=== PATIENT | female | born 1955 | race Caucasian/White ===

== ENCOUNTER → 2016-10-25 | Outpatient (CLI) | payer OTHER ==
[~2016-10-25] MED LIST: ACET-1256 PO; ALBU1AER9 INH; AMLO-110 PO; ASPEC81 PO; ATOR-26 PO; BISA-16 PO; CALC667C; CYCL5TAB PO; DIPH25CA65 PO; HYDR-4715 PO; LEVO50TA6 PO; LVMI SQ; METO50TA16 PO; NLV/20 PO; NVLGI SC; PRLSR20 PO
--- NOTE | 2016-10-25 16:46 | MAMMOGRAPHY REPORT ---
UNILATERAL RIGHT DIGITAL SCREENING MAMMOGRAM TOMOSYNTHESIS WITH CAD: 10/25/2016 CLINICAL HISTORY: Asymptomatic. Personal history of breast cancer. TECHNIQUE: Right breast tomosynthesis in addition to standard 2D mammography was performed. Current study was also evaluated with a Computer Aided Detection (CAD) system. COMPARISON: Comparison is made to exams dated: 09/24/2015 mammogram, 01/15/2014 mammogram, 08/30/2012 m ammogram, 08/29/2011 mammogram, 08/27/2010 mammogram, and 08/05/2009 mammogram - [facility]. BREAST COMPOSITION: The tissue of the right breast is almost entirely fatty. FINDINGS: There is mild vascular calcification and scattered benign round calcifications in the righ t breast. No suspicious mass, architectural distortion or cluster of microcalcifications is seen. IMPRESSION: ACR BI-RADS CATEGORY 1: NEGATIVE There is no mammographic evidence of malignancy. A 1 year screening mammogram is recommended. The p atient will receive written notification of the results. Approximately 10% of breast cancers are not detected with mammography. A negative mammographic repor t should not delay biopsy if a clinically suggestive mass is present. Livia Hart M.D. ay/:10/25/2016 15:38:33 Bell Clerk: Lolis PAREDES(R)(M), [facility] letter sent: Normal 1/2 BI-RADS Code: ACR BI-RADS Category 1: Negative
== END | disposition home or self-care (01) ==
LOC: C.MAMM 12:26
PROVIDERS: ATTEND Internal Medicine Hematology
DX: Z12.31 Encounter for screening mammogram for malignant neoplasm of breast (principal); Z90.12 Acquired absence of left breast and nipple

== ENCOUNTER → 2017-04-06 | Day surgery (SDC) | payer OTHER ==
[~2017-04-06] MED LIST changes: +CLINDAMYCIN 600 MG/54 ML D5W IV SCH; +D5W AND 1/4NSS 1000 ML IV SCH
--- NOTE | 2017-04-06 10:48 | History and Physical ---
History & Physical Date of Service Apr 06, 2017. History & Physical CC: Malfunctioning av fistula HPI: Mrs. Amy Valdes, is a 60-year-old female with a history of severe comorbidities and CKD stage V, that is now with need for dialysis. She underwent left arm brachiocephalic fistula approximately 3 years ago at [facility]. She had to undergo several re-interventions for this fistula, according to her. The fistula was never used until recently on April 27, now that it is felt that she will be dialysis dependent. They attempted accessing, but could not get an adequate run. She states that they were having problems with clotting of the lines. She underwent transpostion of her fistla. She now is having problems with her dialysis runs. She is admitted for a fistulogram with possible intervetnion. She denies any changes in mental status. She denies any nausea, vomiting, fevers, or chills. She denies any changes in her bowel habits. She does still make a minimal amount of urine daily. She does have some numbness and tingling in her fingertips occasionally. She does, however, have cramping, claudication-type pain in her hand 1-2 times a week when she uses the left arm. She does not complain of any rest pain in the left hand. Review of systems is pertinent as described above, otherwise negative on 11- point review of systems. Past Medical History: 1. CKD stage V. 2. Diabetes. 3. Hypertension. 4. Hyperlipidemia. 5. COPD. 6. CAD. 7. Asthma. 8. Obesity. 9. Benign neoplasm of the colon. 10. Anemia of chronic renal failure. 11. Benign neoplasm parathyroid. 12. Breast cancer -- S[facility]ITA. Past Surgical History: 1. Left arm brachiocephalic fistula with multiple revisions. 2. Biopsy of neck and chest. 3. Colonoscopy with biopsy of the rectum. 4. Parathyroidectomy. 5. Mastectomy. 6. Cataract repair. Family History: Noncontributory. Social History: Previous smoker, 1-1/2 packs per day, but quit several years ago. Denies alcohol or illicit drugs. ALLERGIES: PENICILLIN, ROHAN INHIBITORS, CODEINE. Current Home Medications: 1. Albuterol. 2. Amlodipine 5 mg p.o. daily. 3. Ascorbic acid 500 mg p.o. daily. 4. Aspirin 81 mg p.o. daily. 5. Atorvastatin mg p.o. daily. 6. Cyclobenzaprine 5 mg p.o. b.i.d. p.r.n. pain. 7. Hydralazine 50 mg p.o. b.i.d. 8. Insulin Glargine. 9. Insulin lispro. 10. Levothyroxine 50 mcg p.o. daily. 11. Metoprolol 50 mg p.o. b.i.d. 12. Omeprazole 20 mg p.o. daily. 13. Tamoxifen 20 mg oral tablet. 14. Tramadol 25 mg p.o. q.4h. p.r.n. pain. Physical Examination: Vitals: Pulse 78, blood pressure 113/82, respiratory rate 18, SpO2 95% on room air, weight 125.3 kilograms. General: No acute distress, alert and oriented x3. HEENT: Head is normocephalic, atraumatic. Pupils are equally round and reactive to light. Extraocular muscles were intact. Neck: Neck is supple without JVD at this time. Cardiac: Heart is regular rate and rhythm. No murmurs, gallops, or rubs. Abdomen: Soft, nontender, nondistended, positive bowel sounds. Extremities: Left arm with edema and ecchymoses along entire forearm. She has an easily palpable thrill from the antecubital fossa extending distally down the cephalic vein distribution into the hand. She also has a palpable thrill in the forearm along the basilic vein distribution extending proximally up toward the axilla. She has several well-healed incisions in the arm from her previous brachiocephalic fistula. There is no thrill and no pulsatility in the arm cephalic vein outflow tract. The fingers on the left hand were cool to the touch. There is some purple and hyperemic discoloration. She does have capillary refill. Sensation was intact in all digits. Strength was 5/5 on bacon slicer in the left hand. She has lately palpable radial pulse. Neuro: Cranial nerves 2-12 are grossly intact. Extremities: Strength and sensation is intact in all 4 extremities and symmetric. Assessment and Plan: Malfunctioning av fistula Plan: Patient is admitted for a fistulogram with possible intervention of her left cephalic vein fistula. I have discussed the risks options and benefits of the procedure with the patient. The patient understands the risks options and benefits and agrees to the procedure.
== END | disposition home or self-care (01) ==
LOC: C.ACU 10:15
PROVIDERS: ATTEND Surgery Vascular Surgery
DX: T82.590A Other mechanical complication of surgically created arteriovenous fistula, initial encounter (principal); Z53.8 Procedure and treatment not carried out for other reasons; E11.22 Type 2 diabetes mellitus with diabetic chronic kidney disease; I12.0 Hypertensive chronic kidney disease with stage 5 chronic kidney disease or end stage renal disease; N18.6 End stage renal disease; D63.1 Anemia in chronic kidney disease; Z99.2 Dependence on renal dialysis; I25.10 Atherosclerotic heart disease of native coronary artery without angina pectoris; E78.5 Hyperlipidemia, unspecified; J44.9 Chronic obstructive pulmonary disease, unspecified; E66.9 Obesity, unspecified; Z87.891 Personal history of nicotine dependence; Z79.4 Long term (current) use of insulin; Z79.82 Long term (current) use of aspirin; Z79.899 Other long term (current) drug therapy; X58.XXXA Exposure to other specified factors, initial encounter

== ENCOUNTER → 2017-04-13 | Day surgery (SDC) | payer OTHER ==
[~2017-04-13] VITALS: Ht 160 cm; Wt 120.0 kg
[~2017-04-13] MED LIST changes: +FENTANYL CITRATE INJ 50 MCG/1 ML 2 ML VIAL IV ONE; +FENTANYL CITRATE INJ 50 MCG/1 ML 2 ML VIAL ONE; +LIDOCAINE HCL 1% 20 ML VIAL INJ ONE; +MIDAZOLAM HCL 1 MG/ML 2ML VIAL IV ONE; +MIDAZOLAM HCL 1 MG/ML 2ML VIAL ONE; +ONDANSETRON INJ 2 MG/ML 2 ML VIAL IV ONE; +ONDANSETRON INJ 2 MG/ML 2 ML VIAL ONE; +OPTIRAY 300 IV ONE
--- NOTE | 2017-04-13 08:47 | History and Physical ---
History & Physical Date of Service Apr 13, 2017. History & Physical CC: Malfunctioning av fistula HPI: Mrs. Amy Valdes, is a 60-year-old female with a history of severe comorbidities and CKD stage V, that is now with need for dialysis. She underwent left arm brachiocephalic fistula approximately 3 years ago at [facility]. She had to undergo several re-interventions for this fistula, according to her. The fistula was never used until recently on April 27, now that it is felt that she will be dialysis dependent. They attempted accessing, but could not get an adequate run. She states that they were having problems with clotting of the lines. She underwent transpostion of her fistla. She now is having problems with her dialysis runs. She is admitted for a fistulogram with possible intervetnion. She denies any changes in mental status. She denies any nausea, vomiting, fevers, or chills. She denies any changes in her bowel habits. She does still make a minimal amount of urine daily. She does have some numbness and tingling in her fingertips occasionally. She does, however, have cramping, claudication-type pain in her hand 1-2 times a week when she uses the left arm. She does not complain of any rest pain in the left hand. Review of systems is pertinent as described above, otherwise negative on 11- point review of systems. Past Medical History: 1. CKD stage V. 2. Diabetes. 3. Hypertension. 4. Hyperlipidemia. 5. COPD. 6. CAD. 7. Asthma. 8. Obesity. 9. Benign neoplasm of the colon. 10. Anemia of chronic renal failure. 11. Benign neoplasm parathyroid. 12. Breast cancer -- [facility]. Past Surgical History: 1. Left arm brachiocephalic fistula with multiple revisions. 2. Biopsy of neck and chest. 3. Colonoscopy with biopsy of the rectum. 4. Parathyroidectomy. 5. Mastectomy. 6. Cataract repair. Family History: Noncontributory. Social History: Previous smoker, 1-1/2 packs per day, but quit several years ago. Denies alcohol or illicit drugs. ALLERGIES: PENICILLIN, ROHAN INHIBITORS, CODEINE. Current Home Medications: 1. Albuterol. 2. Amlodipine 5 mg p.o. daily. 3. Ascorbic acid 500 mg p.o. daily. 4. Aspirin 81 mg p.o. daily. 5. Atorvastatin mg p.o. daily. 6. Cyclobenzaprine 5 mg p.o. b.i.d. p.r.n. pain. 7. Hydralazine 50 mg p.o. b.i.d. 8. Insulin Glargine. 9. Insulin lispro. 10. Levothyroxine 50 mcg p.o. daily. 11. Metoprolol 50 mg p.o. b.i.d. 12. Omeprazole 20 mg p.o. daily. 13. Tamoxifen 20 mg oral tablet. 14. Tramadol 25 mg p.o. q.4h. p.r.n. pain. Physical Examination: Vitals: Pulse 78, blood pressure 113/82, respiratory rate 18, SpO2 95% on room air, weight 125.3 kilograms. General: No acute distress, alert and oriented x3. HEENT: Head is normocephalic, atraumatic. Pupils are equally round and reactive to light. Extraocular muscles were intact. Neck: Neck is supple without JVD at this time. Cardiac: Heart is regular rate and rhythm. No murmurs, gallops, or rubs. Abdomen: Soft, nontender, nondistended, positive bowel sounds. Extremities: Left arm with edema and ecchymoses along entire forearm. She has an easily palpable thrill from the antecubital fossa extending distally down the cephalic vein distribution into the hand. She also has a palpable thrill in the forearm along the basilic vein distribution extending proximally up toward the axilla. She has several well-healed incisions in the arm from her previous brachiocephalic fistula. There is no thrill and no pulsatility in the arm cephalic vein outflow tract. The fingers on the left hand were cool to the touch. There is some purple and hyperemic discoloration. She does have capillary refill. Sensation was intact in all digits. Strength was 5/5 on office services associate in the left hand. She has lately palpable radial pulse. Neuro: Cranial nerves 2-12 are grossly intact. Extremities: Strength and sensation is intact in all 4 extremities and symmetric. Assessment and Plan: Malfunctioning av fistula Plan: Patient is admitted for a fistulogram with possible intervention of her left cephalic vein fistula. I have discussed the risks options and benefits of the procedure with the patient. The patient understands the risks options and benefits and agrees to the procedure.
[2017-04-13 11:30] VITALS: BP 152/72; PULSE 77; TEMP 36.9; O2SAT 96; Ht 160 cm; Wt 120.0 kg
[2017-04-13 12:39] VITALS: BP 152/72; PULSE 77; TEMP 36.9; O2SAT 96
--- NOTE | 2017-04-13 12:43 | History & Physical Bridge Note ---
H&P Re-Evaluation Bridge Note: I have examined the patient, reviewed the History & Physical and in the interval since the performance of the History & Physical I have noted the following changes of clinical significance: No changes noted
--- NOTE | 2017-04-13 12:43 | Procedure Note ---
Pre-Mod Sedation Assessment General Date of Moderate Sedation: Apr 13, 2017. Vital Signs: Vital Signs Past 12 Hours Date Time Temp Pulse Resp B/P (MAP) Pulse Ox O2 Delivery O2 Flow Rate FiO2 04/13/17 12:39 36.9 77 20 152/72 96 Room Air 04/13/17 11:30 36.9 77 20 152/72 (98) 96 Room Air Pre-Sedation Airway Assessment Oral Cavity: WNL Short Thick Neck: Yes Hx of Sleep Apnea: No Smoking Status: Former Smoker Mallampati Classification: Class I ASA Classification: Class III Notes The planned sedation has been discussed with the patient and consent obtained. I have identified the patient, determined the appropriateness of sedation and have assessed the patient immediately prior to the procedure. All medicine(s) and interventions are by my order.
--- NOTE | 2017-04-13 14:12 | Procedure Note ---
Post-Moderate Sedation Plan General Date of Moderate Sedation Apr 13, 2017. Vital Signs: Vital Signs Past 12 Hours Date Time Temp Pulse Resp B/P (MAP) Pulse Ox O2 Delivery O2 Flow Rate FiO2 04/13/17 12:39 36.9 77 20 152/72 96 Room Air 04/13/17 11:30 36.9 77 20 152/72 (98) 96 Room Air Review - Discharge Plan Post Moderate Sedation Plan: On clinical assessment, the patient appears to have tolerated the conscious sedation without complications. Patient is recovering as anticipated. Patient will continue to be monitored by nursing and may be discharged when conscious sedation discharge criteria are met.
--- NOTE | 2017-04-13 14:12 | [facility] Post Operative Brief Note ---
Immediate Operative Summary Operative Date Apr 13, 2017. Pre-Operative Diagnosis malfunctioning fistula Post-Operative Diagnosis same Procedure(s) Performed Fistulogram, Percutaneous Transluminal Angioplasty Venous, Moderate Concious Sedation [address] Sparks Blind Stitch Machine Operator Surgeon(s) Smita Clark Fellow Estimated Blood Loss 10 ml Findings good thrill Specimens none Anesthesia Local with sedation Complication(s) None Disposition
--- NOTE | 2017-04-13 14:14 | Discharge Instructions ---
Discharge Instructions Date of Service Apr 13, 2017. Visit Reason for Visit: End Stage Renal Disease Discharge Discharge Diagnosis / Problem: Malfunctioning left arm fisutla Discharge Goals Goal(s): Therapeutic intervention Activity Recommendations Activity Limitations: per Instructions/Follow-up section Anesthesia . Post Anesthesia Instructions: If you have had General Anesthesia or IV Sedation: * Do not drive today. * Resume driving when surgeon permits. * Do not make important decisions or sign legal documents today. * Call surgeon for: 1. Temperature elevations greater than 101 degrees F. 2. Uncontrollable pain. 3. Excessive bleeding. 4. Persistent nausea and vomiting. 5. Medication intolerance (nausea, vomiting or rash). * For nausea and vomiting use only clear liquids such as: tea, soda, bouillon until nausea subsides, then gradually increase diet as tolerated. * If you have any concerns or questions, call your surgeon's office. If physician is unavailable and it is an emergency, call 911 or go to the nearest emergency room. . Instructions / Follow-Up Instructions / Follow-Up Call [phone] to schedule a follow up appointment if one not already scheduled. SPECIAL CARE INSTRUCTIONS: Medications: * Continue to take your medications as directed. If you have been given a prescription for Plavix, please fill it immediately and take as directed. Incision Care: * Your puncture site may have some bruising and minor swelling for about one week. * You will have a small dressing covering your puncture site. You may remove the dressing after 24 hours and shower. You may let the warm soapy water run over it, but be sure to dry the puncture site well and keep it dry. * DO NOT IMMERSE THE INCISION IN A TUB/POOL/etc. UNTIL HEALED. * Puncture sites should be kept covered with a band-aid until it begins to heal. Restrictions: * Depending on whether you leg or arm was punctured to access the arteries, you will be required to lay flat, hold your arm still, or both, for about 4 hours after the procedure to prevent bleeding. * Limit your activity for the first 48 hours. You may walk and go up and down steps. Avoid excessive bending or movement at the puncture site. Possible Complications: * Excessive Swelling - after blood flow is improved you may notice increased swelling in the lower legs. This is a normal response. This usually depends on the amount of blockages in the leg, how long they have been there prior to your procedure and how much blood flow was restored. Elevating your legs will help to improve this. Please notify our office ([phone] ) if the swelling does not go away after lying in bed overnight. * Infection/Drainage/Bleeding - Drainage or bleeding from the puncture site should be minimal. If you have excessive bleeding or drainage, call our office ([phone]) right away. * Pain - You may experience some mild pain or soreness at your puncture site. If your pain does not improve, please contact our office ([phone]). Call your doctor and seek emergent treatment if you develop: * Temperature above 101 degrees * Any fever or chills * Any redness or purulent drainage from the puncture site * Any new dusky/blue colored toes or feet with coolness or sharp or aching pain. SKIN IRRITATION: * You may experience some redness and/or swelling in the area where radiation was administered. If any skin irritation occurs, please contact your family physician. FOLLOW UP VISIT: Keep any scheduled doctor appointments. Diet Recommendations Recommended Home Diet: resume previous diet Procedures Procedures Performed: Fistulogram, Percutaneous Transluminal Angioplasty Venous, Moderate Concious Sedation 1319 to 1409 Pending Studies Studies pending at discharge: no Medical Emergencies . Who to Call and When: Medical Emergencies: If at any time you feel your situation is an emergency, please call 911 immediately. . Non-Emergent Contact Non-Emergency issues call your: Surgeon . . "Provider Documentation" section prepared by David Sparks. .
[2017-04-13 14:20] VITALS: BP 174/79; PULSE 74; TEMP 36.6; O2SAT 97
--- NOTE | 2017-04-13 15:04 | DIAGNOSTIC IMAGING REPORT ---
DATE OF PROCEDURE: 04/13/2017 PREOPERATIVE DIAGNOSIS: Malfunctioning left forearm loop arteriovenous fistula. POSTOPERATIVE DIAGNOSIS: Same. PROCEDURES: 1. Left forearm loop fistulogram. 2. INTERNAL CONSULTANT of venous outflow with 6 x 80 mm balloon. 3. INTERNAL CONSULTANT of loop fistula with 10 x 40 mm balloon. 4. INTERNAL CONSULTANT of fistula with 12 x 40 mm balloon. 5. Conscious sedation for 50 minutes. SURGEON: Dr. David Sparks. REGISTERED SAFETY ENGINEER: Dr. Smita Kelley. ANESTHESIA: Local plus conscious sedation. ESTIMATED BLOOD LOSS: 10 mL. IV FLUIDS: 50. URINE OUTPUT: Not recorded. FLUOROSCOPY TIME: 6.8 minutes. Milligrays 28. Contrast 50 mL. COMPLICATIONS: None apparent. CONDITION: Stable to PACU. INDICATIONS: Amy Valdes is a 62-year-old female with end-stage renal disease on hemodialysis who has been having issues with prolonged bleeding after needles have been removed from her left forearm loop AV fistula. She was advised of the risks and benefits of undergoing a fistulogram and agreed to undergo this procedure. PROCEDURE: The patient was brought into the operative suite. She was prepped and draped in the usual fashion. A timeout occurred. Her forearm AV fistula was accessed percutaneously with a micropuncture needle and a fistulogram was performed through the micropuncture catheter. This showed an area of stenosis proximally as well as proximal to her previously placed outflow stent distal to the stent. The basilic and cephalic veins in the upper arm and the subclavian and SVC were patent without signs of stenosis. At this time, the sheath was exchanged for a 6-Maldivian sheath. A Glidewire was placed and tried to cannulate the stent. A glide catheter was then placed over Glidewire and together the wire was passed into the distal outflow. A 6 x 80 mm balloon was then used over the stenosis distal to the stent. This was inflated for approximately a minute and then deflated and was then used at the stenosis at the proximal end of the stent. This balloon was removed and a fistulogram was performed showing resolution of stenosis. A 10 x 40 balloon was then used on the stenosis just distal to the 6-Maldivian sheath. This showed improvement but still residual stenosis. The balloon was removed and the sheath was upsized to a 7-Maldivian sheath and a 12 x 40 mm [place] balloon was used and was inflated. This resolved the stenosis. There pulsatility in the fistula had decreased and there was a good thrill. Sheaths were removed and pressure was held. Hemostasis was obtained. The patient was then transferred to the PACU in stable condition. Dr. David Sparks was present and scrubbed for the entirety of the case. ANDRES
[2017-04-13 15:10] VITALS: BP 145/69; PULSE 73; TEMP 36.6; O2SAT 99
== END | disposition home or self-care (01) ==
LOC: C.ACU 11:21
PROVIDERS: ATTEND Surgery Vascular Surgery
DX: T82.898A Other specified complication of vascular prosthetic devices, implants and grafts, initial encounter (principal); Y83.2 Surgical operation with anastomosis, bypass or graft as the cause of abnormal reaction of the patient, or of later complication, without mention of misadventure at the time of the procedure; N18.5 Chronic kidney disease, stage 5; E11.22 Type 2 diabetes mellitus with diabetic chronic kidney disease; I12.0 Hypertensive chronic kidney disease with stage 5 chronic kidney disease or end stage renal disease; E78.5 Hyperlipidemia, unspecified; J44.9 Chronic obstructive pulmonary disease, unspecified; I25.10 Atherosclerotic heart disease of native coronary artery without angina pectoris; E66.9 Obesity, unspecified; D63.1 Anemia in chronic kidney disease; F17.200 Nicotine dependence, unspecified, uncomplicated; Z79.82 Long term (current) use of aspirin; Z79.4 Long term (current) use of insulin; Z79.899 Other long term (current) drug therapy

== ENCOUNTER → 2017-08-08 | Day surgery (SDC) | payer OTHER ==
[2017-08-01 09:05] VITALS: BMI 48.0
[~2017-08-08] VITALS: Ht 160 cm; Wt 125.0 kg
[~2017-08-08] MED LIST changes: +ALBU18002 INH; -ALBU1AER9 INH; +ATROPINE SULFATE 0.1 MG/ML 5ML SYR IV PRN; -CALC667C; +EpHEDrine SULFATE INJ 50 MG/ML AMP IV PRN; -FENTANYL CITRATE INJ 50 MCG/1 ML 2 ML VIAL IV ONE; +FENTANYL CITRATE INJ 50 MCG/1 ML 2 ML VIAL IV PRN; +FLUMAZENIL 0.1 MG/1 ML 10 ML VIAL IV PRN; -HYDR-4715 PO; +HYDR-4716 PO; +LABETALOL HCL IV 5 MG/ML 20ML IV PRN; +MEPERIDINE HCL 25 MG/ML CARP IV PRN; -MIDAZOLAM HCL 1 MG/ML 2ML VIAL IV ONE; +NALOXONE HCL 0.4 MG/1 ML VIAL/CARP IV PRN; -NVLGI SC; +NVLGI/PEN SQ; +NVLGIPEN SQ; -ONDANSETRON INJ 2 MG/ML 2 ML VIAL IV ONE; +ONDANSETRON INJ 2 MG/ML 2 ML VIAL IV PRN; -ONDANSETRON INJ 2 MG/ML 2 ML VIAL ONE; +PHENYLEPHRINE 100MCG/ML 5ML SYR IV PRN; +SEVE1TAB PO; +SODIUM CHLORIDE 0.9% 1000ML 1,000 ML IV SCH
[2017-08-08 10:13] VITALS: BP 152/77; PULSE 87; TEMP 36.5; O2SAT 96; Ht 160 cm; Wt 125.0 kg
--- NOTE | 2017-08-08 10:26 | History and Physical ---
History & Physical Date of Service Aug 08, 2017. History & Physical History & Physical CC: Malfunctioning av fistula HPI: Mrs. Amy Valdes, is a 60-year-old female with a history of severe comorbidities and CKD stage V, that is now with need for dialysis. She underwent left arm brachiocephalic fistula approximately [address] [facility]. She had to undergo several re-interventions for this fistula, according to her. The fistula was never used until recently on April 27, now that it is felt that she will be dialysis dependent. They attempted accessing, but could not get an adequate run. She states that they were having problems with clotting of the lines. She underwent transpostion of her fistla. She now is having problems with her dialysis runs. She is admitted for a fistulogram with possible intervetnion. She denies any changes in mental status. She denies any nausea, vomiting, fevers, or chills. She denies any changes in her bowel habits. She does still make a minimal amount of urine daily. She does have some numbness and tingling in her fingertips occasionally. She does, however, have cramping, claudication-type pain in her hand 1-2 times a week when she uses the left arm. She does not complain of any rest pain in the left hand. Review of systems is pertinent as described above, otherwise negative on 11- point review of systems. Past Medical History: 1. CKD stage V. 2. Diabetes. 3. Hypertension. 4. Hyperlipidemia. 5. COPD. 6. CAD. 7. Asthma. 8. Obesity. 9. Benign neoplasm of the colon. 10. Anemia of chronic renal failure. 11. Benign neoplasm parathyroid. 12. Breast cancer -- [facility]. Past Surgical History: 1. Left arm brachiocephalic fistula with multiple revisions. 2. Biopsy of neck and chest. 3. Colonoscopy with biopsy of the rectum. 4. Parathyroidectomy. 5. Mastectomy. 6. Cataract repair. Family History: Noncontributory. Social History: Previous smoker, 1-1/2 packs per day, but quit several years ago. Denies alcohol or illicit drugs. ALLERGIES: PENICILLIN, ROHAN INHIBITORS, CODEINE. Current Home Medications: 1. Albuterol. 2. Amlodipine 5 mg p.o. daily. 3. Ascorbic acid 500 mg p.o. daily. 4. Aspirin 81 mg p.o. daily. 5. Atorvastatin mg p.o. daily. 6. Cyclobenzaprine 5 mg p.o. b.i.d. p.r.n. pain. 7. Hydralazine 50 mg p.o. b.i.d. 8. Insulin Glargine. 9. Insulin lispro. 10. Levothyroxine 50 mcg p.o. daily. 11. Metoprolol 50 mg p.o. b.i.d. 12. Omeprazole 20 mg p.o. daily. 13. Tamoxifen 20 mg oral tablet. 14. Tramadol 25 mg p.o. q.4h. p.r.n. pain. Physical Examination: Vitals: Pulse 78, blood pressure 113/82, respiratory rate 18, SpO2 95% on room air, weight 125.3 kilograms. General: No acute distress, alert and oriented x3. HEENT: Head is normocephalic, atraumatic. Pupils are equally round and reactive to light. Extraocular muscles were intact. Neck: Neck is supple without JVD at this time. Cardiac: Heart is regular rate and rhythm. No murmurs, gallops, or rubs. Abdomen: Soft, nontender, nondistended, positive bowel sounds. Extremities: Left arm with edema and ecchymoses along entire forearm. She has an easily palpable thrill from the antecubital fossa extending distally down the cephalic vein distribution into the hand. She also has a palpable thrill in the forearm along the basilic vein distribution extending proximally up toward the axilla. She has several well-healed incisions in the arm from her previous brachiocephalic fistula. There is no thrill and no pulsatility in the arm cephalic vein outflow tract. The fingers on the left hand were cool to the touch. There is some purple and hyperemic discoloration. She does have capillary refill. Sensation was intact in all digits. Strength was 5/5 on hogshead liner in the left hand. She has lately palpable radial pulse. Neuro: Cranial nerves 2-12 are grossly intact. Extremities: Strength and sensation is intact in all 4 extremities and symmetric. Assessment and Plan: Malfunctioning av fistula Plan: Patient is admitted for a fistulogram with possible intervention of her left cephalic vein fistula. I have discussed the risks options and benefits of the procedure with the patient. The patient understands the risks options and benefits and agrees to the procedure.
--- NOTE | 2017-08-08 13:37 | [facility] Post Operative Brief Note ---
Immediate Operative Summary Operative Date Aug 08, 2017. Pre-Operative Diagnosis malfuctioning fistula Post-Operative Diagnosis venous stenosis Procedure(s) Performed Fistulogram Left Arm, Percutaneous Transluminal Angioplasty Peripheral Venous Surgeon Dr. Sparks Business Law Professor Surgeon(s) none Estimated Blood Loss 10 ml Findings Consistent with Post-Op Diagnosis Specimens none Drains None Anesthesia Type MAC Complication(s) none Disposition Disposition:
--- NOTE | 2017-08-08 13:38 | Discharge Instructions ---
Discharge Instructions Date of Service Aug 08, 2017. Visit Reason for Visit: End Stage Renal Disease -On Hemodialysis Discharge Discharge Diagnosis / Problem: Malfunctioning fistula Discharge Goals Goal(s): Therapeutic intervention Activity Recommendations Activity Limitations: per Instructions/Follow-up section Anesthesia . Post Anesthesia Instructions: If you have had General Anesthesia or IV Sedation: * Do not drive today. * Resume driving when surgeon permits. * Do not make important decisions or sign legal documents today. * Call surgeon for: 1. Temperature elevations greater than 101 degrees F. 2. Uncontrollable pain. 3. Excessive bleeding. 4. Persistent nausea and vomiting. 5. Medication intolerance (nausea, vomiting or rash). * For nausea and vomiting use only clear liquids such as: tea, soda, bouillon until nausea subsides, then gradually increase diet as tolerated. * If you have any concerns or questions, call your surgeon's office. If physician is unavailable and it is an emergency, call 911 or go to the nearest emergency room. . Instructions / Follow-Up Instructions / Follow-Up Call [phone] with any questions or concerns. SPECIAL CARE INSTRUCTIONS: Medications: * Continue to take your medications as directed. If you have been given a prescription for Plavix, please fill it immediately and take as directed. Incision Care: * Your puncture site may have some bruising and minor swelling for about one week. * You will have a small dressing covering your puncture site. You may remove the dressing after 24 hours and shower. You may let the warm soapy water run over it, but be sure to dry the puncture site well and keep it dry. * DO NOT IMMERSE THE INCISION IN A TUB/POOL/etc. UNTIL HEALED. * Puncture sites should be kept covered with a band-aid until it begins to heal. Restrictions: * Depending on whether you leg or arm was punctured to access the arteries, you will be required to lay flat, hold your arm still, or both, for about 4 hours after the procedure to prevent bleeding. * Limit your activity for the first 48 hours. You may walk and go up and down steps. Avoid excessive bending or movement at the puncture site. Possible Complications: * Excessive Swelling - after blood flow is improved you may notice increased swelling in the lower legs. This is a normal response. This usually depends on the amount of blockages in the leg, how long they have been there prior to your procedure and how much blood flow was restored. Elevating your legs will help to improve this. Please notify our office ([phone] ) if the swelling does not go away after lying in bed overnight. * Infection/Drainage/Bleeding - Drainage or bleeding from the puncture site should be minimal. If you have excessive bleeding or drainage, call our office ([phone]) right away. * Pain - You may experience some mild pain or soreness at your puncture site. If your pain does not improve, please contact our office ([phone]). Call your doctor and seek emergent treatment if you develop: * Temperature above 101 degrees * Any fever or chills * Any redness or purulent drainage from the puncture site * Any new dusky/blue colored toes or feet with coolness or sharp or aching pain. SKIN IRRITATION: * You may experience some redness and/or swelling in the area where radiation was administered. If any skin irritation occurs, please contact your family physician. FOLLOW UP VISIT: Keep any scheduled doctor appointments. Diet Recommendations Recommended Home Diet: resume previous diet Procedures Procedures Performed: Fistulogram Left Arm, Percutaneous Transluminal Angioplasty Peripheral Venous Pending Studies Studies pending at discharge: no Medical Emergencies . Who to Call and When: Medical Emergencies: If at any time you feel your situation is an emergency, please call 911 immediately. . Non-Emergent Contact Non-Emergency issues call your: Surgeon . . "Provider Documentation" section prepared by David Sparks. .
[2017-08-08 13:41] VITALS: BP 138/84; PULSE 82; TEMP 36.3; O2SAT 96
--- NOTE | 2017-08-08 13:42 | [facility] Operative Report ---
Operative Report Operative Date Aug 08, 2017. Pre-Operative Diagnosis malfuctioning fistula Post-Operative Diagnosis venous stenosis Procedure(s) Performed Fistulogram Left Arm, Percutaneous Transluminal Angioplasty Peripheral Venous Surgeon Dr. Sparks Consulting Services Manager Surgeon(s) none Estimated Blood Loss 10 ml Findings venous stenosis, no residual Specimens none Anesthesia MAC Complication(s) None Disposition Indications This is a 62-year-old female left forearm AV fistula. She did have intervention in the past with stenting of the fistula. She now comes to the angiogram suite with increased venous pressures. A fistulogram was recommended with possible intervention. I have discussed the risks options and benefits of the procedure with the patient. The patient understands the risks options and benefits and agrees to the procedure. Description of Procedure The patient was taken to the angiogram suite and placed in the supine position. The left arm was then prepped and draped in a sterile manner. Local anesthetic was administered and a percutaneous puncture was then made of the proximal portion of the left arm AV fistula using micropuncture technique. Micropuncture wire and sheath were then inserted. A fistulogram was then performed. Fistulogram performed showed a patent fistula until the area just beyond the previously placed stent. Just beyond the stent there was approximately 80% narrowing of the vein. The rest the venous outflow up through the superior vena cava was normal. No evidence of stenosis was seen. We then exchanged the micropuncture sheath to a 5 Mohawk sheath. An 035 Glidewire was used to traverse the lesion. Once this was done a 7 x 8 balloon was inserted. The area was balloon numerous times until no residual stenosis was noted at the end of the ballooning. The wire balloon was then removed. The sheath was then pulled and pressure was applied. Adequate hemostasis was obtained. The patient left the angiogram suite in good condition and tolerated the procedure well. I attest to the content of the Intraoperative Record and any orders documented therein. Any exceptions are noted below.
--- NOTE | 2017-08-08 13:46 | Anesthesiology Progress Note ---
Anesthesia Post Op Note Date & Time Aug 08, 2017 at 13:46 Vital Signs Pain Intensity: 2 Vital Signs Past 12 Hours Date Time Temp Pulse Resp B/P (MAP) Pulse Ox O2 Delivery O2 Flow Rate FiO2 08/08/17 10:13 36.5 87 20 152/77 (102) 96 Room Air Notes Mental Status: alert / awake / arousable, participated in evaluation Pt Amnestic to Procedure: Yes Nausea / Vomiting: adequately controlled Pain: adequately controlled Airway Patency, RR, SpO2: stable & adequate BP & HR: stable & adequate Hydration State: stable & adequate Anesthetic Complications: no major complications apparent
[2017-08-08 13:55] VITALS: BP 156/82; PULSE 83; O2SAT 98
[2017-08-08 14:10] VITALS: BP 186/80; PULSE 81; TEMP 36.4; O2SAT 95
== END | disposition home or self-care (01) ==
LOC: C.ACU 09:27
PROVIDERS: ATTEND Surgery Vascular Surgery
DX: T82.898A Other specified complication of vascular prosthetic devices, implants and grafts, initial encounter (principal); Y83.2 Surgical operation with anastomosis, bypass or graft as the cause of abnormal reaction of the patient, or of later complication, without mention of misadventure at the time of the procedure; E11.22 Type 2 diabetes mellitus with diabetic chronic kidney disease; I12.0 Hypertensive chronic kidney disease with stage 5 chronic kidney disease or end stage renal disease; E78.5 Hyperlipidemia, unspecified; J44.9 Chronic obstructive pulmonary disease, unspecified; I25.10 Atherosclerotic heart disease of native coronary artery without angina pectoris; E66.9 Obesity, unspecified; D63.1 Anemia in chronic kidney disease; T82.590A Other mechanical complication of surgically created arteriovenous fistula, initial encounter; Z99.2 Dependence on renal dialysis; Z87.891 Personal history of nicotine dependence; Z79.4 Long term (current) use of insulin; Z79.82 Long term (current) use of aspirin; Z79.899 Other long term (current) drug therapy

== ENCOUNTER → 2017-10-31 | Outpatient (CLI) | payer OTHER ==
[~2017-10-31] MED LIST changes: -ASPEC81 PO; +ASPI-320 PO; -ATROPINE SULFATE 0.1 MG/ML 5ML SYR IV PRN; -CLINDAMYCIN 600 MG/54 ML D5W IV SCH; -D5W AND 1/4NSS 1000 ML IV SCH; -EpHEDrine SULFATE INJ 50 MG/ML AMP IV PRN; -FENTANYL CITRATE INJ 50 MCG/1 ML 2 ML VIAL IV PRN; -FENTANYL CITRATE INJ 50 MCG/1 ML 2 ML VIAL ONE; -FLUMAZENIL 0.1 MG/1 ML 10 ML VIAL IV PRN; -LABETALOL HCL IV 5 MG/ML 20ML IV PRN; -LIDOCAINE HCL 1% 20 ML VIAL INJ ONE; -MEPERIDINE HCL 25 MG/ML CARP IV PRN; -MIDAZOLAM HCL 1 MG/ML 2ML VIAL ONE; -NALOXONE HCL 0.4 MG/1 ML VIAL/CARP IV PRN; -ONDANSETRON INJ 2 MG/ML 2 ML VIAL IV PRN; -OPTIRAY 300 IV ONE; -PHENYLEPHRINE 100MCG/ML 5ML SYR IV PRN; -SODIUM CHLORIDE 0.9% 1000ML 1,000 ML IV SCH
--- NOTE | 2017-11-01 07:52 | MAMMOGRAPHY REPORT ---
UNILATERAL RIGHT DIGITAL SCREENING MAMMOGRAM TOMOSYNTHESIS WITH CAD: 10/31/2017 CLINICAL HISTORY: Routine screening. Patient has no complaints. Asymptomatic. Personal history of br east cancer. TECHNIQUE: Right breast tomosynthesis in addition to standard 2D mammography was performed. Current ariana carmona was also evaluated with a Computer Aided Detection (CAD) system. COMPARISON: Comparison is made to exams dated: 10/25/2016 mammogram, 09/24/2015 mammogram, 01/15/2014 ma mmogram, 09/05/2012 mammogram, 08/30/2012 mammogram, and 08/29/2011 mammogram - [facility]ter. BREAST COMPOSITION: The tissue of the right breast is almost entirely fatty. FINDINGS: There are mild to moderate vascular calcifications in the right breast. Scattered benign-a ppearing round, rim and rodlike calcifications. No new suspicious mass, architectural distortion or cluster of microcalcifications is seen. IMPRESSION: ACR BI-RADS CATEGORY 1: NEGATIVE There is no mammographic evidence of malignancy. A 1 year screening mammogram is recommended. The pa tient will receive written notification of the results. Approximately 10% of breast cancers are not detected with mammography. A negative mammographic report should not delay biopsy if a clinically suggestive mass is present. Livia Hart M.D. ay/:10/31/2017 09:26:30 Book Sorter: Leyla PAREDES(Navneet)([place]hemi)([place]), [facility] letter sent: Normal 1/2 BI-RADS Code: ACR BI-RADS Category 1: Negative
== END | disposition home or self-care (01) ==
LOC: C.MAMM 08:52
PROVIDERS: ATTEND Family Medicine
DX: Z12.31 Encounter for screening mammogram for malignant neoplasm of breast (principal)

== ENCOUNTER 2019-05-23 20:25 | Observation (INO) ==
[2019-05-23] MEDS ORDERED: ACETAMINOPHEN 1,000 MG/100 ML VIAL IV STA (21:04)
[2019-05-23] MEDS ORDERED: CALCIUM GLUCONATE 10% 1,000 MG in SODIUM CHLORIDE 0.9% 50 ML IV STA (21:12)
[2019-05-23 21:15] LABS: Basophils # (auto) 0.01 K/uL (0-0.2); Basophils % (auto) 0.3 %; Hematocrit (blood only) 34.5 % (37-47); Hemoglobin 11.2 g/dL (12.0-16.0); Immature Granulocytes # (auto) 0.02 K/uL (0.00-0.02); Immature Granulocytes % (auto) 0.6 %; Lymphocytes # (auto) 0.12 K/uL (1.2-3.4); Lymphocytes % (auto) 3.4 %; Mean Corpuscular Hemoglobin 29.6 pg (25-34); Mean Corpuscular Hgb Conc 32.5 g/dL (32-36); Mean Corpuscular Volume 91.3 fL (80-100); Mean Platelet Volume 10.1 fL (7.4-10.4); Monocytes # (auto) 0.15 K/uL (0.11-0.59); Monocytes % (auto) 4.2 %; Neutrophils # (auto) 3.23 K/uL (1.4-6.5); Neutrophils % (auto) 91.5 %; Platelet Count 128 K/uL (130-400); RDW Coefficient of Variation 14.8 % (11.5-14.5); RDW Standard Deviation 49.6 fL (36.4-46.3); Red Blood Count 3.78 M/uL (4.2-5.4); White Blood Count 3.53 K/uL (4.8-10.8)
[2019-05-23] MEDS ORDERED: CALCIUM GLUCONATE 10% 10 ML VIAL IV ONE (21:15)
[2019-05-23 21:23] LABS: iSTAT Creatinine 5.6 mg/dl (0.6-1.3); iSTAT Hemoglobin 12.2 g/dl (12.0-16.0); iSTAT Ionized Calcium 1.2 mmol/l (1.12-1.32); iSTAT Potassium 3.8 mEq/L (3.3-5.0)
[2019-05-23 21:26] LABS: INR 1.1 (0.9-1.1); Partial Thromboplastin Ratio 0.9; Partial Thromboplastin Time 24.8 Seconds (21.0-31.0); Prothrombin Time 10.9 Seconds (9.0-12.0)
[2019-05-23] MEDS ORDERED: VANCOMYCIN HCL 2,750 MG in SODIUM CHLORIDE 0.9% 500 ML IV ONE (21:36)
[2019-05-23] MEDS ORDERED: VANCOMYCIN CONSULT ACTIVE PRN (21:36)
[2019-05-23] MEDS ORDERED: CEFEPIME 1,000 MG in SYRINGE 0 ML IV STA (21:41)
[2019-05-23 21:49] LABS: Albumin Globulin Ratio 0.7 (0.9-2); Albumin Level 3.2 gm/dl (3.4-5.0); BUN Creatinine Ratio 9.4 (10-20); Bilirubin,Total 0.9 mg/dl (0.2-1); Calcium 9.6 mg/dl (8.5-10.1); Creatinine Clr Calc Pharmacy 13.7 ml/min; Est GFR (African American) 8.9; Est GFR (Non-African American) 7.7; Globulin 4.3 gm/dl (2.5-4.0); Potassium 3.7 mmol/L (3.5-5.1); Total Protein 7.5 gm/dl (6.4-8.2)
[2019-05-23 21:55] LABS: Influenza A virus by PCR Neg for Influ A (Neg); Influenza B virus by PCR Neg for Influ B (Neg)
[2019-05-23 21:59] LABS: Base Excess VBG -2.3 mEq/L; pH VBG 7.35 (7.36-7.41)
[2019-05-23 22:00] LABS: Beta-Hydroxybutyrate 8.81 mg/dl (0.2-2.81)
[2019-05-23 22:03] LABS: Appearance Urine Cloudy (Clear); Bacteria Urine Automated 1+ (Negative); Bilirubin Urine Negative (Negative); Blood Urine Trace (Negative); Color Urine Yellow; Glucose Urine UA 3+ (Negative); Ketones Urine Negative (Negative); Leukocyte Esterase Urine Negative (Negative); Nitrite Urine Negative (Negative); Protein Urine 2+ (Negative); Specific Gravity Urine 1.021 (1.000-1.030); Urobilinogen Urine Negative (Negative)
--- NOTE | 2019-05-23 22:04 | XRay Report ---
XR chest 1V portable CLINICAL HISTORY: Sepsis COMPARISON STUDY: 01/02/2014 FINDINGS: There is persistent left upper lobe volume loss with superior tenting of the left hilum. Th is is felt to be chronic. There is no lobar consolidation. There is mild interstitial thickening. Cli nical correlation in regards to mild pulmonary vascular congestion is recommended. An interstitial in flammatory processes could appear similar.[ IMPRESSION: 1. Stable chronic changes in the left hemithorax 2. No evidence of lobar consolidation 3. Interstitial thickening. This likely represents either mild pulmonary vascular congestion or inter stitial inflammatory process. Clinical and radiographic follow-up is recommended. Electronically signed by: Ronn Dudley M.D. 05/23/2019 10:03 PM
[2019-05-23] MEDS ORDERED: DEXTROSE 50% 50 ML SYRINGE IV PRN (22:14)
[2019-05-23] MEDS ORDERED: GLUCAGON FOR INJ 1 MG VIAL SQ PRN (22:14)
[2019-05-23] MEDS ORDERED: DKA GOAL RANGE 150-250 mg/dl ONE (22:14)
[2019-05-23] MEDS ORDERED: GLUCOSE 40% GEL 15 GM TUBE PO PRN (22:14)
[2019-05-23] MEDS ORDERED: CARBOHYDRATES FOR HYPOGLYCEMIA PO PRN (22:14)
[2019-05-23] MEDS ORDERED: ED DKA INSULIN DRIP ONE (22:14)
[2019-05-23] MEDS ORDERED: GLUCOSE 10 TABS/TUBE PO PRN (22:14)
[2019-05-23] MEDS ORDERED: INSULIN REGULAR 250 UNITS in SODIUM CHLORIDE 0.9% 247.5 ML IV SCH (22:15)
[2019-05-23 22:25] LABS: RBC Urine Automated 0-4 /hpf (0-4)
[2019-05-23] MEDS ORDERED: NovoLIN-R BOLUS FROM BAG IV ONE (22:45)
[2019-05-23] MEDS ORDERED: POTASSIUM CHLORIDE 20 MEQ TABCR PO STA (23:06)
[2019-05-23] MEDS ORDERED: FUROSEMIDE 100 MG in SYRINGE 0 ML IV ONE (23:15)
[2019-05-23 23:33] LABS: Magnesium 1.6 mg/dl (1.8-2.4); Thyroid Stimulating Hormone 1.91 uIu/ml (0.300-4.500)
[2019-05-23] MEDS ORDERED: METOPROLOL TARTRATE 50 MG TAB ONE (23:33)
--- NOTE | 2019-05-23 23:44 | History & Physical Report ---
Date of Service May 23, 2019 Assessment & Plan (1) Acute hypoxemic respiratory failure: Multifactorial : Bronchitis/atypical pneumonia, possible sepsis given elevated procalcitonin pulmonary congestion, ESRD on HD Troponin elevation secondary to sepsis, uncontrolled blood pressure, kidney dysfunction thrombocytopenia secondary to sepsis rule out HIT Hyperglycemic crisis secondary to sepsis DM 2, insulin requiring, suboptimal control as of recent hemoglobin A1c of 8.24 April 2019 hx nonocclusive CAD as per records hypertension, slightly elevated chronic anemia secondary to ESRD, hemoglobin at baseline breast cancer L status post surgery ongoing tamoxifen Rx history R great toe osteomyelitis status post antibiotic Rx past tobacco abuse Medical telemetry Supplemental O2 Lasix 1 dose Doxycycline, nebs for atypical pneumonia/bronchitis causing hypoxemia Trend troponin, TTE if with progression IV insulin overlapping with home basal insulin Nephrology consult RE dialysis management (ER provider already in touch with Dr. De Dios) HIT screen DVT prophylaxis. SCDs RE thrombocytopenia Full code Total critical care time was 45 minutes. History of Present Illness Chief Complaint: High sugars, weakness, cough Primary Care Provider: Jorge Franco DO History obtained from patient, family, and records. Medical history significant for nonocclusive CAD as per records, hypertension, DM 2, insulin requiring, ESRD on HD, asthma as per records, chronic anemia baseline hemoglobin of 11, breast cancer L status post surgery ongoing tamoxifen Rx, history R great toe osteomyelitis status post antibiotic Rx, past tobacco abuse. 1 week history of dry cough symptoms occasionally productive of clear sputum. No aspiration. Possible sick contacts with having a respiratory tract infection. Fair appetite. Patient outpatient fistulogram contemplated for malfunctioning AV fistula last 05/21/2019 deferred due to hyperglycemia, BSG 300s as per patient. Patient seen to the ER for evaluation. Subsequently discharged home. At home, persistent hyperglycemia noted, BSG readings persistently noted to be high as per patient. Patient claims to be compliant with home insulin Rx. Worsening shortness of breath, chills, cough cold symptoms. Patient denies chest pain. Right great toe wound healing as per patient. At the ER, BSG noted to be in the 700s. IV insulin started at the ER. Vancomycin and Cefepime given at the ER for sepsis. Patient somewhat lethargic at the ER. Medical History as above Hemodialysis Monday Surgical History : left mastectomy, vascular procedures, cholecystectomy, cataract surgery, hysterectomy, parathyroidectomy Family History : Heart disease, brain cancer, alcoholism, thyroid disease, diabetes Personal/Social history : Past tobacco abuse, no EtOH intake, disabled Allergies Allergy/AdvReac Type Severity Reaction Status Date / Time codeine Allergy Intermediate rash, Verified 05/23/19 22:23 Note: but was also taking penicillin. Penicillins Allergy Intermediate hives, Verified 05/23/19 22:23 family allergy to PCN oxycodone AdvReac Intermediate NAUSEA/VOMI Verified 05/23/19 22:23 TING ROHAN Inhibitors AdvReac Mild hyperkalemi Verified 05/23/19 22:23 a Home Medications Home Medications Medication Instructions Recorded Confirmed Type albuterol sulfate 2 puff INHALATION Q6H PRN 08/09/18 05/23/19 History amlodipine [Norvasc] 5 mg PO QAM 08/09/18 05/23/19 History aspirin [Aspir-81] 81 mg PO HS 08/09/18 05/23/19 History atorvastatin [Lipitor] 80 mg PO HS 08/09/18 05/23/19 History cinacalcet [Sensipar] 30 mg PO HS 08/09/18 05/23/19 History gabapentin 300 mg PO BID 08/09/18 05/23/19 History hydralazine 25 mg PO TID 08/09/18 05/23/19 History levothyroxine 50 mcg PO QAM 08/09/18 05/23/19 History metoprolol tartrate [Lopressor] 50 mg PO BID 08/09/18 05/23/19 History omeprazole 20 mg PO QAM 08/09/18 05/23/19 History sevelamer HCl [Renagel] 1,600 mg PO TID 08/09/18 05/23/19 History tamoxifen 20 mg PO QAM 08/09/18 05/23/19 History cholecalciferol (vitamin D3) 400 unit PO QAM 11/14/18 05/23/19 History [Vitamin D3] diphenhydramine-acetaminophen 2 tab PO HS PRN 11/14/18 05/23/19 History [Tylenol PM Extra Strength] escitalopram oxalate [Lexapro] 10 mg PO QAM 11/14/18 05/23/19 History insulin detemir U-100 [Levemir 25 unit SUBCUT BID 05/14/19 05/23/19 History U-100 Insulin] insulin lispro [Humalog U-100 20 unit SUBCUT TID 05/14/19 05/23/19 History Insulin] Past Med/Surg History Medical History Asthma (Acute) CAD (coronary artery disease) (Acute) CKD (chronic kidney disease) requiring chronic dialysis (Acute) 3x week--mon, wed, fri COPD (chronic obstructive pulmonary disease) (Acute) Callus (Acute) Diabetes mellitus with diabetic polyneuropathy (Acute) GERD (gastroesophageal reflux disease) (Acute) Hallux rigidus of right foot (Acute) Hallux rigidus, left foot (Acute) Hyperlipemia (Acute) Hypertension (Acute) 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 Sparks 08/21/18 History of umbilical hernia repair Nausea and vomiting after administration of anesthetic agent Family History Sister Family history of reaction to anesthesia wakes up with a headache Family history of diabetes mellitus Social History Preferred Language: Spanish Communication Ability: Effective Hearing Ability: Normal Documentation Analyst Required: No Beliefs That Will Affect Care: None marital status: Current Living Situation: Spouse current occupational status: disabled Other Information That Helps Us Care for You: No Feels Safe at Home: Yes Safety Concerns: Feels Safe At This Time Smoking Status: Former smoker Age Quit Using Tobacco: 33 ; Second Hand Exposure: Yes ; Hx Alcohol Use: No Hx Substance Use: No Other Diet Comment: RENAL DIET during the past year weight has: decreased > 10 lbs Review of Systems Review of Systems: As per HPI, all 10 systems reviewed, all other ROS negative Physical Exam Physical Exam: GENERAL: Comfortable, obese, episodic lethargy, no respiratory distress SKIN: Pallor, warm HEENT: Pale palpebral conjunctivae, no ptosis, dry buccal mucosa NECK : Supple, short neck, no tenderness CHEST : Decreased breath sounds, no tenderness HEART : Tachycardic, no obvious murmurs ABDOMEN: Some distention, nontender EXTREMITIES : Minimal LE swelling, no LE tenderness, dressing over right great toe wound NEUROLOGIC : Episodic lethargy, no facial asymmetry, no other gross focality Results & Data Vital Signs (Past 12 Hours) Vital Signs Temp Pulse Resp BP Pulse Ox 05/23/19 23:15 107 H 17 118/72 95 05/23/19 23:00 109 H 17 114/62 95 05/23/19 22:45 113 H 17 104/64 94 05/23/19 22:30 113 H 18 125/74 94 05/23/19 22:15 118 H 24 140/78 95 05/23/19 22:01 37.7 C H 119 H 18 95 05/23/19 22:00 120 H 22 116/66 94 05/23/19 21:58 119 H 24 121/73 94 05/23/19 21:05 130 H 21 168/105 H 100 05/23/19 21:00 133 H 21 99 05/23/19 20:52 129 H 22 05/23/19 20:49 39.5 C H 131 H 15 148/98 H 83 L 05/23/19 20:34 130 H 22 148/98 H Laboratory Results Laboratory Results WBC 3.53 K/uL (4.8-10.8) L 05/23/19 21:03 RBC 3.78 M/uL (4.2-5.4) L 05/23/19 21:03 Hgb 11.2 g/dL (12.0-16.0) L 05/23/19 21:03 POC Hgb 12.2 g/dl (12.0-16.0) 05/23/19 21:09 Hct 34.5 % (37-47) L 05/23/19 21:03 POC Hct 36 % (37-47) L 05/23/19 21:09 MCV 91.3 fL (80-100) 05/23/19 21:03 MCH 29.6 pg (25-34) 05/23/19 21:03 MCHC 32.5 g/dL (32-36) 05/23/19 21:03 RDW Std Deviation 49.6 fL (36.4-46.3) H 05/23/19 21:03 RDW Coeff of Erendira 14.8 % (11.5-14.5) H 05/23/19 21:03 Plt Count 128 K/uL (130-400) L 05/23/19 21: MPV 10.1 fL (7.4-10.4) 05/23/19 21:03 Immature Gran % (Auto) 0.6 % 05/23/19 21:03 Neut % (Auto) 91.5 % 05/23/19 21:03 Lymph % (Auto) 3.4 % 05/23/19 21:03 Addison % (Auto) 4.2 % 05/23/19 21:03 Eos % (Auto) 0.0 % 05/23/19 21:03 Baso % (Auto) 0.3 % 05/23/19 21:03 Immature Gran # (Auto) 0.02 K/uL (0.00-0.02) 05/23/19 21:03 Neut # (Auto) 3.23 K/uL (1.4-6.5) 05/23/19 21:03 Lymph # (Auto) 0.12 K/uL (1.2-3.4) L 05/23/19 21:03 Addison # (Auto) 0.15 K/uL (0.11-0.59) 05/23/19 21:03 Eos # (Auto) 0.00 K/uL (0-0.5) 05/23/19 21:03 Baso # (Auto) 0.01 K/uL (0-0.2) 05/23/19 21:03 PT 10.9 Seconds (9.0-12.0) 05/23/19 21:03 INR 1.1 (0.9-1.1) 05/23/19 21:03 APTT 24.8 Seconds (21.0-31.0) 05/23/19 21:03 PTT Ratio 0.9 05/23/19 21:03 VBG pH 7.35 (7.36-7.41) L 05/23/19:42 VBG pCO2 43 mmHg (38-50) 05/23/19 21:42 VBG pO2 34 mmHg 05/23/19 21:42 VBG HCO3 23 mmol/L 05/23/19 21:42 VBG O2 Saturation 64.0 % 05/23/19 21:42 VBG Base Excess -2.3 mEq/L 05/23/19 21:42 Barometric Pressure 734.9 mm/Hg 05/23/19 21:42 POC Sodium 125 mEq/L (135-144) L 05/23/19 21:09 Sodium 124 mmol/L (136-145) L 05/23/19 21:03 POC Potassium 3.8 mEq/L (3.3-5.0) 05/23/19 21:09 Potassium 3.7 mmol/L (3.5-5.1) 05/23/19 21:03 POC Chloride 89 mEq/L (101-112) L 05/23/19 21:09 Chloride 88 mmol/L (98-107) L 05/23/19 21:03 Carbon Dioxide 23 mmol/L (21-32) 05/23/19 21:03 POC Total CO2 24 mEq/l (24-31) 05/23/19 21:09 Anion Gap 13.0 (3-11) H 05/23/19 21:03 POC Anion Gap 16.0 mmol/L (16-25) 05/23/19 21:09 POC BUN 47 mg/dl (7-18) H 05/23/19 21:09 BUN 52 mg/dl (7-18) H 05/23/19 21:03 Creatinine 5.49 mg/dl (0.6-1.2) H* 05/23/19 21:03 POC Creatinine 5.6 mg/dl (0.6-1.3) H* 05/23/19 21:09 Est Cr Clr Drug Dosing 13.7 ml/min 05/23/19 21:03 Est GFR ( Amer) 8.9 05/23/19 21:03 Est GFR (Non-Af Amer) 7.7 05/23/19 21:03 BUN/Creatinine Ratio 9.4 (10-20) L 05/23/19 21:03 Glucose 716 mg/dl (70-99) H* 05/23/19 21:03 POC Glucose (other) 677 mg/dl (70-99) H* 05/23/19 21:09 Osmolality 316 mOsm/kg (280-300) H 05/23/19 21:42 POC Lactic Acid Akin 1.62 mmol/L (0.90-1.70) 05/23/19 21:07 Lactate 1.5 mmol/L (0.4-2.0) 05/23/19 21:42 Calcium 9.6 mg/dl (8.5-10.1) 05/23/19 21:03 POC Ioniz Calcium Juliann 1.20 mmol/l (1.12-1.32) 05/23/19 21:09 Phosphorus 4.4 mg/dl (2.5-4.9) 05/23/19 21:03 Magnesium 1.6 mg/dl (1.8-2.4) L 05/23/19 21:03 Total Bilirubin 0.9 mg/dl (0.2-1) 05/23/19 21:03 AST 24 U/L (15-37) 05/23/19 21:03 ALT 27 U/L (12-78) 05/23/19 21:03 Alkaline Phosphatase 287 U/L (45-117) H 05/23/19 21:03 Troponin I 0.157 ng/ml (0-0.045) H* 05/23/19 21:03 Total Protein 7.5 gm/dl (6.4-8.2) 05/23/19 21:03 Albumin 3.2 gm/dl (3.4-5.0) L 05/23/19 21:03 Globulin 4.3 gm/dl (2.5-4.0) H 05/23/19 21:03 Albumin/Globulin Ratio 0.7 (0.9-2) L 05/23/19 21:03 Lipase 160 U/L (73-393) 05/23/19 21:03 Beta-Hydroxybutyric Acd 8.81 mg/dl (0.2-2.81) H 05/23/19 21:03 Procalcitonin 22.21 ng/ml (0-0.5) H 05/23/19 21:03 TSH 1.910 uIu/ml (0.300-4.500) 05/23/19 21:03 Urine Color Yellow 05/23/19 20:39 Urine Appearance Cloudy (Clear) A 05/23/19 20:39 Urine pH 5.0 (4.5-7.5) 05/23/19 20:39 Ur Specific [place] 1.021 (1.000-1.030) 05/23/19 20:39 Urine Protein 2+ (Negative) H 05/23/19 20:39 Urine Glucose (UA) 3+ (Negative) H 05/23/19 20:39 Urine Ketones Negative (Negative) 05/23/19 20:39 Urine Blood Trace (Negative) H 05/23/19 20:39 Urine Nitrite Negative (Negative) 05/23/19 20:39 Urine Bilirubin Negative (Negative) 05/23/19 20:39 Urine Urobilinogen Negative (Negative) 05/23/19 20:39 Ur Leukocyte Esterase Negative (Negative) 05/23/19 20:39 Urine WBC (Auto) 1-5 /hpf (0-5) 05/23/19 20:39 Urine RBC (Auto) 0-4 /hpf (0-4) 05/23/19 20:39 U Hyaline Cast (Auto) 1-5 /lpf (0-5) 05/23/19 20:39 U Epithel Cells (Auto) 10-20 /lpf (0-5) H 05/23/19 20:39 Urine Bacteria (Auto) 1+ (Negative) H 05/23/19 20:39 Urine Yeast Not Reportable 05/23/19 20:39 Influenza Type A (PCR) Neg for Influ A (Neg) 05/23/19 20:39 Influenza Type B (PCR) Neg for Influ B (Neg) 05/23/19 20:39 Diagnostic Findings Chest x-ray : 1. Stable chronic changes in the left hemithorax 2. No evidence of lobar consolidation 3. Interstitial thickening. This likely represents either mild pulmonary vascular congestion or interstitial inflammatory process. Clinical and radiographic follow-up is recommended. EKG as per my interpretation : Rate 130, sinus tachycardia, normal axis, ST depression inferior, lateral leads CT head initial read: No acute intracranial hemorrhage, mass-effect, or edema. Periventricular small vessel ischemic change. Diffuse parenchymal atrophy.
--- NOTE | 2019-05-24 00:23 | Emergency Department Note ---
Entered by Cecilia Jones acting as a scribe for History of Present Illness General Chief complaint: Hyperglycemia Stated complaint: WEAKNESS Time Seen by Provider: 05/23/19 20:58 Source: patient History of Present Illness Onset (ago): hour(s) (last night) Location: head (general) Pain Consistency: + other (worsening) Quality: + other (chills) Associated symptoms: + denies other symptoms (diarrhea, blood in urine and stools); no nausea/vomiting The patient is a 64 year old female who presents to the Emergency Room with complaints of worsening chills beginning last night. The patient reports an intermittent cough. She denies shortness of breath. She denies nausea, vomiting, diarrhea, and blood in her stool and urine. The patient states she gets dialysis Mondays, Wednesdays, and Fridays. She reports receiving a full session yesterday. Home Medications Home Medications Medication Instructions Recorded Confirmed Type albuterol sulfate 2 puff INHALATION Q6H PRN 08/09/18 05/23/19 History amlodipine [Norvasc] 5 mg PO QAM 08/09/18 05/23/19 History aspirin [Aspir-81] 81 mg PO HS 08/09/18 05/23/19 History atorvastatin [Lipitor] 80 mg PO HS 08/09/18 05/23/19 History cinacalcet [Sensipar] 30 mg PO HS 08/09/18 05/23/19 History gabapentin 300 mg PO BID 08/09/18 05/23/19 History hydralazine 25 mg PO TID 08/09/18 05/23/19 History levothyroxine 50 mcg PO QAM 08/09/18 05/23/19 History metoprolol tartrate [Lopressor] 50 mg PO BID 08/09/18 05/23/19 History omeprazole 20 mg PO QAM 08/09/18 05/23/19 History sevelamer HCl [Renagel] 1,600 mg PO TID 08/09/18 05/23/19 History tamoxifen 20 mg PO QAM 08/09/18 05/23/19 History cholecalciferol (vitamin D3) 400 unit PO QAM 11/14/18 05/23/19 History [Vitamin D3] diphenhydramine-acetaminophen 2 tab PO HS PRN 11/14/18 05/23/19 History [Tylenol PM Extra Strength] escitalopram oxalate [Lexapro] 10 mg PO QAM 11/14/18 05/23/19 History insulin detemir U-100 [Levemir 25 unit SUBCUT BID 05/14/19 05/23/19 History U-100 Insulin] insulin lispro [Humalog U-100 20 unit SUBCUT TID 05/14/19 05/23/19 History Insulin] Allergies Allergy/AdvReac Type Severity Reaction Status Date / Time codeine Allergy Intermediate rash, Verified 05/23/19 22:23 Note: but was also taking penicillin. Penicillins Allergy Intermediate hives, Verified 05/23/19 22:23 family allergy to PCN oxycodone AdvReac Intermediate NAUSEA/VOMI Verified 05/23/19 22:23 TING ROHAN Inhibitors AdvReac Mild hyperkalemi Verified 05/23/19 22:23 a Past Med/Surg History Medical History Asthma (Acute) CAD (coronary artery disease) (Acute) CKD (chronic kidney disease) requiring chronic dialysis (Acute) 3x week--mon, wed, fri COPD (chronic obstructive pulmonary disease) (Acute) Callus (Acute) Diabetes mellitus with diabetic polyneuropathy (Acute) GERD (gastroesophageal reflux disease) (Acute) Hallux rigidus of right foot (Acute) Hallux rigidus, left foot (Acute) Hyperlipemia (Acute) Hypertension (Acute) 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 Sparks 08/21/18 History of umbilical hernia repair Nausea and vomiting after administration of anesthetic agent Family History Sister Family history of reaction to anesthesia wakes up with a headache Family history of diabetes mellitus Social History Preferred Language: Faroese Communication Ability: Effective Hearing Ability: Normal Photography Professor Required: No Beliefs That Will Affect Care: None marital status: Current Living Situation: Spouse current occupational status: disabled Feels Safe at Home: Yes Smoking Status: Former smoker Age Quit Using Tobacco: 33 ; Second Hand Exposure: Yes ; Hx Alcohol Use: No Hx Substance Use: No Other Diet Comment: RENAL DIET during the past year weight has: decreased > 10 lbs Review of Systems See HPI for pertinent positives & negatives. and A total of 10 systems reviewed and were otherwise negative Physical Exam Vital Signs Vital Signs - 24 hr 05/23/19 20:34 05/23/19 20:49 05/23/19 20:52 Temperature 39.5 C H Temperature Source Oral Sepsis Recent Fever Within 48 Hours Yes Sepsis New/Unexplained Change in Mental Status No Sepsis Action Taken by Nursing No Action Required Pulse Rate 130 H 131 H 129 H Pulse Rate from SpO2 Sensor Respiratory Rate 22 15 22 Respiratory Effort / Characteristics Non-Labored Spontaneous Respiratory Depth Normal Respiratory Pattern Regular Blood Pressure 148/98 H 148/98 H Blood Pressure Mean 114 114 Pulse Oximetry 83 L Oxygen Delivery Method Room Air 05/23/19 21:00 05/23/19 21:05 05/23/19 21:58 Temperature Temperature Source Sepsis Recent Fever Within 48 Hours Sepsis New/Unexplained Change in Mental Status Sepsis Action Taken by Nursing Pulse Rate 133 H 130 H 119 H Pulse Rate from SpO2 Sensor 133 H 130 H 120 H Respiratory Rate 21 21 24 Respiratory Effort / Characteristics Respiratory Depth Respiratory Pattern Blood Pressure 168/105 H 121/73 Blood Pressure Mean 126 89 Pulse Oximetry 99 100 94 Oxygen Delivery Method 05/23/19 22:00 05/23/19 22:01 05/23/19 22:15 Temperature 37.7 C H Temperature Source Sepsis Recent Fever Within 48 Hours Sepsis New/Unexplained Change in Mental Status Sepsis Action Taken by Nursing Pulse Rate 120 H 119 H 118 H Pulse Rate from SpO2 Sensor 119 H 120 H 118 H Respiratory Rate 22 18 24 Respiratory Effort / Characteristics Respiratory Depth Respiratory Pattern Blood Pressure 116/66 140/78 Blood Pressure Mean 82 98 Pulse Oximetry 94 95 95 Oxygen Delivery Method 05/23/19 22:30 05/23/19 22:45 05/23/19 23:00 Temperature Temperature Source Sepsis Recent Fever Within 48 Hours Sepsis New/Unexplained Change in Mental Status Sepsis Action Taken by Nursing Pulse Rate 113 H 113 H 109 H Pulse Rate from SpO2 Sensor 113 H 113 H 110 H Respiratory Rate 18 17 17 Respiratory Effort / Characteristics Respiratory Depth Respiratory Pattern Blood Pressure 125/74 104/64 114/62 Blood Pressure Mean 91 77 79 Pulse Oximetry 94 94 95 Oxygen Delivery Method 05/23/19 23:15 Temperature Temperature Source Sepsis Recent Fever Within 48 Hours Sepsis New/Unexplained Change in Mental Status Sepsis Action Taken by Nursing Pulse Rate 107 H Pulse Rate from SpO2 Sensor 107 H Respiratory Rate 17 Respiratory Effort / Characteristics Respiratory Depth Respiratory Pattern Blood Pressure 118/72 Blood Pressure Mean 87 Pulse Oximetry 95 Oxygen Delivery Method GENERAL: She is ill-appearing and distressed. HENT: Exam performed. Head: Normocephalic and atraumatic. Right Ear: External ear normal. No mastoid tenderness. Left Ear: External ear normal. No mastoid tenderness. Mouth/Throat: The oropharynx is clear and moist. No trismus in the jaw. No dental abscesses or uvula swelling. No oropharyngeal exudate or tonsillar abscesses. EYES: Conjunctivae and EOM are normal. Pupils are equal, round, and reactive to light. Right eye exhibits no discharge. Left eye exhibits no discharge. No scleral icterus. NECK: Normal range of motion. Neck supple. No JVD present. No spinous process tenderness present. No carotid bruit present. No rigidity. No tracheal deviation and normal range of motion present. No Brudzinski's sign and no Kernig's sign noted. CV: Tachycardic rate, regular rhythm, normal heart sounds and intact distal pulses. There is no peripheral edema. Palpable radial pulses bue. PULM/CHEST: Rales bilaterally. Effort normal and breath sounds normal. No respiratory distress. No stridor. She has no wheezes. Chest Wall: She exhibits no tenderness. ABD: Obese. The abdomen is soft. Bowel sounds are normal. She has no distension. No mass is present. There is no tenderness. There is no rebound, no guarding, no Castellnaos's sign and no tenderness at McBurney's point. Rovsig negative MUSC/SKEL: Normal range of motion. There is no peripheral edema, tenderness or deformity. Left upper extremity AV fistula with palpable thrill. LYMPH: No cervical adenopathy. NEURO: She is alert and oriented to person, place, and time. She has normal strength. No cranial nerve deficit or sensory deficit. Coordination and gait normal. GCS eye subscore is 4. GCS verbal subscore is 5. GCS motor subscore is 6. cerbellar tests wnl. SKIN: Skin is warm and dry. She is not diaphoretic. PSYCH: She has a normal mood and affect. Her behavior is normal. Judgment and thought content normal. Course 2100: Past medical records reviewed. The patient was evaluated in room C04. A complete history and physical exam was performed. Immediate IV access was obtained on the patient. Patient was hypoxic on room air, supplemental oxygen was given which improved the patient's oxygen saturation. Sepsis initial order was set was placed. The patient's POC lactic acid was 1.62. Her EKG is concerning for hypokalemia. Calcium gluconate 1 g IV ordered. Given the patient's blood pressure is stable at this time and her POC lactic acid is within normal limits and the fact that she has end-stage renal disease patient who is due for dialysis tomorrow morning, no IV fluids will be started at this time. It is thought that the patient is not in septic shock at this time. 2230: Upon reevaluation, the patient's vital signs were improved. She is afebrile with an improved heart rate. The patient's oxygen saturation is within normal limits on 2L nasal cannula. The patient had a WBC of 3.53 and a procalcitonin of 22.21. Given the patient's fever, tachycardia, WBC, and procalcitonin, the patient was treated as sepsis. Her blood pressure was normal, and she is not in septic shock. The patient's POC lactic acid is normal. Given the patient is due for dialysis tomorrow, no fluids were administered at this time. She was treated with antibiotic vancomycin. The patient reports an allergy to penicillin. I discussed with pharmacy, and the patient is OK with Cefepime. The patient tolerated the Cefepime well, with no respiratory distress and no rash. Labs showed serum glucose 716, and an anion gap of 13. The patient had a calculated osmolality of 350 with an osmolar gap of 11. Patient was started on an insulin drip, no bolus. Due to the patient's dialysis and and stage renal disease, no potassium was administered at this time. The patient had an elevated troponin which is thought to be a trend due to her end stage renal disease. 2250: I discussed findings and results with the patient. She verbalized agreement of the treatment plan. I spoke with Dr. Conklin of the [facility] who wanted me to speak with nephrology about the patient needing emergent dialysis. I explained to him I did not think that the patient needed emergent dialysis as the potassium was within normal limits and the oxygen saturation was stable on 2 L nasal cannula. 2255: I spoke with Dr. Emerson - Nephrology who states the patient does not need to be transferred for emergent dialysis given the potassium being within normal limits and the patient's oxygen saturation stable on 2 L nasal cannula. I relayed this message to Dr. Conklin who agrees to evaluate the patient for further management. I offered to speak with the commissary agent in the ICU for possible placement in the ICU given the patient will be on insulin drip with potassium 3.7, he states he will see the patient to determine if she needs to go to the ICU. Administered Medications Vancomycin HCl 2,750 mg/ (Sodium Chloride) 555 mls @ 200 mls/hr IV NOW ONE Stop: 05/24/19 00:22 Last Admin: 05/23/19 21:49 Dose: 200 mls/hr Documented by: [id number] Insulin Human Regular 250 (units/ Sodium Chloride) 250 mls @ 10 mls/hr IV .Q24H JARRELL; Protocol Stop: 06/22/19 22:14 Last Titration: 05/24/19 00:00 Dose: 10 units/hr, 10 mls/hr Documented by: [id number] Cosigned by: [id number] Admin: 05/23/19 22:47 Dose: 10 units/hr, 10 mls/hr Documented by: [id number] Cosigned by: [id number] Discontinued Medications Calcium Gluconate (Calcium Gluconate 10%) Confirm Administered Dose 1,000 mg IV .STK-MED ONE Stop: 05/23/19 21:16 Last Admin: 05/23/19 21:26 Dose: Not Given Documented by: [id number] Acetaminophen (Ofirmev) 1,000 mg in 100 mls @ 400 mls/hr IV NOW STA Stop: 05/23/19 21:18 Last Infusion: 05/23/19 21:41 Dose: 0 mls/hr Documented by: [id number] Admin: 05/23/19 21:26 Dose: 400 mls/hr Documented by: [id number] Calcium Gluconate 1,000 mg/ (Sodium Chloride) 60 mls @ 240 mls/hr IV NOW STA Stop: 05/23/19 21:26 Last Infusion: 05/23/19 21:44 Dose: 0 mls/hr Documented by: [id number] Admin: 05/23/19 21:26 Dose: 240 mls/hr Documented by: [id number] Cefepime HCl 1,000 mg/ Syringe 11.3 mls @ 5.5 mls/min IV NOW STA; Protocol Stop: 05/23/19 21:43 Last Admin: 05/23/19 22:11 Dose: 5.5 mls/min Documented by: [id number] Furosemide 100 mg/ Syringe 10 mls @ 4 mls/min IV ONE ONE Stop: 05/23/19 23:17 Last Admin: 05/23/19 23:30 Dose: 4 mls/min Documented by: [id number] Insulin Human Regular (Novolin R Bolus From Bag) 10 units IV ONE ONE Stop: 05/23/19 22:46 Last Admin: 05/23/19 22:48 Dose: 10 units Documented by: [id number] Cosigned by: [id number] Metoprolol Tartrate (Lopressor) Confirm Administered Dose 50 mg .ROUTE .STK-MED ONE Stop: 05/23/19 23:34 Last Admin: 05/23/19 23:36 Dose: 50 mg Documented by: [id number] Potassium Chloride (Klor-Con M20) 40 meq PO NOW STA Stop: 05/23/19 23:07 Last Admin: 05/23/19 23:29 Dose: 40 meq Documented by: [id number] Medical Decision Making Medical Records Attestation: I reviewed the patient's medical records. Home Medications Current Medication List: was personally reviewed by me Laboratory Data Attestation: I reviewed the patient's lab results. Result diagrams: 05/23/19 21:03 05/23/19 21:03 Lab Results 05/23/19 05/23/19 05/23/19 Range/Units 20:39 20:39 21:03 WBC 3.53 L (4.8-10.8) K/uL RBC 3.78 L (4.2-5.4) M/uL Hgb 11.2 L (12.0-16.0) g/dL POC Hgb (12.0-16.0) g/dl Hct 34.5 L (37-47) % POC Hct (37-47) % MCV 91.3 (80-100) fL MCH 29.6 (25-34) pg MCHC 32.5 (32-36) g/dL RDW Std Deviation 49.6 H (36.4-46.3) fL RDW Coeff of Erendira 14.8 H (11.5-14.5) % Plt Count 128 L (130-400) K/uL MPV 10.1 (7.4-10.4) fL Immature Gran % (Auto) 0.6 % Neut % (Auto) 91.5 % Lymph % (Auto) 3.4 % [place] % (Auto) 4.2 % Eos % (Auto) 0.0 % Baso % (Auto) 0.3 % Immature Gran # (Auto) 0.02 (0.00-0.02) K/uL Neut # (Auto) 3.23 (1.4-6.5) K/uL Lymph # (Auto) 0.12 L (1.2-3.4) K/uL [place] # (Auto) 0.15 (0.11-0.59) K/uL Eos # (Auto) 0.00 (0-0.5) K/uL Baso # (Auto) 0.01 (0-0.2) K/uL PT (9.0-12.0) Seconds INR (0.9-1.1) APTT (21.0-31.0) Seconds PTT Ratio VBG pH (7.36-7.41) VBG pCO2 (38-50) mmHg VBG pO2 mmHg VBG HCO3 mmol/L VBG O2 Saturation % VBG Base Excess mEq/L Barometric Pressure mm/Hg POC Sodium (135-144) mEq/L Sodium (136-145) mmol/L POC Potassium (3.3-5.0) mEq/L Potassium (3.5-5.1) mmol/L POC Chloride (101-112) mEq/L Chloride (98-107) mmol/L Carbon Dioxide (21-32) mmol/L POC Total CO2 (24-31) mEq/l Anion Gap (3-11) POC Anion Gap (16-25) mmol/L POC BUN (7-18) mg/dl BUN (7-18) mg/dl Creatinine (0.6-1.2) mg/dl POC Creatinine (0.6-1.3) mg/dl Est Cr Clr Drug Dosing ml/min Est GFR ( Amer) Est GFR (Non-Af Amer) BUN/Creatinine Ratio (10-20) Glucose (70-99) mg/dl POC Glucose (70-99) POC Glucose (other) (70-99) mg/dl Osmolality (280-300) mOsm/kg POC Lactic Acid Akin (0.90-1.70) mmol/L Lactate (0.4-2.0) mmol/L Calcium (8.5-10.1) mg/dl POC Ioniz Calcium Juliann (1.12-1.32) mmol/l Phosphorus (2.5-4.9) mg/dl Magnesium (1.8-2.4) mg/dl Total Bilirubin (0.2-1) mg/dl AST (15-37) U/L ALT (12-78) U/L Alkaline Phosphatase (45-117) U/L Troponin I (0-0.045) ng/ml Total Protein (6.4-8.2) gm/dl Albumin (3.4-5.0) gm/dl Globulin (2.5-4.0) gm/dl Albumin/Globulin Ratio (0.9-2) Lipase (73-393) U/L Beta-Hydroxybutyric Acd (0.2-2.81) mg/dl Procalcitonin (0-0.5) ng/ml TSH (0.300-4.500) uIu/ml Urine Color Yellow Urine Appearance Cloudy A (Clear) Urine pH 5.0 (4.5-7.5) Ur Specific [place] 1.021 (1.000-1.030) Urine Protein 2+ H (Negative) Urine Glucose (UA) 3+ H (Negative) Urine Ketones Negative (Negative) Urine Blood Trace H (Negative) Urine Nitrite Negative (Negative) Urine Bilirubin Negative (Negative) Urine Urobilinogen Negative (Negative) Ur Leukocyte Esterase Negative (Negative) Urine WBC (Auto) 1-5 (0-5) /hpf Urine RBC (Auto) 0-4 (0-4) /hpf U Hyaline Cast (Auto) 1-5 (0-5) /lpf U Epithel Cells (Auto) 10-20 H (0-5) /lpf Urine Bacteria (Auto) 1+ H (Negative) Urine Yeast Not Reportable Influenza Type A (PCR) Neg for Influ A (Neg) Influenza Type B (PCR) Neg for Influ B (Neg) 05/23/19 05/23/19 05/23/19 Range/Units 21:03 21:03 21:03 WBC (4.8-10.8) K/uL RBC (4.2-5.4) M/uL Hgb (12.0-16.0) g/dL POC Hgb (12.0-16.0) g/dl Hct (37-47) % POC Hct (37-47) % MCV (80-100) fL MCH (25-34) pg MCHC (32-36) g/dL RDW Std Deviation (36.4-46.3) fL RDW Coeff of Erendira (11.5-14.5) % Plt Count (130-400) K/uL MPV (7.4-10.4) fL Immature Gran % (Auto) % Neut % (Auto) % Lymph % (Auto) % [place] % (Auto) % Eos % (Auto) % Baso % (Auto) % Immature Gran # (Auto) (0.00-0.02) K/uL Neut # (Auto) (1.4-6.5) K/uL Lymph # (Auto) (1.2-3.4) K/uL [place] # (Auto) (0.11-0.59) K/uL Eos # (Auto) (0-0.5) K/uL Baso # (Auto) (0-0.2) K/uL PT 10.9 (9.0-12.0) Seconds INR 1.1 (0.9-1.1) APTT 24.8 (21.0-31.0) Seconds PTT Ratio 0.9 VBG pH (7.36-7.41) VBG pCO2 (38-50) mmHg VBG pO2 mmHg VBG HCO3 mmol/L VBG O2 Saturation % VBG Base Excess mEq/L Barometric Pressure mm/Hg POC Sodium (135-144) mEq/L Sodium 124 L (136-145) mmol/L POC Potassium (3.3-5.0) mEq/L Potassium 3.7 (3.5-5.1) mmol/L POC Chloride (101-112) mEq/L Chloride 88 L (98-107) mmol/L Carbon Dioxide 23 (21-32) mmol/L POC Total CO2 (24-31) mEq/l Anion Gap 13.0 H (3-11) POC Anion Gap (16-25) mmol/L POC BUN (7-18) mg/dl BUN 52 H (7-18) mg/dl Creatinine 5.49 H* (0.6-1.2) mg/dl POC Creatinine (0.6-1.3) mg/dl Est Cr Clr Drug Dosing 13.7 ml/min Est GFR ( Amer) 8.9 Est GFR (Non-Af Amer) 7.7 BUN/Creatinine Ratio 9.4 L (10-20) Glucose 716 H* (70-99) mg/dl POC Glucose (70-99) POC Glucose (other) (70-99) mg/dl Osmolality (280-300) mOsm/kg POC Lactic Acid Akin (0.90-1.70) mmol/L Lactate (0.4-2.0) mmol/L Calcium 9.6 (8.5-10.1) mg/dl POC Ioniz Calcium Juliann (1.12-1.32) mmol/l Phosphorus (2.5-4.9) mg/dl Magnesium (1.8-2.4) mg/dl Total Bilirubin 0.9 (0.2-1) mg/dl AST 24 (15-37) U/L ALT 27 (12-78) U/L Alkaline Phosphatase 287 H (45-117) U/L Troponin I (0-0.045) ng/ml Total Protein 7.5 (6.4-8.2) gm/dl Albumin 3.2 L (3.4-5.0) gm/dl Globulin 4.3 H (2.5-4.0) gm/dl Albumin/Globulin Ratio 0.7 L (0.9-2) Lipase (73-393) U/L Beta-Hydroxybutyric Acd 8.81 H (0.2-2.81) mg/dl Procalcitonin 22.21 H (0-0.5) ng/ml TSH (0.300-4.500) uIu/ml Urine Color Urine Appearance (Clear) Urine pH (4.5-7.5) Ur Specific [place] (1.000-1.030) Urine Protein (Negative) Urine Glucose (UA) (Negative) Urine Ketones (Negative) Urine Blood (Negative) Urine Nitrite (Negative) Urine Bilirubin (Negative) Urine Urobilinogen (Negative) Ur Leukocyte Esterase (Negative) Urine WBC (Auto) (0-5) /hpf Urine RBC (Auto) (0-4) /hpf U Hyaline Cast (Auto) (0-5) /lpf U Epithel Cells (Auto) (0-5) /lpf Urine Bacteria (Auto) (Negative) Urine Yeast Influenza Type A (PCR) (Neg) Influenza Type B (PCR) (Neg) 05/23/19 05/23/19 05/23/19 Range/Units 21:03 21:03 21:03 WBC (4.8-10.8) K/uL RBC (4.2-5.4) M/uL Hgb (12.0-16.0) g/dL POC Hgb (12.0-16.0) g/dl Hct (37-47) % POC Hct (37-47) % MCV (80-100) fL MCH (25-34) pg MCHC (32-36) g/dL RDW Std Deviation (36.4-46.3) fL RDW Coeff of Erendira (11.5-14.5) % Plt Count (130-400) K/uL MPV (7.4-10.4) fL Immature Gran % (Auto) % Neut % (Auto) % Lymph % (Auto) % [place] % (Auto) % Eos % (Auto) % Baso % (Auto) % Immature Gran # (Auto) (0.00-0.02) K/uL Neut # (Auto) (1.4-6.5) K/uL Lymph # (Auto) (1.2-3.4) K/uL [place] # (Auto) (0.11-0.59) K/uL Eos # (Auto) (0-0.5) K/uL Baso # (Auto) (0-0.2) K/uL PT (9.0-12.0) Seconds INR (0.9-1.1) APTT (21.0-31.0) Seconds PTT Ratio VBG pH (7.36-7.41) VBG pCO2 (38-50) mmHg VBG pO2 mmHg VBG HCO3 mmol/L VBG O2 Saturation % VBG Base Excess mEq/L Barometric Pressure mm/Hg POC Sodium (135-144) mEq/L Sodium (136-145) mmol/L POC Potassium (3.3-5.0) mEq/L Potassium (3.5-5.1) mmol/L POC Chloride (101-112) mEq/L Chloride (98-107) mmol/L Carbon Dioxide (21-32) mmol/L POC Total CO2 (24-31) mEq/l Anion Gap (3-11) POC Anion Gap (16-25) mmol/L POC BUN (7-18) mg/dl BUN (7-18) mg/dl Creatinine (0.6-1.2) mg/dl POC Creatinine (0.6-1.3) mg/dl Est Cr Clr Drug Dosing ml/min Est GFR ( Amer) Est GFR (Non-Af Amer) BUN/Creatinine Ratio (10-20) Glucose (70-99) mg/dl POC Glucose (70-99) POC Glucose (other) (70-99) mg/dl Osmolality (280-300) mOsm/kg POC Lactic Acid Akin (0.90-1.70) mmol/L Lactate (0.4-2.0) mmol/L Calcium (8.5-10.1) mg/dl POC Ioniz Calcium Juliann (1.12-1.32) mmol/l Phosphorus 4.4 (2.5-4.9) mg/dl Magnesium (1.8-2.4) mg/dl Total Bilirubin (0.2-1) mg/dl AST (15-37) U/L ALT (12-78) U/L Alkaline Phosphatase (45-117) U/L Troponin I 0.157 H* (0-0.045) ng/ml Total Protein (6.4-8.2) gm/dl Albumin (3.4-5.0) gm/dl Globulin (2.5-4.0) gm/dl Albumin/Globulin Ratio (0.9-2) Lipase 160 (73-393) U/L Beta-Hydroxybutyric Acd (0.2-2.81) mg/dl Procalcitonin (0-0.5) ng/ml TSH (0.300-4.500) uIu/ml Urine Color Urine Appearance (Clear) Urine pH (4.5-7.5) Ur Specific [place] (1.000-1.030) Urine Protein (Negative) Urine Glucose (UA) (Negative) Urine Ketones (Negative) Urine Blood (Negative) Urine Nitrite (Negative) Urine Bilirubin (Negative) Urine Urobilinogen (Negative) Ur Leukocyte Esterase (Negative) Urine WBC (Auto) (0-5) /hpf Urine RBC (Auto) (0-4) /hpf U Hyaline Cast (Auto) (0-5) /lpf U Epithel Cells (Auto) (0-5) /lpf Urine Bacteria (Auto) (Negative) Urine Yeast Influenza Type A (PCR) (Neg) Influenza Type B (PCR) (Neg) 05/23/19 05/23/19 05/23/19 Range/Units 21:03 21:07 21:09 WBC (4.8-10.8) K/uL RBC (4.2-5.4) M/uL Hgb (12.0-16.0) g/dL POC Hgb 12.2 (12.0-16.0) g/dl Hct (37-47) % POC Hct 36 L (37-47) % MCV (80-100) fL MCH (25-34) pg MCHC (32-36) g/dL RDW Std Deviation (36.4-46.3) fL RDW Coeff of Erendira (11.5-14.5) % Plt Count (130-400) K/uL MPV (7.4-10.4) fL Immature Gran % (Auto) % Neut % (Auto) % Lymph % (Auto) % [place] % (Auto) % Eos % (Auto) % Baso % (Auto) % Immature Gran # (Auto) (0.00-0.02) K/uL Neut # (Auto) (1.4-6.5) K/uL Lymph # (Auto) (1.2-3.4) K/uL [place] # (Auto) (0.11-0.59) K/uL Eos # (Auto) (0-0.5) K/uL Baso # (Auto) (0-0.2) K/uL PT (9.0-12.0) Seconds INR (0.9-1.1) APTT (21.0-31.0) Seconds PTT Ratio VBG pH (7.36-7.41) VBG pCO2 (38-50) mmHg VBG pO2 mmHg VBG HCO3 mmol/L VBG O2 Saturation % VBG Base Excess mEq/L Barometric Pressure mm/Hg POC Sodium 125 L (135-144) mEq/L Sodium (136-145) mmol/L POC Potassium 3.8 (3.3-5.0) mEq/L Potassium (3.5-5.1) mmol/L POC Chloride 89 L (101-112) mEq/L Chloride (98-107) mmol/L Carbon Dioxide (21-32) mmol/L POC Total CO2 24 (24-31) mEq/l Anion Gap (3-11) POC Anion Gap 16.0 (16-25) mmol/L POC BUN 47 H (7-18) mg/dl BUN (7-18) mg/dl Creatinine (0.6-1.2) mg/dl POC Creatinine 5.6 H* (0.6-1.3) mg/dl Est Cr Clr Drug Dosing ml/min Est GFR ( Amer) Est GFR (Non-Af Amer) BUN/Creatinine Ratio (10-20) Glucose (70-99) mg/dl POC Glucose (70-99) POC Glucose (other) 677 H* (70-99) mg/dl Osmolality (280-300) mOsm/kg POC Lactic Acid Akin 1.62 (0.90-1.70) mmol/L Lactate (0.4-2.0) mmol/L Calcium (8.5-10.1) mg/dl POC Ioniz Calcium Juliann 1.20 (1.12-1.32) mmol/l Phosphorus (2.5-4.9) mg/dl Magnesium 1.6 L (1.8-2.4) mg/dl Total Bilirubin (0.2-1) mg/dl AST (15-37) U/L ALT (12-78) U/L Alkaline Phosphatase (45-117) U/L Troponin I (0-0.045) ng/ml Total Protein (6.4-8.2) gm/dl Albumin (3.4-5.0) gm/dl Globulin (2.5-4.0) gm/dl Albumin/Globulin Ratio (0.9-2) Lipase (73-393) U/L Beta-Hydroxybutyric Acd (0.2-2.81) mg/dl Procalcitonin (0-0.5) ng/ml TSH 1.910 (0.300-4.500) uIu/ml Urine Color Urine Appearance (Clear) Urine pH (4.5-7.5) Ur Specific [place] (1.000-1.030) Urine Protein (Negative) Urine Glucose (UA) (Negative) Urine Ketones (Negative) Urine Blood (Negative) Urine Nitrite (Negative) Urine Bilirubin (Negative) Urine Urobilinogen (Negative) Ur Leukocyte Esterase (Negative) Urine WBC (Auto) (0-5) /hpf Urine RBC (Auto) (0-4) /hpf U Hyaline Cast (Auto) (0-5) /lpf U Epithel Cells (Auto) (0-5) /lpf Urine Bacteria (Auto) (Negative) Urine Yeast Influenza Type A (PCR) (Neg) Influenza Type B (PCR) (Neg) 05/23/19 05/23/19 05/23/19 Range/Units 21:42 21:42 21:42 WBC (4.8-10.8) K/uL RBC (4.2-5.4) M/uL Hgb (12.0-16.0) g/dL POC Hgb (12.0-16.0) g/dl Hct (37-47) % POC Hct (37-47) % MCV (80-100) fL MCH (25-34) pg MCHC (32-36) g/dL RDW Std Deviation (36.4-46.3) fL RDW Coeff of Erendira (11.5-14.5) % Plt Count (130-400) K/uL MPV (7.4-10.4) fL Immature Gran % (Auto) % Neut % (Auto) % Lymph % (Auto) % [place] % (Auto) % Eos % (Auto) % Baso % (Auto) % Immature Gran # (Auto) (0.00-0.02) K/uL Neut # (Auto) (1.4-6.5) K/uL Lymph # (Auto) (1.2-3.4) K/uL [place] # (Auto) (0.11-0.59) K/uL Eos # (Auto) (0-0.5) K/uL Baso # (Auto) (0-0.2) K/uL PT (9.0-12.0) Seconds INR (0.9-1.1) APTT (21.0-31.0) Seconds PTT Ratio VBG pH 7.35 L (7.36-7.41) VBG pCO2 43 (38-50) mmHg VBG pO2 34 mmHg VBG HCO3 23 mmol/L VBG O2 Saturation 64.0 % VBG Base Excess -2.3 mEq/L Barometric Pressure 734.9 mm/Hg POC Sodium (135-144) mEq/L Sodium (136-145) mmol/L POC Potassium (3.3-5.0) mEq/L Potassium (3.5-5.1) mmol/L POC Chloride (101-112) mEq/L Chloride (98-107) mmol/L Carbon Dioxide (21-32) mmol/L POC Total CO2 (24-31) mEq/l Anion Gap (3-11) POC Anion Gap (16-25) mmol/L POC BUN (7-18) mg/dl BUN (7-18) mg/dl Creatinine (0.6-1.2) mg/dl POC Creatinine (0.6-1.3) mg/dl Est Cr Clr Drug Dosing ml/min Est GFR ( Amer) Est GFR (Non-Af Amer) BUN/Creatinine Ratio (10-20) Glucose (70-99) mg/dl POC Glucose (70-99) POC Glucose (other) (70-99) mg/dl Osmolality 316 H (280-300) mOsm/kg POC Lactic Acid Akin (0.90-1.70) mmol/L Lactate 1.5 (0.4-2.0) mmol/L Calcium (8.5-10.1) mg/dl POC Ioniz Calcium Juliann (1.12-1.32) mmol/l Phosphorus (2.5-4.9) mg/dl Magnesium (1.8-2.4) mg/dl Total Bilirubin (0.2-1) mg/dl AST (15-37) U/L ALT (12-78) U/L Alkaline Phosphatase (45-117) U/L Troponin I (0-0.045) ng/ml Total Protein (6.4-8.2) gm/dl Albumin (3.4-5.0) gm/dl Globulin (2.5-4.0) gm/dl Albumin/Globulin Ratio (0.9-2) Lipase (73-393) U/L Beta-Hydroxybutyric Acd (0.2-2.81) mg/dl Procalcitonin (0-0.5) ng/ml TSH (0.300-4.500) uIu/ml Urine Color Urine Appearance (Clear) Urine pH (4.5-7.5) Ur Specific [place] (1.000-1.030) Urine Protein (Negative) Urine Glucose (UA) (Negative) Urine Ketones (Negative) Urine Blood (Negative) Urine Nitrite (Negative) Urine Bilirubin (Negative) Urine Urobilinogen (Negative) Ur Leukocyte Esterase (Negative) Urine WBC (Auto) (0-5) /hpf Urine RBC (Auto) (0-4) /hpf U Hyaline Cast (Auto) (0-5) /lpf U Epithel Cells (Auto) (0-5) /lpf Urine Bacteria (Auto) (Negative) Urine Yeast Influenza Type A (PCR) (Neg) Influenza Type B (PCR) (Neg) 05/23/19 Range/Units 23:45 WBC (4.8-10.8) K/uL RBC (4.2-5.4) M/uL Hgb (12.0-16.0) g/dL POC Hgb (12.0-16.0) g/dl Hct (37-47) % POC Hct (37-47) % MCV (80-100) fL MCH (25-34) pg MCHC (32-36) g/dL RDW Std Deviation (36.4-46.3) fL RDW Coeff of Erendira (11.5-14.5) % Plt Count (130-400) K/uL MPV (7.4-10.4) fL Immature Gran % (Auto) % Neut % (Auto) % Lymph % (Auto) % [place] % (Auto) % Eos % (Auto) % Baso % (Auto) % Immature Gran # (Auto) (0.00-0.02) K/uL Neut # (Auto) (1.4-6.5) K/uL Lymph # (Auto) (1.2-3.4) K/uL [place] # (Auto) (0.11-0.59) K/uL Eos # (Auto) (0-0.5) K/uL Baso # (Auto) (0-0.2) K/uL PT (9.0-12.0) Seconds INR (0.9-1.1) APTT (21.0-31.0) Seconds PTT Ratio VBG pH (7.36-7.41) VBG pCO2 (38-50) mmHg VBG pO2 mmHg VBG HCO3 mmol/L VBG O2 Saturation % VBG Base Excess mEq/L Barometric Pressure mm/Hg POC Sodium (135-144) mEq/L Sodium (136-145) mmol/L POC Potassium (3.3-5.0) mEq/L Potassium (3.5-5.1) mmol/L POC Chloride (101-112) mEq/L Chloride (98-107) mmol/L Carbon Dioxide (21-32) mmol/L POC Total CO2 (24-31) mEq/l Anion Gap (3-11) POC Anion Gap (16-25) mmol/L POC BUN (7-18) mg/dl BUN (7-18) mg/dl Creatinine (0.6-1.2) mg/dl POC Creatinine (0.6-1.3) mg/dl Est Cr Clr Drug Dosing ml/min Est GFR ( Amer) Est GFR (Non-Af Amer) BUN/Creatinine Ratio (10-20) Glucose (70-99) mg/dl POC Glucose 517 H* (70-99) POC Glucose (other) (70-99) mg/dl Osmolality (280-300) mOsm/kg POC Lactic Acid Akin (0.90-1.70) mmol/L Lactate (0.4-2.0) mmol/L Calcium (8.5-10.1) mg/dl POC Ioniz Calcium Juliann (1.12-1.32) mmol/l Phosphorus (2.5-4.9) mg/dl Magnesium (1.8-2.4) mg/dl Total Bilirubin (0.2-1) mg/dl AST (15-37) U/L ALT (12-78) U/L Alkaline Phosphatase (45-117) U/L Troponin I (0-0.045) ng/ml Total Protein (6.4-8.2) gm/dl Albumin (3.4-5.0) gm/dl Globulin (2.5-4.0) gm/dl Albumin/Globulin Ratio (0.9-2) Lipase (73-393) U/L Beta-Hydroxybutyric Acd (0.2-2.81) mg/dl Procalcitonin (0-0.5) ng/ml TSH (0.300-4.500) uIu/ml Urine Color Urine Appearance (Clear) Urine pH (4.5-7.5) Ur Specific [place] (1.000-1.030) Urine Protein (Negative) Urine Glucose (UA) (Negative) Urine Ketones (Negative) Urine Blood (Negative) Urine Nitrite (Negative) Urine Bilirubin (Negative) Urine Urobilinogen (Negative) Ur Leukocyte Esterase (Negative) Urine WBC (Auto) (0-5) /hpf Urine RBC (Auto) (0-4) /hpf U Hyaline Cast (Auto) (0-5) /lpf U Epithel Cells (Auto) (0-5) /lpf Urine Bacteria (Auto) (Negative) Urine Yeast Influenza Type A (PCR) (Neg) Influenza Type B (PCR) (Neg) Imaging Data Radiologist's Impression: Radiology results as stated below per my review and the radiologist's interpretation: XR chest 1V portable CLINICAL HISTORY: Sepsis COMPARISON STUDY: 01/02/2014 FINDINGS: There is persistent left upper lobe volume loss with superior tenting of the left hilum. This is felt to be chronic. There is no lobar consolidation. There is mild interstitial thickening. Clinical correlation in regards to mild pulmonary vascular congestion is recommended. An interstitial inflammatory processes could appear similar.[ IMPRESSION: 1. Stable chronic changes in the left hemithorax 2. No evidence of lobar consolidation 3. Interstitial thickening. This likely represents either mild pulmonary vasc ular congestion or interstitial inflammatory process. Clinical and radiographic follow-up is recommended. Electronically signed by: Ronn Dudley M.D. 05/23/2019 10:03 PM ECG Data Attestation: I personally reviewed and interpreted this ECG as follows: Indication: + other (arrythmia) Rate (beats per minute): 130 Rhythm: + sinus tachycardia ECG Intervals/blocks: + Normal QRS ECG ST segments: + ST depression (V2, V3, AVF, and V4-V6) ECG Findings: + Peaked T waves (V1, V2, and V3 ) and + Other (normal CA, QTC 535, ) Blood Pressure Blood Pressure Findings: Normal blood pressure MDM Narrative 2100: Past medical records reviewed. The patient was evaluated in room C04. A complete history and physical exam was performed. Immediate IV access was obtained on the patient. Patient was hypoxic on room air, supplemental oxygen was given which improved the patient's oxygen saturation. Sepsis initial order was set was placed. The patient's POC lactic acid was 1.62. Her EKG is concerning for hypokalemia. Calcium gluconate 1 g IV ordered. Given the bita ent's blood pressure is stable at this time and her POC lactic acid is within normal limits and the fact that she has end-stage renal disease patient who is due for dialysis tomorrow morning, no IV fluids will be started at this time. It is thought that the patient is not in septic shock at this time. 2230: Upon reevaluation, the patient's vital signs were improved. She is afebrile with an improved heart rate. The patient's oxygen saturation is within normal limits on 2L nasal cannula. The patient had a WBC of 3.53 and a procalcitonin of 22.21. Given the patient's fever, tachycardia, WBC, and procalcitonin, the patient was treated as sepsis. Her blood pressure was normal, and she is not in septic shock. The patient's POC lactic acid is normal. Given the patient is due for dialysis tomorrow, no fluids were administered at this time. She was treated with antibiotic vancomycin. The patient reports an allergy to penicillin. I discussed with pharmacy, and the patient is OK with Cefepime. The patient tolerated the Cefepime well, with no respiratory distress and no rash. Labs showed serum glucose 716, and an anion gap of 13. The patient had a calculated osmolality of 350 with an osmolar gap of 11. Patient was started on an insulin drip, no bolus. Due to the patient's dialysis and and stage renal disease, no potassium was administered at this time. The patient had an elevated troponin which is thought to be a trend due to her end stage renal disease. 2249: I discussed findings and results with the patient. She verbalized agreement of the treatment plan. [facility] wanted me to speak with nephrology about the patient needing emergent dialysis. I explained to him I did not think that the patient needed emergent dialysis as the potassium was within normal limits and the oxygen saturation was stable on 2 L nasal cannula. 2254: I spoke with Dr. Emerson - Nephrology who states the patient does not need to be transferred for emergent dialysis given the potassium being within normal limits and the patient's oxygen saturation stable on 2 L nasal cannula. I relayed this message to Dr. Conklin who agrees to evaluate the patient for further management. I offered to speak with the commissary agent in the ICU for possible placement in the ICU given the patient will be on insulin drip with potassium 3.7, he states he will see the patient to determine if she needs to go to the ICU. Impression & Plan Hypoxia, Sepsis, DKA (diabetic ketoacidoses), Hyponatremia Critical Care Time Critical Care Time: Yes Total Critical Care Time: 83 I have personally spent 83 minutes of critical care time in the direct management of this patient. This includes bedside care, interpretation of diagnostic studies, and testing, discussion with consultants, patient, and family members, and other required patient management activities. This 83 minutes is in excess of all separately billable procedures. Discharge Plan Visit Data Chief Complaint: Hyperglycemia Stated Complaint: WEAKNESS ED Provider: Nils Estes Discharge Problem: Hypoxia, Sepsis, DKA (diabetic ketoacidoses), Hyponatremia Patient Disposition: Being Evaluated by Hospitalist Forms Stand Alone Forms: [facility] [employer] Prescriptions Prescriptions: No Action diphenhydramine-acetaminophen [Tylenol PM Extra Strength] 25-500 mg Tablet 2 tab PO HS PRN (Reason: Sleep) RF: 0 cholecalciferol (vitamin D3) [Vitamin D3] 400 unit Tablet 400 unit PO QAM RF: 0 escitalopram oxalate [Lexapro] 10 mg Tablet 10 mg PO QAM RF: 0 Humalog U-100 Insulin 100 unit/mL Cartridge 20 unit SUBCUT TID RF: 0 Levemir U-100 Insulin 100 unit/mL Solution 25 unit SUBCUT BID RF: 0 atorvastatin [Lipitor] 80 mg Tablet 80 mg PO HS RF: 0 sevelamer HCl [Renagel] 800 mg Tablet 1,600 mg PO TID RF: 0 hydralazine 25 mg Tablet 25 mg PO TID RF: 0 amlodipine [Norvasc] 5 mg Tablet 5 mg PO QAM RF: 0 aspirin [Aspir-81] 81 mg Tablet,Delayed Release (Dr/Ec) 81 mg PO HS RF: 0 levothyroxine 50 mcg Tablet 50 mcg PO QAM RF: 0 metoprolol tartrate [Lopressor] 50 mg Tablet 50 mg PO BID RF: 0 gabapentin 300 mg Capsule 300 mg PO BID RF: 0 albuterol sulfate 90 mcg/actuation Hfa Aerosol Inhaler 2 puff INHALATION Q6H PRN (Reason: Wheezing) RF: 0 tamoxifen 20 mg Tablet 20 mg PO QAM RF: 0 cinacalcet [Sensipar] 30 mg Tablet 30 mg PO HS RF: 0 omeprazole 20 mg Tablet,Delayed Release (Dr/Ec) 20 mg PO QAM RF: 0 Referrals Referrals: Jorge Franco, DO [Primary Care Provider] - The gabiibe's documentation has been prepared under my direction and personally reviewed by me in its entirety. I confirm that the note above accurately ref lects all work, treatment, procedures, and medical decision making performed by me.
[2019-05-24] MEDS ORDERED: LEVALBUTEROL 1.25MG/0.5ML NEB INH PRN (01:36)
[2019-05-24] MEDS ORDERED: INSULIN REGULAR 250 UNITS in SODIUM CHLORIDE 0.9% 247.5 ML IV SCH (01:36)
[2019-05-24] MEDS ORDERED: OXYCODONE HCL IR 5 MG TAB (IMMEDIATE RELEASE) PO PRN (01:36)
[2019-05-24] MEDS ORDERED: IPRATROPIUM BROMIDE NEB SOLN 0.02% 2.5 ML VIAL INH PRN (01:36)
[2019-05-24] MEDS ORDERED: PROMETHAZINE HCL 12.5 MG in SODIUM CHLORIDE 0.9% 50 ML IV PRN (01:36)
[2019-05-24] MEDS ORDERED: XOPENEX/ATROVENT 1.25mg/0.5MG NEB COMBO NEB PRN (01:36)
[2019-05-24] MEDS ORDERED: INSULIN PROTOCOL GOAL RANGE ONE (01:36)
[2019-05-24] MEDS ORDERED: SEVERE STRESS LEVEL ONE (01:36)
[2019-05-24] MEDS ORDERED: ACETAMINOPHEN 325 MG TAB PO PRN (01:36)
[2019-05-24] MEDS ORDERED: NITROGLYCERIN SL 0.4 MG/TAB TAB SL PRN (01:36)
[2019-05-24] MEDS: INSULIN DETEMIR FLEXPEN/FLEX TOUCH 100 UNITS/ML 3ML SQ SCH ×3 (01:59→21:32)
[2019-05-24] MEDS: METOPROLOL TARTRATE 50 MG TAB PO SCH ×3 (02:00→21:29)
[2019-05-24] MEDS ORDERED: DOXYCYCLINE HYCLATE 100 MG in DEXTROSE 5% 100 ML IV STA (02:22)
[2019-05-24] MEDS ORDERED: ALBUMIN 25% 50 ML IV ONE (02:35)
[2019-05-24 02:41] LABS: BUN Creatinine Ratio 9.1 (10-20); Calcium 10.1 mg/dl (8.5-10.1); Est GFR (African American) 8.6; Est GFR (Non-African American) 7.4; Potassium 3.8 mmol/L (3.5-5.1)
[2019-05-24 02:52] LABS: Beta-Hydroxybutyrate 0.85 mg/dl (0.2-2.81)
[2019-05-24] MEDS ORDERED: DEXTROSE 50% 50 ML SYRINGE IV PRN ×2 (03:15→05:06)
[2019-05-24] MEDS ORDERED: CARBOHYDRATES FOR HYPOGLYCEMIA PO PRN ×2 (03:15→05:06)
[2019-05-24] MEDS ORDERED: GLUCAGON FOR INJ 1 MG VIAL IM PRN (03:15)
[2019-05-24] MEDS ORDERED: GLUCOSE 10 TABS/TUBE PO PRN ×2 (03:15→05:06)
[2019-05-24] MEDS ORDERED: GLUCOSE 40% GEL 15 GM TUBE PO PRN ×2 (03:15→05:06)
[2019-05-24] MEDS ORDERED: POTASSIUM CHLORIDE 20 MEQ TABCR PO STA (03:20)
[2019-05-24] MEDS: guaiFENesin 600 MG TABCR PO SCH ×3 (03:48→21:29)
[2019-05-24 04:22] LABS: Troponin I 1.7 ng/ml (0-0.045)
[2019-05-24] MEDS ORDERED: MAGNESIUM SULFATE / D5W 1 GM/100 ML BAG IV ONE (05:00)
[2019-05-24] MEDS ORDERED: GLUCAGON FOR INJ 1 MG VIAL SQ PRN (05:06)
[2019-05-24 05:29] LABS: Basophils # (auto) 0.01 K/uL (0-0.2); Basophils % (auto) 0.2 %; Hematocrit (blood only) 31.9 % (37-47); Hemoglobin 10.7 g/dL (12.0-16.0); Immature Granulocytes # (auto) 0.02 K/uL (0.00-0.02); Immature Granulocytes % (auto) 0.5 %; Lymphocytes # (auto) 0.47 K/uL (1.2-3.4); Lymphocytes % (auto) 11.2 %; Mean Corpuscular Hemoglobin 29.9 pg (25-34); Mean Corpuscular Hgb Conc 33.5 g/dL (32-36); Mean Corpuscular Volume 89.1 fL (80-100); Monocytes # (auto) 0.29 K/uL (0.11-0.59); Monocytes % (auto) 6.9 %; Neutrophils # (auto) 3.41 K/uL (1.4-6.5); Neutrophils % (auto) 81.2 %; Platelet Count 137 K/uL (130-400); RDW Coefficient of Variation 14.4 % (11.5-14.5); RDW Standard Deviation 47.4 fL (36.4-46.3); Red Blood Count 3.58 M/uL (4.2-5.4)
[2019-05-24] MEDS: ASPIRIN 81 MG ECTAB PO SCH (05:40)
[2019-05-24 05:45] LABS: Partial Thromboplastin Ratio 0.8
[2019-05-24] MEDS: LEVOTHYROXINE SODIUM 50 MCG TABLET PO SCH (05:45)
[2019-05-24 06:13] LABS: Estimated Average Glucose 226 mg/dl; Hemoglobin A1C 9.5 % (4.5-5.6)
[2019-05-24 06:14] LABS: Est GFR (African American) 8.4; Potassium 4.3 mmol/L (3.5-5.1)
[2019-05-24 06:15] LABS: BUN Creatinine Ratio 9.7 (10-20); Calcium 10.2 mg/dl (8.5-10.1); Creatinine Clr Calc Pharmacy 12.8 ml/min; Est GFR (Non-African American) 7.2; Troponin I 1.91 ng/ml (0-0.045)
--- NOTE | 2019-05-24 06:18 | CT Scan Report ---
CT head/brain wo con CT DOSE: 614.27 mGy.cm HISTORY: Mental status change lethargy TECHNIQUE: Multiaxial CT images of the head were performed without the use of intravenous contrast. A dose lowering technique was utilized adhering to the principles of ALARA. Comparison: None. Findings: The paranasal sinuses and mastoid air cells are clear. The calvarium and skull base are int act. The ventricles and sulci are within normal limits. There is no mass, hematoma, midline shift, or acute infarct. Impression: No acute intracranial abnormality. The above report was generated using voice recognition software. It may contain grammatical, syntax or spelling errors. Electronically signed by: Stefan Donahue M.D. 05/24/2019 6:17 AM
--- NOTE | 2019-05-24 06:25 | Communication Note ---
Date of Service: May 24, 2019 Progressive troponin elevation noted from admission. 0.157 -> 1.7 -> 1.9 Patient sleeping as per RN. PCU transfer for closer monitoring. Will relay to AM provider.
--- NOTE | 2019-05-24 07:01 | Nephrology Consultation ---
Date of Consultation May 24, 2019 Assessment & Plan (1) ESRD (end stage renal disease) on dialysis: on MWF HD >> 3.75 hr HD today goal 2L UF; challenging to use avf >> to orient needles/ ran reversed today/ also pulled multiple clots but eventually got her running at rx'd Qb -next HD on monday or as clinical condition dictates Present on Admission?: Yes (2) Anemia in ESRD (end-stage renal disease): hgb q48 hrs; no epo today Present on Admission?: Yes (3) Acute hyperglycemia: prompting admission; per primary service; once BG have been controlled her clinical condition has improved markedly Present on Admission?: Yes (4) Dialysis AV fistula malfunction: ran today but cannulation issues, clot present >> has appt w/ Dr Bridger monge ate next week Present on Admission?: Yes History of Present Illness Reason for Consultation: esrd Requesting Physician: Dr Wells Attending Physician: Jessy Montes MD History of Present Illness 64 y/o F w/ DM, HTN, nonocclusive CAD whom I'm asked to see for ESRD needs was admitted overnight w/ acute hypoxemic respiratory failure after she presented to ER w/ BG 677. she had developed altered MS, generalized weakness, N abruptly at judaism event earlier in the evening, prompting 911 call. Other PMH includes asthma, R great toe osteomyelitis, past tobacco abuse, BRCA s/p L mastectomy and on tamoxifen. Concern for sepsis potentially from atypical pneumonia: she was started on vanco, cefepime, IV insulin-abtx changed to doxy at admission. Troponins were also mildly elevated and are trending slightly up. OP fistulagram was recently cancelled on 05/21 d/t uncontrolled BG. Pt states she's compliant w/ her home insulin. she feels markedly improve dnow Allergies Allergy/AdvReac Type Severity Reaction Status Date / Time codeine Allergy Intermediate rash, Verified 05/23/19 22:23 Note: but was also taking penicillin. Penicillins Allergy Intermediate hives, Verified 05/23/19 22:23 family allergy to PCN oxycodone AdvReac Intermediate NAUSEA/VOMI Verified 05/23/19 22:23 TING ROHAN Inhibitors AdvReac Mild hyperkalemi Verified 05/23/19 22:23 a Home Medications Home Medications Medication Instructions Recorded Confirmed Type albuterol sulfate 2 puff INHALATION Q6H PRN 08/09/18 05/23/19 History amlodipine [Norvasc] 5 mg PO QAM 08/09/18 05/23/19 History aspirin [Aspir-81] 81 mg PO HS 08/09/18 05/23/19 History atorvastatin [Lipitor] 80 mg PO HS 08/09/18 05/23/19 History cinacalcet [Sensipar] 30 mg PO HS 08/09/18 05/23/19 History gabapentin 300 mg PO BID 08/09/18 05/23/19 History hydralazine 25 mg PO TID 08/09/18 05/23/19 History levothyroxine 50 mcg PO QAM 08/09/18 05/23/19 History metoprolol tartrate [Lopressor] 50 mg PO BID 08/09/18 05/23/19 History omeprazole 20 mg PO QAM 08/09/18 05/23/19 History sevelamer HCl [Renagel] 1,600 mg PO TID 08/09/18 05/23/19 History tamoxifen 20 mg PO QAM 08/09/18 05/23/19 History cholecalciferol (vitamin D3) 400 unit PO QAM 11/14/18 05/23/19 History [Vitamin D3] diphenhydramine-acetaminophen 2 tab PO HS PRN 11/14/18 05/23/19 History [Tylenol PM Extra Strength] escitalopram oxalate [Lexapro] 10 mg PO QAM 11/14/18 05/23/19 History insulin detemir U-100 [Levemir 25 unit SUBCUT BID 05/14/19 05/23/19 History U-100 Insulin] insulin lispro [Humalog U-100 20 unit SUBCUT TID 05/14/19 05/23/19 History Insulin] Patient History Medical History Asthma (Acute) CAD (coronary artery disease) (Acute) CKD (chronic kidney disease) requiring chronic dialysis (Acute) 3x week--mon, wed, fri COPD (chronic obstructive pulmonary disease) (Acute) Callus (Acute) Diabetes mellitus with diabetic polyneuropathy (Acute) GERD (gastroesophageal reflux disease) (Acute) Hallux rigidus of right foot (Acute) Hallux rigidus, left foot (Acute) Hyperlipemia (Acute) Hypertension (Acute) Neuropathic ulcer of toe of right foot (Acute) Obesity (Acute) Breast cancer, left 2013--sx Depression Diabetes mellitus, type 2 History of colon polyps Hypothyroidism Osteoarthritis Spinal stenosis Surgical History History of colonoscopy (Acute) History of parathyroidectomy (Acute) Status post creation of arteriovenous fistula (Acute) left forearm History of bilateral cataract extraction History of cardiac cath 2003--no stents History of cholecystectomy History of dilatation and curettage History of hysterectomy with unilateral oophorectomy History of left mastectomy History of surgery left arm repair fistulogram Dr. Sparks 08/21/18 History of umbilical hernia repair Nausea and vomiting after administration of anesthetic agent Family History Sister Family history of reaction to anesthesia wakes up with a headache Family history of diabetes mellitus Social History Preferred Language: Faroese Communication Ability: Effective Hearing Ability: Normal Felt Coverer Required: No Beliefs That Will Affect Care: None marital status: Current Living Situation: Spouse current occupational status: disabled Other Information That Helps Us Care for You: No Feels Safe at Home: Yes Safety Concerns: Feels Safe At This Time Smoking Status: Former smoker Age Quit Using Tobacco: 33 ; Second Hand Exposure: Yes ; Hx Alcohol Use: No Hx Substance Use: No Other Diet Comment: RENAL DIET during the past year weight has: decreased > 10 lbs Review of Systems Review of Systems: All systems reviewed & are unremarkable except as noted in HPI & below Constitutional: + chills and + fatigue; no weakness and no anorexia Eyes: no worsening vision Ear, Nose, Mouth, Throat: no dry mouth Respiratory: no cough, no dyspnea and no pain on inspiration Cardiovascular: no chest pain, no palpitations and no edema Gastrointestinal: + nausea and + vomiting; no abdominal pain and no diarrhea/loose stools Genitourinary: anuric > drops/spoonfuls daily Musculoskeletal: no swelling and no stiffness Integumentary: healing R toe lesion pe rpt Neurologic: + unsteadiness, + generalized weakness, + confusion and + memory loss; no gait abnormality Endocrine: + fatigue Hematologic / Lymphatic: no easy bleeding Physical Exam Constitutional: well developed, well nourished and + obese on RA nad Eyes: EOM intact bilaterally ENMT: Ears: no external ear abnormality Nose: no external nose abnormality Mouth: + dry oral mucous membranes Neck: no nuchal rigidity Respiratory: normal respiratory effort Auscultation: + diminished lung sounds Cardiovascular: RRR, no murmur, no edema Extremities: + AV fistula (+t/b) Gastrointestinal (Abdomen): Inspection/Auscultation: normal bowel sounds Percussion/Palpation: abdomen soft; abdomen nontender Musculoskeletal: Extremities: strength 5/5 throughout Skin: no rashes, warm and dry pustules on face scabbed; R foot not examined Neurologic: peguero, fluent speech, no tremor Psychiatric: A+Ox3, euthymic affect Results & Data Vital Signs (Past 12 Hours) Vital Signs Temp Pulse Pulse Resp BP BP Pulse Ox 05/24/19 04:05 36.4 C L 74 19 103/67 92 05/24/19 02:00 84 05/24/19 01:30 36.4 C L 85 16 86/42 L 94 05/24/19 00:15 36.9 C 97 H 16 110/70 97 05/24/19 00:00 102 H 12 112/85 95 05/23/19 23:45 101 H 46 H 119/78 96 05/23/19 23:30 105 H 25 H 105/77 96 05/23/19 23:15 107 H 17 118/72 95 05/23/19 23:00 109 H 17 114/62 95 05/23/19 22:45 113 H 17 104/64 94 05/23/19 22:30 113 H 18 125/74 94 05/23/19 22:15 118 H 24 140/78 95 05/23/19 22:01 37.7 C H 119 H 18 95 05/23/19 22:00 120 H 22 116/66 94 05/23/19 21:58 119 H 24 121/73 94 05/23/19 21:05 130 H 21 168/105 H 100 05/23/19 21:00 133 H 21 99 05/23/19 20:52 129 H 22 05/23/19 20:49 39.5 C H 131 H 15 148/98 H 83 L 05/23/19 20:34 130 H 22 148/98 H Laboratory Results 05/24/19 05:13 05/24/19 05:13 Diagnostic Findings cxr 1. Stable chronic changes in the left hemithorax 2. No evidence of lobar consolidation 3. Interstitial thickening. This likely represents either mild pulmonary vascular congestion or interstitial inflammatory process. Clinical and radiographic follow-up is recommended. Head CT no acute i-c abnormality
[2019-05-24] MEDS ORDERED: INSULIN ASPART 100 UNITS/ML 3 ML PEN SC SCH ×3 (07:30)
[2019-05-24] MEDS: TAMOXIFEN CITRATE 10 MG TABLET PO SCH (08:46)
[2019-05-24] MEDS: ESCITALOPRAM OXALATE 10 MG TAB PO SCH (08:46)
[2019-05-24] MEDS: SEVELAMER HCL 800 MG TABLET PO SCH ×3 (08:46→18:13)
[2019-05-24] MEDS: PANTOprazole 40 MG TAB PO SCH (08:47)
[2019-05-24] MEDS: DOXYCYCLINE HYCLATE 100 MG CAP PO SCH ×2 (08:47→21:29)
[2019-05-24] MEDS: INSULIN ASPART 100 UNITS/ML 3 ML PEN SC SCH ×5 (08:48→23:29)
--- NOTE | 2019-05-24 10:15 | Cardiology Consultation ---
Date of Consultation May 24, 2019 Assessment & Plan (1) Elevated troponin: Patient presented with acute hyperglycemia and possible febrile illness/sepsis with tachycardia and associated ST segment changes. ST segments improved after heart rate controlled and patient resuscitated. Troponins are elevated suggestive of type II demand ischemia and patient of known moderate diffuse coronary atherosclerosis by remote cardiac cath Diagnosis specificity troponin elevation in acute renal failure limited, however levels trended upward We will review echocardiogram as available If segmental abnormalities present would anticoagulate Otherwise would treat underlying presenting illnesses Continue beta-tristan, aspirin, statin (2) Sepsis: (3) Acute hyperglycemia: (4) ESRD (end stage renal disease) on dialysis: History of Present Illness Reason for Consultation: Elevated troponin Requesting Physician: Dr. Galvez Attending Physician: Jessy Montes MD History of Present Illness Patient is a 64-year-old female previously seen in the outpatient setting last 2015 referred for evaluation after acute presentation with hyperglycemia malaise illness and chills possible sepsis. Her past history is notable for 1. Moderate diffuse nonobstructive atherosclerotic coronary disease by cardiac catheterization last March 2008. 2. Hypertensive heart disease. 3. Type 2 diabetes mellitus, insulin requiring. 4. End-stage renal disease, hemodialysis dependent since May 2015. 5. Asthmatic lung disease 6. Breast carcinoma, left status post mastectomy 7. Chronic foot ulcer Patient presents this admission noting having felt poorly for approximately 5 days with increasing cough chills and rigor the evening prior to admission. She also noted significant fluctuation in elevation in blood sugars in association with above illness. Denies any chest pains notes no syncope or near syncope but felt extremely weak and fatigued on presentation and was notably tachycardic. EKGs demonstrated ST depression with tachycardia. Troponins elevated consistent with type II demand ischemia although troponin specificity limited in the setting of chronic renal failure Allergies Allergy/AdvReac Type Severity Reaction Status Date / Time codeine Allergy Intermediate rash, Verified 05/23/19 22:23 Note: but was also taking penicillin. Penicillins Allergy Intermediate hives, Verified 05/23/19 22:23 family allergy to PCN oxycodone AdvReac Intermediate NAUSEA/VOMI Verified 05/23/19 22:23 TING ROHAN Inhibitors AdvReac Mild hyperkalemi Verified 05/23/19 22:23 a Home Medications Home Medications Medication Instructions Recorded Confirmed Type albuterol sulfate 2 puff INHALATION Q6H PRN 08/09/18 05/23/19 History amlodipine [Norvasc] 5 mg PO QAM 08/09/18 05/23/19 History aspirin [Aspir-81] 81 mg PO HS 08/09/18 05/23/19 History atorvastatin [Lipitor] 80 mg PO HS 08/09/18 05/23/19 History cinacalcet [Sensipar] 30 mg PO HS 08/09/18 05/23/19 History gabapentin 300 mg PO BID 08/09/18 05/23/19 History hydralazine 25 mg PO TID 08/09/18 05/23/19 History levothyroxine 50 mcg PO QAM 08/09/18 05/23/19 History metoprolol tartrate [Lopressor] 50 mg PO BID 08/09/18 05/23/19 History omeprazole 20 mg PO QAM 08/09/18 05/23/19 History sevelamer HCl [Renagel] 1,600 mg PO TID 08/09/18 05/23/19 History tamoxifen 20 mg PO QAM 08/09/18 05/23/19 History cholecalciferol (vitamin D3) 400 unit PO QAM 11/14/18 05/23/19 History [Vitamin D3] diphenhydramine-acetaminophen 2 tab PO HS PRN 11/14/18 05/23/19 History [Tylenol PM Extra Strength] escitalopram oxalate [Lexapro] 10 mg PO QAM 11/14/18 05/23/19 History insulin detemir U-100 [Levemir 25 unit SUBCUT BID 05/14/19 05/23/19 History U-100 Insulin] insulin lispro [Humalog U-100 20 unit SUBCUT TID 05/14/19 05/23/19 History Insulin] Patient History Medical History Asthma (Acute) CAD (coronary artery disease) (Acute) CKD (chronic kidney disease) requiring chronic dialysis (Acute) 3x week--mon, wed, fri COPD (chronic obstructive pulmonary disease) (Acute) Callus (Acute) Diabetes mellitus with diabetic polyneuropathy (Acute) GERD (gastroesophageal reflux disease) (Acute) Hallux rigidus of right foot (Acute) Hallux rigidus, left foot (Acute) Hyperlipemia (Acute) Hypertension (Acute) 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 Sparks 08/21/18 History of umbilical hernia repair Nausea and vomiting after administration of anesthetic agent Family History Sister Family history of reaction to anesthesia wakes up with a headache Family history of diabetes mellitus Social History Preferred Language: Frisian Communication Ability: Effective Hearing Ability: Normal Composite Bond Technician Required: No Beliefs That Will Affect Care: None marital status: Current Living Situation: Spouse current occupational status: disabled Other Information That Helps Us Care for You: No Feels Safe at Home: Yes Safety Concerns: Feels Safe At This Time Smoking Status: Former smoker Age Quit Using Tobacco: 33 ; Second Hand Exposure: Yes ; Hx Alcohol Use: No Hx Substance Use: No Other Diet Comment: RENAL DIET during the past year weight has: decreased > 10 lbs Physical Exam Constitutional: WD/WN, vitals as above + obese ENMT: external ear and nose normal, oropharynx normal Neck: + thick neck Respiratory: normal respiratory effort; no respiratory distress Cardiovascular: Rate/Rhythm: regular rate and regular rhythm Heart Sounds: normal S1 and normal S2; no murmur and no cardiac rub Vessels: no JVD and no femoral bruit Gastrointestinal (Abdomen): Inspection/Auscultation: + significant pannus; abdomen not distended Percussion/Palpation: no hepatosplenomegaly Musculoskeletal: no cyanosis or clubbing, extremities motor strength 5/5 Neurologic: moves all extremities; no focal motor deficits Psychiatric: Orientation: oriented x 3 Results & Data Vital Signs (Past 12 Hours) Vital Signs Temp Pulse Pulse Resp BP BP Pulse Ox 05/24/19 07:39 36.6 C 84 16 118/73 97 05/24/19 07:30 36.5 C 102 H 20 112/74 97 05/24/19 04:05 36.4 C L 74 19 103/67 92 05/24/19 02:00 84 05/24/19 01:30 36.4 C L 85 16 86/42 L 94 05/24/19 00:15 36.9 C 97 H 16 110/70 97 05/24/19 00:00 102 H 12 112/85 95 05/23/19 23:45 101 H 46 H 119/78 96 05/23/19 23:30 105 H 25 H 105/77 96 05/23/19 23:15 107 H 17 118/72 95 05/23/19 23:00 109 H 17 114/62 95 05/23/19 22:45 113 H 17 104/64 94 05/23/19 22:30 113 H 18 125/74 94 05/23/19 22:15 118 H 24 140/78 95 Laboratory Results Laboratory Results - last 24 hr 05/23/19 05/23/19 05/23/19 20:39 20:39 21:03 WBC 3.53 L RBC 3.78 L Hgb 11.2 L POC Hgb Hct 34.5 L POC Hct MCV 91.3 MCH 29.6 MCHC 32.5 RDW Std Deviation 49.6 H RDW Coeff of Erendira 14.8 H Plt Count 128 L MPV 10.1 Immature Gran % (Auto) 0.6 Neut % (Auto) 91.5 Lymph % (Auto) 3.4 [place] % (Auto) 4.2 Eos % (Auto) 0.0 Baso % (Auto) 0.3 Immature Gran # (Auto) 0.02 Neut # (Auto) 3.23 Lymph # (Auto) 0.12 L [place] # (Auto) 0.15 Eos # (Auto) 0.00 Baso # (Auto) 0.01 PT INR APTT PTT Ratio VBG pH VBG pCO2 VBG pO2 VBG HCO3 VBG O2 Saturation VBG Base Excess Barometric Pressure POC Sodium Sodium POC Potassium Potassium POC Chloride Chloride Carbon Dioxide POC Total CO2 Anion Gap POC Anion Gap POC BUN BUN Creatinine POC Creatinine Est Cr Clr Drug Dosing Est GFR ( Amer) Est GFR (Non-Af Amer) BUN/Creatinine Ratio Glucose POC Glucose POC Glucose (other) Estimat Average Glucose Hemoglobin A1c Osmolality POC Lactic Acid Akin Lactate Calcium POC Ioniz Calcium Juliann Phosphorus Magnesium Total Bilirubin AST ALT Alkaline Phosphatase Ammonia Troponin I Total Protein Albumin Globulin Albumin/Globulin Ratio Lipase Beta-Hydroxybutyric Acd Procalcitonin TSH Urine Color Yellow Urine Appearance Cloudy A Urine pH 5.0 Ur Specific [place] 1.021 Urine Protein 2+ H Urine Glucose (UA) 3+ H Urine Ketones Negative Urine Blood Trace H Urine Nitrite Negative Urine Bilirubin Negative Urine Urobilinogen Negative Ur Leukocyte Esterase Negative Urine WBC (Auto) 1-5 Urine RBC (Auto) 0-4 U Hyaline Cast (Auto) 1-5 U Epithel Cells (Auto) 10-20 H Urine Bacteria (Auto) 1+ H Urine Yeast Not Reportable Heparin-PF4 Ab Screen Influenza Type A (PCR) Neg for Influ A Influenza Type B (PCR) Neg for Influ B 05/23/19 05/23/19 05/23/19 21:03 21:03 21:03 WBC RBC Hgb POC Hgb Hct POC Hct MCV MCH MCHC RDW Std Deviation RDW Coeff of Eerndira Plt Count MPV Immature Gran % (Auto) Neut % (Auto) Lymph % (Auto) [place] % (Auto) Eos % (Auto) Baso % (Auto) Immature Gran # (Auto) Neut # (Auto) Lymph # (Auto) [place] # (Auto) Eos # (Auto) Baso # (Auto) PT 10.9 INR 1.1 APTT 24.8 PTT Ratio 0.9 VBG pH VBG pCO2 VBG pO2 VBG HCO3 VBG O2 Saturation VBG Base Excess Barometric Pressure POC Sodium Sodium 124 L POC Potassium Potassium 3.7 POC Chloride Chloride 88 L Carbon Dioxide 23 POC Total CO2 Anion Gap 13.0 H POC Anion Gap POC BUN BUN 52 H Creatinine 5.49 H* POC Creatinine Est Cr Clr Drug Dosing 13.7 Est GFR ( Amer) 8.9 Est GFR (Non-Af Amer) 7.7 BUN/Creatinine Ratio 9.4 L Glucose 716 H* POC Glucose POC Glucose (other) Estimat Average Glucose Hemoglobin A1c Osmolality POC Lactic Acid Akin Lactate Calcium 9.6 POC Ioniz Calcium Juliann Phosphorus Magnesium Total Bilirubin 0.9 AST 24 ALT 27 Alkaline Phosphatase 287 H Ammonia Troponin I Total Protein 7.5 Albumin 3.2 L Globulin 4.3 H Albumin/Globulin Ratio 0.7 L Lipase Beta-Hydroxybutyric Acd 8.81 H Procalcitonin 22.21 H TSH Urine Color Urine Appearance Urine pH Ur Specific [place] Urine Protein Urine Glucose (UA) Urine Ketones Urine Blood Urine Nitrite Urine Bilirubin Urine Urobilinogen Ur Leukocyte Esterase Urine WBC (Auto) Urine RBC (Auto) U Hyaline Cast (Auto) U Epithel Cells (Auto) Urine Bacteria (Auto) Urine Yeast Heparin-PF4 Ab Screen Influenza Type A (PCR) Influenza Type B (PCR) 05/23/19 05/23/19 05/23/19 21:03 21:03 21:03 WBC RBC Hgb POC Hgb Hct POC Hct MCV MCH MCHC RDW Std Deviation RDW Coeff of Erendira Plt Count MPV Immature Gran % (Auto) Neut % (Auto) Lymph % (Auto) [place] % (Auto) Eos % (Auto) Baso % (Auto) Immature Gran # (Auto) Neut # (Auto) Lymph # (Auto) [place] # (Auto) Eos # (Auto) Baso # (Auto) PT INR APTT PTT Ratio VBG pH VBG pCO2 VBG pO2 VBG HCO3 VBG O2 Saturation VBG Base Excess Barometric Pressure POC Sodium Sodium POC Potassium Potassium POC Chloride Chloride Carbon Dioxide POC Total CO2 Anion Gap POC Anion Gap POC BUN BUN Creatinine POC Creatinine Est Cr Clr Drug Dosing Est GFR ( Amer) Est GFR (Non-Af Amer) BUN/Creatinine Ratio Glucose POC Glucose POC Glucose (other) Estimat Average Glucose 226 Hemoglobin A1c 9.5 H Osmolality POC Lactic Acid Akin Lactate Calcium POC Ioniz Calcium [place]n Phosphorus Magnesium Total Bilirubin AST ALT Alkaline Phosphatase Ammonia Troponin I 0.157 H* Total Protein Albumin Globulin Albumin/Globulin Ratio Lipase 160 Beta-Hydroxybutyric Acd Procalcitonin TSH Urine Color Urine Appearance Urine pH Ur Specific [place] Urine Protein Urine Glucose (UA) Urine Ketones Urine Blood Urine Nitrite Urine Bilirubin Urine Urobilinogen Ur Leukocyte Esterase Urine WBC (Auto) Urine RBC (Auto) U Hyaline Cast (Auto) U Epithel Cells (Auto) Urine Bacteria (Auto) Urine Yeast Heparin-PF4 Ab Screen Influenza Type A (PCR) Influenza Type B (PCR) 05/23/19 05/23/19 05/23/19 21:03 21:03 21:07 WBC RBC Hgb POC Hgb Hct POC Hct MCV MCH MCHC RDW Std Deviation RDW Coeff of Erendira Plt Count MPV Immature Gran % (Auto) Neut % (Auto) Lymph % (Auto) [place] % (Auto) Eos % (Auto) Baso % (Auto) Immature Gran # (Auto) Neut # (Auto) Lymph # (Auto) [place] # (Auto) Eos # (Auto) Baso # (Auto) PT INR APTT PTT Ratio VBG pH VBG pCO2 VBG pO2 VBG HCO3 VBG O2 Saturation VBG Base Excess Barometric Pressure POC Sodium Sodium POC Potassium Potassium POC Chloride Chloride Carbon Dioxide POC Total CO2 Anion Gap POC Anion Gap POC BUN BUN Creatinine POC Creatinine Est Cr Clr Drug Dosing Est GFR ( Amer) Est GFR (Non-Af Amer) BUN/Creatinine Ratio Glucose POC Glucose POC Glucose (other) Estimat Average Glucose Hemoglobin A1c Osmolality POC Lactic Acid Akin 1.62 Lactate Calcium POC Ioniz Calcium Juliann Phosphorus 4.4 Magnesium 1.6 L Total Bilirubin AST ALT Alkaline Phosphatase Ammonia Troponin I Total Protein Albumin Globulin Albumin/Globulin Ratio Lipase Beta-Hydroxybutyric Acd Procalcitonin TSH 1.910 Urine Color Urine Appearance Urine pH Ur Specific [place] Urine Protein Urine Glucose (UA) Urine Ketones Urine Blood Urine Nitrite Urine Bilirubin Urine Urobilinogen Ur Leukocyte Esterase Urine WBC (Auto) Urine RBC (Auto) U Hyaline Cast (Auto) U Epithel Cells (Auto) Urine Bacteria (Auto) Urine Yeast Heparin-PF4 Ab Screen Influenza Type A (PCR) Influenza Type B (PCR) 05/23/19 05/23/19 05/23/19 21:09 21:42 21:42 WBC RBC Hgb POC Hgb 12.2 Hct POC Hct 36 L MCV MCH MCHC RDW Std Deviation RDW Coeff of Erendira Plt Count MPV Immature Gran % (Auto) Neut % (Auto) Lymph % (Auto) [place] % (Auto) Eos % (Auto) Baso % (Auto) Immature Gran # (Auto) Neut # (Auto) Lymph # (Auto) [place] # (Auto) Eos # (Auto) Baso # (Auto) PT INR APTT PTT Ratio VBG pH 7.35 L VBG pCO2 43 VBG pO2 34 VBG HCO3 23 VBG O2 Saturation 64.0 VBG Base Excess -2.3 Barometric Pressure 734.9 POC Sodium 125 L Sodium POC Potassium 3.8 Potassium POC Chloride 89 L Chloride Carbon Dioxide POC Total CO2 24 Anion Gap POC Anion Gap 16.0 POC BUN 47 H BUN Creatinine POC Creatinine 5.6 H* Est Cr Clr Drug Dosing Est GFR ( Amer) Est GFR (Non-Af Amer) BUN/Creatinine Ratio Glucose POC Glucose POC Glucose (other) 677 H* Estimat Average Glucose Hemoglobin A1c Osmolality POC Lactic Acid Akin Lactate 1.5 Calcium POC Ioniz Calcium [place] 1.20 Phosphorus Magnesium Total Bilirubin AST ALT Alkaline Phosphatase Ammonia Troponin I Total Protein Albumin Globulin Albumin/Globulin Ratio Lipase Beta-Hydroxybutyric Acd Procalcitonin TSH Urine Color Urine Appearance Urine pH Ur Specific [place] Urine Protein Urine Glucose (UA) Urine Ketones Urine Blood Urine Nitrite Urine Bilirubin Urine Urobilinogen Ur Leukocyte Esterase Urine WBC (Auto) Urine RBC (Auto) U Hyaline Cast (Auto) U Epithel Cells (Auto) Urine Bacteria (Auto) Urine Yeast Heparin-PF4 Ab Screen Influenza Type A (PCR) Influenza Type B (PCR) 05/23/19 05/23/19 05/24/19 21:42 23:45 00:49 WBC RBC Hgb POC Hgb Hct POC Hct MCV MCH MCHC RDW Std Deviation RDW Coeff of Erendira Plt Count MPV Immature Gran % (Auto) Neut % (Auto) Lymph % (Auto) [place] % (Auto) Eos % (Auto) Baso % (Auto) Immature Gran # (Auto) Neut # (Auto) Lymph # (Auto) [place] # (Auto) Eos # (Auto) Baso # (Auto) PT INR APTT PTT Ratio VBG pH VBG pCO2 VBG pO2 VBG HCO3 VBG O2 Saturation VBG Base Excess Barometric Pressure POC Sodium Sodium POC Potassium Potassium POC Chloride Chloride Carbon Dioxide POC Total CO2 Anion Gap POC Anion Gap POC BUN BUN Creatinine POC Creatinine Est Cr Clr Drug Dosing Est GFR ( Amer) Est GFR (Non-Af Amer) BUN/Creatinine Ratio Glucose POC Glucose 517 H* 453 H* POC Glucose (other) Estimat Average Glucose Hemoglobin A1c Osmolality 316 H POC Lactic Acid Akin Lactate Calcium POC Ioniz Calcium [place] Phosphorus Magnesium Total Bilirubin AST ALT Alkaline Phosphatase Ammonia Troponin I Total Protein Albumin Globulin Albumin/Globulin Ratio Lipase Beta-Hydroxybutyric Acd Procalcitonin TSH Urine Color Urine Appearance Urine pH Ur Specific [place] Urine Protein Urine Glucose (UA) Urine Ketones Urine Blood Urine Nitrite Urine Bilirubin Urine Urobilinogen Ur Leukocyte Esterase Urine WBC (Auto) Urine RBC (Auto) U Hyaline Cast (Auto) U Epithel Cells (Auto) Urine Bacteria (Auto) Urine Yeast Heparin-PF4 Ab Screen Influenza Type A (PCR) Influenza Type B (PCR) 05/24/19 05/24/19 05/24/19 01:43 01:45 01:47 WBC RBC Hgb POC Hgb Hct POC Hct MCV MCH MCHC RDW Std Deviation RDW Coeff of Erendira Plt Count MPV Immature Gran % (Auto) Neut % (Auto) Lymph % (Auto) [place] % (Auto) Eos % (Auto) Baso % (Auto) Immature Gran # (Auto) Neut # (Auto) Lymph # (Auto) [place] # (Auto) Eos # (Auto) Baso # (Auto) PT INR APTT PTT Ratio VBG pH VBG pCO2 VBG pO2 VBG HCO3 VBG O2 Saturation VBG Base Excess Barometric Pressure POC Sodium Sodium POC Potassium Potassium POC Chloride Chloride Carbon Dioxide POC Total CO2 Anion Gap POC Anion Gap POC BUN BUN Creatinine POC Creatinine Est Cr Clr Drug Dosing Est GFR ( Amer) Est GFR (Non-Af Amer) BUN/Creatinine Ratio Glucose POC Glucose 369 H* 393 H* 375 H* POC Glucose (other) Estimat Average Glucose Hemoglobin A1c Osmolality POC Lactic Acid Akin Lactate Calcium POC Ioniz Calcium [place] Phosphorus Magnesium Total Bilirubin AST ALT Alkaline Phosphatase Ammonia Troponin I Total Protein Albumin Globulin Albumin/Globulin Ratio Lipase Beta-Hydroxybutyric Acd Procalcitonin TSH Urine Color Urine Appearance Urine pH Ur Specific [place] Urine Protein Urine Glucose (UA) Urine Ketones Urine Blood Urine Nitrite Urine Bilirubin Urine Urobilinogen Ur Leukocyte Esterase Urine WBC (Auto) Urine RBC (Auto) U Hyaline Cast (Auto) U Epithel Cells (Auto) Urine Bacteria (Auto) Urine Yeast Heparin-PF4 Ab Screen Influenza Type A (PCR) Influenza Type B (PCR) 05/24/19 05/24/19 05/24/19 01:58 01:58 02:44 WBC RBC Hgb POC Hgb Hct POC Hct MCV MCH MCHC RDW Std Deviation RDW Coeff of Erendira Plt Count MPV Immature Gran % (Auto) Neut % (Auto) Lymph % (Auto) [place] % (Auto) Eos % (Auto) Baso % (Auto) Immature Gran # (Auto) Neut # (Auto) Lymph # (Auto) [place] # (Auto) Eos # (Auto) Baso # (Auto) PT INR APTT PTT Ratio VBG pH VBG pCO2 VBG pO2 VBG HCO3 VBG O2 Saturation VBG Base Excess Barometric Pressure POC Sodium Sodium 128 L POC Potassium Potassium 3.8 POC Chloride Chloride 95 L Carbon Dioxide 22 POC Total CO2 Anion Gap 11.0 POC Anion Gap POC BUN BUN 52 H Creatinine 5.68 H* POC Creatinine Est Cr Clr Drug Dosing 13.0 Est GFR ( Amer) 8.6 Est GFR (Non-Af Amer) 7.4 BUN/Creatinine Ratio 9.1 L Glucose 360 H* POC Glucose 335 H* POC Glucose (other) Estimat Average Glucose Hemoglobin A1c Osmolality POC Lactic Acid Akin Lactate Calcium 10.1 POC Ioniz Calcium [place] Phosphorus Magnesium Total Bilirubin AST ALT Alkaline Phosphatase Ammonia 15.0 Troponin I 1.700 H* Total Protein Albumin Globulin Albumin/Globulin Ratio Lipase Beta-Hydroxybutyric Acd 0.85 Procalcitonin TSH Urine Color Urine Appearance Urine pH Ur Specific [place] Urine Protein Urine Glucose (UA) Urine Ketones Urine Blood Urine Nitrite Urine Bilirubin Urine Urobilinogen Ur Leukocyte Esterase Urine WBC (Auto) Urine RBC (Auto) U Hyaline Cast (Auto) U Epithel Cells (Auto) Urine Bacteria (Auto) Urine Yeast Heparin-PF4 Ab Screen Influenza Type A (PCR) Influenza Type B (PCR) 05/24/19 05/24/19 05/24/19 03:50 05:03 05:13 WBC 4.20 L RBC 3.58 L Hgb 10.7 L POC Hgb Hct 31.9 L POC Hct MCV 89.1 MCH 29.9 MCHC 33.5 RDW Std Deviation 47.4 H RDW Coeff of Erendira 14.4 Plt Count 137 MPV 10.0 Immature Gran % (Auto) 0.5 Neut % (Auto) 81.2 Lymph % (Auto) 11.2 [place] % (Auto) 6.9 Eos % (Auto) 0.0 Baso % (Auto) 0.2 Immature Gran # (Auto) 0.02 Neut # (Auto) 3.41 Lymph # (Auto) 0.47 L [place] # (Auto) 0.29 Eos # (Auto) 0.00 Baso # (Auto) 0.01 PT INR APTT PTT Ratio VBG pH VBG pCO2 VBG pO2 VBG HCO3 VBG O2 Saturation VBG Base Excess Barometric Pressure POC Sodium Sodium POC Potassium Potassium POC Chloride Chloride Carbon Dioxide POC Total CO2 Anion Gap POC Anion Gap POC BUN BUN Creatinine POC Creatinine Est Cr Clr Drug Dosing Est GFR ( Amer) Est GFR (Non-Af Amer) BUN/Creatinine Ratio Glucose POC Glucose 227 H 184 H POC Glucose (other) Estimat Average Glucose Hemoglobin A1c Osmolality POC Lactic Acid Akin Lactate Calcium POC Ioniz Calcium [place] Phosphorus Magnesium Total Bilirubin AST ALT Alkaline Phosphatase Ammonia Troponin I Total Protein Albumin Globulin Albumin/Globulin Ratio Lipase Beta-Hydroxybutyric Acd Procalcitonin TSH Urine Color Urine Appearance Urine pH Ur Specific [place] Urine Protein Urine Glucose (UA) Urine Ketones Urine Blood Urine Nitrite Urine Bilirubin Urine Urobilinogen Ur Leukocyte Esterase Urine WBC (Auto) Urine RBC (Auto) U Hyaline Cast (Auto) U Epithel Cells (Auto) Urine Bacteria (Auto) Urine Yeast Heparin-PF4 Ab Screen Influenza Type A (PCR) Influenza Type B (PCR) 05/24/19 05/24/19 05/24/19 05:13 05:13 05:13 WBC RBC Hgb POC Hgb Hct POC Hct MCV MCH MCHC RDW Std Deviation RDW Coeff of Erendira Plt Count MPV Immature Gran % (Auto) Neut % (Auto) Lymph % (Auto) [place] % (Auto) Eos % (Auto) Baso % (Auto) Immature Gran # (Auto) Neut # (Auto) Lymph # (Auto) [place] # (Auto) Eos # (Auto) Baso # (Auto) PT INR APTT 23.0 PTT Ratio 0.8 VBG pH VBG pCO2 VBG pO2 VBG HCO3 VBG O2 Saturation VBG Base Excess Barometric Pressure POC Sodium Sodium 130 L POC Potassium Potassium 4.3 POC Chloride Chloride 96 L Carbon Dioxide 24 POC Total CO2 Anion Gap 10.0 POC Anion Gap POC BUN BUN 55 H Creatinine 5.77 H* POC Creatinine Est Cr Clr Drug Dosing 12.8 Est GFR ( Amer) 8.4 Est GFR (Non-Af Amer) 7.2 BUN/Creatinine Ratio 9.7 L Glucose 181 H POC Glucose POC Glucose (other) Estimat Average Glucose Hemoglobin A1c Osmolality POC Lactic Acid Akin Lactate Calcium 10.2 H POC Ioniz Calcium [place] Phosphorus Magnesium Total Bilirubin AST ALT Alkaline Phosphatase Ammonia Troponin I 1.910 H* Total Protein Albumin Globulin Albumin/Globulin Ratio Lipase Beta-Hydroxybutyric Acd Procalcitonin TSH Urine Color Urine Appearance Urine pH Ur Specific [place] Urine Protein Urine Glucose (UA) Urine Ketones Urine Blood Urine Nitrite Urine Bilirubin Urine Urobilinogen Ur Leukocyte Esterase Urine WBC (Auto) Urine RBC (Auto) U Hyaline Cast (Auto) U Epithel Cells (Auto) Urine Bacteria (Auto) Urine Yeast Heparin-PF4 Ab Screen Negative Influenza Type A (PCR) Influenza Type B (PCR) 05/24/19 05/24/19 07:50 09:46 WBC RBC Hgb POC Hgb Hct POC Hct MCV MCH MCHC RDW Std Deviation RDW Coeff of Erendira Plt Count MPV Immature Gran % (Auto) Neut % (Auto) Lymph % (Auto) [place] % (Auto) Eos % (Auto) Baso % (Auto) Immature Gran # (Auto) Neut # (Auto) Lymph # (Auto) [place] # (Auto) Eos # (Auto) Baso # (Auto) PT INR APTT PTT Ratio VBG pH VBG pCO2 VBG pO2 VBG HCO3 VBG O2 Saturation VBG Base Excess Barometric Pressure POC Sodium Sodium POC Potassium Potassium POC Chloride Chloride Carbon Dioxide POC Total CO2 Anion Gap POC Anion Gap POC BUN BUN Creatinine POC Creatinine Est Cr Clr Drug Dosing Est GFR ( Amer) Est GFR (Non-Af Amer) BUN/Creatinine Ratio Glucose POC Glucose 222 H POC Glucose (other) Estimat Average Glucose Hemoglobin A1c Osmolality POC Lactic Acid Akin Lactate Calcium POC Ioniz Calcium [place] Phosphorus Magnesium Total Bilirubin AST ALT Alkaline Phosphatase Ammonia Troponin I Pending Total Protein Albumin Globulin Albumin/Globulin Ratio Lipase Beta-Hydroxybutyric Acd Procalcitonin TSH Urine Color Urine Appearance Urine pH Ur Specific [place] Urine Protein Urine Glucose (UA) Urine Ketones Urine Blood Urine Nitrite Urine Bilirubin Urine Urobilinogen Ur Leukocyte Esterase Urine WBC (Auto) Urine RBC (Auto) U Hyaline Cast (Auto) U Epithel Cells (Auto) Urine Bacteria (Auto) Urine Yeast Heparin-PF4 Ab Screen Influenza Type A (PCR) Influenza Type B (PCR) (1) Sepsis Sepsis acute organ dysfunction status: unspecified Sepsis type: sepsis due to unspecified organism Qualified Code(s): A41.9 - Sepsis, unspecified organism
[2019-05-24 11:58] LABS: Hepatitis B Surface Ab Quant 3.47 mIU/mL (>or=10mIU/mL Immune); Hepatitis B Surface Antibody Non-Immune
[2019-05-24 12:09] LABS: Hepatitis B Surface Antigen Neg (Neg)
[2019-05-24] MEDS: AMLODIPINE BESYLATE 5 MG TAB PO SCH (12:31)
[2019-05-24] MEDS ORDERED: PHARMACY GLYCEMIC MGMT CONSULT PRN ×2 (14:10→14:15)
--- NOTE | 2019-05-24 14:37 | Pharmacy Report ---
Glycemic Control Consultation - Date of Service May 24, 2019 - Scope Scope: Glycemic Pharmacist consulted for glycemic control and to write orders per [facility] inpatient glycemic control protocol - Objective Weight: 122.3 kg Accuchecks BSG (last 24hrs): 05/23/19 05/23/19 05/23/19 20:35 21:03 21:09 Glucose 716 H* POC Glucose > 600 H* POC Glucose (other) 677 H* 05/23/19 05/23/19 05/24/19 22:49 23:45 00:49 Glucose POC Glucose > 600 H* 517 H* 453 H* POC Glucose (other) 05/24/19 05/24/19 05/24/19 01:43 01:45 01:47 Glucose POC Glucose 369 H* 393 H* 375 H* POC Glucose (other) 05/24/19 05/24/19 05/24/19 01:58 02:44 03:50 Glucose 360 H* POC Glucose 335 H* 227 H POC Glucose (other) 05/24/19 05/24/19 05/24/19 05:03 05:13 07:50 Glucose 181 H POC Glucose 184 H 222 H POC Glucose (other) 05/24/19 11:22 Glucose POC Glucose 229 H POC Glucose (other) Laboratory Data (last 24hrs): 05/23/19 05/23/19 05/24/19 21:03 21:42 01:58 Potassium 3.7 3.8 Carbon Dioxide 23 22 Anion Gap 13.0 H 11.0 Creatinine 5.49 H* 5.68 H* Est Cr Clr Drug Dosing 13.7 13.0 Osmolality 316 H Beta-Hydroxybutyric Acd 8.81 H 0.85 05/24/19 05:13 Potassium 4.3 Carbon Dioxide 24 Anion Gap 10.0 Creatinine 5.77 H* Est Cr Clr Drug Dosing 12.8 Osmolality Beta-Hydroxybutyric Acd HbA1c: Hemoglobin A1c 9.5 % (4.5-5.6) H 05/23/19 21:03 * However, this result is likely somewhat unreliable in ESRD patients d/t interactions between the A1c analyzing technique and high levels of urea in ESRD, reduced RBC life span, iron deficiency anemia, and EPO administration. HbA1c > 7.5% in ESRD patient may overestimate the extent of hyperglycemia in ESRD patients. - Recent Pertinent Medications Outpatient Anti-diabetic Regimen: * Insulin Detemir 25 units SQ BID * Humalog 20 units with meals TIDM The patient is currently receiving: * Basal insulin: Detemir 30 units every 12 hours * Correctional Insulin: Novolog Correction per scale ACHS Goal Range: Low 140 mg/dL - High 180 mg/dL Correction Factor: 20 mg/dL/unit * Prandial insulin: Per carb ratio of 1 unit per 7 grams CHO consumed Risk Factors for Insulin Resistance: * Infection * Hyperglycemic crisis - Assessment & Plan Assessment & Plan: ASSESSMENT: * 64yo diabetic - possibly type [address] Barton[address] PHM is also complicated with ESRD on HD (M,W,F), chronic osteomyelitis, CAD, hypothyroid, hx of breast cancer. * Pt admitted overnight with "hyperglycemia." No hyperglycemic crisis per admission labs * Pt initiated on IV insulin infusion per hyperglycemic crisis dosing (1 unit/kg bolus + 1 unit/kg/hr infusion --> capped at 10 units bolus + 10 unit/hr infusion). * Hyperglycemia resolved rapidly and patient initiated on stressed outpatient SQ basal bolus insulin regimen. * Pt received Levemir 30 units at ~0100 + 30 units at 0900. * BSGs since stopping infusion have been in the mid 200's. * Expect BSGs to improve after HD today. Pt only ordered clear liquid diet but may advance after HD. * Will set BSG scale dosing of Levemir for this evening since many variables for hyperglycemia changing at once. * Discussed plan with patient and she is agreeable. PLAN FOR INPATIENT GLYCEMIC CONTROL: Goal is to maintain BSGs ~100-200 mg/dl w/ SQ basal bolus insulin regimen. * Basal insulin * Levemir 20-30 units SQ BID * BSG below 150mg/dl --> 20 units * BSG 150-200mg/dl --> 25 units * BSG above 200mg/dl --> 30 units * Bolus insulin: tighten goal range, CF & CR to better match outpatient dosing * NovoLog per scale ACHS or Q6hrs while NPO. Additional checks + coverage at 0000 & 0400 tonight with other vital signs ordered * Goal Range: Low 110 mg/dL - High 150 mg/dL * Correction Factor: 20 mg/dL/unit * Nutritional / Prandial insulin per carb ratio of 1 unit per 7 grams CHO consumed * Please note that the plan above was derived based on current level of insulin resistance and hospital stress. These recommendations are appropriate for inpatient admission only. Plan of care upon discharge will need to be reassessed to avoid potential outpatient hypo/hyperglycemia. Thank you.
[2019-05-24] MEDS ORDERED: HEPARIN SOD (PORCINE) 1000 UNIT/ML 10 ML VIAL IV SCH (15:00)
[2019-05-24] MEDS ORDERED: SODIUM CHLORIDE 0.9% 1000ML 1,000 ML IV PRN (15:06)
[2019-05-24] MEDS: HEPARIN SOD (PORCINE) 1000 UNIT/ML 10 ML VIAL IV SCH ×2 (18:02→20:35)
--- NOTE | 2019-05-24 19:02 | Hospitalist Progress Note ---
Date of Service May 24, 2019 Assessment & Plan (1) Acute hypoxemic respiratory failure: Present on admission with worsening SOB and cough Possible related to bronchitis CXR showed stable chronic changes in the left hemithorax. No evidence of lobar consolidation Received cefepime, Vanco and doxy IV x1 Saturated well on RA Blood cx pending Continue monitor Elevated Troponin Mostly related to ESRD and acute respiratory failure EKG on admission showed ST changed, that improved after heart rate controlled Cardiology on board Trop 0.157 on admission, increased to 1.9, then trending down to 1.7 ECHO showed no change compared to previous one. Anteroseptum hypokinetic and EF 55-60% Continue aspirin, statin and metoprolol Denies any chest pain DM type 2 Hyperglycemia A1c of 8.24 April 2019 Pharmacy on board for glycemic management CAD Continue metoprolol/Asa/Statin Continue monitor in tele HTN BP stable Continue home med ESRD ON HD MWF Nephro on board Had HD done today Monitor electrolytes DVT px SCDs due to Thrombocytopenia Subjective Pt was seen and examined Lying in bed with no distress getting HD Pt said that she feels much better She said that she feels hungry She said that her breathing is much better Denies any chest pain, palpitation, dizziness and SOB Physical Exam Physical Exam: General- No acute distress Head- atraumatic Eyes- PERRL, EOMI, ENT- oropharynx clear Neck- supple, no JVD Lungs- diminished BS Heart- regular rhythm; no murmur Abdomen- normal bowel sounds, soft, nontender Extremities- no calf tenderness Neuro- alert, oriented x 3; PERRL, EOMI; no facial palsy; no dysarthria Skin- warm & dry Results & Data Vital Signs (Past 12 Hours) Vital Signs Temp Pulse Pulse Pulse Resp BP BP 05/24/19 18:40 92 H 114/64 05/24/19 18:20 92 H 131/62 05/24/19 18:00 93 H 121/73 05/24/19 17:40 94 H 117/63 05/24/19 17:20 88 138/75 05/24/19 17:00 86 118/63 05/24/19 16:40 79 122/60 05/24/19 16:00 36.6 C 80 05/24/19 15:03 37.0 C 84 19 139/80 05/24/19 12:26 92 H 20 130/81 05/24/19 07:39 36.6 C 84 16 118/73 05/24/19 07:30 36.5 C 102 H 20 112/74 Pulse Ox 05/24/19 18:40 05/24/19 18:20 05/24/19 18:00 05/24/19 17:40 05/24/19 17:20 05/24/19 17:00 05/24/19 16:40 05/24/19 16:00 05/24/19 15:03 96 05/24/19 12:26 98 05/24/19 07:39 97 05/24/19 07:30 97
--- NOTE | 2019-05-24 19:07 | Dialysis Progress Note ---
Date of Service May 24, 2019 Assessment & Plan (1) ESRD (end stage renal disease) on dialysis: on MWF HD >> 3.75 hr HD today goal 2L UF; challenging to use avf >> to orient needles/ ran reversed today/ also pulled multiple clots but eventually got her running at rx'd Qb; her BP and volume status are acceptable on OP BP meds. chemistries acceptable > 3K bath -next HD on monday or as clinical condition dictates (2) Anemia in ESRD (end-stage renal disease): hgb q48 hrs; no epo today (3) Acute hyperglycemia: prompting admission; per primary service; once BG have been controlled her clinical condition has improved markedly (4) Dialysis AV fistula malfunction: ran today but cannulation issues, clot present >> has appt w/ Dr Sparks late next week Subjective cannulation issues today but now running well; no sob, no cramping, no chest pain, no cough currently, no abd pain, no edema; still occasional chills Review of Systems Review of Systems: All systems reviewed & are unremarkable except as noted in HPI & below Physical Exam Constitutional: well developed, well nourished and + obese Eyes: EOM intact bilaterally ENMT: Ears: no external ear abnormality Nose: no external nose abnormality Mouth: + dry oral mucous membranes Neck: no nuchal rigidity Respiratory: normal respiratory effort Auscultation: + diminished lung sounds Cardiovascular: RRR, no murmur, no edema Extremities: + AV fistula (+t/b) Gastrointestinal (Abdomen): Inspection/Auscultation: normal bowel sounds Percussion/Palpation: abdomen soft; abdomen nontender Musculoskeletal: Extremities: strength 5/5 throughout Skin: no rashes, warm and dry Psychiatric: A+Ox3, euthymic affect Results & Data Vital Signs (Past 12 Hours) Vital Signs Temp Pulse Pulse Pulse Resp BP BP 05/24/19 19:00 95 H 127/64 05/24/19 18:40 92 H 114/64 05/24/19 18:20 92 H 131/62 05/24/19 18:00 93 H 121/73 05/24/19 17:40 94 H 117/63 05/24/19 17:20 88 138/75 05/24/19 17:00 86 118/63 05/24/19 16:40 79 122/60 05/24/19 16:00 36.6 C 80 05/24/19 15:03 37.0 C 84 19 139/80 05/24/19 12:26 92 H 20 130/81 05/24/19 07:39 36.6 C 84 16 118/73 05/24/19 07:30 36.5 C 102 H 20 112/74 Pulse Ox 05/24/19 19:00 05/24/19 18:40 05/24/19 18:20 05/24/19 18:00 05/24/19 17:40 05/24/19 17:20 05/24/19 17:00 05/24/19 16:40 05/24/19 16:00 05/24/19 15:03 96 05/24/19 12:26 98 05/24/19 07:39 97 05/24/19 07:30 97 Laboratory Results 05/24/19 05:13 05/24/19 05:13
[2019-05-24] MEDS ORDERED: LORazepam 0.5 MG TAB PO PRN (20:50)
[2019-05-24] MEDS ORDERED: ASPIRIN 81 MG ECTAB PO SCH (21:00)
[2019-05-24] MEDS: ATORVASTATIN 40 MG TAB PO SCH (21:28)
[2019-05-24] MEDS: GABAPENTIN 300 MG CAP PO SCH (21:31)
[2019-05-24] MEDS: HEPARIN SOD 5,000 UNIT/0.5 ML VIAL SQ SCH (23:01)
[2019-05-25] MEDS: INSULIN ASPART 100 UNITS/ML 3 ML PEN SC SCH ×5 (04:36→21:32)
[2019-05-25] MEDS: HEPARIN SOD 5,000 UNIT/0.5 ML VIAL SQ SCH ×3 (05:57→21:32)
[2019-05-25] MEDS: LEVOTHYROXINE SODIUM 50 MCG TABLET PO SCH (05:58)
[2019-05-25 07:00] LABS: Hematocrit (blood only) 31.8 % (37-47); Hemoglobin 10.3 g/dL (12.0-16.0); Mean Corpuscular Hemoglobin 29.4 pg (25-34); Mean Corpuscular Hgb Conc 32.4 g/dL (32-36); Mean Corpuscular Volume 90.9 fL (80-100); Platelet Count 113 K/uL (130-400); RDW Coefficient of Variation 14.7 % (11.5-14.5); RDW Standard Deviation 49.2 fL (36.4-46.3); White Blood Count 2.63 K/uL (4.8-10.8)
[2019-05-25 07:39] LABS: BUN Creatinine Ratio 8.2 (10-20); Calcium 9.5 mg/dl (8.5-10.1); Creatinine Clr Calc Pharmacy 17.3 ml/min; Est GFR (African American) 12.1; Est GFR (Non-African American) 10.5; Potassium 4.3 mmol/L (3.5-5.1)
[2019-05-25] MEDS: SEVELAMER HCL 800 MG TABLET PO SCH ×3 (07:59→16:39)
[2019-05-25] MEDS: INSULIN DETEMIR FLEXPEN/FLEX TOUCH 100 UNITS/ML 3ML SQ SCH ×2 (08:01→21:31)
[2019-05-25] MEDS: ESCITALOPRAM OXALATE 10 MG TAB PO SCH (08:01)
[2019-05-25] MEDS: METOPROLOL TARTRATE 50 MG TAB PO SCH (08:02)
[2019-05-25] MEDS: guaiFENesin 600 MG TABCR PO SCH ×2 (08:02→21:29)
[2019-05-25] MEDS: GABAPENTIN 300 MG CAP PO SCH ×2 (08:03→21:29)
[2019-05-25] MEDS: TAMOXIFEN CITRATE 10 MG TABLET PO SCH (08:03)
[2019-05-25] MEDS: AMLODIPINE BESYLATE 5 MG TAB PO SCH (08:04)
[2019-05-25] MEDS: PANTOprazole 40 MG TAB PO SCH (08:04)
[2019-05-25] MEDS: DOXYCYCLINE HYCLATE 100 MG CAP PO SCH ×2 (08:04→21:32)
--- NOTE | 2019-05-25 09:10 | Pharmacy Report ---
Glycemic Control Progress Note - Date of Service May 25, 2019 - Scope Glycemic Pharmacist consulted for glycemic control to write orders per [facility] inpatient glycemic control protocol. - Objective Accuchecks BSG(last 24 hours):: 05/23/19 05/23/19 05/24/19 20:35 22:49 11:22 Glucose POC Glucose > 600 H* > 600 H* 229 H 05/24/19 05/24/19 05/24/19 16:10 20:02 23:23 Glucose POC Glucose 192 H 107 H 97 05/25/19 05/25/19 05/25/19 04:03 06:46 07:36 Glucose 182 H POC Glucose 168 H 188 H HbA1c:: Hemoglobin A1c 9.5 % (4.5-5.6) H 05/23/19 21:03 - Recent Pertinent Medications The patient is currently receiving: * Basal insulin: Lantus [] units every [] hours * Correctional Insulin: Novolog Correction per scale ACHS Goal Range: Low [] mg/dL - High [] mg/dL Correction Factor: [] mg/dL/unit * Prandial insulin: Per carb ratio of 1 unit per [] grams CHO consumed * Oral Agents: - Outpatient Anti-Diabetic Meds Levemir 25 units BID Humalog 20 units with meals - Assessment & Plan ASSESSMENT: * See progress note from 05/24/19 for more background info, in short: * Pt receiving SQ basal bolus insulin regimen for hyperglycemia secondary to baseline DM (outpatient regimen on hold),stress/infection (respiratory failure on doxycycline). * Patient is currently receiving an average of 77 units of insulin per day * 60 units of basal insulin * 17 units of prandial/correctional insulin * BSGs ranging 97 - 229 mg/dl over the past 24hrs * Changes needed to insulin regimen: * AM Fasting BSG = 188 mg/dl. This is above goal range for patient based on inpatient targets and co-morbidities. The patient's basal insulin was held last night for unknown reasons. This would explain the fasting of 188 mg/dL. She received no extra insulin overnight. Continue with scale of 20- 30 units SQ BID. Will lower threshold to receive 30 units. * Post-prandial BSGs are slightly elevated. Patient did trend downwards yesterday so weight-based stress of 3 may be appropriate. Plan to tighten lunch prandial coverage if lunch BSG significantly elevated. * Total daily dose = ~100 units. PLAN FOR INPATIENT GLYCEMIC CONTROL: * Continuing Lantus 20-30 units SQ BID * Continuing correction factor of 20 mg/dl/unit * Continuing carb ratio of 1 unit per 7 grams CHO consumed * Continuing goal range of Low 110 mg/dL - High 150 mg/dL RECOMMENDATIONS FOR DISCHARGE: * Return to [facility] with recommendations from DM educators. * Please note that the plan above was derived based on current level of insulin resistance and hospital stress. These recommendations are appropriate for inpatient admission only. Plan of care upon discharge will need to be reassessed to avoid potential outpatient hypo/hyperglycemia. Thank you.
--- NOTE | 2019-05-25 10:55 | Cardiology Progress Note ---
Date of Service May 25, 2019 Assessment & Plan (1) Elevated troponin: Patient presented with acute hyperglycemia and possible febrile illness/sepsis with tachycardia and associated ST segment changes. ST segments improved after heart rate controlled and patient resuscitated. Troponins are elevated suggestive of type II demand ischemia and patient of known moderate diffuse coronary atherosclerosis by remote cardiac cath Echocardiogram no acute changes overall LV systolic function normal with subtle septal abnormalities similar to prior study Findings reflect acute demand type ischemia secondary to underlying illness, tachycardia, metabolic derangement Plan increase metoprolol to 75 mg p.o. twice daily continue all other current medications No contraindications to proceeding with AV fistula evaluation We will schedule dobutamine stress test in the next 3 to 4 weeks to complete assessment Follow-up cardiology after stress testing (2) Sepsis: (3) Acute hyperglycemia: (4) ESRD (end stage renal disease) on dialysis: Subjective Patient seen and examined, chart medications telemetry reviewed. Patient feels well today, breathing easier, sugars improved. No chest pains or discomfort. No arrhythmias. No dizziness or lightheadedness Tolerated dialysis well yesterday, feels well this morning No fevers chills or productive Review of Systems Review of Systems: All systems reviewed & are unremarkable except as noted in HPI & below Physical Exam Constitutional: + morbidly obese Eyes: PERRL, conjunctivae normal, anicteric sclerae ENMT: external ear and nose normal, oropharynx normal Neck: trachea midline, no thyromegaly Respiratory: normal respiratory effort, lungs clear to auscultation Cardiovascular: Rate/Rhythm: regular rate and regular rhythm Heart Sounds: normal S1 and normal S2; no gallop and no murmur Vessels: no JVD Extremities: + edema (Trace) Gastrointestinal (Abdomen): normal bowel sounds, soft, nontender, no hepatosp lenomegaly Results & Data Vital Signs (Past 12 Hours) Vital Signs Temp Pulse Pulse Resp BP Pulse Ox 05/25/19 08:14 36.5 C 90 18 109/73 91 05/25/19 03:19 37 C 86 18 119/77 93 05/25/19 00:00 101 H 05/24/19 23:02 37.8 C H 103 H 20 131/69 95 (1) Sepsis Sepsis acute organ dysfunction status: unspecified Sepsis type: sepsis due to unspecified organism Qualified Code(s): A41.9 - Sepsis, unspecified organism
--- NOTE | 2019-05-25 19:08 | Hospitalist Progress Note ---
Date of Service May 25, 2019 Assessment & Plan (1) Acute hypoxemic respiratory failure: Present on admission with worsening SOB and cough Possible related to bronchitis CXR showed stable chronic changes in the left hemithorax. No evidence of lobar consolidation Received cefepime, Vanco and doxy IV x1 Saturated well on RA Blood cx no growth Continue monitor Elevated Troponin Mostly related to ESRD and acute respiratory failure EKG on admission showed ST changed, that improved after heart rate controlled Cardiology on board Trop 0.157 on admission, increased to 1.9, then trending down to 1.7 ECHO showed no change compared to previous one. Anteroseptum hypokinetic and EF 55-60% Continue aspirin, statin and metoprolol increased to 75 mg BID Denies any chest pain Schedule for dobutamine stress test in the next 3 to 4 weeks to complete assessment Follow-up cardiology after stress testing DM type 2 Hyperglycemia A1c of 8.24 April 2019 Pharmacy on board for glycemic management CAD Continue metoprolol/Asa/Statin Continue monitor in tele HTN BP stable Continue home med ESRD ON HD MWF Nephro on board Had HD done yesterday Monitor electrolytes DVT px SCDs due to Thrombocytopenia Subjective Pt was seen and examined Lying in bed with no distress Pt said that she feels fine Denies any symptoms Physical Exam Physical Exam: General- No acute distress Head- atraumatic Eyes- PERRL, EOMI, ENT- oropharynx clear Neck- supple, no JVD Lungs- diminished BS Heart- regular rhythm; no murmur Abdomen- normal bowel sounds, soft, nontender Extremities- no calf tenderness Neuro- alert, oriented x 3; PERRL, EOMI; no facial palsy; no dysarthria Skin- warm & dry Results & Data Vital Signs (Past 12 Hours) Vital Signs Temp Pulse Resp BP Pulse Ox 05/25/19 15:11 37.2 C 95 H 18 110/71 91 05/25/19 11:33 36.7 C 79 17 103/67 93 05/25/19 08:14 36.5 C 90 18 109/73 91
[2019-05-25] MEDS: ATORVASTATIN 40 MG TAB PO SCH (21:28)
[2019-05-25] MEDS: METOPROLOL TARTRATE 25 MG TAB PO SCH (21:30)
[2019-05-25] MEDS: ASPIRIN 81 MG ECTAB PO SCH (21:31)
[2019-05-26] MEDS: LEVOTHYROXINE SODIUM 50 MCG TABLET PO SCH (06:22)
[2019-05-26] MEDS: HEPARIN SOD 5,000 UNIT/0.5 ML VIAL SQ SCH (06:22)
[2019-05-26] MEDS: SEVELAMER HCL 800 MG TABLET PO SCH ×2 (08:28→11:58)
[2019-05-26] MEDS: DOXYCYCLINE HYCLATE 100 MG CAP PO SCH (08:29)
[2019-05-26] MEDS: ESCITALOPRAM OXALATE 10 MG TAB PO SCH (08:29)
[2019-05-26] MEDS: PANTOprazole 40 MG TAB PO SCH (08:29)
[2019-05-26] MEDS: guaiFENesin 600 MG TABCR PO SCH (08:29)
[2019-05-26] MEDS: GABAPENTIN 300 MG CAP PO SCH (08:29)
[2019-05-26] MEDS: METOPROLOL TARTRATE 25 MG TAB PO SCH (08:29)
[2019-05-26] MEDS: TAMOXIFEN CITRATE 10 MG TABLET PO SCH (08:29)
[2019-05-26] MEDS: AMLODIPINE BESYLATE 5 MG TAB PO SCH (08:29)
[2019-05-26] MEDS: INSULIN ASPART 100 UNITS/ML 3 ML PEN SC SCH ×2 (08:30→11:57)
[2019-05-26] MEDS: INSULIN DETEMIR FLEXPEN/FLEX TOUCH 100 UNITS/ML 3ML SQ SCH (08:32)
--- NOTE | 2019-05-26 09:04 | Pharmacy Report ---
Glycemic Control Progress Note - Date of Service May 26, 2019 - Scope Glycemic Pharmacist consulted for glycemic control to write orders per [facility] inpatient glycemic control protocol. - Objective Accuchecks BSG(last 24 hours):: 05/25/19 05/25/19 05/25/19 11:31 16:14 20:10 POC Glucose 270 H 231 H 206 H 05/26/19 07:10 POC Glucose 102 H HbA1c:: Hemoglobin A1c 9.5 % (4.5-5.6) H 05/23/19 21:03 - Recent Pertinent Medications The patient is currently receiving: * Basal insulin: Lantus 20-30 units every 12 hours * Correctional Insulin: Novolog Correction per scale ACHS Goal Range: Low 110 mg/dL - High 150 mg/dL Correction Factor: 20 mg/dL/unit * Prandial insulin: Per carb ratio of 1 unit per 6 grams CHO consumed - Outpatient Anti-Diabetic Meds LEVEMIR 25 UNITS BID HUMALOG 20 UNITS TID - Assessment & Plan ASSESSMENT: * See progress note from 05/24/19 for more background info, in short: * Pt receiving SQ basal bolus insulin regimen for hyperglycemia secondary to baseline DM (outpatient regimen on hold),stress/infection (chronically on doxycycline). * Patient is currently receiving an average of 81 units of insulin per day * 55 units of basal insulin * 26 units of prandial/correctional insulin * BSGs ranging 188 - 270 mg/dl over the past 24hrs * Changes needed to insulin regimen: * AM Fasting BSG = 102 mg/dl. This is below goal range for patient based on inpatient targets and co-morbidities. This is significantly improved compared to yesterday's fasting. Reduce doses by 20% and aim for Lantus dose of between 40-45 units/day. Patient's blood sugars elevated yesterday due to missing Lantus evening dose of the 8th. * Post-prandial BSGs are in range therefore no changes needed to CF/CR. * Total daily dose = ~60-70 units. PLAN FOR INPATIENT GLYCEMIC CONTROL: * Decreasing Levemir to 20 units SQ BID (25 units if blood sugar over 160 mg/dL) * Continuing correction factor of 20 mg/dl/unit * Continuing carb ratio of 1 unit per 6 grams CHO consumed * Continuing goal range of Low 110 mg/dL - High 140 mg/dL RECOMMENDATIONS FOR DISCHARGE: * see note from 05/25/19 * Please note that the plan above was derived based on current level of insulin resistance and hospital stress. These recommendations are appropriate for inpatient admission only. Plan of care upon discharge will need to be reassessed to avoid potential outpatient hypo/hyperglycemia. Thank you.
--- NOTE | 2019-05-26 10:26 | Cardiology Progress Note ---
Date of Service May 26, 2019 Assessment & Plan (1) Elevated troponin: Patient presented with acute hyperglycemia and possible febrile illness/sepsis with tachycardia and associated ST segment changes. ST segments improved after heart rate controlled and patient resuscitated. Troponins are elevated suggestive of type II demand ischemia and patient of known moderate diffuse coronary atherosclerosis by remote cardiac cath Echocardiogram no acute changes overall LV systolic function normal with subtle septal abnormalities similar to prior study Findings reflect acute demand type ischemia secondary to underlying illness, tachycardia, metabolic derangement Plan patient tolerating increase metoprolol to 75 mg p.o. twice daily continue all other current medications No contraindications to proceeding with AV fistula evaluation We will schedule dobutamine stress test in the next 3 to 4 weeks to complete assessment Follow-up cardiology after stress testing (2) Sepsis: (3) Acute hyperglycemia: (4) ESRD (end stage renal disease) on dialysis: Subjective Patient without complaints this morning ambulatory in room. Denies chest pains, shortness of breath, orthopnea, peripheral edema. Physical Exam Constitutional: WD/WN, vitals as above + morbidly obese and + obese Eyes: PERRL, conjunctivae normal, anicteric sclerae ENMT: external ear and nose normal, oropharynx normal Neck: trachea midline, no thyromegaly + thick neck Respiratory: normal respiratory effort, lungs clear to auscultation normal respiratory effort; no respiratory distress Cardiovascular: Rate/Rhythm: regular rate and regular rhythm Heart Sounds: normal S1 and normal S2; no gallop, no murmur and no cardiac rub Vessels: no JVD and no femoral bruit Extremities: + edema (Trace) Gastrointestinal (Abdomen): normal bowel sounds, soft, nontender, no hepatosplenomegaly Inspection/Auscultation: + significant pannus; abdomen not distended Percussion/Palpation: no hepatosplenomegaly Musculoskeletal: no cyanosis or clubbing, extremities motor strength 5/5 Neurologic: moves all extremities; no focal motor deficits Psychiatric: Orientation: oriented x 3 Results & Data Vital Signs (Past 12 Hours) Vital Signs Temp Pulse Resp BP Pulse Ox 05/26/19 06:30 36.7 C 81 18 136/75 92 05/26/19 03:23 36.8 C 79 18 114/61 92 05/25/19 23:18 37.1 C 76 18 110/71 91 (1) Sepsis Sepsis acute organ dysfunction status: unspecified Sepsis type: sepsis due to unspecified organism Qualified Code(s): A41.9 - Sepsis, unspecified organism
--- NOTE | 2019-05-26 13:39 | Hospitalist Progress Note ---
Date of Service May 26, 2019 Assessment & Plan (1) Acute hypoxemic respiratory failure: Present on admission with worsening SOB and cough Possible related to bronchitis CXR showed stable chronic changes in the left hemithorax. No evidence of lobar consolidation Received cefepime, Vanco and doxy IV x1 Saturated well on RA Blood cx no growth Will complete course of doxy Continue monitor Elevated Troponin Mostly related to ESRD and acute respiratory failure EKG on admission showed ST changed, that improved after heart rate controlled Cardiology on board Trop 0.157 on admission, increased to 1.9, then trending down to 1.7 ECHO showed no change compared to previous one. Anteroseptum hypokinetic and EF 55-60% Continue aspirin, statin and metoprolol increased to 75 mg BID Denies any chest pain Schedule for dobutamine stress test in the next 3 to 4 weeks to complete a ssessment Follow-up cardiology after stress testing DM type 2 Hyperglycemia A1c of 8.24 April 2019 Pharmacy on board for glycemic management CAD Continue metoprolol/Asa/Statin Continue monitor in tele HTN BP stable Continue home med ESRD ON HD MWF Nephro on board Had HD done on Monday Next HD schedule for Monday Monitor electrolytes DVT px SCDs due to Thrombocytopenia Disposition Discharge home today Subjective Pt was seen and examined Sitting in chair with no distress with at bedside Pt said that she feels fine She already dressed for discharge Denies any chest pain, palpitation, dizziness and SOB Physical Exam Physical Exam: General- No acute distress Head- atraumatic Eyes- PERRL, EOMI, ENT- oropharynx clear Neck- supple, no JVD Lungs- diminished BS Heart- regular rhythm; no murmur Abdomen- normal bowel sounds, soft, nontender Extremities- no calf tenderness Neuro- alert, oriented x 3; PERRL, EOMI; no facial palsy; no dysarthria Skin- warm & dry Results & Data Vital Signs (Past 12 Hours) Vital Signs Temp Pulse Resp BP Pulse Ox 05/26/19 11:21 36.4 C L 79 18 112/74 90 05/26/19 06:30 36.7 C 81 18 136/75 92 05/26/19 03:23 36.8 C 79 18 114/61 92
--- NOTE | 2019-05-27 08:30 | Discharge Summary ---
Date of Service May 26, 2019 Admission HPI Per Admitting Provider History obtained from patient, family, and records. Medical history significant for nonocclusive CAD as per records, hypertension, DM 2, insulin requiring, ESRD on HD, asthma as per records, chronic anemia baseline hemoglobin of 11, breast cancer L status post surgery ongoing tamoxifen Rx, history R great toe osteomyelitis status post antibiotic Rx, past tobacco abuse. 1 week history of dry cough symptoms occasionally productive of clear sputum. No aspiration. Possible sick contacts with having a respiratory tract infection. Fair appetite. Patient outpatient fistulogram contemplated for malfunctioning AV fistula last 05/21/2019 deferred due to hyperglycemia, BSG 300s as per patient. Patient seen to the ER for evaluation. Subsequently discharged home. At home, persistent hyperglycemia noted, BSG readings persistently noted to be high as per patient. Patient claims to be compliant with home insulin Rx. Worsening shortness of breath, chills, cough cold symptoms. Patient denies chest pain. Right great toe wound healing as per patient. At the ER, BSG noted to be in the 700s. IV insulin started at the ER. Vancomycin and Cefepime given at the ER for sepsis. Patient somewhat lethargic at the ER. Medical History as above Hemodialysis Monday Surgical History : left mastectomy, vascular procedures, cholecystectomy, cataract surgery, hysterectomy, parathyroidectomy Family History : Heart disease, brain cancer, alcoholism, thyroid disease, diabetes Personal/Social history : Past tobacco abuse, no EtOH intake, disabled Admission Exam Per Admitting Provider GENERAL: Comfortable, obese, episodic lethargy, no respiratory distress SKIN: Pallor, warm HEENT: Pale palpebral conjunctivae, no ptosis, dry buccal mucosa NECK : Supple, short neck, no tenderness CHEST : Decreased breath sounds, no tenderness HEART : Tachycardic, no obvious murmurs ABDOMEN: Some distention, nontender EXTREMITIES : Minimal LE swelling, no LE tenderness, dressing over right great toe wound NEUROLOGIC : Episodic lethargy, no facial asymmetry, no other gross focality Principal Diagnosis Acute hypoxemic respiratory failure: Elevated Troponin DM type 2 CAD ESRD Discharge Exam General- No acute distress Head- atraumatic Eyes- PERRL, EOMI, ENT- oropharynx clear Neck- supple, no JVD Lungs- diminished BS Heart- regular rhythm; no murmur Abdomen- normal bowel sounds, soft, nontender Extremities- no calf tenderness Neuro- alert, oriented x 3; PERRL, EOMI; no facial palsy; no dysarthria Skin- warm & dry Discharge Data Allergies Allergy/AdvReac Type Severity Reaction Status Date / Time codeine Allergy Intermediate rash, Verified 05/23/19 22:23 Note: but was also taking penicillin. Penicillins Allergy Intermediate hives, Verified 05/23/19 22:23 family allergy to PCN oxycodone AdvReac Intermediate NAUSEA/VOMI Verified 05/23/19 22:23 TING ROHAN Inhibitors AdvReac Mild hyperkalemi Verified 05/23/19 22:23 a Consultations 05/23/19 22:37 ED Decision to Admit Stat 05/24/19 01:36 Consult Nephrology Routine 05/24/19 06:18 Consult Cardiology Routine Ordered Studies 05/23/19 23:50 CT head/brain wo con Urgent CT head/brain wo con CT DOSE: 614.27 mGy.cm HISTORY: Mental status change lethargy TECHNIQUE: Multiaxial CT images of the head were performed without the use of intravenous contrast. A dose lowering technique was utilized adhering to the principles of ALARA. Comparison: None. Findings: The paranasal sinuses and mastoid air cells are clear. The calvarium and skull base are intact. The ventricles and sulci are within normal limits. There is no mass, hematoma, midline shift, or acute infarct. Impression: No acute intracranial abnormality. The above report was generated using voice recognition software. It may contain grammatical, syntax or spelling errors. Electronically signed by: Stefan Donahue M.D. 05/24/2019 6:17 AM Dictated: 05/24/19615 Transcribed: 05/24/19615 XR chest 1V portable CLINICAL HISTORY: Sepsis COMPARISON STUDY: 01/02/2014 FINDINGS: There is persistent left upper lobe volume loss with superior tenting of the left hilum. This is felt to be chronic. There is no lobar consolidation. There is mild interstitial thickening. Clinical correlation in regards to mild pulmonary vascular congestion is recommended. An interstitial inflammatory processes could appear similar.[ IMPRESSION: 1. Stable chronic changes in the left hemithorax 2. No evidence of lobar consolidation 3. Interstitial thickening. This likely represents either mild pulmonary vascular congestion or interstitial inflammatory process. Clinical and radiographic follow-up is recommended. Electronically signed by: Ronn Duldey M.D. 05/23/2019 10:03 PM Dictated: 05/23/192199 Transcribed: 05/23/192199 Hospital Course (1) Acute hypoxemic respiratory failure: Present on admission with worsening SOB and cough Possible related to bronchitis CXR showed stable chronic changes in the left hemithorax. No evidence of lobar consolidation Received cefepime, Vanco and doxy IV x1 Saturated well on RA Blood cx no growth Will complete course of doxy Continue monitor Elevated Troponin Mostly related to ESRD and acute respiratory failure EKG on admission showed ST changed, that improved after heart rate controlled Cardiology on board Trop 0.157 on admission, increased to 1.9, then trending down to 1.7 ECHO showed no change compared to previous one. Anteroseptum hypokinetic and EF 55-60% Continue aspirin, statin and metoprolol increased to 75 mg BID Denies any chest pain Schedule for dobutamine stress test in the next 3 to 4 weeks to complete assessment Follow-up cardiology after stress testing DM type 2 Hyperglycemia A1c of 8.24 April 2019 Pharmacy on board for glycemic management CAD Continue metoprolol/Asa/Statin Continue monitor in tele HTN BP stable Continue home med ESRD ON HD [facility] Nephro on board Had HD done on Monday Next HD schedule for Monday Monitor electrolytes DVT px SCDs due to Thrombocytopenia Disposition Discharge home today Total Time Total Time Spent Total Time Spent (In Minutes): 35 minutes Total Time Includes: Examination of the Patient, Discharge Planning, Medication Reconciliation, Communication With Other Providers and Other Discharge Plan Discharge Items Patient Disposition: Home - Self-Care Reason For Visit: RESP FAILURE Discharge Diagnosis: Acute hypoxemic respiratory failure: Elevated Troponin DM type 2 CAD ESRD Activity: Resume your previous activity Activity Comment: As tolerated Non-emergency contact: Primary Care Provider, Capacity Planning Engineer and Pond Supervisor Call non-emergency contact if: you have any medication questions and your temperature is above 101 Follow-up/Referrals: Jorge Franco, [Primary Care Provider] - Diet: Carb Consistent or DM2, Dialysis Renal and Heart Healthy Addtl Attending Provider Instructions: Follow up with your primary care provider Dr. Newton on 06/04 @ 11:10 Follow up with cardiology to schedule for dobutamine stress test in the next 3 to 4 weeks Follow up with your nephrology Complete course of antibiotic with doxycycline Next dialysis schedule for Monday05/27/19 Continue monitor your blood sugar and bring your blood sugar log at your next appointment for diabetes management Follow up a healthy diabetes diet and limited concentrated sweet intake Metoprolol increased to 75mg twice a day Pending Studies at Discharge: No Stand-Alone Forms: My [facility], Smoking Cessation Medications and DC Order Prescriptions: New doxycycline hyclate 100 mg Capsule 100 mg PO BID 4 Days Qty: 8 RF: 0 guaifenesin 200 mg tablet 200 mg PO TID PRN (Reason: congestion) Qty: 15 RF: 0 metoprolol tartrate [Lopressor] 50 mg Tablet 75 mg PO BID 30 Days Qty: 90 RF: 0 Continued diphenhydramine-acetaminophen [Tylenol PM Extra Strength] 25-500 mg Tablet 2 tab PO HS PRN (Reason: Sleep) RF: 0 cholecalciferol (vitamin D3) [Vitamin D3] 400 unit Tablet 400 unit PO QAM RF: 0 escitalopram oxalate [Lexapro] 10 mg Tablet 10 mg PO QAM RF: 0 Humalog U-100 Insulin 100 unit/mL Cartridge 20 unit SUBCUT TID RF: 0 Levemir U-100 Insulin 100 unit/mL Solution 25 unit SUBCUT BID RF: 0 atorvastatin [Lipitor] 80 mg Tablet 80 mg PO HS RF: 0 sevelamer HCl [Renagel] 800 mg Tablet 1,600 mg PO TID RF: 0 hydralazine 25 mg Tablet 25 mg PO TID RF: 0 amlodipine [Norvasc] 5 mg Tablet 5 mg PO QAM RF: 0 aspirin [Aspir-81] 81 mg Tablet,Delayed Release (Dr/Ec) 81 mg PO HS RF: 0 levothyroxine 50 mcg Tablet 50 mcg PO QAM RF: 0 gabapentin 300 mg Capsule 300 mg PO BID RF: 0 albuterol sulfate 90 mcg/actuation Hfa Aerosol Inhaler 2 puff INHALATION Q6H PRN (Reason: Wheezing) RF: 0 tamoxifen 20 mg Tablet 20 mg PO QAM RF: 0 cinacalcet [Sensipar] 30 mg Tablet 30 mg PO HS RF: 0 omeprazole 20 mg Tablet,Delayed Release (Dr/Ec) 20 mg PO QAM RF: 0 Discharge Orders: Discharge Order (Routine); Ordered 05/26/19 Ordered By: Jessy Ochoa/Other Patient Handouts: A1C, Diabetes Nursing Home Complications, Diabetes Resources, Diabetes Type 2 Coping, Diabetes Healthy Meals, Diabetes Carbs, Diabetes Exercise Benefits, Diabetes Exercise Get Started, Diabetes Activity Tips, Diabetes Living Life Admission Data Admit Date/Time: 05/23/19 23:54 Attending Provider: Jessy Montes Admit Provider: Sukumar Mendez Primary Care Provider: Jorge Franco Other Providers: Sukumar Mendez ; Duong De Dios ; Eagle Gardiner Other Interventions: Discharge Summary Assessment (RN) Last Done: 05/26/19 14:20 DC Date/Time DO NOT enter until pt leaves facility: 05/26/19 15:00
--- NOTE | 2019-05-29 13:02 | Coding Query ---
CODING QUERY To promote full compliance with coding requirements relating to patient care, provider participation is requested in all cases of yarn dry room worker uncertainty. Please assist us with the question(s) below: Coding Question: Please clarify if the patient had Sepsis during their stay as it is listed in the H&P and PN but not on the list of discharge diagnoses. Thank you so much for your help! ( ) Sepsis, present on admission ( x) Sepsis, ruled-out ( ) Other, explain Thank you! Olinda Acevedo Principal Diagnosis: "that condition established after study, to be chiefly responsible for occasioning the admission of the patient to the hospital for care." Co-Existing Principal Diagnosis: "when two or more diagnoses equally meet the criteria for principal diagnosis as determined by the circumstances of admission, diagnostic work up, and/or therapy provided, and the Alphabetic Index, Tabular List, or another coding guideline does not provide sequencing direction, any one of the diagnoses may be sequenced first." "When the physician has documented what appears to be a current diagnosis in the body of the record, but has not included the diagnosis in the final diagnostic statement, the physician should be asked whether the diagnosis should be added." (Source Coding Clinic 2 QTR90. p3-4) ANDRES
== END 2019-05-26 15:00 | disposition home or self-care (01) | DRG 202 ==
LOC: ED 20:25 → INTOOBSV 23:54 → 2N 23:54 → 2S 05-24 07:31

== ENCOUNTER 2019-06-03 10:43 | Inpatient (IN) ==
--- NOTE | 2019-05-31 15:47 | Anesthesiology Consultation ---
Date of Service May 31, 2019 Assessment & Plan (1) Encounter for pre-operative examination: - Cardiology: 05/25/19: Patient presented with acute hyperglycemia and possible febrile illness/sepsis with tachycardia and associated ST segment changes. ST segments improved after heart rate controlled and patient resuscitated. Troponins are elevated suggestive of type II demand ischemia and patient of known moderate diffuse coronary atherosclerosis by remote cardiac cath Echocardiogram no acute changes overall LV systolic function normal with subtle septal abnormalities similar to prior study. Findings reflect acute demand type ischemia secondary to underlying illness, tachycardia, metabolic derangement. Plan patient tolerating increase metoprolol to 75 mg p.o. twice daily continue all other current medications. No contraindications to proceeding with AV fistula evaluation. We will schedule dobutamine stress test in the next 3 to 4 weeks to complete assessment (will not be done prior to surgery/discussed with Dr. Sandee plata to proceed with surgery as scheduled 05/31/19. Will need to evaluation patient AM DOS to determine if acceptable risk to proceed with surgery). - s/p colonoscopy: 11/22/18: MAC sedation at [facility] - Check BMP AM DOS Chart Review Chart Review: Patient NOT seen in Pre Admission Testing History Surgery Operation Date: 06/03/19 12:40 Proposed Procedures p Left Forearm Fistula Thrombectomy with - David Sparks MD s Fistulogram - David Sparks MD Height/Weight Height: 5 ft 3 in Weight: 122.4 kg Allergies Allergy/AdvReac Type Severity Reaction Status Date / Time codeine Allergy Intermediate rash/hives Verified 05/31/19 15:41 (see comments) Penicillins Allergy Intermediate rash/hives, Verified 05/31/19 15:41 family allergy to PCN oxycodone AdvReac Intermediate N/V Verified 05/31/19 15:41 ROHAN Inhibitors AdvReac Mild hyperkalemi Verified 05/31/19 15:41 a Medications Home Medications Medication Instructions Recorded Confirmed Last Taken albuterol sulfate 2 puff INHALATION Q6H PRN 08/09/18 05/31/19 11/21/18 04:15 amlodipine [Norvasc] 5 mg PO QAM 08/09/18 05/31/19 05/31/19 08:45 aspirin [Aspir-81] 81 mg PO HS 08/09/18 05/31/19 05/30/19 21:00 atorvastatin [Lipitor] 80 mg PO HS 08/09/18 05/31/19 05/31/19 08:45 cinacalcet [Sensipar] 30 mg PO HS 08/09/18 05/31/19 05/30/19 21:00 gabapentin 300 mg PO BID 08/09/18 05/31/19 05/31/19 08:45 hydralazine 25 mg PO TID 08/09/18 05/31/19 05/31/19 08:45 levothyroxine 50 mcg PO QAM 08/09/18 05/31/19 05/31/19 08:45 omeprazole 20 mg PO QAM 08/09/18 05/31/19 05/31/19 08:45 sevelamer HCl [Renagel] 1,600 mg PO TID 08/09/18 05/31/19 05/31/19 08:45 tamoxifen 20 mg PO QAM 08/09/18 05/31/19 05/31/19 08:45 cholecalciferol (vitamin D3) 400 unit PO QAM 11/14/18 05/31/19 05/31/19 08:45 [Vitamin D3] diphenhydramine-acetaminophen 2 tab PO HS PRN 11/14/18 05/31/19 05/30/19 22:00 [Tylenol PM Extra Strength] escitalopram oxalate [Lexapro] 10 mg PO QAM 11/14/18 05/31/19 05/31/19 08:45 Humalog U-100 Insulin 20 unit SUBCUT TID 05/14/19 05/31/19 05/31/19 08:45 Levemir U-100 Insulin 25 unit SUBCUT BID 05/14/19 05/31/19 05/31/19 08:45 metoprolol tartrate [Lopressor] 75 mg PO BID 30 Days #90 tab 05/26/19 05/31/19 05/31/19 08:45 Past Medical History Medical History (Updated 05/31/19 @ 15:46 by Lalitha Spring RN) Asthma Breast cancer, left 2012--sx CAD (coronary artery disease) non-obstructive CKD (chronic kidney disease) requiring chronic dialysis 3x week--mon, wed, fri COPD (chronic obstructive pulmonary disease) Depression Diabetes mellitus with diabetic polyneuropathy Diabetes mellitus, type 2 ESRD on dialysis MONDAY/MON/MONDAY [facility] Fistula LEFT ARM GERD (gastroesophageal reflux disease) (Acute) Hyperlipemia (Acute) Hypertension (Acute) Hypothyroidism Neuropathic ulcer of toe of right foot Obesity (Acute) Osteoarthritis Spinal stenosis Past Family History Family History Sister Family history of reaction to anesthesia wakes up with a headache Family history of diabetes mellitus Past Surgical History Surgical History History of bilateral cataract extraction History of cardiac cath 2003--no stents History of cholecystectomy History of colonoscopy (Acute) History of dilatation and curettage History of hysterectomy with unilateral oophorectomy History of left mastectomy History of parathyroidectomy (Acute) History of surgery left arm repair fistulogram Dr. Sparks 08/21/18 History of umbilical hernia repair Nausea and vomiting after administration of anesthetic agent Status post creation of arteriovenous fistula (Acute) left forearm Social History Smoking Status: Former smoker Hx Alcohol Use: No Hx Substance Use: No substance use type: does not use Testing Laboratory Results 05/25/19 WBC 2.63 H/H 10.3/31.8 PLATELETS 113 SODIUM 133 POTASSIUM 4.3 CHLORIDE 99 CO2 25 BUN 35 CREATININE 4.26 05/31/19 GLUCOSE 113 05/24/19 PTT 23.0 05/23/19 PT 10.9 INR 1.1 Electrocardiogram Date: 05/24/19 SR with occasional PVC's at 85bpm. Chest X-Ray Date: 05/23/19 There is persistent left upper lobe volume loss with superior tenting of the left hilum. This is felt to be chronic. There is no lobar consolidation. There is mild interstitial thickening. Clinical correlation in regards to mild pulmonary vascular congestion is recommended. An interstitial inflammatory processes could appear similar. Echocardiogram Date: 05/24/19 EF 55-60%. Mid anteroseptum HK. Mild AV sclerosis. Grade II DD.
[~2019-06-03 10:43] MED LIST changes: -ACET-1256 PO; -ALBU18002 INH; -AMLO-110 PO; -ASPI-320 PO; -ATOR-26 PO; -BISA-16 PO; +CLINDAMYCIN 600 MG/54 ML BAG IV SCH; -CYCL5TAB PO; -DIPH25CA65 PO; -HYDR-4716 PO; -LEVO50TA6 PO; -LVMI SQ; -METO50TA16 PO; -NLV/20 PO; -NVLGI/PEN SQ; -NVLGIPEN SQ; -PRLSR20 PO; -SEVE1TAB PO; +SODIUM CHLORIDE 0.9% 1000ML 1,000 ML IV SCH; +SODIUM CHLORIDE 0.9% 1000ML IV SCH
--- NOTE | 2019-06-03 11:14 | History & Physical Report ---
Date of Service June 03, 2019 History of Present Illness Primary Care Provider: Jorge Franco DO May 21, 2019 History of Present Illness Primary Care Provider: Jorge Franco DO Chief Complaint: Malfunctioning fistula Primary Care Provider: Jorge Franco Mrs. Amy Valdes, is a 63-year-old female with a history of severe comorbidities and CKD stage V, that is now with need for dialysis. She underwent left arm interventions on the fistula numerous times in the past. The last one being January 2019. She now is having problems with her dialysis runs agian. She is admitted for a fistulogram with possible intervetnion. She denies any changes in mental status. She denies any nausea, vomiting, fevers, or chills. She denies any changes in her bowel habits. She does still make a minimal amount of urine daily. She does have some numbness and tingling in her fingertips occasionally. She does, however, have cramping, claudication-type pain in her hand 1-2 times a week when she uses the left arm. She does not complain of any rest pain in the left hand. Review of systems is pertinent as described above, otherwise negative on 11- point review of systems. Past Medical History: 1. CKD stage V. 2. Diabetes. 3. Hypertension. 4. Hyperlipidemia. 5. COPD. 6. CAD. 7. Asthma. 8. Obesity. 9. Benign neoplasm of the colon. 10. Anemia of chronic renal failure. 11. Benign neoplasm parathyroid. 12. Breast cancer -- [facility]. Past Surgical History: 1. Left arm brachiocephalic fistula with multiple revisions. 2. Biopsy of neck and chest. 3. Colonoscopy with biopsy of the rectum. 4. Parathyroidectomy. 5. Mastectomy. 6. Cataract repair. Family History: Noncontributory. Social History: Previous smoker, 1-1/2 packs per day, but quit several years ago. Denies alcohol or illicit drugs. ALLERGIES: PENICILLIN, ROHAN INHIBITORS, CODEINE. Current Home Medications: 1. Albuterol. 2. Amlodipine 5 mg p.o. daily. 3. Ascorbic acid 500 mg p.o. daily. 4. Aspirin 81 mg p.o. daily. 5. Atorvastatin mg p.o. daily. 6. Cyclobenzaprine 5 mg p.o. b.i.d. p.r.n. pain. 7. Hydralazine 50 mg p.o. b.i.d. 8. Insulin Glargine. 9. Insulin lispro. 10. Levothyroxine 50 mcg p.o. daily. 11. Metoprolol 50 mg p.o. b.i.d. 12. Omeprazole 20 mg p.o. daily. 13. Tamoxifen 20 mg oral tablet. 14. Tramadol 25 mg p.o. q.4h. p.r.n. pain. Physical Examination: Vitals: Pulse 78, blood pressure 113/82, respiratory rate 18, SpO2 95% on room air, weight 125.3 kilograms. General: No acute distress, alert and oriented x3. HEENT: Head is normocephalic, atraumatic. Pupils are equally round and reactive to light. Extraocular muscles were intact. Neck: Neck is supple without JVD at this time. Cardiac: Heart is regular rate and rhythm. No murmurs, gallops, or rubs. Abdomen: Soft, nontender, nondistended, positive bowel sounds. Extremities: Left arm with edema and ecchymoses along entire forearm. She has an easily palpable thrill from the antecubital fossa extending distally down the cephalic vein distribution into the hand. She also has a palpable thrill in the forearm along the basilic vein distribution extending proximally up toward the axilla. She has several well-healed incisions in the arm from her previous brachiocephalic fistula. There is no thrill and no pulsatility in the arm cephalic vein outflow tract. The fingers on the left hand were cool to the touch. There is some purple and hyperemic discoloration. She does have capillary refill. Sensation was intact in all digits. 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 She has lately palpable radial pulse. Neuro: Cranial nerves 2-12 are grossly intact. Extremities: Strength and sensation is intact in all 4 extremities and symmetric. Assessment and Plan: Malfunctioning av fistula Plan: Patient is admitted for a fistulogram with possible intervention of her left cephalic vein fistula. I have discussed the risks options and benefits of the procedure with the patient. The patient understands the risks options and benef its and agrees to the procedure Allergies Allergy/AdvReac Type Severity Reaction Status Date / Time codeine Allergy Intermediate rash, Verified 10/29/19 10:51 Note: but was also taking penicillin. Penicillins Allergy Intermediate hives, Verified 05/14/19 10:51 family allergy to PCN oxycodone AdvReac Intermediate NAUSEA/VOMI Verified 05/14/19 10:51 TING ROHAN Inhibitors AdvReac Mild hyperkalemi Verified 05/14/19 10:51 a Home Medications Home Medications Medication Instructions Recorded Confirmed Type acetaminophen 325 mg PO Q6H PRN 08/09/18 05/14/19 History albuterol sulfate 2 puff INHALATION Q6H PRN 08/09/18 05/14/19 History amlodipine [Norvasc] 5 mg PO QAM 08/09/18 05/14/19 History aspirin [Aspir-81] 81 mg PO HS 08/09/18 05/14/19 History atorvastatin [Lipitor] 80 mg PO HS 08/09/18 05/14/19 History cinacalcet [Sensipar] 30 mg PO HS 08/09/18 05/14/19 History cyclobenzaprine 5 mg PO TID PRN 08/09/18 05/14/19 History diphenhydramine HCl [Benadryl] 50 mg PO HS PRN 08/09/18 05/14/19 History gabapentin 300 mg PO BID 08/09/18 05/14/19 History hydralazine 25 mg PO TID 08/09/18 05/14/19 History levothyroxine 50 mcg PO QAM 08/09/18 05/14/19 History metoprolol tartrate [Lopressor] 50 mg PO BID 08/09/18 05/14/19 History omeprazole 20 mg PO QAM 08/09/18 05/14/19 History sevelamer HCl [Renagel] 1,600 mg PO TID 08/09/18 05/14/19 History tamoxifen 20 mg PO QAM 08/09/18 05/14/19 History cholecalciferol (vitamin D3) 400 unit PO QAM 11/14/18 05/14/19 History [Vitamin D3] diphenhydramine-acetaminophen 2 tab PO HS PRN 11/14/18 05/14/19 History [Tylenol PM Extra Strength] escitalopram oxalate [Lexapro] 10 mg PO QAM 11/14/18 05/14/19 History dalbavancin 500 mg intravenous 1,500 mg IV ONCE #3 ea 02/21/19 05/14/19 Rx solution insulin detemir U-100 [Levemir 25 unit SUBCUT BID 05/14/19 05/14/19 History U-100 Insulin] insulin lispro [Humalog U-100 20 unit SUBCUT TID 05/14/19 05/14/19 History Insulin] Past Med/Surg History Social History Preferred Language: Sudanese Communication Ability: Effective Hearing Ability: Normal Hospitality Intern Required: No Beliefs That Will Affect Care: None marital status: Current Living Situation: Spouse current occupational status: disabled Other Information That Helps Us Care for You: No Feels Safe at Home: Yes Safety Concerns: Feels Safe At This Time Smoking Status: Former smoker Age Quit Using Tobacco: 33 ; Do You Dip or Chew Tobacco: No ; Second Hand Exposure: Yes ; Hx Alcohol Use: No Hx Substance Use: No Other Diet Comment: RENAL DIET during the past year weight has: decreased > 10 lbs Signed By: <Electronically signed by David Sparks MD> 05/21/19 06 Created: 05/21/19 06 The status of this report is Signed. Draft = Not yet reviewed or approved by Medical Physician. Signed = Reviewed and approved by Medical Physician. Allergies Allergy/AdvReac Type Severity Reaction Status Date / Time codeine Allergy Intermediate rash, Verified 05/29/19 11:08 Note: but was also taking penicillin. Penicillins Allergy Intermediate hives, Verified 05/29/19 11:08 family allergy to PCN oxycodone AdvReac Intermediate NAUSEA/VOMI Verified 05/29/19 11:08 TING ROHAN Inhibitors AdvReac Mild hyperkalemi Verified 05/29/19 11:08 a Home Medications Home Medications Medication Instructions Recorded Confirmed Type albuterol sulfate 2 puff INHALATION Q6H PRN 08/09/18 05/29/19 History amlodipine [Norvasc] 5 mg PO QAM 08/09/18 05/29/19 History aspirin [Aspir-81] 81 mg PO HS 08/09/18 05/29/19 History atorvastatin [Lipitor] 80 mg PO HS 08/09/18 05/29/19 History cinacalcet [Sensipar] 30 mg PO HS 08/09/18 05/29/19 History gabapentin 300 mg PO BID 08/09/18 05/29/19 History hydralazine 25 mg PO TID 08/09/18 05/29/19 History levothyroxine 50 mcg PO QAM 08/09/18 05/29/19 History omeprazole 20 mg PO QAM 08/09/18 05/29/19 History sevelamer HCl [Renagel] 1,600 mg PO TID 08/09/18 05/29/19 History tamoxifen 20 mg PO QAM 08/09/18 05/29/19 History cholecalciferol (vitamin D3) 400 unit PO QAM 11/14/18 05/29/19 History [Vitamin D3] diphenhydramine-acetaminophen 2 tab PO HS PRN 11/14/18 05/29/19 History [Tylenol PM Extra Strength] escitalopram oxalate [Lexapro] 10 mg PO QAM 11/14/18 05/29/19 History Humalog U-100 Insulin 20 unit SUBCUT TID 05/14/19 05/29/19 History Levemir U-100 Insulin 25 unit SUBCUT BID 05/14/19 05/29/19 History guaifenesin 200 mg PO TID PRN #15 tab 05/26/19 05/29/19 Rx metoprolol tartrate [Lopressor] 75 mg PO BID 30 Days #90 tab 05/26/19 05/29/19 Rx Past Med/Surg History Social History Preferred Language: Sudanese Communication Ability: Effective Hearing Ability: Normal Hospitality Intern Required: No Beliefs That Will Affect Care: None marital status: Current Living Situation: Spouse current occupational status: disabled Other Information That Helps Us Care for You: No Feels Safe at Home: Yes Safety Concerns: Feels Safe At This Time Smoking Status: Former smoker Age Quit Using Tobacco: 33 ; Second Hand Exposure: No ; Hx Alcohol Use: No Hx Substance Use: No Other Diet Comment: RENAL DIET during the past year weight has: decreased > 10 lbs Signed By:<Electronically signed by David Sparks MD>05/31/19617 Created: 05/31/19616 The status of this report is Signed. Draft = Not yet reviewed or approved by Medical Physician. Signed = Reviewed and approved by Medical Physician. Allergies Allergy/AdvReac Type Severity Reaction Status Date / Time codeine Allergy Intermediate rash/hives Verified 05/31/19 15:41 (see comments) Penicillins Allergy Intermediate rash/hives, Verified 05/31/19 15:41 family allergy to PCN oxycodone AdvReac Intermediate N/V Verified 05/31/19 15:41 ROHAN Inhibitors AdvReac Mild hyperkalemi Verified 05/31/19 15:41 a Home Medications Home Medications Medication Instructions Recorded Confirmed Type albuterol sulfate 2 puff INHALATION Q6H PRN 08/09/18 05/31/19 History amlodipine [Norvasc] 5 mg PO QAM 08/09/18 05/31/19 History aspirin [Aspir-81] 81 mg PO HS 08/09/18 05/31/19 History atorvastatin [Lipitor] 80 mg PO HS 08/09/18 05/31/19 History cinacalcet [Sensipar] 30 mg PO HS 08/09/18 05/31/19 History gabapentin 300 mg PO BID 08/09/18 05/31/19 History hydralazine 25 mg PO TID 08/09/18 05/31/19 History levothyroxine 50 mcg PO QAM 08/09/18 05/31/19 History omeprazole 20 mg PO QAM 08/09/18 05/31/19 History sevelamer HCl [Renagel] 1,600 mg PO TID 08/09/18 05/31/19 History tamoxifen 20 mg PO QAM 08/09/18 05/31/19 History cholecalciferol (vitamin D3) 400 unit PO QAM 11/14/18 05/31/19 History [Vitamin D3] diphenhydramine-acetaminophen 2 tab PO HS PRN 11/14/18 05/31/19 History [Tylenol PM Extra Strength] escitalopram oxalate [Lexapro] 10 mg PO QAM 11/14/18 05/31/19 History Humalog U-100 Insulin 20 unit SUBCUT TID 05/14/19 05/31/19 History Levemir U-100 Insulin 25 unit SUBCUT BID 05/14/19 05/31/19 History metoprolol tartrate [Lopressor] 75 mg PO BID 30 Days #90 tab 05/26/19 05/31/19 Rx Past Med/Surg History Medical History (Updated 05/31/19 @ 15:46 by Lalitha Spring RN) Asthma Breast cancer, left 2012--sx CAD (coronary artery disease) non-obstructive CKD (chronic kidney disease) requiring chronic dialysis 3x week--mon, mon, mon COPD (chronic obstructive pulmonary disease) Depression Diabetes mellitus with diabetic polyneuropathy Diabetes mellitus, type 2 ESRD on dialysis MONDAY/MON/MONDAY [facility] Fistula LEFT ARM GERD (gastroesophageal reflux disease) (Acute) Hyperlipemia (Acute) Hypertension (Acute) Hypothyroidism 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 Sparks 08/21/18 History of umbilical hernia repair Nausea and vomiting after administration of anesthetic agent Status post creation of arteriovenous fistula (Acute) left forearm Family History Sister Family history of reaction to anesthesia wakes up with a headache Family history of diabetes mellitus Social History Preferred Language: Sudanese Communication Ability: Effective Hearing Ability: Normal Hospitality Intern Required: No Beliefs That Will Affect Care: None marital status: Current Living Situation: Family current occupational status: disabled Feels Safe at Home: Yes Safety Concerns: Feels Safe At This Time Smoking Status: Former smoker Tobacco Type: cigarettes ; Age Quit Using Tobacco: 33 ; Do You Dip or Chew Tobacco: No ; Smoking End Date: QUIT 31 YEARS AGO ; Second Hand Exposure: Yes ; Tobacco Cessation Education Requested by Patient: No Hx Alcohol Use: No Hx Substance Use: No Other Diet Comment: RENAL DIET during the past year weight has: decreased > 10 lbs
--- NOTE | 2019-06-03 11:15 | History & Physical Bridge Note ---
Date of Service June 03, 2019 History & Physical Bridge Note The fistula has gone on to thrombose. She is admitted at this time for an open thrombectomy with fistulogram and possible intervention and possibly insertion of a permcath if needed. I have discussed the risks options and benefits of the procedure with the patient. The patient understands the risks options and benefits and agrees to the procedure. I have examined the patient, reviewed the History & Physical and in the interval since the performance of the History & Physical I have noted the following changes of clinical significance: no changes noted
[2019-06-03] MEDS ORDERED: D5W AND NSS 1,000 ML IV SCH (11:48)
[2019-06-03 12:11] LABS: BUN Creatinine Ratio 10.8 (10-20); Calcium 8.1 mg/dl (8.5-10.1); Creatinine Clr Calc Pharmacy 7.6 ml/min; Est GFR (African American) 4.4; Est GFR (Non-African American) 3.8; Potassium 5.7 mmol/L (3.5-5.1)
[2019-06-03] MEDS ORDERED: fentaNYL citrate 100 MCG/2 ML VIAL ONE (12:39)
[2019-06-03] MEDS ORDERED: MIDAZOLAM HCL 1 MG/ML 2ML VIAL ONE (12:39)
[2019-06-03] MEDS ORDERED: LIDOCAINE HCL 1% 20 ML VIAL ONE (12:42)
[2019-06-03] MEDS ORDERED: HEPARIN SOD (PORCINE) 5,000 UNITS/ML VIAL ONE ×2 (12:43→13:07)
--- NOTE | 2019-06-03 12:45 | History & Physical Bridge Note ---
Date of Service June 03, 2019 History & Physical Bridge Note Patient with K of 5.7. Will place permcath for dialysis and plan on a new fistula in the coming week. I have discussed the risks options and benefits of the procedure with the patient. The patient understands the risks options and benefits and agrees to the procedure. I have examined the patient, reviewed the History & Physical and in the interval since the performance of the History & Physical I have noted the following changes of clinical significance: no changes noted
[2019-06-03] MEDS ORDERED: LABETALOL HCL IV 5 MG/ML 20ML IV PRN (12:48)
[2019-06-03] MEDS ORDERED: PHENYLEPHRINE 100MCG/ML 5ML SYR IV PRN (12:48)
[2019-06-03] MEDS ORDERED: ePHEDrine sulfate 50 MG/ML AMP IV PRN (12:48)
[2019-06-03] MEDS ORDERED: ONDANSETRON INJ 2 MG/ML 2 ML VIAL IV PRN (12:48)
[2019-06-03] MEDS ORDERED: fentaNYL citrate 100 MCG/2 ML VIAL IV PRN (12:48)
[2019-06-03] MEDS ORDERED: ATROPINE SULFATE 0.1 MG/ML 10ML SYR IV PRN (12:48)
--- NOTE | 2019-06-03 13:43 | Post Operative Brief Note ---
Immediate Post Op Note v1 Date of Surgery June 03, 2019 Pre & Post Diagnosis Operation Date: 06/03/19 12:40 Pre-Op Diagnosis: hyperkalemia, thrombosed fistula Post-Op Diagnosis: hyperkalemia, thrombosed fistula I identified the patient and participated in the time-out.: Yes Procedure Operation Date: 06/03/19 12:40 Actual Procedures p Insertion Of Perm Catheter, Right Internal Jugular Approach, Ultrasound Localization Of Right Internal Jugular Vein, Fluoroscopy For Positioning(Right) - David Sparks MD Surgeon David Sparks MD Conveyor Line Battery Charger MD Sammy Estimated Blood Loss 10 Findings Consistent with Post-Op Diagnosis Anesthesia Type MAC Complications none Disposition Accompanied Patient To Recovery: No Disposition: Recovery Room
--- NOTE | 2019-06-03 13:44 | Operative Report ---
Post Operative Report Pre & Post Diagnosis Operation Date: 06/03/19 12:40 Pre-Op Diagnosis: hyperkalemia, thrombosed fistula Post-Op Diagnosis: hyperkalemia, thrombosed fistula I identified the patient and participated in the time-out.: Yes Procedure Operation Date: 06/03/19 12:40 Actual Procedures p Insertion Of Perm Catheter, Right Internal Jugular Approach, Ultrasound Localization Of Right Internal Jugular Vein, Fluoroscopy For Positioning(Right) - David Sparks MD Surgeon David Sparks MD Pre K Lead Teacher Flori Boateng MD Estimated Blood Loss 10 Findings Consistent with Post-Op Diagnosis Specimens none Anesthesia Type MAC Complications none Disposition Accompanied Patient To Recovery: No Disposition: Recovery Room Indications Mrs. Amy Valdes, is a 63-year-old female with a history of severe comorbidities and CKD stage V, that is now with need for dialysis. She underwent left arm interventions on the fistula numerous times in the past. The last one being January 2019. She now is having problems with her dialysis runs again. I have discussed the risks options and benefits of the procedure with the patient. The patient understands the risks options and benefits and agrees to the procedure. Description of Procedure Patient was taken to the angio suite and placed in the supine position. The [right] side of the neck and chest wall were prepped and draped in a sterile manner. The patient was identified and a timeout was performed. Local anesthesia was then administered to the appropriate areas of the neck and chest wall. Ultrasound was then used to locate the [right] internal jugular vein. The vein compressed easily, had no filing defects, and was patent. The vein was then punctured under direct ultrasound imaging. A guidewire was then passed centrally under fluoroscopic imaging. A stab wound was then made in the anterior chest wall and a [19] cm permcath was passed from the stab wound on the chest wall to the puncture site on the neck. The puncture site was then dilated till the 14Fr peel away sheath was inserted. The permcath was then inserted through the sheath to a central position in the distal superior vena cava. The peel away sheath was then removed. The catheter was then sutured in place using nylon sutures. The puncture was then closed using a 4-0 Vicryl subcuticular suture. Dermabond was used for a dressing on the puncture site. Both ports aspirated and flushed easily and were then packed with heparin. A sterile dressing was applied to the catheter. The patient left the angio suite in good condition and tolerated the procedure well. Dr. Sparks was present and scrubbed for the entire procedure.
--- NOTE | 2019-06-03 14:39 | Anesthesiology Progress Note ---
Date of Service June 03, 2019 Anesthesia Post Procedure Vital Signs Vital Signs: Temp Pulse Resp BP Pulse Ox 06/03/19 11:29 36.4 C L 62 18 101/51 L 97 Transfer of Care Handoff Completed per policy Notes Mental Status: alert / awake / arousable and participated in evaluation Patient Amnestic to Procedure: Yes Nausea / Vomiting: adequately controlled Pain: adequately controlled Airway Patency, RR, SpO2: stable & adequate BP & HR: stable & adequate Hydration State: stable & adequate Anesthetic Complications: no major complications apparent and Pt Satisfied with anesthetic care Notes: The patient tolerated the procedure well. She is awake and stable in recovery. The patient will go to dialysis now.
[2019-06-03] MEDS ORDERED: SODIUM CHLORIDE 0.9% 1000ML 1,000 ML IV PRN (15:38)
[2019-06-03] MEDS ORDERED: EPOETIN ALFA 4,000 UNIT/ML VIAL IV ONE (15:38)
--- NOTE | 2019-06-03 18:04 | Nephrology Consultation ---
Date of Consultation June 03, 2019 Assessment & Plan (1) ESRD (end stage renal disease) on dialysis: for HD today as she has missed 05/31 tx and today is her day; also d/t K -tolerting procedure well >> to run 3.75 hrs on 2K/ 2.5 Ca bath, no heparin -goal uf2.5L as tolerated -resume regular MWF OP HD at d/c Present on Admission?: Yes (2) Dialysis AV fistula malfunction: got TDC; for avf revision in near future Present on Admission?: Yes History of Present Illness Reason for Consultation: esrd needing HD Requesting Physician: dr dale Attending Physician: David Dale MD History of Present Illness 64 y/o F w/ poorly controlled DM, ESRD on MWF HD and other PMH as below admitted after tdc placement today. AVF intervention had been planned but pt K too high so changed to tdc and intervention deferred for a few weeks. She was seen and evaluated on hd this evening. tolerating procedure > no n/v, no cramps; no bleeding. She had been at hospital on 05/31 for procedure but this was deferred. Last HD 05/29. Allergies Allergy/AdvReac Type Severity Reaction Status Date / Time codeine Allergy Intermediate rash/hives Verified 06/03/19 11:16 (see comments) Penicillins Allergy Intermediate rash/hives, Verified 06/03/19 11:16 family allergy to PCN oxycodone AdvReac Intermediate N/V Verified 06/03/19 11:16 ROHAN Inhibitors AdvReac Mild hyperkalemi Verified 06/03/19 11:16 a Home Medications Home Medications Medication Instructions Recorded Confirmed Type albuterol sulfate 2 puff INHALATION Q6H PRN 08/09/18 06/03/19 History amlodipine [Norvasc] 5 mg PO QAM 08/09/18 06/03/19 History aspirin [Aspir-81] 81 mg PO HS 08/09/18 06/03/19 History atorvastatin [Lipitor] 80 mg PO HS 08/09/18 06/03/19 History cinacalcet [Sensipar] 30 mg PO HS 08/09/18 06/03/19 History gabapentin 300 mg PO BID 08/09/18 06/03/19 History hydralazine 25 mg PO TID 08/09/18 06/03/19 History levothyroxine 50 mcg PO QAM 08/09/18 06/03/19 History omeprazole 20 mg PO QAM 08/09/18 06/03/19 History sevelamer HCl [Renagel] 1,600 mg PO TID 08/09/18 06/03/19 History tamoxifen 20 mg PO QAM 08/09/18 06/03/19 History cholecalciferol (vitamin D3) 400 unit PO QAM 11/14/18 06/03/19 History [Vitamin D3] diphenhydramine-acetaminophen 2 tab PO HS PRN 11/14/18 06/03/19 History [Tylenol PM Extra Strength] escitalopram oxalate [Lexapro] 10 mg PO QAM 11/14/18 06/03/19 History Humalog U-100 Insulin 20 unit SUBCUT TID 05/14/19 06/03/19 History Levemir U-100 Insulin 25 unit SUBCUT BID 05/14/19 06/03/19 History metoprolol tartrate [Lopressor] 75 mg PO BID 30 Days #90 tab 05/26/19 06/03/19 Rx Patient History Medical History Asthma Breast cancer, left 2012--sx CAD (coronary artery disease) non-obstructive CKD (chronic kidney disease) requiring chronic dialysis 3x week--mon, wed, fri COPD (chronic obstructive pulmonary disease) Depression Diabetes mellitus with diabetic polyneuropathy Diabetes mellitus, type 2 ESRD on dialysis MONDAY/MON/MONDAY [facility] Fistula LEFT ARM GERD (gastroesophageal reflux disease) (Acute) Hyperlipemia (Acute) Hypertension (Acute) Hypothyroidism 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 Beliefs That Will Affect Care: None marital status: Current Living Situation: Family current occupational status: disabled Feels Safe at Home: Yes Safety Concerns: Feels Safe At This Time Smoking Status: Former smoker Tobacco Type: cigarettes ; Age Quit Using Tobacco: 33 ; Do You Dip or Chew Tobacco: No ; Smoking End Date: QUIT 31 YEARS AGO ; Second Hand Exposure: Yes ; Tobacco Cessation Education Requested by Patient: No Hx Alcohol Use: No Hx Substance Use: No Other Diet Comment: RENAL DIET during the past year weight has: decreased > 10 lbs Review of Systems Review of Systems: All systems reviewed & are unremarkable except as noted in HPI & below Physical Exam Constitutional: well developed, well nourished, + obese and cooperative; no acute distress (sitting on ra on hd) Eyes: EOM intact bilaterally ENMT: Ears: no external ear abnormality Nose: no external nose abnormality Mouth: + dry oral mucous membranes Neck: no nuchal rigidity Respiratory: normal respiratory effort Auscultation: + diminished lung sounds Cardiovascular: RRR, no murmur, no edema Gastrointestinal (Abdomen): Inspection/Auscultation: normal bowel sounds Percussion/Palpation: abdomen soft; abdomen nontender Musculoskeletal: Extremities: strength 5/5 throughout Skin: no rashes, warm and dry multple scabbed pustules as on op exam Neurologic: peguero, fluent speech, no tremor Psychiatric: A+Ox3, euthymic affect Results & Data Vital Signs (Past 12 Hours) Vital Signs Temp Pulse Pulse Pulse Resp BP BP 06/03/19 17:40 67 112/61 06/03/19 17:20 66 107/69 06/03/19 17:00 65 110/63 06/03/19 16:45 65 126/65 06/03/19 16:30 65 124/68 06/03/19 16:15 63 133/67 06/03/19 16:00 64 137/72 06/03/19 15:45 36.5 C 64 06/03/19 15:20 36.6 C 68 16 115/76 06/03/19 11:29 36.4 C L 62 18 101/51 L Pulse Ox 06/03/19 17:40 06/03/19 17:20 06/03/19 17:00 06/03/19 16:45 06/03/19 16:30 06/03/19 16:15 06/03/19 16:00 06/03/19 15:45 06/03/19 15:20 91 06/03/19 11:29 97 Laboratory Results 06/03/19 11:27 (1) Dialysis AV fistula malfunction Encounter type: sequela Qualified Code(s): T82.590S - Other mechanical complication of surgically created arteriovenous fistula, sequela
--- NOTE | 2019-06-03 18:05 | Dialysis Progress Note ---
Date of Service June 03, 2019 Assessment & Plan (1) ESRD (end stage renal disease) on dialysis: for HD today as she has missed 05/31 tx and today is her day; also d/t K -tolerting procedure well >> to run 3.75 hrs on 2K/ 2.5 Ca bath, no heparin -goal uf2.5L as tolerated -resume regular MWF OP HD at d/c -daily bmp, cbc while in house (2) Dialysis AV fistula malfunction: got TDC; for avf revision in near future Subjective seen on dialysis ; tolerated TDC placement and now tolerating HD well Review of Systems Review of Systems: All systems reviewed & are unremarkable except as noted in HPI & below Physical Exam Constitutional: well developed, well nourished, + obese and cooperative; no acute distress (sitting on ra on hd) Eyes: EOM intact bilaterally ENMT: Ears: no external ear abnormality Nose: no external nose abnormality Mouth: + dry oral mucous membranes Neck: no nuchal rigidity Respiratory: normal respiratory effort Auscultation: + diminished lung sounds Cardiovascular: RRR, no murmur, no edema Gastrointestinal (Abdomen): Inspection/Auscultation: normal bowel sounds Percussion/Palpation: abdomen soft; abdomen nontender Musculoskeletal: Extremities: strength 5/5 throughout Skin: no rashes, warm and dry Psychiatric: A+Ox3, euthymic affect Results & Data Vital Signs (Past 12 Hours) Vital Signs Temp Pulse Pulse Pulse Resp BP BP 06/03/19 18:00 67 106/62 06/03/19 17:40 67 112/61 06/03/19 17:20 66 107/69 06/03/19 17:00 65 110/63 06/03/19 16:45 65 126/65 06/03/19 16:30 65 124/68 06/03/19 16:15 63 133/67 06/03/19 16:00 64 137/72 06/03/19 15:45 36.5 C 64 06/03/19 15:20 36.6 C 68 16 115/76 06/03/19 11:29 36.4 C L 62 18 101/51 L Pulse Ox 06/03/19 18:00 06/03/19 17:40 06/03/19 17:20 06/03/19 17:00 06/03/19 16:45 06/03/19 16:30 06/03/19 16:15 06/03/19 16:00 06/03/19 15:45 06/03/19 15:20 91 06/03/19 11:29 97 Laboratory Results reviewed (1) Dialysis AV fistula malfunction Encounter type: sequela Qualified Code(s): T82.590S - Other mechanical complication of surgically created arteriovenous fistula, sequela
--- NOTE | 2019-06-05 14:26 | Discharge Summary ---
Date of Service June 05, 2019 Admission HPI Per Admitting Provider May 21, 2019 History of Present Illness Primary Care Provider: Jorge Franco DO Chief Complaint: Malfunctioning fistula Primary Care Provider: Jorge Franco Mrs. Amy Valdes, is a 63-year-old female with a history of severe comorbidities and CKD stage V, that is now with need for dialysis. She underwent left arm interventions on the fistula numerous times in the past. The last one being January 2019. She now is having problems with her dialysis runs agian. She is admitted for a fistulogram with possible intervetnion. She denies any changes in mental status. She denies any nausea, vomiting, fevers, or chills. She denies any changes in her bowel habits. She does still make a minimal amount of urine daily. She does have some numbness and tingling in her fingertips occasionally. She does, however, have cramping, claudication-type pain in her hand 1-2 times a week when she uses the left arm. She does not complain of any rest pain in the left hand. Review of systems is pertinent as described above, otherwise negative on 11- point review of systems. Past Medical History: 1. CKD stage V. 2. Diabetes. 3. Hypertension. 4. Hyperlipidemia. 5. COPD. 6. CAD. 7. Asthma. 8. Obesity. 9. Benign neoplasm of the colon. 10. Anemia of chronic renal failure. 11. Benign neoplasm parathyroid. 12. Breast cancer -- SAVITA. Past Surgical History: 1. Left arm brachiocephalic fistula with multiple revisions. 2. Biopsy of neck and chest. 3. Colonoscopy with biopsy of the rectum. 4. Parathyroidectomy. 5. Mastectomy. 6. Cataract repair. Family History: Noncontributory. Social History: Previous smoker, 1-1/2 packs per day, but quit several years ago. Denies alcohol or illicit drugs. ALLERGIES: PENICILLIN, ROHAN INHIBITORS, CODEINE. Current Home Medications: 1. Albuterol. 2. Amlodipine 5 mg p.o. daily. 3. Ascorbic acid 500 mg p.o. daily. 4. Aspirin 81 mg p.o. daily. 5. Atorvastatin mg p.o. daily. 6. Cyclobenzaprine 5 mg p.o. b.i.d. p.r.n. pain. 7. Hydralazine 50 mg p.o. b.i.d. 8. Insulin Glargine. 9. Insulin lispro. 10. Levothyroxine 50 mcg p.o. daily. 11. Metoprolol 50 mg p.o. b.i.d. 12. Omeprazole 20 mg p.o. daily. 13. Tamoxifen 20 mg oral tablet. 14. Tramadol 25 mg p.o. q.4h. p.r.n. pain. Physical Examination: Vitals: Pulse 78, blood pressure 113/82, respiratory rate 18, SpO2 95% on room air, weight 125.3 kilograms. General: No acute distress, alert and oriented x3. HEENT: Head is normocephalic, atraumatic. Pupils are equally round and reactive to light. Extraocular muscles were intact. Neck: Neck is supple without JVD at this time. Cardiac: Heart is regular rate and rhythm. No murmurs, gallops, or rubs. Abdomen: Soft, nontender, nondistended, positive bowel sounds. Extremities: Left arm with edema and ecchymoses along entire forearm. She has an easily palpable thrill from the antecubital fossa extending distally down the cephalic vein distribution into the hand. She also has a palpable thrill in the forearm along the basilic vein distribution extending proximally up toward the axilla. She has several well-healed incisions in the arm from her previous brachiocephalic fistula. There is no thrill and no pulsatility in the arm cephalic vein outflow tract. The fingers on the left hand were cool to the touch. There is some purple and hyperemic discoloration. She does have capillary refill. Sensation was intact in all digits. Strength was 5/5 on box cutter in the left hand. She has lately palpable radial pulse. Neuro: Cranial nerves 2-12 are grossly intact. Extremities: Strength and sensation is intact in all 4 extremities and symmetric. Assessment and Plan: Malfunctioning av fistula Plan: Patient is admitted for a fistulogram with possible intervention of her left cephalic vein fistula. I have discussed the risks options and benefits of the procedure with the patient. The patient understands the risks options and benefits and agrees to the procedure Allergies Allergy/AdvReac Type Severity Reaction Status Date / Time codeine Allergy Intermediate rash, Verified 05/14/19 10:51 Note: but was also taking penicillin. Penicillins Allergy Intermediate hives, Verified 05/14/19 10:51 family allergy to PCN oxycodone AdvReac Intermediate NAUSEA/VOMI Verified 05/14/19 10:51 TING ROHAN Inhibitors AdvReac Mild hyperkalemi Verified 05/14/19 10:51 a Home Medications Home Medications Medication Instructions Recorded Confirmed Type acetaminophen 325 mg PO Q6H PRN 08/09/18 05/14/19 History albuterol sulfate 2 puff INHALATION Q6H PRN 08/09/18 05/14/19 History amlodipine [Norvasc] 5 mg PO QAM 08/09/18 05/14/19 History aspirin [Aspir-81] 81 mg PO HS 08/09/18 05/14/19 History atorvastatin [Lipitor] 80 mg PO HS 08/09/18 05/14/19 History cinacalcet [Sensipar] 30 mg PO HS 08/09/18 05/14/19 History cyclobenzaprine 5 mg PO TID PRN 08/09/18 05/14/19 History diphenhydramine HCl [Benadryl] 50 mg PO HS PRN 08/09/18 05/14/19 History gabapentin 300 mg PO BID 08/09/18 05/14/19 History hydralazine 25 mg PO TID 08/09/18 05/14/19 History levothyroxine 50 mcg PO QAM 08/09/18 05/14/19 History metoprolol tartrate [Lopressor] 50 mg PO BID 08/09/18 05/14/19 History omeprazole 20 mg PO QAM 08/09/18 05/14/19 History sevelamer HCl [Renagel] 1,600 mg PO TID 08/09/18 05/14/19 History tamoxifen 20 mg PO QAM 08/09/18 05/14/19 History cholecalciferol (vitamin D3) 400 unit PO QAM 11/14/18 05/14/19 History [Vitamin D3] diphenhydramine-acetaminophen 2 tab PO HS PRN 11/14/18 05/14/19 History [Tylenol PM Extra Strength] escitalopram oxalate [Lexapro] 10 mg PO QAM 11/14/18 05/14/19 History dalbavancin 500 mg intravenous 1,500 mg IV ONCE #3 ea 02/21/19 05/14/19 Rx solution insulin detemir U-100 [Levemir 25 unit SUBCUT BID 05/14/19 05/14/19 History U-100 Insulin] insulin lispro [Humalog U-100 20 unit SUBCUT TID 05/14/19 05/14/19 History Insulin] Past Med/Surg History Social History Preferred Language: Albanian Communication Ability: Effective Hearing Ability: Normal Metal Sprayer Protective Coating Required: No Beliefs That Will Affect Care: None marital status: Current Living Situation: Spouse current occupational status: disabled Other Information That Helps Us Care for You: No Feels Safe at Home: Yes Safety Concerns: Feels Safe At This Time Smoking Status: Former smoker Age Quit Using Tobacco: 33 ; Do You Dip or Chew Tobacco: No ; Second Hand Exposure: Yes ; Hx Alcohol Use: No Hx Substance Use: No Other Diet Comment: RENAL DIET during the past year weight has: decreased > 10 lbs Signed By: <Electronically signed by David Sparks MD> 05/21/19625 Created: 05/21/19 06 The status of this report is Signed. Draft = Not yet reviewed or approved by Medical Physician. Signed = Reviewed and approved by Medical Physician. Allergies Allergy/AdvReac Type Severity Reaction Status Date / Time codeine Allergy Intermediate rash, Verified 05/29/19 11:08 Note: but was also taking penicillin. Penicillins Allergy Intermediate hives, Verified 05/29/19 11:08 family allergy to PCN oxycodone AdvReac Intermediate NAUSEA/VOMI Verified 05/29/19 11:08 TING ROHAN Inhibitors AdvReac Mild hyperkalemi Verified 05/29/19 11:08 a Home Medications Home Medications Medication Instructions Recorded Confirmed Type albuterol sulfate 2 puff INHALATION Q6H PRN 08/09/18 05/29/19 History amlodipine [Norvasc] 5 mg PO QAM 08/09/18 05/29/19 History aspirin [Aspir-81] 81 mg PO HS 08/09/18 05/29/19 History atorvastatin [Lipitor] 80 mg PO HS 08/09/18 05/29/19 History cinacalcet [Sensipar] 30 mg PO HS 08/09/18 05/29/19 History gabapentin 300 mg PO BID 08/09/18 05/29/19 History hydralazine 25 mg PO TID 08/09/18 05/29/19 History levothyroxine 50 mcg PO QAM 08/09/18 05/29/19 History omeprazole 20 mg PO QAM 08/09/18 05/29/19 History sevelamer HCl [Renagel] 1,600 mg PO TID 08/09/18 05/29/19 History tamoxifen 20 mg PO QAM 08/09/18 05/29/19 History cholecalciferol (vitamin D3) 400 unit PO QAM 11/14/18 05/29/19 History [Vitamin D3] diphenhydramine-acetaminophen 2 tab PO HS PRN 11/14/18 05/29/19 History [Tylenol PM Extra Strength] escitalopram oxalate [Lexapro] 10 mg PO QAM 11/14/18 05/29/19 History Humalog U-100 Insulin 20 unit SUBCUT TID 05/14/19 05/29/19 History Levemir U-100 Insulin 25 unit SUBCUT BID 05/14/19 05/29/19 History guaifenesin 200 mg PO TID PRN #15 tab 05/26/19 05/29/19 Rx metoprolol tartrate [Lopressor] 75 mg PO BID 30 Days #90 tab 05/26/19 05/29/19 Rx Past Med/Surg History Social History Preferred Language: Albanian Communication Ability: Effective Hearing Ability: Normal Metal Sprayer Protective Coating Required: No Beliefs That Will Affect Care: None marital status: Current Living Situation: Spouse current occupational status: disabled Other Information That Helps Us Care for You: No Feels Safe at Home: Yes Safety Concerns: Feels Safe At This Time Smoking Status: Former smoker Age Quit Using Tobacco: 33 ; Second Hand Exposure: No ; Hx Alcohol Use: No Hx Substance Use: No Other Diet Comment: RENAL DIET during the past year weight has: decreased > 10 lbs Signed By:<Electronically signed by David Sparks MD>05/31/19617 Created: 05/31/19616 The status of this report is Signed. Draft = Not yet reviewed or approved by Medical Physician. Signed = Reviewed and approved by Medical Physician. Admission Exam Per Admitting Provider Vitals: Pulse 78, blood pressure 113/82, respiratory rate 18, SpO2 95% on room air, weight 125.3 kilograms. General: No acute distress, alert and oriented x3. HEENT: Head is normocephalic, atraumatic. Pupils are equally round and reactive to light. Extraocular muscles were intact. Neck: Neck is supple without JVD at this time. Cardiac: Heart is regular rate and rhythm. No murmurs, gallops, or rubs. Abdomen: Soft, nontender, nondistended, positive bowel sounds. Extremities: Left arm with edema and ecchymoses along entire forearm. She has an easily palpable thrill from the antecubital fossa extending distally down the cephalic vein distribution into the hand. She also has a palpable thrill in the forearm along the basilic vein distribution extending proximally up toward the axilla. She has several well-healed incisions in the arm from her previous brachiocephalic fistula. There is no thrill and no pulsatility in the arm cepha lic vein outflow tract. The fingers on the left hand were cool to the touch. There is some purple and hyperemic discoloration. She does have capillary refill. Sensation was intact in all digits. Strength was 5/5 on box cutter in the left hand. She has lately palpable radial pulse. Neuro: Cranial nerves 2-12 are grossly intact. Extremities: Strength and sensation is intact in all 4 extremities and symmetric. Principal Diagnosis 1. ESRD on HD with hyperkalemia Discharge Exam Constitutional well developed, well nourished, + morbidly obese, + obese and cooperative; no acute distress (sitting on ra on hd) Respiratory normal respiratory effort Auscultation: lungs clear to auscultation bilaterally and + diminished lung sounds Cardiovascular RRR, no murmur, no edema Rate/Rhythm: regular rate and regular rhythm Gastrointestinal (Abdomen) Inspection/Auscultation: normal bowel sounds Percussion/Palpation: abdomen soft; abdomen nontender Musculoskeletal Spine: no pain with cervical ROM Extremities: strength 5/5 throughout Neurologic moves all extremities Psychiatric A+Ox3, euthymic affect Orientation: alert and oriented x 3 Discharge Data Allergies Allergy/AdvReac Type Severity Reaction Status Date / Time codeine Allergy Intermediate rash/hives Verified 06/03/19 11:16 (see comments) Penicillins Allergy Intermediate rash/hives, Verified 06/03/19 11:16 family allergy to PCN oxycodone AdvReac Intermediate N/V Verified 06/03/19 11:16 ROHAN Inhibitors AdvReac Mild hyperkalemi Verified 06/03/19 11:16 a Consultations 06/03/19 13:41 Consult Nephrology Routine Procedures Performed Operation Date: 06/03/19 12:40 Actual Procedures p Insertion Of Perm Catheter, Right Internal Jugular Approach, Ultrasound Localization Of Right Internal Jugular Vein, Fluoroscopy For Positioning(Right) - David Sparks MD Ordered Studies 06/03/19 12:44 EV cvc insrt tunnel wo prt/bundle wrapper Routine Hospital Course (1) ESRD (end stage renal disease) on dialysis: Pt underwent successful HD through permcath placed for urgent need for HD d/t hyperkalemia. She was stable for d/c after HD. Total Time Total Time Spent Total Time Spent (In Minutes): 10 min Total Time Includes: Examination of the Patient, Discharge Planning and Communication With Other Providers Discharge Plan Discharge Items Patient Disposition: Home - Self-Care Reason For Visit: End Stage Renal Disease on Hemodialysis Discharge Diagnosis: Hyperkalemia, thrombosed fistula Activity: Resume your previous activity Call non-emergency contact if: you have any medication questions, your symptoms worsen, your pain is not controlled, your pain is worsening, your pain is unusual for you, your pain is concerning for you, your wound has increased redness, your wound has increased drainage and your wound pain has increased Follow-up/Referrals: Jorge Franco, [Primary Care Provider] - Addtl Attending Provider Instructions: SPECIAL CARE INSTRUCTIONS: Medications: * Continue to take your medications as directed. If you have been given a prescription for Plavix, please fill it immediately and take as directed. Incision Care: * Your puncture site may have some bruising and minor swelling for about one week. * You will have a small dressing covering your puncture site. You may remove the dressing after 24 hours and shower. You may let the warm soapy water run over it, but be sure to dry the puncture site well and keep it dry. * DO NOT IMMERSE THE INCISION IN A TUB/POOL/etc. UNTIL HEALED. * Puncture sites should be kept covered with a band-aid until it begins to heal. Restrictions: * Depending on whether you leg or arm was punctured to access the arteries, you will be required to lay flat, hold your arm still, or both, for about 4 hours after the procedure to prevent bleeding. * Limit your activity for the first 48 hours. You may walk and go up and down steps. Avoid excessive bending or movement at the puncture site. Possible Complications: * Excessive Swelling - after blood flow is improved you may notice increased swelling in the lower legs. This is a normal response. This usually depends on the amount of blockages in the leg, how long they have been there prior to your procedure and how much blood flow was restored. Elevating your legs will help to improve this. Please notify our office ([phone]) if the swelling does not go away after lying in bed overnight. * Infection/Drainage/Bleeding - Drainage or bleeding from the puncture site should be minimal. If you have excessive bleeding or drainage, call our office ([phone]) right away. * Pain - You may experience some mild pain or soreness at your puncture site. If your pain does not improve, please contact our office ([phone]). Call your doctor and seek emergent treatment if you develop: * Temperature above 101 degrees * Any fever or chills * Any redness or purulent drainage from the puncture site * Any new dusky/blue colored toes or feet with coolness or sharp or aching pain. SKIN IRRITATION: * You may experience some redness and/or swelling in the area where radiation was administered. If any skin irritation occurs, please contact your family physician. FOLLOW UP VISIT: Keep any scheduled doctor appointments. Pending Studies at Discharge: No Stand-Alone Forms: Anesthesia/Sedation, Adult, [facility] Medications and DC Order Prescriptions: Continued diphenhydramine-acetaminophen [Tylenol PM Extra Strength] 25-500 mg Tablet 2 tab PO HS PRN (Reason: Sleep) RF: 0 cholecalciferol (vitamin D3) [Vitamin D3] 400 unit Tablet 400 unit PO QAM RF: 0 escitalopram oxalate [Lexapro] 10 mg Tablet 10 mg PO QAM RF: 0 Humalog U-100 Insulin 100 unit/mL Cartridge 20 unit SUBCUT TID RF: 0 Levemir U-100 Insulin 100 unit/mL Solution 25 unit SUBCUT BID RF: 0 metoprolol tartrate [Lopressor] 50 mg Tablet 75 mg PO BID 30 Days Qty: 90 RF: 0 atorvastatin [Lipitor] 80 mg Tablet 80 mg PO HS RF: 0 sevelamer HCl [Renagel] 800 mg Tablet 1,600 mg PO TID RF: 0 hydralazine 25 mg Tablet 25 mg PO TID RF: 0 amlodipine [Norvasc] 5 mg Tablet 5 mg PO QAM RF: 0 aspirin [Aspir-81] 81 mg Tablet,Delayed Release (Dr/Ec) 81 mg PO HS RF: 0 levothyroxine 50 mcg Tablet 50 mcg PO QAM RF: 0 gabapentin 300 mg Capsule 300 mg PO BID RF: 0 albuterol sulfate 90 mcg/actuation Hfa Aerosol Inhaler 2 puff INHALATION Q6H PRN (Reason: Wheezing) RF: 0 tamoxifen 20 mg Tablet 20 mg PO QAM RF: 0 cinacalcet [Sensipar] 30 mg Tablet 30 mg PO HS RF: 0 omeprazole 20 mg Tablet,Delayed Release (Dr/Ec) 20 mg PO QAM RF: 0 Discharge Orders: Discharge Order (Routine); Ordered 06/03/19 Ordered By: David Sparks Admission Data Admit Date/Time: 06/03/19 13:38 Attending Provider: David Sparks Admit Provider: David Sparks Primary Care Provider: Jorge Franco Other Providers: Lolis Cyr ; Duong De Dios ; Elvira Arcos ; Yvette Muller Japheth E. Other Interventions: Discharge Summary Assessment (RN) Last Done: 06/03/19 15:45 DC Date/Time DO NOT enter until pt leaves facility: 06/03/19 20:28
== END 2019-06-03 20:28 | disposition home or self-care (01) | DRG 314 ==
LOC: ASU 10:43 → 4W 13:38 → ASU 15:08

== ENCOUNTER 2020-10-27 02:41 | Inpatient (IN) ==
--- NOTE | 2020-10-27 02:59 | Emergency Department Note ---
Impression & Plan Hemorrhage of arteriovenous fistula ED Provider Note Name: KEITH CARRILLO Age: 65 Sex: F Arrives Via: Ambulance Informant: Patient. EMS ED Provider: Kristian Miranda MD Chief Complaint: Bleeding right arm Impression: Hemorrhage of arteriovenous fistula Elevated INR Medical Decision Makin yr old female with extensive PMH including multiple dialysis fistulas bilateral arms over the last few years which have each failed. Right arm fistula last month with infection and dehiscence being managed as outpatient who was actually to see [facility] later today for second opinion. Arrives for second time tonight with bleeding from fistula. On examination she has a small hole in the fistula that has active pulsatile bleeding. Dr Sparks paged and he immediately came in to ED to evaluation. Agrees need to closure and will take to OR to do so. She was comfortable throughout. BP stable. With earlier INR [address] Sparks who requests Vit K 2.5mg IV. CXR and EKG for pre-op along with covid swab. Hgb Stable and vitals OK throughout. BSG quite high and given IV insulin 6 Units for this. She is not in DKA. She was quite hypotensive during earlier visit though here BPs remained stable throughout and patient otherwise feeling well. Discussed pre-op abx and Dr Sparks will order abx. Prior Medical Record and Triage/Nursing Notes reviewed by Me Additional history obtained from chart and Dr Sparks Differentials: Arterial, Venous, Fistula bleed, infection, abscess, anemia, hypocoag amongst other pathologies. Vital Signs: reviewed and remarkable for no significant abnormalities Interventions: saline lock, vit K 2.5mg IV Labs:Reviewed and remarkable for elevated INR, stable hgb, elevated BGS Imaging:X ray results are stated below per my interpretation: Chest: 1 view: No infiltrate, no effusion, normal cardiac border. EKG:Per My Interpretation: Indication Pre-Op: NSR 95 bpm, qtc 480. No Ectopy. No Ischemia. Compared to EKG 10/26/20 (yesterday), no significant changes. Consults:Dr Sparks: Immediately came in to ED and evaluated patient to take her to to OR for management. Plan: Disposition:OR Condition: Good History of Present Illness:65 yr old female arrives for evaluation of fistula bleeding. Patient with right arm fistula surgery over a month ago which has been having issues with infection and wound dehiscence. Last evening noted bleeding and then heavy bleeding from wound. Pressure stopped bleeding and she came to ED for evaluation via EMS. Per Dr Weiner who saw her the bleeding had stopped, they wrapped wound and discharged to home. Of note patient reportedly was hypotensive on ED visit earlier which responded to IV fluids. Patient notes she got home and bleeding started again. She notes pulsatile heavy bleeding. She has appointment with [facility] [place]. She denies headache, lighheaded, chest pain, abdominal pain, other bleeding, trauma, injuries nor other concerns. ROS: See above HPI for pertinent positives & negatives. A total of 10 systems reviewed and were otherwise negative. Past Medical History:See Below Past Surgical History:See Below Family History:See Below Social History:See Below Home Medications:See Below Allergies:See Below Vitals:Blood Pressure: 114/60, Pulse 96, RR 20, T 36C, O2 97% on RA Physical Exam: GENERAL: Patient is chronically unwell appearing and in no distress. EYES: No scleral icterus, unremarkable pupils. ENT: Mucous membranes moist, no nasal congestion. NECK: No masses appreciated, nomeningismus, trachea is midline. RESPIRATORY: No dyspnea. Clear to auscultation and equal bilaterally. No wheeze, no rhonchi. CARDIOVASCULAR: Regular rate and rhythm.No murmurs, rubs, gallops appreciated. GASTROINTESTINAL: Abdomen soft, non-tender, no peritonitis.Bowel sounds positive.No masses appreciated. BACK: No midline tenderness, no CVA tenderness EXTREMITIES: Right arm fistula with two distinct areas of wound dehiscence, a smaller area more proximal and a larger area distal aspect of wound. lateral aspect of distal wound has a pulsatile bleeding area which appears to be directly over/communicating with fistula and is easily compressed and bleeding stopped. Severe scarred left arm. No pulses in either arm (states that is normal). Good pulses in feet. Otherwise normal motion all extremities, no cyanosis, no edema. NEUROLOGIC: Alert and oriented, no acute motor or sensory deficits, no focal weakness, cranial nerves grossly intact. SKIN: No rash, no jaundice, no diaphoresis. PSYCH: Appropriate GCS: 15 ED Course: Times/Reassessments: Multiple throughout, taken to OR by Dr Bridger Miranda MD Past Med/Surg History Medical History Asthma well controlled Breast cancer, left hx (2012) s/p surgery- no chemo or XRT needed CAD (coronary artery disease) non-obstructive COPD (chronic obstructive pulmonary disease) well controlled Depression Diabetes mellitus, type 2 IDDM Diabetic neuropathy ESRD on dialysis M-W-F ([facility]) Fistula RUE Gait disturbance occasional cane use (d/t diabetic neuropathy) GERD (gastroesophageal reflux disease) History of blood transfusion in setting of abnormal uterine bleeding > subsequent hysterectomy Hyperlipemia Hypertension Hypothyroidism Obesity Osteoarthritis PVC (premature ventricular contraction) controlled on beta tristan SOBOE (shortness of breath on exertion) Spinal stenosis 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 Sparks 08/21/18) History of umbilical hernia repair Nausea and vomiting after administration of anesthetic agent Presence of permanent central venous catheter right chest (using dialysis currently) S/P arteriovenous (AV) fistula repair LUE/multiple repairs and "clean outs" Status post creation of arteriovenous fistula left forearm Family History Sister Family history of diabetes mellitus Family history of reaction to anesthesia wakes up with a headache-"FEELS WEIRD" Social History Smoking Status: Former smoker Age Quit Using Tobacco: 33; Second Hand Exposure: No; Hx Alcohol Use: No Hx Substance Use: No Preferred Language: Haitian Communication Ability: Effective Hearing Ability: Normal Wheel Grinder Required: No Beliefs That Will Affect Care: None marital status: Current Living Situation: Spouse current occupational status: disabled Feels Safe at Home: Yes Diet Comment: RENAL DIET during the past year weight has: decreased > 10 lbs Assistive Devices: Cane Allergies Allergies Allergy/AdvReac Type Severity Reaction Status Date / Time codeine Allergy Intermediate rash/hives Verified 10/27/20 00:06 (see comments) Penicillins Allergy Intermediate rash/hives, Verified 10/27/20 00:06 family allergy to PCN oxycodone AdvReac Intermediate N/V Verified 10/27/20 00:06 ROHAN Inhibitors AdvReac Mild hyperkalemi Verified 10/27/20 00:06 a Home Meds Home Medications Medication Instructions Recorded Confirmed cinacalcet [Sensipar] 30 mg PO HS 08/09/18 10/27/20 levothyroxine 50 mcg PO QAM 08/09/18 10/27/20 sevelamer HCl [Renagel] 800 mg PO TID 08/09/18 10/27/20 cholecalciferol (vitamin D3) 400 unit PO QAM 11/14/18 10/27/20 [Vitamin D3] Humalog U-100 Insulin 15 unit SUBCUT TIDM 05/14/19 10/27/20 gabapentin 300 mg PO BID 04/15/20 10/27/20 ascorbic acid (vitamin C) [Vitamin 500 mg PO QAM 06/15/20 10/27/20 C] atorvastatin 80 mg PO QAM 06/26/20 10/27/20 metoprolol tartrate [Lopressor] 25 mg PO BID 06/26/20 10/27/20 aspirin 81 mg PO HS 07/02/20 10/27/20 Lantus U-100 Insulin 30 unit SUBCUT BID 08/19/20 10/27/20 omeprazole 40 mg PO DAILY 10/27/20 10/27/20 sertraline 25 mg PO DAILY 10/27/20 10/27/20 warfarin 5 mg PO UD 10/27/20 10/27/20 Previous Rx's Medication Instructions Recorded hydrocodone-acetaminophen 1 tab PO Q6H PRN #30 tab 09/19/20 Results & Data (ED) Vital Signs Vital Signs - 24 hr 10/27/20 02:48 10/27/20 02:55 10/27/20 03:56 Temperature 36.6 C Temperature Source Oral Pulse Rate 100 H 96 H 102 H Pulse Rate [Apical] Pulse Rate from SpO2 Sensor Pulse Rhythm [Apical] Respiratory Rate 18 20 13 Respiratory Effort / Characteristics Non-Labored Spontaneous Respiratory Depth Normal Respiratory Pattern Blood Pressure 114/60 114/60 Blood Pressure [Left Calf] Blood Pressure Mean 78 78 Blood Pressure Mean [Left Calf] Blood Pressure Position [Left Calf] Pulse Oximetry 95 97 95 Oxygen Delivery Method Room Air Room Air Room Air Oxygen Flow Rate Sepsis New/Unexplained Change in Mental Status N/A Sepsis Action Taken by Nursing No Action Required 10/27/20 04:00 10/27/20 04:10 10/27/20 04:11 Temperature Temperature Source Pulse Rate 97 H 98 H 94 H Pulse Rate [Apical] Pulse Rate from SpO2 Sensor 97 H 98 H 95 H Pulse Rhythm [Apical] Respiratory Rate 18 15 15 Respiratory Effort / Characteristics Respiratory Depth Respiratory Pattern Blood Pressure 98/70 L Blood Pressure [Left Calf] Blood Pressure Mean 79 Blood Pressure Mean [Left Calf] Blood Pressure Position [Left Calf] Pulse Oximetry 95 92 94 Oxygen Delivery Method Room Air Room Air Room Air Oxygen Flow Rate Sepsis New/Unexplained Change in Mental Status Sepsis Action Taken by Nursing 10/27/20 04:34 10/27/20 04:40 10/27/20 05:00 Temperature Temperature Source Pulse Rate 94 H 92 H 91 H Pulse Rate [Apical] Pulse Rate from SpO2 Sensor 92 H 92 H Pulse Rhythm [Apical] Respiratory Rate 15 12 15 Respiratory Effort / Characteristics Respiratory Depth Respiratory Pattern Blood Pressure 92/51 L Blood Pressure [Left Calf] Blood Pressure Mean 64 72 Blood Pressure Mean [Left Calf] Blood Pressure Position [Left Calf] Pulse Oximetry 93 93 100 Oxygen Delivery Method Room Air Room Air Nasal Cannula Oxygen Flow Rate 2 Sepsis New/Unexplained Change in Mental Status Sepsis Action Taken by Nursing 10/27/20 05:03 10/27/20 05:04 10/27/20 06:56 Temperature 36.5 C Temperature Source Oral Pulse Rate 96 H 96 H Pulse Rate [Apical] 99 H Pulse Rate from SpO2 Sensor 96 H 97 H Pulse Rhythm [Apical] Regular Respiratory Rate 15 14 14 Respiratory Effort / Characteristics Non-Labored Spontaneous Respiratory Depth Normal Respiratory Pattern Regular Blood Pressure 117/41 L Blood Pressure [Left Calf] 106/44 L Blood Pressure Mean 66 Blood Pressure Mean [Left Calf] 64 Blood Pressure Position [Left Calf] Semi-fowlers Pulse Oximetry 100 100 99 Oxygen Delivery Method Nasal Cannula Nasal Cannula Oxymask Oxygen Flow Rate 2 2 10 Sepsis New/Unexplained Change in Mental Status Sepsis Action Taken by Nursing 10/27/20 07:00 10/27/20 07:10 10/27/20 07:20 Temperature Temperature Source Pulse Rate Pulse Rate [Apical] 99 H 101 H 103 H Pulse Rate from SpO2 Sensor Pulse Rhythm [Apical] Regular Regular Regular Respiratory Rate 14 16 16 Respiratory Effort / Characteristics Non-Labored Spontaneous Non-Labored Spontaneous Non-Labored Spontaneous Respiratory Depth Normal Normal Normal Respiratory Pattern Regular Regular Regular Blood Pressure Blood Pressure [Left Calf] 97/53 L 80/50 L 78/56 L Blood Pressure Mean Blood Pressure Mean [Left Calf] 67 60 63 Blood Pressure Position [Left Calf] Semi-fowlers Semi-fowlers Semi-fowlers Pulse Oximetry 100 100 100 Oxygen Delivery Method Oxymask Oxymask Room Air Oxygen Flow Rate 10 10 Sepsis New/Unexplained Change in Mental Status Sepsis Action Taken by Nursing 10/27/20 07:30 Temperature Temperature Source Pulse Rate Pulse Rate [Apical] 101 H Pulse Rate from SpO2 Sensor Pulse Rhythm [Apical] Regular Respiratory Rate 16 Respiratory Effort / Characteristics Non-Labored Spontaneous Respiratory Depth Normal Respiratory Pattern Regular Blood Pressure Blood Pressure [Left Calf] 104/56 L Blood Pressure Mean Blood Pressure Mean [Left Calf] 72 Blood Pressure Position [Left Calf] Semi-fowlers Pulse Oximetry 97 Oxygen Delivery Method Room Air Oxygen Flow Rate Sepsis New/Unexplained Change in Mental Status Sepsis Action Taken by Nursing Laboratory Data Result diagrams: 10/27/20 03:09 10/27/20 03:09 Lab Results 10/27/20 10/27/20 10/27/20 Range/Units 03:09 03:09 03:09 WBC 7.19 (4.8-10.8) K/uL RBC 3.57 L (4.2-5.4) M/uL Hgb 10.6 L (12.0-16.0) g/dL Hct 33.1 L (37-47) % MCV 92.7 (80-100) fL MCH 29.7 (25-34) pg MCHC 32.0 (32-36) g/dL RDW Std Deviation 55.8 H (36.4-46.3) fL RDW Coeff of Erendira 16.4 H (11.5-14.5) % Plt Count 213 (130-400) K/uL MPV 9.8 (7.4-10.4) fL Immature Gran % (Auto) 1.3 % Neut % (Auto) 82.5 % Lymph % (Auto) 9.3 % Glades % (Auto) 5.8 % Eos % (Auto) 0.8 % Baso % (Auto) 0.3 % Neut # (Auto) 5.93 (1.4-6.5) K/uL Lymph # (Auto) 0.67 L (1.2-3.4) K/uL Glades # (Auto) 0.42 (0.11-0.59) K/uL Eos # (Auto) 0.06 (0-0.5) K/uL Baso # (Auto) 0.02 (0-0.2) K/uL Immature Gran # (Auto) 0.09 H (0.00-0.02) K/uL PT 44.8 H (9.0-12.0) Seconds INR 5.0 H (0.9-1.1) APTT 52.4 H* (21.0-31.0) Seconds PTT Ratio 2.0 Sodium 134 L (136-145) mmol/L Potassium 4.6 (3.5-5.1) mmol/L Chloride 98 (98-107) mmol/L Carbon Dioxide 28 (21-32) mmol/L Anion Gap 8.0 (3-11) BUN 25 H (7-18) mg/dl Creatinine 5.04 H* (0.6-1.2) mg/dl Est Cr Clr Drug Dosing 14.7 ml/min Est GFR ( Amer) 9.8 Est GFR (Non-Af Amer) 8.5 BUN/Creatinine Ratio 5.0 L (10-20) Glucose 449 H* (70-99) mg/dl POC Glucose (70-99) mg/dl Calcium 8.5 (8.5-10.1) mg/dl Beta-Hydroxybutyric Acd (0.2-2.81) mg/dl Specimen Hemolysis COVID-19 Eval Order SARS-CoV-2 (PCR) (Negative) Influenza Type A (PCR) (Neg) Influenza Type B (PCR) (Neg) RSV (RT-PCR) (Neg) 10/27/20 10/27/20 10/27/20 Range/Units 03:52 03:52 05:07 WBC (4.8-10.8) K/uL RBC (4.2-5.4) M/uL Hgb (12.0-16.0) g/dL Hct (37-47) % MCV (80-100) fL MCH (25-34) pg MCHC (32-36) g/dL RDW Std Deviation (36.4-46.3) fL RDW Coeff of Erendira (11.5-14.5) % Plt Count (130-400) K/uL MPV (7.4-10.4) fL Immature Gran % (Auto) % Neut % (Auto) % Lymph % (Auto) % Glades % (Auto) % Eos % (Auto) % Baso % (Auto) % Neut # (Auto) (1.4-6.5) K/uL Lymph # (Auto) (1.2-3.4) K/uL Glades # (Auto) (0.11-0.59) K/uL Eos # (Auto) (0-0.5) K/uL Baso # (Auto) (0-0.2) K/uL Immature Gran # (Auto) (0.00-0.02) K/uL PT (9.0-12.0) Seconds INR (0.9-1.1) APTT (21.0-31.0) Seconds PTT Ratio Sodium (136-145) mmol/L Potassium (3.5-5.1) mmol/L Chloride (98-107) mmol/L Carbon Dioxide (21-32) mmol/L Anion Gap (3-11) BUN (7-18) mg/dl Creatinine (0.6-1.2) mg/dl Est Cr Clr Drug Dosing ml/min Est GFR ( Amer) Est GFR (Non-Af Amer) BUN/Creatinine Ratio (10-20) Glucose (70-99) mg/dl POC Glucose 430 H* (70-99) mg/dl Calcium (8.5-10.1) mg/dl Beta-Hydroxybutyric Acd (0.2-2.81) mg/dl Specimen Hemolysis COVID-19 Eval Order CovFluRsv at [facility] SARS-CoV-2 (PCR) NEGATIVE (Negative) Influenza Type A (PCR) Negative (Neg) Influenza Type B (PCR) Negative (Neg) RSV (RT-PCR) Negative (Neg) 10/27/20 10/27/20 10/27/20 Range/Units 05:10 06:40 07:02 WBC (4.8-10.8) K/uL RBC (4.2-5.4) M/uL Hgb (12.0-16.0) g/dL Hct (37-47) % MCV (80-100) fL MCH (25-34) pg MCHC (32-36) g/dL RDW Std Deviation (36.4-46.3) fL RDW Coeff of Erendira (11.5-14.5) % Plt Count (130-400) K/uL MPV (7.4-10.4) fL Immature Gran % (Auto) % Neut % (Auto) % Lymph % (Auto) % Glades % (Auto) % Eos % (Auto) % Baso % (Auto) % Neut # (Auto) (1.4-6.5) K/uL Lymph # (Auto) (1.2-3.4) K/uL Glades # (Auto) (0.11-0.59) K/uL Eos # (Auto) (0-0.5) K/uL Baso # (Auto) (0-0.2) K/uL Immature Gran # (Auto) (0.00-0.02) K/uL PT (9.0-12.0) Seconds INR (0.9-1.1) APTT (21.0-31.0) Seconds PTT Ratio Sodium (136-145) mmol/L Potassium (3.5-5.1) mmol/L Chloride (98-107) mmol/L Carbon Dioxide (21-32) mmol/L Anion Gap (3-11) BUN (7-18) mg/dl Creatinine (0.6-1.2) mg/dl Est Cr Clr Drug Dosing ml/min Est GFR ( Amer) Est GFR (Non-Af Amer) BUN/Creatinine Ratio (10-20) Glucose (70-99) mg/dl POC Glucose 422 H* 411 H* 388 H* (70-99) mg/dl Calcium (8.5-10.1) mg/dl Beta-Hydroxybutyric Acd (0.2-2.81) mg/dl Specimen Hemolysis COVID-19 Eval Order SARS-CoV-2 (PCR) (Negative) Influenza Type A (PCR) (Neg) Influenza Type B (PCR) (Neg) RSV (RT-PCR) (Neg) Administered Medications Discontinued Medications Bupivacaine HCl (Bupivacaine 0.5 % 5 Mg/1 Ml Mpf 30ml Vial) Confirm Administered Dose 30 ml .ROUTE .[employer]-MED ONE Stop: 10/27/20 04:39 Last Admin: 10/27/20 06:04 Dose: Not Given Documented by: [id number] Bupivacaine HCl/Epinephrine Bitart (Bupivacaine/Epinephrine 0.5% Mpf 1:200,000 30 Ml Vial) Confirm Administered Dose 30 ml .ROUTE .STK-MED ONE Stop: 10/27/20 05:32 Last Admin: 10/27/20 06:46 Dose: Not Given Documented by: [id number] Gelatin (Gelatin Sponge Sz 100) Confirm Administered Dose 1 ea .ROUTE .ST-MED ONE Stop: 10/27/20 04:39 Last Admin: 10/27/20 06:47 Dose: Not Given Documented by: [id number] Heparin Sodium (Porcine) (Heparin (Porcine) 1000 Unit/Ml 10 Ml ([place] Use Only)) Confirm Administered Dose 10,000 units .ROUTE .[facility] ONE Stop: 10/27/20 04:39 Last Admin: 10/27/20 06:04 Dose: Not Given Documented by: [id number] Phytonadione 2.5 mg/ Sodium (Chloride) 50.25 mls @ 100.5 mls/hr IV ONE ONE Stop: 10/27/20 04:19 Last Infusion: 10/27/20 04:13 Dose: 0 mls/hr Documented by: [id number] Admin: 10/27/20 04:11 Dose: 100.5 mls/hr Documented by: [id number] Insulin Aspart (Insulin Aspart Per Unit) Confirm Administered Dose 6 units .R OUTE .[facility] ONE Stop: 10/27/20 07:13 Last Admin: 10/27/20 07:16 Dose: 6 units Documented by: [id number] Cosigned by: [id number] Insulin Human Regular (Insulin Human Regular) 6 units IV NOW STA Stop: 10/27/20 04:16 Last Admin: 10/27/20 04:33 Dose: 6 units Documented by: [id number] Cosigned by: [id number] Insulin Human Regular (Novolin-R Insulin Per Unit Charge) Confirm Administered Dose 6 units .ROUTE .ST-MED ONE Stop: 10/27/20 04:30 Last Admin: 10/27/20 04:33 Dose: Not Given Documented by: [id number] Lidocaine HCl (Lidocaine Hcl 1% 20 Ml Vial) Confirm Administered Dose 20 ml .ROUTE .STK-MED ONE Stop: 10/27/20 04:39 Last Admin: 10/27/20 06:46 Dose: Not Given Documented by: [id number] Thrombin (Thrombin 5000 Units Kit) Confirm Administered Dose 5,000 units .ROUTE .STK-MED ONE Stop: 10/27/20 04:39 Last Admin: 10/27/20 06:39 Dose: Not Given Documented by: [id number] Thrombin (Thrombin For Soln 96196 Unit Kit) 20,000 units TOP ONCE ONE Stop: 10/27/20 06:38 Last Admin: 10/27/20 06:39 Dose: 20,000 units Documented by: [id number] Imaging Data Radiologist's Impression: Chest X-Ray 10/27/20 03:45 XR chest 1V portable CLINICAL HISTORY: Preoperative evaluation. COMPARISON STUDY: Chest radiograph June 18, 2020. FINDINGS: Dual lumen right internal jugular dialysis catheter is in place. Left hilar prominence with linear left upper lung opacity remains unchanged. Lung volumes are normal. Lungs are clear. There is no pneumothorax or pleural effusion. Cardiac size is normal. Mediastinal contours are normal. There is no evidence for pulmonary edema. IMPRESSION: No acute cardiopulmonary findings. No change in appearance of the chest. ACT 112: Negative or not required by law. Electronically signed by: Jackson Bond M.D. 10/27/2020 6:28 AM Discharge Plan Visit Data Chief Complaint: Bleeding Stated Complaint: BLEEDING ED Provider: Kristian Miranda Discharge Problem: Hemorrhage of arteriovenous fistula Patient Disposition: Admitted As Inpatient Discharge Instructions Interventions: ED Discharge Assessment Last Done: 10/27/20 05:20
[2020-10-27 03:27] LABS: Basophils # (auto) 0.02 K/uL (0-0.2); Basophils % (auto) 0.3 %; Eosinophils # (auto) 0.06 K/uL (0-0.5); Eosinophils % (auto) 0.8 %; Hematocrit (blood only) 33.1 % (37-47); Hemoglobin 10.6 g/dL (12.0-16.0); Immature Granulocytes # (auto) 0.09 K/uL (0.00-0.02); Immature Granulocytes % (auto) 1.3 %; Lymphocytes # (auto) 0.67 K/uL (1.2-3.4); Lymphocytes % (auto) 9.3 %; Mean Corpuscular Hemoglobin 29.7 pg (25-34); Mean Corpuscular Volume 92.7 fL (80-100); Mean Platelet Volume 9.8 fL (7.4-10.4); Monocytes # (auto) 0.42 K/uL (0.11-0.59); Monocytes % (auto) 5.8 %; Neutrophils # (auto) 5.93 K/uL (1.4-6.5); Neutrophils % (auto) 82.5 %; Platelet Count 213 K/uL (130-400); RDW Coefficient of Variation 16.4 % (11.5-14.5); RDW Standard Deviation 55.8 fL (36.4-46.3); Red Blood Count 3.57 M/uL (4.2-5.4); White Blood Count 7.19 K/uL (4.8-10.8)
[2020-10-27 03:49] LABS: Prothrombin Time 44.8 Seconds (9.0-12.0)
[2020-10-27] MEDS ORDERED: PHYTONADIONE 2.5 MG in SODIUM CHLORIDE 0.9% 50 ML IV ONE (03:50)
[2020-10-27 03:57] LABS: Partial Thromboplastin Time 52.4 Seconds (21.0-31.0)
[2020-10-27 03:58] LABS: Calcium 8.5 mg/dl (8.5-10.1); Creatinine Clr Calc Pharmacy 14.7 ml/min; Est GFR (African American) 9.8; Est GFR (Non-African American) 8.5; Potassium 4.6 mmol/L (3.5-5.1)
[2020-10-27] MEDS ORDERED: INSULIN HUMAN REGULAR IV STA (04:15)
[2020-10-27] MEDS ORDERED: NovoLIN-R INSULIN PER UNIT CHARGE ONE (04:29)
[2020-10-27] MEDS ORDERED: fentaNYL citrate 100 MCG/2 ML VIAL ONE (04:34)
[2020-10-27] MEDS ORDERED: GELATIN SPONGE SZ 100 ONE (04:38)
[2020-10-27] MEDS ORDERED: THROMBIN 5000 UNITS KIT ONE (04:38)
[2020-10-27] MEDS ORDERED: LIDOCAINE 1% LOCAL 20 ML VIAL ONE (04:38)
[2020-10-27] MEDS ORDERED: HEPARIN (PORCINE) 1000 UNIT/ML 10 ML (CATH LAB USE ONLY) ONE (04:38)
[2020-10-27] MEDS ORDERED: BUPIVACAINE 0.5 % 5 MG/1 ML MPF 30ML VIAL ONE (04:38)
--- NOTE | 2020-10-27 04:43 | Anesthesiology Consultation ---
Date of Service October 27, 2020 Assessment & Plan (1) Encounter for pre-operative examination: Chart Review Chart Review: Acceptable Risk for Surgery (emergent) History Surgery Operation Date: 10/27/20 05:00 Proposed Procedures p Arteriovenous Fistula - David Sparks MD Height/Weight Height: 5 ft 3 in Weight: 125.2 kg Allergies Allergy/AdvReac Type Severity Reaction Status Date / Time codeine Allergy Intermediate rash/hives Verified 10/27/20 00:06 (see comments) Penicillins Allergy Intermediate rash/hives, Verified 10/27/20 00:06 family allergy to PCN oxycodone AdvReac Intermediate N/V Verified 10/27/20 00:06 ROHAN Inhibitors AdvReac Mild hyperkalemi Verified 10/27/20 00:06 a Medications Home Medications Medication Instructions Recorded Confirmed Last Taken cinacalcet [Sensipar] 30 mg PO HS 08/09/18 10/27/20 09/17/20 10:00 levothyroxine 50 mcg PO QAM 08/09/18 10/27/20 09/18/20 10:00 sevelamer HCl [Renagel] 800 mg PO TID 08/09/18 10/27/20 09/17/20 10:00 cholecalciferol (vitamin D3) 400 unit PO QAM 11/14/18 10/27/20 10/26/20 [Vitamin D3] Humalog U-100 Insulin 15 unit SUBCUT TIDM 05/14/19 10/27/20 10/26/20 gabapentin 300 mg PO BID 04/15/20 10/27/20 10/26/20 ascorbic acid (vitamin C) [Vitamin 500 mg PO QAM 06/15/20 10/27/20 10/26/20 C] atorvastatin 80 mg PO QAM 06/26/20 10/27/20 10/26/20 metoprolol tartrate [Lopressor] 25 mg PO BID 06/26/20 10/27/20 10/26/20 aspirin 81 mg PO HS 07/02/20 10/27/20 10/26/20 Lantus U-100 Insulin 30 unit SUBCUT BID 08/19/20 10/27/20 10/26/20 hydrocodone-acetaminophen 1 tab PO Q6H PRN #30 tab 09/19/20 10/27/20 Unknown omeprazole 40 mg PO DAILY 10/27/20 10/27/20 10/26/20 sertraline 25 mg PO DAILY 10/27/20 10/27/20 10/26/20 warfarin 5 mg PO UD 10/27/20 10/27/20 10/26/20 unknown NPO Date Last Intake of Fluids: 10/26/20 Time Last Intake of Fluids: 17:30 Last Intake of Fluids Comment: crystal light Date Last Intake of Solids: 10/26/20 Time Last Intake of Solids: 17:30 Last Intake of Solids Comment: progresso chicken and dumpling soup, half of sandwich Past Medical History Medical History Asthma well controlled Breast cancer, left hx (2012) s/p surgery- no chemo or XRT needed CAD (coronary artery disease) non-obstructive COPD (chronic obstructive pulmonary disease) well controlled Depression Diabetes mellitus, type 2 IDDM Diabetic neuropathy ESRD on dialysis M-W-F ([facility]) Fistula RUE Gait disturbance occasional cane use (d/t diabetic neuropathy) GERD (gastroesophageal reflux disease) History of blood transfusion in setting of abnormal uterine bleeding > subsequent hysterectomy Hyperlipemia Hypertension Hypothyroidism Obesity Osteoarthritis PVC (premature ventricular contraction) controlled on beta tristan SOBOE (shortness of breath on exertion) Spinal stenosis 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 Sparks 08/21/18) History of umbilical hernia repair Nausea and vomiting after administration of anesthetic agent Presence of permanent central venous catheter right chest (using dialysis currently) S/P arteriovenous (AV) fistula repair LUE/multiple repairs and "clean outs" Status post creation of arteriovenous fistula left forearm Social History Smoking Status: Former smoker tobacco type: cigarettes Hx Alcohol Use: No Hx Substance Use: No substance use type: does not use Physical Exam Vital Signs Last Vital Signs Temp 36.6 C 10/27/20 02:55 Pulse 96 H 10/27/20 02:55 Resp 20 10/27/20 02:55 BP 114/60 10/27/20 02:55 Pulse Ox 97 10/27/20 02:55 Testing Laboratory Results 10/27/20 03:09 10/27/20 03:09 PT 44.8 Seconds (9.0-12.0) H 10/27/20 03:09 INR 5.0 (0.9-1.1) H 10/27/20 03:09 APTT 52.4 Seconds (21.0-31.0) H* 10/27/20 03:09 received vtamin K and 12 U novolin R in ED this AM Electrocardiogram Date: 10/27/20 Findings: + NSR @ (95) and + NSST changes Echocardiogram Date: 05/24/19 LV Function: normal Other Findings: + LVH (mild) Valvular Disease: + no significant valvular disease
[2020-10-27 04:48] LABS: Influenza A virus by PCR Negative (Neg); Influenza B virus by PCR Negative (Neg); RSV by PCR Negative (Neg); SARS CoV2 RNA(COVID-19) InHosp NEGATIVE (Negative)
[2020-10-27] MEDS ORDERED: ONDANSETRON INJ 2 MG/ML 2 ML VIAL IV PRN (05:21)
[2020-10-27] MEDS ORDERED: ATROPINE SULFATE 0.1 MG/ML 10ML SYR IV PRN (05:21)
[2020-10-27] MEDS ORDERED: fentaNYL citrate 100 MCG/2 ML VIAL IV PRN (05:21)
[2020-10-27] MEDS ORDERED: PROMETHAZINE HCL 12.5 MG in SODIUM CHLORIDE 0.9% 50 ML IV PRN (05:21)
[2020-10-27] MEDS ORDERED: BUPIVACAINE/EPINEPHRINE 0.5% MPF 1:200,000 30 ML VIAL ONE (05:31)
[2020-10-27] MEDS ORDERED: MIDAZOLAM HCL 1 MG/ML 2ML VIAL ONE (06:05)
--- NOTE | 2020-10-27 06:29 | XRay Report ---
XR chest 1V portable CLINICAL HISTORY: Preoperative evaluation. COMPARISON STUDY: Chest radiograph June 18, 2020. FINDINGS: Dual lumen right internal jugular dialysis catheter is in place. Left hilar prominence with linear left upper lung opacity remains unchanged. Lung volumes are normal. Lungs are clear. There is no pneumothorax or pleural effusion. Cardiac size is normal. Mediastinal contours are normal. There is no evidence for pulmonary edema. IMPRESSION: No acute cardiopulmonary findings. No change in appearance of the chest. ACT 112: Negative or not required by law. Electronically signed by: Jackson Bond M.D. 10/27/2020 6:28 AM
[2020-10-27] MEDS ORDERED: THROMBIN FOR SOLN 20000 UNIT KIT TOP ONE (06:37)
[2020-10-27] MEDS ORDERED: LIDOCAINE 2% 2 ML VIAL/AMP(20MG/ML) INFIL ONE (06:44)
[2020-10-27] MEDS ORDERED: SUCCINYLCHOLINE CHLORIDE 20 MG/ML 10 ML VIAL IV ONE (06:44)
[2020-10-27] MEDS ORDERED: ePHEDrine sulfate 50 MG/ML AMP ONE (06:44)
[2020-10-27] MEDS ORDERED: ONDANSETRON INJ 2 MG/ML 2 ML VIAL ONE (06:44)
[2020-10-27] MEDS ORDERED: PROPOFOL IV EMULSION 10 MG/ML 20 ML VIAL IV ONE (06:44)
--- NOTE | 2020-10-27 07:11 | Operative Report ---
Post Operative Report Pre & Post Diagnosis Operation Date: 10/27/20 05:00 Pre-Op Diagnosis: Bleeding from AV Fistual Post-Op Diagnosis: Bleeding from AV Fistual I identified the patient and participated in the time-out.: Yes Procedure Operation Date: 10/27/20 05:00 Actual Procedures p Arteriovenous Fistula ligation(Right) - David Sparks MD Surgeon David Sparks MD Home Aide none Estimated Blood Loss 50 Findings Consistent with Post-Op Diagnosis Specimens none Anesthesia Type General Complications none Disposition Accompanied Patient To Recovery: No Disposition: Recovery Room Indications This is a 65yo dialysis patient with an open right arm wound. She presented with bleeding from an exposed portion of her fistula. Ligation was recommended. I have discussed the risks options and benefits of the procedure with the patient. The patient understands the risks options and benefits and agrees to the procedure. Description of Procedure The patient was taken to the operating room and placed in the supine position. After general anesthesia was accomplished the wrap was removed from the right arm and the arm prepped and draped. A timeout was performed and the patient identified. There was active arterial bleeding coming from a hole in the transposed fistula. Manual pressure was applied and the fistula freed up proximally and distally. Control was then obtianed. The distal end was ligated with 2-0 silk tie. Proximally the fistula was ligated with two layers of 4-0 prolene. The wound edges were freshened up. I was able to free up surrounding tissue and suture it over the stump of the av fistula with 3-0 Vicryl. Adequate hemostasis was obtained. The wound was then dressed with saline moist 4x4's, kerlex and an tony wrap. The patient left the operation room in satisfactory condition and tolerated the procedure well. All needle and sponge counts were correct at the end of the procedure. I attest to the content of the Intraoperative Record and any orders documented therein. Any exceptions are noted below.
[2020-10-27] MEDS ORDERED: INSULIN ASPART PER UNIT ONE (07:12)
--- NOTE | 2020-10-27 07:18 | Anesthesiology Progress Note ---
Date of Service October 27, 2020 Anesthesia Post Procedure Vital Signs Vital Signs: Temp Pulse Resp BP Pulse Ox 10/27/20 05:04 96 H 14 100 10/27/20 05:03 96 H 15 117/41 L 100 10/27/20 05:00 91 H 15 100 10/27/20 04:40 92 H 12 93 10/27/20 04:34 94 H 15 92/51 L 93 10/27/20 04:11 94 H 15 98/70 L 94 10/27/20 04:10 98 H 15 92 10/27/20 04:00 97 H 18 95 10/27/20 03:56 102 H 13 95 10/27/20 02:55 36.6 C 96 H 20 114/60 97 10/27/20 02:48 100 H 18 114/60 95 Transfer of Care Handoff Completed per policy Notes Mental Status: alert / awake / arousable Patient Amnestic to Procedure: Yes Nausea / Vomiting: adequately controlled Pain: adequately controlled Airway Patency, RR, SpO2: stable & adequate BP & HR: stable & adequate Hydration State: stable & adequate Anesthetic Complications: no major complications apparent
[2020-10-27] MEDS ORDERED: NON-FORMULARY MEDICATION (Insulin Lispro [Humalog U-100 Insulin] 100 unit/mL Cartridge) SQ SCH (08:00)
[2020-10-27] MEDS ORDERED: INSULIN GLARGINE SOLOSTAR 100 UNITS/ML 3 ML PEN SC SCH (09:00)
[2020-10-27] MEDS: ATORVASTATIN 40 MG TAB PO SCH (10:29)
[2020-10-27] MEDS: ASCORBIC ACID 500 MG TAB PO SCH (10:29)
[2020-10-27] MEDS: SERTRALINE HCL 50 MG TABLET PO SCH (10:30)
[2020-10-27] MEDS: PANTOprazole 40 MG TAB PO SCH (10:30)
[2020-10-27] MEDS: METOPROLOL TARTRATE 25 MG TAB PO SCH ×2 (10:30→20:38)
[2020-10-27] MEDS: SEVELAMER HCL 800 MG TABLET PO SCH ×3 (10:31→17:58)
[2020-10-27] MEDS: CHOLECALCIFEROL 400 UNITS 10 MCG TAB PO SCH (10:31)
[2020-10-27] MEDS: GABAPENTIN 300 MG CAP PO SCH ×2 (10:31→20:38)
[2020-10-27] MEDS: LEVOTHYROXINE SODIUM 50 MCG TABLET PO SCH (10:32)
[2020-10-27] MEDS ORDERED: PHARMACY GLYCEMIC MGMT CONSULT PRN (10:51)
[2020-10-27] MEDS ORDERED: INSULIN HUMAN REGULAR PER UNIT 10 UNITS in SYRINGE 9.9 ML IV ONE (11:00)
--- NOTE | 2020-10-27 11:35 | Nephrology Consultation ---
Date of Consultation October 27, 2020 Assessment & Plan (1) ESRD (end stage renal disease) on dialysis: no indication for urgent dialysis today; plan routine HD in AM; has functional TDC; generally adherent w/ txs. SBP can be 90-100s on tx w/o sx. Present on Admission?: Yes (2) Anemia in ESRD (end-stage renal disease): dialysis pt > so hgb generally 9-11; would recheck today only if sustained hypotension suspect tachcyardia this am not from anemai but from missing AM BB Present on Admission?: Yes (3) Hemorrhage of arteriovenous fistula: s/p 10/27 ligation; stabilized; per vascular Present on Admission?: Yes (4) Elevated INR: per primary service Present on Admission?: Yes (5) Acute hyperglycemia: pharmacy glycemic c/s in place Present on Admission?: Yes History of Present Illness Reason for Consultation: ESRD on dialysis w/ vascular access issue Requesting Physician: Dr Sparks Attending Physician: David Sparks MD History of Present Illness 65-year-old female whom I am asked to evaluate for dialysis needs was admitted this morning after emergent ligation of her AV fistula right upper extremity due to bleeding. Medical history includes ESRD on dialysis Monday via tunneled dialysis catheter currently, morbid obesity, diabetes, history of multiple failed vascular accesses, right upper extremity wound infection at AV fistula transposition site of several weeks duration, remote BRCA hx, and as below. On September 21 she underwent surgical debridement of infected AVF. She has been having home health come to the house every other day to evaluate the wound, change dressing, and to measure small area of dehiscence. late last evening, she had pulsatile bleeding at home from the infected fistula and came to the ER for evaluation; EMS reported significant blood at the scene. Patient had no lightheadedness or pain or shortness of breath. Hemoglobin was 11; INR noted to be 5.4. Patient was hoping for [facility] evaluation with vascular today. On arrival to the ER, her tightly bandaged fistula had stopped bleeding and did not bleed during a period of observation. She had half a liter normal saline. She was discharged home at her request so that she could get to [facility] for vascular appointment. Unfortunately the bleeding recurred on her trip home, she returned to the ER and was immediately taken by Dr. Simoni to the operating room for emergent AV fistula ligation. She tolerated the procedure well with 50 mL estimated blood loss. She is on RA at time of my eval this am at about 10; no sob, no uncontrolled pain. No bleeding from OP site. Plan is for wound vac tomorrow. Allergies Allergy/AdvReac Type Severity Reaction Status Date / Time codeine Allergy Intermediate rash/hives Verified 10/27/20 00:06 (see comments) Penicillins Allergy Intermediate rash/hives, Verified 10/27/20 00:06 family allergy to PCN oxycodone AdvReac Intermediate N/V Verified 10/27/20 00:06 ROHAN Inhibitors AdvReac Mild hyperkalemi Verified 10/27/20 00:06 a Home Medications Medication Instructions Recorded Confirmed Type cinacalcet [Sensipar] 30 mg PO HS 08/09/18 10/27/20 History levothyroxine 50 mcg PO QAM 08/09/18 10/27/20 History sevelamer HCl [Renagel] 800 mg PO TID 08/09/18 10/27/20 History cholecalciferol (vitamin D3) 400 unit PO QAM 11/14/18 10/27/20 History [Vitamin D3] Humalog U-100 Insulin 15 unit SUBCUT TIDM 05/14/19 10/27/20 History gabapentin 300 mg PO BID 04/15/20 10/27/20 History ascorbic acid (vitamin C) [Vitamin 500 mg PO QAM 06/15/20 10/27/20 History C] atorvastatin 80 mg PO QAM 06/26/20 10/27/20 History metoprolol tartrate [Lopressor] 25 mg PO BID 06/26/20 10/27/20 History aspirin 81 mg PO HS 07/02/20 10/27/20 History Lantus U-100 Insulin 30 unit SUBCUT BID 08/19/20 10/27/20 History hydrocodone-acetaminophen 1 tab PO Q6H PRN #30 tab 09/19/20 10/27/20 Rx omeprazole 40 mg PO DAILY 10/27/20 10/27/20 History sertraline 25 mg PO DAILY 10/27/20 10/27/20 History warfarin 5 mg PO UD 10/27/20 10/27/20 History Patient History Medical History Asthma well controlled Breast cancer, left hx (2012) s/p surgery- no chemo or XRT needed CAD (coronary artery disease) non-obstructive COPD (chronic obstructive pulmonary disease) well controlled Depression Diabetes mellitus, type 2 IDDM Diabetic neuropathy ESRD on dialysis -W- ([facility]) Fistula RUE Gait disturbance occasional cane use (d/t diabetic neuropathy) GERD (gastroesophageal reflux disease) History of blood transfusion in setting of abnormal uterine bleeding > subsequent hysterectomy Hyperlipemia Hypertension Hypothyroidism Obesity Osteoarthritis PVC (premature ventricular contraction) controlled on beta tristan SOBOE (shortness of breath on exertion) Spinal stenosis 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 Sparks 08/21/18) History of umbilical hernia repair Nausea and vomiting after administration of anesthetic agent Presence of permanent central venous catheter right chest (using dialysis currently) S/P arteriovenous (AV) fistula repair LUE/multiple repairs and "clean outs" Status post creation of arteriovenous fistula left forearm Family History Sister Family history of diabetes mellitus Family history of reaction to anesthesia wakes up with a headache-"FEELS WEIRD" Social History Smoking Status: Former smoker Age Quit Using Tobacco: 33; Second Hand Exposure: No; Hx Alcohol Use: No Hx Substance Use: No Preferred Language: [place] Communication Ability: Effective Hearing Ability: Normal 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 Required: No Beliefs That Will Affect Care: None marital status: Current Living Situation: Spouse current occupational status: disabled Feels Safe at Home: Yes Safety Concerns: Feels Safe At This Time Diet Comment: RENAL DIET during the past year weight has: decreased > 10 lbs Assistive Devices: Cane and Glasses Review of Systems Review of Systems: All systems reviewed & are unremarkable except as noted in Subjective Gastrointestinal: + problem reported (hungry, still NPO) Physical Exam Constitutional: well developed, well nourished, + obese, + altered mental status (slight confusion from baseline) and cooperative; no acute distress Eyes: EOM intact bilaterally ENMT: Ears: no external ear abnormality Nose: no external nose abnormality Mouth: + dry oral mucous membranes Neck: no nuchal rigidity Respiratory: normal respiratory effort Auscultation: lungs clear to auscultation bilaterally and + diminished lung sounds on RA but sats drop Cardiovascular: Rate/Rhythm: regular rhythm and + tachycardic Extremities: no edema Gastrointestinal (Abdomen): Inspection/Auscultation: normal bowel sounds Percussion/Palpation: abdomen soft; abdomen nontender Musculoskeletal: Extremities: strength 5/5 throughout Skin: no rashes, warm and dry + rash (scabbed pustules BL arms - chronic/stable) RUE bandaged Neurologic: peguero, fluent speech, no tremor Psychiatric: Orientation: oriented to person, oriented to place, oriented to time and cooperative Speech: normal rate/rhythm/volume of speech Insight: + limited insight Judgement: + limited judgement Results & Data ([facility]) Vital Signs (Past 12 Hours) Vital Signs Temp Pulse Pulse Pulse Resp BP BP 10/27/20 10:59 36.4 C L 102 H 16 141/78 H 10/27/20 10:20 105 H 18 128/81 10/27/20 09:05 104 H 16 99/50 L 10/27/20 08:30 36.5 C 109 H 16 137/84 10/27/20 08:05 36.6 C 111 H 16 124/75 10/27/20 07:40 36.5 C 103 H 16 126/90 10/27/20 07:30 101 H 16 104/56 L 10/27/20 07:20 103 H 16 78/56 L 10/27/20 07:10 101 H 16 80/50 L 10/27/20 07:00 99 H 14 97/53 L 10/27/20 06:56 36.5 C 99 H 14 106/44 L 10/27/20 05:04 96 H 14 10/27/20 05:03 96 H 15 117/41 L 10/27/20 05:00 91 H 15 10/27/20 04:40 92 H 12 10/27/20 04:34 94 H 15 92/51 L 10/27/20 04:11 94 H 15 98/70 L 10/27/20 04:10 98 H 15 10/27/20 04:00 97 H 18 10/27/20 03:56 102 H 13 10/27/20 02:55 36.6 C 96 H 20 114/60 10/27/20 02:48 100 H 18 114/60 Pulse Ox 10/27/20 10:59 62 L 10/27/20 10:20 10/27/20 09:05 92 10/27/20 08:30 93 10/27/20 08:05 95 10/27/20 07:40 97 10/27/20 07:30 97 10/27/20 07:20 100 10/27/20 07:10 100 10/27/20 07:00 100 10/27/20 06:56 99 10/27/20 05:04 100 10/27/20 05:03 100 10/27/20 05:00 100 10/27/20 04:40 93 10/27/20 04:34 93 10/27/20 04:11 94 10/27/20 04:10 92 10/27/20 04:00 95 10/27/20 03:56 95 10/27/20 02:55 97 10/27/20 02:48 95 Laboratory Results 10/27/20 03:09 10/27/20 03:09 (1) Hemorrhage of arteriovenous fistula Encounter type: subsequent encounter Qualified Code(s): T82.838D - Hemorrhage due to vascular prosthetic devices, implants and grafts, subsequent encounter
[2020-10-27] MEDS: INSULIN HUMAN LISPRO (humaLOG) 100 UNITS/ML VIAL SC SCH ×4 (12:08→23:36)
--- NOTE | 2020-10-27 14:38 | Pharmacy Report ---
Pharmacy Glycemic Short Note 2 - Date of Service October 27, 2020 - Glycemic Short BSG Results (Last 24 hours): 10/27/20 10/27/20 10/27/20 03:09 05:07 05:10 Glucose 449 H* POC Glucose 430 H* 422 H* 10/27/20 10/27/20 10/27/20 06:40 07:02 10:25 Glucose POC Glucose 411 H* 388 H* 380 H* 10/27/20 10/27/20 10/27/20 10:26 12:12 12:14 Glucose POC Glucose 390 H* 345 H* 342 H* OUTPATIENT ANTIDIABETIC REGIMEN: * Lantus 30 units BID , Humalog 15 units with meals, 5 units w/ dessert * A1c unreliable in the setting of hemodialysis ASSESSMENT: * Hyperglycemic upon admission, patient received 6 units regular insulin IV in the ED, 6 units of novolog sq in PACU, upon admission to the floor BSG 390 mg/dL. Gave 10 units regular IV, recheck an hour later was 340 mg/dL, covered with humalog correction factor of 20. Patient was also eating lunch at that time covered with a carb ratio of 6. Pt received 30 units of lantus. * Will scale lantus for this evening, along with overnight checks. * Humalog parameters are currently at weight based stress of 2 but may be tightened, based on outpatient dose stressing PLAN FOR INPATIENT GLYCEMIC CONTROL: * Hold outpatient oral diabetes medications * Basal insulin * Lantus 30 units SQ x1 then scale for PM 20-40 units * Bolus insulin * NovoLog per scale ACHS or Q6hrs while NPO * Goal Range: Low 110 mg/dL - High 140 mg/dL * Correction Factor: 20 mg/dL/unit * Nutritional / Prandial insulin per carb ratio of 1 unit per 6 grams CHO consumed PLAN FOR DISCHARGE: * tbd
[2020-10-27] MEDS ORDERED: WARFARIN SOD 2.5 MG TAB PO SCH (16:00)
[2020-10-27] MEDS: ASPIRIN 81 MG ECTAB PO SCH (20:38)
[2020-10-27] MEDS: CINACALCET HCL 30 MG TAB PO SCH (20:38)
[2020-10-27] MEDS: INSULIN GLARGINE SOLOSTAR 100 UNITS/ML 3 ML PEN SC SCH (20:41)
[2020-10-28] MEDS: INSULIN HUMAN LISPRO (humaLOG) 100 UNITS/ML VIAL SC SCH ×5 (04:05→21:08)
[2020-10-28] MEDS: LEVOTHYROXINE SODIUM 50 MCG TABLET PO SCH (05:35)
--- NOTE | 2020-10-28 06:19 | Electrocardiogram Report ---
Test Reason : Blood Pressure : / mmHG Vent. Rate : 095 BPM Atrial Rate : 095 BPM P-R Int : 150 ms QRS Dur : 094 ms QT Int : 382 ms P-R-T Axes : 068 014 052 degrees QTc Int : 480 ms Normal sinus rhythm Nonspecific ST abnormality Prolonged QT Abnormal ECG When compared with ECG of 26-OCT-2020 23:23, Criteria for Septal infarct are no longer Present Confirmed by Varun Delgado ([id number]) on 10/28/2020 6:19:41 AM Referred By: REFERRED SELF Confirmed By:Varun Delgado
[2020-10-28 06:46] LABS: INR 1.2 (0.9-1.1); Prothrombin Time 12.3 Seconds (9.0-12.0)
[2020-10-28] MEDS ORDERED: SODIUM CHLORIDE 0.9% 1000ML 1,000 ML IV PRN (07:39)
[2020-10-28] MEDS ORDERED: EPOETIN ALFA 4,000 UNIT/ML VIAL IV ONE (07:39)
[2020-10-28 08:15] LABS: Hematocrit (blood only) 23.6 % (37-47); Hemoglobin 7.4 g/dL (12.0-16.0); Mean Corpuscular Hgb Conc 31.4 g/dL (32-36); Mean Corpuscular Volume 92.5 fL (80-100); Mean Platelet Volume 9.6 fL (7.4-10.4); Platelet Count 174 K/uL (130-400); RDW Coefficient of Variation 16.4 % (11.5-14.5); RDW Standard Deviation 55.2 fL (36.4-46.3); Red Blood Count 2.55 M/uL (4.2-5.4); White Blood Count 7.33 K/uL (4.8-10.8)
[2020-10-28 08:35] LABS: BUN Creatinine Ratio 5.8 (10-20); Creatinine Clr Calc Pharmacy 11.2 ml/min; Potassium 3.7 mmol/L (3.5-5.1)
[2020-10-28] MEDS: METOPROLOL TARTRATE 25 MG TAB PO SCH ×2 (08:37→21:12)
[2020-10-28] MEDS: ASCORBIC ACID 500 MG TAB PO SCH (08:39)
[2020-10-28] MEDS: PANTOprazole 40 MG TAB PO SCH (08:39)
[2020-10-28] MEDS: CHOLECALCIFEROL 400 UNITS 10 MCG TAB PO SCH (08:39)
[2020-10-28] MEDS: GABAPENTIN 300 MG CAP PO SCH ×2 (08:39→21:12)
[2020-10-28] MEDS: SEVELAMER HCL 800 MG TABLET PO SCH ×3 (08:40→18:04)
[2020-10-28] MEDS: SERTRALINE HCL 50 MG TABLET PO SCH (08:40)
[2020-10-28] MEDS: ATORVASTATIN 40 MG TAB PO SCH (08:41)
[2020-10-28] MEDS: INSULIN GLARGINE SOLOSTAR 100 UNITS/ML 3 ML PEN SC SCH ×2 (08:45→21:08)
[2020-10-28] MEDS: HYDROCODONE/ACETAMOPHEN 5/325MG TAB PO PRN ×2 (08:53→15:06)
[2020-10-28 09:53] LABS: Hepatitis B Surface Ab Quant < 3.10 mIU/mL (>or=10mIU/mL Immune); Hepatitis B Surface Antibody Non-Immune
[2020-10-28 10:03] LABS: Hepatitis B Surf Ag Rflx Conf Neg (Neg)
[2020-10-28] MEDS ORDERED: SODIUM CHLORIDE 0.9% 250 ML IV PRN (13:53)
--- NOTE | 2020-10-28 14:01 | Surgery Progress Note ---
Date of Service October 28, 2020 Assessment & Plan (1) Hemorrhage of arteriovenous fistula: Pt without sign of acute bleeding presently, but did lose considerable blood volume yesterday. Pre op hgb 10 and is now 7.4 today. Pt also noted to be mildly tachycardic and pale in addition to her usual hypotension from HD. Discussed with Dr Sparks, will transfuse [address] wound vac to RUE wound for healing. WOCN consult placed. Admission and Anticipated Discharge Date Admission Date: October 27, 2020 Subjective 65 yo F POD #1 after RUE AVF ligation d/t acute bleeding, seen in f/u today. Pt currently undergoing HD in inpt unit. Pt admits some pain in RUE and fatigue/malaise today. Denies SOB, dizziness, N/V, other complaints. Review of Systems Review of Systems: All systems reviewed & are unremarkable except as noted in HPI & below Physical Exam Constitutional: WD/WN, vitals as above (pale) Respiratory: normal respiratory effort, lungs clear to auscultation Auscultation: + diminished lung sounds Cardiovascular: Rate/Rhythm: + irregularly irregular Vessels: radial pulses present Extremities: normal capillary refill; no AV fistula Gastrointestinal (Abdomen): normal bowel sounds, soft, nontender, no hepatosplenomegaly Musculoskeletal: no cyanosis or clubbing, extremities motor strength 5/5 Skin: + wound (RUE upper arm wound dressing in place. ) Psychiatric: A+Ox3, euthymic affect Results & Data ([facility]) Vital Signs (Past 12 Hours) Vital Signs Temp Pulse Pulse Pulse Resp BP BP 10/28/20 12:00 107 H 88/42 L 10/28/20 11:40 103 H 81/44 L 10/28/20 11:20 105 H 75/45 L 10/28/20 11:00 107 H 76/40 L 10/28/20 10:40 109 H 83/44 L 10/28/20 10:20 117 H 84/44 L 10/28/20 10:00 111 H 87/48 L 10/28/20 09:40 111 H 92/51 L 10/28/20 09:20 109 H 116/62 10/28/20 09:14 36.5 C 113 H 10/28/20 08:06 37.3 C 113 H 16 109/67 10/28/20 05:38 112/91 10/28/20 02:31 36.6 C 111 H 22 83/44 L Pulse Ox 10/28/20 12:00 10/28/20 11:40 10/28/20 11:20 10/28/20 11:00 10/28/20 10:40 10/28/20 10:20 10/28/20 10:00 10/28/20 09:40 10/28/20 09:20 10/28/20 09:14 10/28/20 08:06 97 10/28/20 05:38 10/28/20 02:31 94 (1) Hemorrhage of arteriovenous fistula Encounter type: subsequent encounter Qualified Code(s): T82.838D - Hemorrhage due to vascular prosthetic devices, implants and grafts, subsequent encounter
--- NOTE | 2020-10-28 14:23 | Dialysis Progress Note ---
Date of Service October 28, 2020 Assessment & Plan (1) ESRD (end stage renal disease) on dialysis: for routine HD today; has functional TDC; generally adherent w/ txs. SBP can be 80-90s on tx w/o sx. 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, w/ elevated INR tachycardia noted, ongoing, mild >gave 4000units epo as labs not back at time of dialysis orders -pRBC ordered for this PM and will hold off on giving further epo for today Admission and Anticipated Discharge Date Admission Date: October 27, 2020 Subjective R arm hurts; no further bleeding; no sob, no n/v Review of Systems Review of Systems: All systems reviewed & are unremarkable except as noted in Subjective Physical Exam Constitutional: well developed, well nourished, + obese and cooperative; no acute distress Eyes: EOM intact bilaterally ENMT: Ears: no external ear abnormality Nose: no external nose abnormality Mouth: + dry oral mucous membranes Neck: no nuchal rigidity Respiratory: normal respiratory effort Auscultation: lungs clear to auscul tation bilaterally and + diminished lung sounds Cardiovascular: Rate/Rhythm: regular rhythm and + tachycardic Extremities: no edema Gastrointestinal (Abdomen): Inspection/Auscultation: normal bowel sounds Percussion/Palpation: abdomen soft; abdomen nontender Musculoskeletal: Extremities: strength 5/5 throughout Skin: no rashes, warm and dry + rash (scabbed pustules BL arms - chronic/stable) Psychiatric: Orientation: oriented to person, oriented to place, oriented to time and cooperative Speech: normal rate/rhythm/volume of speech Insight: good insight Judgement: good judgement Results & Data ([facility]) Vital Signs (Past 12 Hours) Vital Signs Temp Pulse Pulse Pulse Resp BP BP 10/28/20 12:00 107 H 88/42 L 10/28/20 11:40 103 H 81/44 L 10/28/20 11:20 105 H 75/45 L 10/28/20 11:00 107 H 76/40 L 10/28/20 10:40 109 H 83/44 L 10/28/20 10:20 117 H 84/44 L 10/28/20 10:00 111 H 87/48 L 10/28/20 09:40 111 H 92/51 L 10/28/20 09:20 109 H 116/62 10/28/20 09:14 36.5 C 113 H 10/28/20 08:06 37.3 C 113 H 16 109/67 10/28/20 05:38 112/91 10/28/20 02:31 36.6 C 111 H 22 83/44 L Pulse Ox 10/28/20 12:00 10/28/20 11:40 10/28/20 11:20 10/28/20 11:00 10/28/20 10:40 10/28/20 10:20 10/28/20 10:00 10/28/20 09:40 10/28/20 09:20 10/28/20 09:14 10/28/20 08:06 97 10/28/20 05:38 10/28/20 02:31 94 Laboratory Results 10/28/20 06:14 10/28/20 06:14
--- NOTE | 2020-10-28 14:34 | Pharmacy Report ---
Pharmacy Glycemic Short Note 2 - Date of Service October 28, 2020 - Glycemic Short BSG Results (Last 24 hours): 10/27/20 10/27/20 10/27/20 17:18 20:40 23:35 Glucose POC Glucose 284 H 232 H 178 H 10/28/20 10/28/20 10/28/20 04:04 06:14 08:25 Glucose 166 H POC Glucose 178 H 190 H OUTPATIENT ANTIDIABETIC REGIMEN: * Lantus 30 units SQ BID * Humalog 15 units SQ with meals, 5 units w/ dessert * A1c unreliable in the setting of hemodialysis ASSESSMENT: 10/28/20: * BSGs have been significantly improved so far today (all BSGs <200 mg/dL). * Novolog parameters were tightened last evening, which seem to be providing adequate coverage today. * Patient had HD today. She has received hydration and blood transfusion(s) d/t blood loss. * No additional changes today. 10/27 * Hyperglycemic upon admission, patient received 6 units regular insulin IV in the ED, 6 units of novolog sq in PACU, upon admission to the floor BSG 390 mg/dL. Gave 10 units regular IV, recheck an hour later was 340 mg/dL, covered with humalog correction factor of 20. Patient was also eating lunch at that time covered with a carb ratio of 6. Pt received 30 units of lantus. * Will scale lantus for this evening, along with overnight checks. * Humalog parameters are currently at weight based stress of 2 but may be tightened, based on outpatient dose stressing PLAN FOR INPATIENT GLYCEMIC CONTROL: * Basal insulin * Lantus 20-40 units SQ BID, per scale * Bolus insulin * NovoLog per scale ACHS or Q6hrs while NPO * Goal Range: Low 110 mg/dL - High 140 mg/dL * Correction Factor: 15 mg/dL/unit * Nutritional / Prandial insulin per carb ratio of 1 unit per 5 grams CHO consumed PLAN FOR DISCHARGE: * HbA1c is not useful in assessing glycemic control in this patient, in the setting of intermittent HD. * Suspect that patient may resume home regimen on discharge, as long as she reports reasonable control at home without episodes of hypoglycemia.
[2020-10-28] MEDS ORDERED: WARFARIN SOD 5 MG TAB PO SCH (16:00)
[2020-10-28] MEDS: ASPIRIN 81 MG ECTAB PO SCH (21:12)
[2020-10-28] MEDS: CINACALCET HCL 30 MG TAB PO SCH (21:12)
[2020-10-29] MEDS: LEVOTHYROXINE SODIUM 50 MCG TABLET PO SCH (06:13)
[2020-10-29 06:23] LABS: INR 1.1 (0.9-1.1); Prothrombin Time 10.9 Seconds (9.0-12.0)
[2020-10-29] MEDS: SEVELAMER HCL 800 MG TABLET PO SCH ×3 (07:34→17:21)
[2020-10-29] MEDS: METOPROLOL TARTRATE 25 MG TAB PO SCH ×2 (09:22→22:18)
[2020-10-29] MEDS: CHOLECALCIFEROL 400 UNITS 10 MCG TAB PO SCH (09:22)
[2020-10-29] MEDS: PANTOprazole 40 MG TAB PO SCH (09:22)
[2020-10-29] MEDS: SERTRALINE HCL 50 MG TABLET PO SCH (09:22)
[2020-10-29] MEDS: ATORVASTATIN 40 MG TAB PO SCH (09:22)
[2020-10-29] MEDS: GABAPENTIN 300 MG CAP PO SCH ×2 (09:22→22:20)
[2020-10-29] MEDS: ASCORBIC ACID 500 MG TAB PO SCH (09:22)
[2020-10-29] MEDS: INSULIN GLARGINE SOLOSTAR 100 UNITS/ML 3 ML PEN SC SCH ×2 (09:29→22:23)
[2020-10-29] MEDS: INSULIN HUMAN LISPRO (humaLOG) 100 UNITS/ML VIAL SC SCH ×4 (09:30→22:25)
--- NOTE | 2020-10-29 12:10 | Nephrology Progress Note ---
Date of Service October 29, 2020 Assessment & Plan (1) ESRD (end stage renal disease) on dialysis: for routine HD tomorrow as inpt or outpt as clnical needs dictate. tolerated 1.3L UF yesterday; has functional TDC; generally adherent w/ txs. SBP can be 80-90s on tx w/o sx. 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 > INR corrected now; and s/p 2 units pRBC tachycardia noted, ongoing, mild >gave 4000 units epo yesterday ->>ordered recheck hgb today noon Admission and Anticipated Discharge Date Admission Date: October 27, 2020 Subjective seen on rounds this am at 0830; no sob, no chest pain, no lightheadedness; no further bleeding ; had 2 units pRBC yesterday after HD Review of Systems Review of Systems: All systems reviewed & are unremarkable except as noted in Subjective Physical Exam Constitutional: well developed, well nourished, + obese and cooperative; no acute distress Eyes: EOM intact bilaterally ENMT: Ears: no external ear abnormality Nose: no external nose abnormality Mouth: + dry oral mucous membranes Neck: no nuchal rigidity Respiratory: normal respiratory effort Auscultation: lungs clear to auscultation bilaterally and + diminished lung sounds Cardiovascular: Rate/Rhythm: regular rhythm and + tachycardic Extremities: + edema (at most trace) Gastrointestinal (Abdomen): Inspection/Auscultation: normal bowel sounds Percussion/Palpation: abdomen soft; abdomen nontender Musculoskeletal: Extremities: strength 5/5 throughout Skin: no rashes, warm and dry + rash (scabbed pustules BL arms - chronic/stable) wound vac in place Psychiatric: Orientation: oriented to person, oriented to place, oriented to time and cooperative Speech: normal rate/rhythm/volume of speech Insight: good insight Judgement: good judgement Results & Data ([facility]) Vital Signs (Past 12 Hours) Vital Signs Temp Pulse Pulse Pulse Resp BP Pulse Ox 10/29/20 09:20 108 H 108/78 10/29/20 07:36 36.9 C 114 H 16 133/85 91 10/29/20 00:21 37.6 C H 114 H 18 113/55 L 92 Laboratory Results no hgb so far today
--- NOTE | 2020-10-29 14:30 | Surgery Progress Note ---
Date of Service October 29, 2020 Assessment & Plan (1) Hemorrhage of arteriovenous fistula: Pt doing well today. Continue wound vac, planning change tomorrow. will D/C when vac approved and home nursing set up. Admission and Anticipated Discharge Date Admission Date: October 27, 2020 Subjective 65 yo F POD #2 after RUE AVF ligation d/t acute bleeding, seen in f/u today. Pt states feeling significantly better than yesterday since blood transfusion. Denies any new complaints. Anxious for D/C. Review of Systems Review of Systems: All systems reviewed & are unremarkable except as noted in HPI & below Physical Exam Constitutional: WD/WN, vitals as above Respiratory: normal respiratory effort, lungs clear to auscultation Auscultation: + diminished lung sounds Cardiovascular: Rate/Rhythm: + irregularly irregular Vessels: radial pulses present Extremities: normal capillary refill; no AV fistula Gastrointestinal (Abdomen): normal bowel sounds, soft, nontender, no hepatosplenomegaly Musculoskeletal: no cyanosis or clubbing, extremities motor strength 5/5 Skin: + wound (RUE upper arm wound dressing in place. ) Psychiatric: A+Ox3, euthymic affect Results & Data ([facility]) Vital Signs (Past 12 Hours) Vital Signs Temp Pulse Pulse Resp BP Pulse Ox 10/29/20 09:20 108 H 108/78 10/29/20 07:36 36.9 C 114 H 16 133/85 91 (1) Hemorrhage of arteriovenous fistula Encounter type: subsequent encounter Qualified Code(s): T82.838D - Hemorrhage due to vascular prosthetic devices, implants and grafts, subsequent encounter
--- NOTE | 2020-10-29 14:36 | Pharmacy Report ---
Pharmacy Glycemic Short Note 2 - Date of Service October 29, 2020 - Glycemic Short BSG Results (Last 24 hours): 10/28/20 10/28/20 10/28/20 13:30 17:01 20:43 POC Glucose 187 H 278 H 191 H 10/29/20 10/29/20 07:53 11:46 POC Glucose 119 H 166 H OUTPATIENT ANTIDIABETIC REGIMEN: * Lantus 30 units SQ BID * Humalog 15 units SQ with meals, 5 units w/ dessert * A1c unreliable in the setting of hemodialysis ASSESSMENT: 10/29/20: * Ms Valdes received 106 units of insulin yesterday, with improving glycemic control (BSGs 278, 191, 119, 166) over the past 24 hours. * 60 units of basal insulin * 46 units of correctional/prandial insulin * Outpt dose of Lantus resumed this morning, as this seems to be appropriate, and in anticipation of discharge. 10/28 * BSGs have been significantly improved so far today (all BSGs <200 mg/dL). * Novolog parameters were tightened last evening, which seem to be providing adequate coverage today. * Patient had HD today. She has received hydration and blood transfusion(s) d/t blood loss. * No additional changes today. 10/27 * Hyperglycemic upon admission, patient received 6 units regular insulin IV in the ED, 6 units of novolog sq in PACU, upon admission to the floor BSG 390 mg/dL. Gave 10 units regular IV, recheck an hour later was 340 mg/dL, covered with humalog correction factor of 20. Patient was also eating lunch at that time covered with a carb ratio of 6. Pt received 30 units of lantus. * Will scale lantus for this evening, along with overnight checks. * Humalog parameters are currently at weight based stress of 2 but may be tightened, based on outpatient dose stressing PLAN FOR INPATIENT GLYCEMIC CONTROL: * Basal insulin * Lantus 30 units SQ BID (home dose) * Bolus insulin * NovoLog per scale ACHS or Q6hrs while NPO * Goal Range: Low 110 mg/dL - High 140 mg/dL * Correction Factor: 15 mg/dL/unit * Nutritional / Prandial insulin per carb ratio of 1 unit per 5 grams CHO consumed PLAN FOR DISCHARGE: * HbA1c is not useful in assessing glycemic control in this patient, in the setting of intermittent HD. * Suspect that patient may resume home regimen on discharge, as long as she reports reasonable control at home without episodes of hypoglycemia.
[2020-10-29] MEDS: HYDROCODONE/ACETAMOPHEN 5/325MG TAB PO PRN (18:41)
[2020-10-29] MEDS: ASPIRIN 81 MG ECTAB PO SCH (22:19)
[2020-10-29] MEDS: CINACALCET HCL 30 MG TAB PO SCH (22:20)
[2020-10-30] MEDS: LEVOTHYROXINE SODIUM 50 MCG TABLET PO SCH (05:56)
[2020-10-30 06:56] LABS: INR 1.1 (0.9-1.1); Prothrombin Time 11.4 Seconds (9.0-12.0)
[2020-10-30] MEDS ORDERED: SODIUM CHLORIDE 0.9% 1000ML 1,000 ML IV PRN (07:03)
[2020-10-30] MEDS ORDERED: EPOETIN ALFA 20,000 UNITS/ML VIAL IV SCH (07:30)
[2020-10-30] MEDS ORDERED: IRON SUCROSE 100 MG in SYRINGE 0 ML IV ONE (07:30)
--- NOTE | 2020-10-30 07:36 | Pharmacy Report ---
Pharmacy Glycemic Short Note 2 - Date of Service October 30, 2020 - Glycemic Short BSG Results (Last 24 hours): 10/28/20 10/29/20 10/29/20 13:30 07:53 11:46 POC Glucose 187 H 119 H 166 H 10/29/20 10/29/20 10/29/20 16:53 20:36 22:17 POC Glucose 112 H 152 H 149 H OUTPATIENT ANTIDIABETIC REGIMEN: * Lantus 30 units SQ BID * Humalog 15 units SQ with meals, 5 units w/ dessert * A1c unreliable in the setting of hemodialysis ASSESSMENT: 10/30/20 * Pt has received 90 units of insulin over the past 24hrs * 60 units of basal with Lantus * 30 units of bolus with NovoLog * BSGs [phone] mg/dl * HD scheduled for today * No changes needed at this time. 10/29/20: * Ms Valdes received 106 units of insulin yesterday, with improving glycemic control (BSGs 278, 191, 119, 166) over the past 24 hours. * 60 units of basal insulin * 46 units of correctional/prandial insulin * Outpt dose of Lantus resumed this morning, as this seems to be appropriate, and in anticipation of discharge. 10/28 * BSGs have been significantly improved so far today (all BSGs <200 mg/dL). * Novolog parameters were tightened last evening, which seem to be providing adequate coverage today. * Patient had HD today. She has received hydration and blood transfusion(s) d/t blood loss. * No additional changes today. 10/27 * Hyperglycemic upon admission, patient received 6 units regular insulin IV in the ED, 6 units of novolog sq in PACU, upon admission to the floor BSG 390 mg/dL. Gave 10 units regular IV, recheck an hour later was 340 mg/dL, covered with humalog correction factor of 20. Patient was also eating lunch at that time covered with a carb ratio of 6. Pt received 30 units of lantus. * Will scale lantus for this evening, along with overnight checks. * Humalog parameters are currently at weight based stress of 2 but may be tightened, based on outpatient dose stressing PLAN FOR INPATIENT GLYCEMIC CONTROL: * Basal insulin * Lantus 30 units SQ BID (home dose) * Bolus insulin * NovoLog per scale ACHS or Q6hrs while NPO * Goal Range: Low 110 mg/dL - High 140 mg/dL * Correction Factor: 15 mg/dL/unit * Nutritional / Prandial insulin per carb ratio of 1 unit per 5 grams CHO consumed PLAN FOR DISCHARGE: * HbA1c is not useful in assessing glycemic control in this patient, in the setting of intermittent HD. * Suspect that patient may resume home regimen on discharge, as long as she reports reasonable control at home without episodes of hypoglycemia.
[2020-10-30] MEDS: PANTOprazole 40 MG TAB PO SCH (08:18)
[2020-10-30] MEDS: SEVELAMER HCL 800 MG TABLET PO SCH (08:18)
[2020-10-30] MEDS: GABAPENTIN 300 MG CAP PO SCH (08:18)
[2020-10-30] MEDS: ATORVASTATIN 40 MG TAB PO SCH (08:18)
[2020-10-30] MEDS: CHOLECALCIFEROL 400 UNITS 10 MCG TAB PO SCH (08:18)
[2020-10-30] MEDS: SERTRALINE HCL 50 MG TABLET PO SCH (08:18)
[2020-10-30] MEDS: ASCORBIC ACID 500 MG TAB PO SCH (08:18)
[2020-10-30] MEDS: INSULIN GLARGINE SOLOSTAR 100 UNITS/ML 3 ML PEN SC SCH (08:19)
[2020-10-30] MEDS: INSULIN HUMAN LISPRO (humaLOG) 100 UNITS/ML VIAL SC SCH (08:21)
--- NOTE | 2020-10-30 08:24 | Nephrology Progress Note ---
Date of Service October 30, 2020 Assessment & Plan (1) ESRD (end stage renal disease) on dialysis: for routine HD today as inpt or outpt as clnical needs dictate. tolerated 1.3L UF last tx; has functional TDC; generally adherent w/ txs. SBP can be 80- 90s on tx w/o sx. ->>she should be dialyzed as outpt today ideally at her home dialysis unit [facility] >> to do this would need to be there by 1130 however. 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 to discuss. 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, w/ elevated INR > INR corrected now; and s/p 2 units pRBC tachycardia resolved >recheck hgb; max epo w/ tx Admission and Anticipated Discharge Date Admission Date: October 27, 2020 Subjective feels ok; no sob, no edema; vac runnign well Review of Systems Review of Systems: All systems reviewed & are unremarkable except as noted in Subjective Physical Exam Constitutional: well developed, well nourished, + obese and cooperative; no acute distress Eyes: EOM intact bilaterally ENMT: Ears: no external ear abnormality Nose: no external nose abnormality Mouth: + dry oral mucous membranes Neck: no nuchal rigidity Respiratory: normal respiratory effort Auscultation: lungs clear to auscultation bilaterally and + diminished lung sounds Cardiovascular: Rate/Rhythm: regular rhythm and + tachycardic Extremities: + edema (at most trace) Gastrointestinal (Abdomen): Inspection/Auscultation: normal bowel sounds Percussion/Palpation: abdomen soft; abdomen nontender Musculoskeletal: Extremities: strength 5/5 throughout Skin: no rashes, warm and dry + rash (scabbed pustules BL arms - chronic/stable) Psychiatric: Orientation: oriented to person, oriented to place, oriented to time and cooperative Speech: normal rate/rhythm/volume of speech Insight: good insight Judgement: good judgement Results & Data ([facility]) Vital Signs (Past 12 Hours) Vital Signs Temp Pulse Resp BP Pulse Ox 10/30/20 08:08 36.7 C 80 18 143/85 H 95 10/29/20 22:13 36.5 C 90 20 114/65 93 Laboratory Results 10/29/20 12:21 10/28/20 06:14
[2020-10-30] MEDS: METOPROLOL TARTRATE 25 MG TAB PO SCH (08:36)
--- NOTE | 2020-10-30 09:28 | Surgery Progress Note ---
Date of Service October 30, 2020 Assessment & Plan (1) Hemorrhage of arteriovenous fistula: Pt doing well today. Vac changed. insurance approval obtained. OK for d/c home with home wound vac. Pt will have outpt HD today as well. Admission and Anticipated Discharge Date Admission Date: October 27, 2020 Subjective 65 yo F POD #3 after RUE AVF ligation d/t acute bleeding, seen in f/u today. Pt states feeling well. No new complaints. Review of Systems Review of Systems: All systems reviewed & are unremarkable except as noted in HPI & below Physical Exam Constitutional: WD/WN, vitals as above Respiratory: normal respiratory effort, lungs clear to auscultation Auscultation: + diminished lung sounds Cardiovascular: Rate/Rhythm: + irregularly irregular Vessels: radial pulses present Extremities: normal capillary refill; no AV fistula Gastrointestinal (Abdomen): normal bowel sounds, soft, nontender, no hepatosplenomegaly Musculoskeletal: no cyanosis or clubbing, extremities motor strength 5/5 Skin: + wound (RUE upper arm wound dressing in place. ) Psychiatric: A+Ox3, euthymic affect Results & Data ([facility]) Vital Signs (Past 12 Hours) Vital Signs Temp Pulse Resp BP Pulse Ox 10/30/20 08:08 36.7 C 80 18 143/85 H 95 10/29/20 22:13 36.5 C 90 20 114/65 93 (1) Hemorrhage of arteriovenous fistula Encounter type: subsequent encounter Qualified Code(s): T82.838D - Hemorrhage due to vascular prosthetic devices, implants and grafts, subsequent encounter
--- NOTE | 2020-10-30 15:22 | Discharge Summary ---
Date of Service October 30, 2020 Admission HPI Per Admitting Provider Date of Service October 27, 2020 Assessment & Plan (1) Hemorrhage of arteriovenous fistula: Recommended exploration of the wound. If the bleeding is coming from the av fistula and it is exposed we will ligate the fistula to control the bleeding and to help with the steal syndrome. I have discussed the risks options and benefits of the procedure with the patient. The patient understands the risks options and benefits and agrees to the procedure. Admission and Anticipated Discharge Date Admission Date: September 18, 2020 History of Present Illness Chief Complaint: Bleeding right arm wound Primary Care Provider: Jorge Franco DO This is a 65yo female on dialysis with a right upper arm open wound near her fistula which is a transposed basilic vein. She had dehiscence of her wound after the transposition which underwent debridement and then worsening of the open wound. She also has symptoms of steal syndrome. She wanted to get a second opinion prior to ligation of the fistula for the steal. She came to the ED today for bleeding from the fistula. She was hypotensive at that time. This was controlled but then started bleeding again. It was noticed to be coming from a small opening in the wound. It was arterial bleeding in nature. She does have a permcath in place for dialysis at this time. Her INR is elevated. She was given Vit K in the ED Admission Exam Per Admitting Provider Constitutional: WD/WN, vitals as above Respiratory: normal respiratory effort, lungs clear to auscultation Cardiovascular: Rate/Rhythm: regular rate and regular rhythm Extremities: + AV fistula Arterial bleeding noted from the open wound. Appears to be overlying the fistula Gastrointestinal (Abdomen): Inspection/Auscultation: abdomen normal to inspection Percussion/Palpation: abdomen soft; abdomen nontender Neurologic: CN's II-XI intact bilaterally and moves all extremities Psychiatric: Orientation: alert and oriented x 3 Principal Diagnosis 1. s/p Ligation of RUE AVF 2. RUE AVF hemorrhage Discharge Exam Constitutional WD/WN, vitals as above Respiratory normal respiratory effort, lungs clear to auscultation Auscultation: + diminished lung sounds Cardiovascular Rate/Rhythm: + irregularly irregular Vessels: radial pulses present Extremities: normal capillary refill; no AV fistula Gastrointestinal (Abdomen) normal bowel sounds, soft, nontender, no hepatosplenomegaly Musculoskeletal no cyanosis or clubbing, extremities motor strength 5/5 Skin + wound (RUE upper arm wound dressing in place. ) Psychiatric A+Ox3, euthymic affect Discharge Data Allergies Allergy/AdvReac Type Severity Reaction Status Date / Time codeine Allergy Intermediate rash/hives Verified 10/27/20 00:06 (see comments) Penicillins Allergy Intermediate rash/hives, Verified 10/27/20 00:06 family allergy to PCN oxycodone AdvReac Intermediate N/V Verified 10/27/20 00:06 ROHAN Inhibitors AdvReac Mild hyperkalemi Verified 10/27/20 00:06 a Consultations 10/27/20 03:50 ED Decision to Admit Stat 10/27/20 07:00 Consult Nephrology Routine Procedures Performed Operation Date: 10/27/20 05:00 Actual Procedures p Arteriovenous Fistula ligation(Right) - David Sparks MD Hospital Course (1) Hemorrhage of arteriovenous fistula: Pt doing well today, POD #3. Vac changed. insurance approval obtained. OK for d/c home with home wound vac. Pt will have outpt HD today as well. Total Time Total Time Spent Total Time Spent (In Minutes): 0 Discharge Plan Discharge Items Patient Disposition: Home - Home Health Services Reason For Visit: POST OP LIGATION OF FISTULA Discharge Diagnosis: 1. s/p Right arm AV fistula ligation 2. R arm AV fistula hemorrhage Condition on Discharge: Good Activity: Per Instructions section Lifting: No more than 5 pounds Lifting Comment: with R arm until follow up Bathing: Keep incision dry Bathing Comment: DO NOT get R arm/dressing wet Non-emergency contact: Primary Care Provider and Surgeon Call non-emergency contact if: you have any medication questions, your pain is not controlled, your pain is concerning for you, you have a fever, your wound has increased redness and your wound has increased drainage Follow-up/Referrals: Jorge Franco DO [Primary Care Provider] - None (within 2 weeks) David Sparks MD [Physician] - (Office will call patient with appointment date and time. Needs office visit with Dr Sparks in 2 weeks) Diet: Carb Consistent or DM2 and Dialysis Renal Addtl Attending Provider Instructions: ACTIVITY RECOMMENDATIONS: See Above SPECIAL CARE INSTRUCTIONS: Call your doctor if: * Temperature above 101 degrees * Pain not relieved by pain medicine ordered * There is increased drainage or redness from any incision * You have any unanswered questions or concerns. Pending Studies at Discharge: No Stand-Alone Forms: [facility], Smoking Cessation Medications and DC Order Prescriptions: Continued cholecalciferol (vitamin D3) [Vitamin D3] 400 unit Tablet 400 unit PO QAM RF: 0 Humalog U-100 Insulin 100 unit/mL Cartridge 15 unit SUBCUT TIDM RF: 0 aspirin 81 mg Tablet,Delayed Release (Dr/Ec) 81 mg PO HS RF: 0 Lantus U-100 Insulin 100 unit/mL Solution 30 unit SUBCUT BID RF: 0 sevelamer HCl [Renagel] 800 mg Tablet 800 mg PO TID RF: 0 levothyroxine 50 mcg Tablet 50 mcg PO QAM RF: 0 cinacalcet [Sensipar] 30 mg Tablet 30 mg PO HS RF: 0 gabapentin 300 mg capsule 300 mg PO BID RF: 0 ascorbic acid (vitamin C) [Vitamin C] 500 mg Tablet,Chewable 500 mg PO QAM RF: 0 atorvastatin 80 mg Tablet 80 mg PO QAM RF: 0 metoprolol tartrate [Lopressor] 50 mg tablet 25 mg PO BID RF: 0 hydrocodone-acetaminophen 5-325 mg tablet 1 tab PO Q6H PRN (Reason: pain) Qty: 30 RF: 0 omeprazole 40 mg capsule,delayed release(DR/EC) 40 mg PO DAILY RF: 0 sertraline 25 mg tablet 25 mg PO DAILY RF: 0 warfarin 5 mg tablet 5 mg PO UD RF: 0 Discharge Orders: Discharge Order (Routine); Ordered 10/30/20 Ordered By: Nicol Ochoa/Other Patient Handouts: What to Know When TakingWarfarin Admission Data Admit Date/Time: 10/27/20 07:01 Attending Provider: David Sparks Admit Provider: David Sparks Primary Care Provider: Jorge Franco Other Providers: David Sparks ; Lolis Cyr ; Duong De Dios Elissa R. ; Yvette Rahman ; Gutierrez Bazan ; Sharon Brambila ; [facility] Other Interventions: Discharge Summary Assessment (RN) Last Done: 10/30/20 09:40
== END 2020-10-30 10:35 | disposition home health service (06) | DRG 264 ==
LOC: ED 02:41 → OR 05:20 → 3E 07:01

== ENCOUNTER 2021-12-10 02:15 | Inpatient (IN) ==
[2021-12-10] MEDS ORDERED: cefTRIAXone SODIUM 2,000 MG/70 ML BAG IV STA (02:30)
--- NOTE | 2021-12-10 02:35 | Emergency Department Note ---
History of Present Illness General Chief complaint: Fall Time Seen by Provider: 12/10/21 02:21 History of Present Illness This 66-year-old with end-stage renal disease on dialysis Monday with wound ulcers presents to the ER complaining of fall increasing weakness and drainage from the right thigh wound Location: Generalized Quality: Weak Severity: Moderate Duration: Past few days Timing: Started few days ago Context: Patient went rolled out of bed and was too weak to get up so called EMS Modifying factors: better with rest; worse with activity Patient denies chest pain, dyspnea, abdominal pain, flulike illness. Patient states she has been feeling more weak recently. She normally ambulates with a cane. She is currently not on antibiotics for her wounds. She sees the wound clinic. Home Medications Medication Instructions Recorded Confirmed Type gabapentin 300 mg capsule 300 mg PO BID 04/15/20 12/10/21 History atorvastatin 80 mg tablet 80 mg PO QAM 06/26/20 12/10/21 History metoprolol tartrate 50 mg tablet 25 mg PO BID 06/26/20 12/10/21 History (Lopressor) aspirin 81 mg tablet,delayed 81 mg PO HS 07/02/20 12/10/21 History release omeprazole 40 mg capsule,delayed 40 mg PO DAILYBB 10/27/20 12/10/21 History release warfarin 5 mg tablet 5 mg PO UD 10/27/20 12/10/21 History albuterol sulfate 90 mcg/actuation 2 puff INHALATION Q4 PRN 12/10/21 12/10/21 History aerosol inhaler amlodipine 5 mg tablet 5 mg PO DAILY 12/10/21 12/10/21 History ascorbic acid (vitamin C) 500 mg 500 mg PO 3XWK 12/10/21 12/10/21 History tablet (Vitamin C) calcium acetate(phosphat bind) 667 667 mg PO UD 12/10/21 12/10/21 History mg capsule cholecalciferol (vitamin D3) 125 250 mcg PO DAILY 12/10/21 12/10/21 History mcg (5,000 unit) tablet (Vitamin D3) collagenase clostridium histo. 250 1 applic TOPICAL DAILY 12/10/21 12/10/21 History unit/gram topical ointment (Santyl) cyclobenzaprine 5 mg tablet 5 mg PO HS PRN 12/10/21 12/10/21 History diclofenac sodium 1 % topical gel 1 ea TOPICAL TID PRN 12/10/21 12/10/21 History doxycycline hyclate 100 mg capsule 100 mg PO QAM 12/10/21 12/10/21 History ferric citrate 210 mg iron tablet 210 mg PO UD 12/10/21 12/10/21 History (Auryxia) insulin aspart U-100 100 unit/mL 10 unit SUBCUT TID 12/10/21 12/10/21 History (3 mL) subcutaneous pen (Novolog Flexpen U-100 Insulin aspart) insulin glargine 100 unit/mL 30 unit SUBCUT AMHS 12/10/21 12/10/21 History subcutaneous solution (Lantus U-100 Insulin) levothyroxine 75 mcg tablet 75 mcg PO DAILYBB 12/10/21 12/10/21 History sertraline 50 mg tablet 50 mg PO DAILY 12/10/21 12/10/21 History tramadol 50 mg tablet 50 mg PO BID PRN 12/10/21 12/10/21 History Allergies Allergy/AdvReac Type Severity Reaction Status Date / Time codeine Allergy Intermediate rash/hives Verified 12/10/21 02:38 (see comments) Penicillins Allergy Intermediate rash/hives, Verified 12/10/21 02:38 family allergy to PCN oxycodone AdvReac Intermediate N/V Verified 12/10/21 02:38 ROHAN Inhibitors AdvReac Mild hyperkalemi Verified 12/10/21 02:38 a Past Med/Surg History Medical History Acute hyperglycemia Asthma well controlled Breast cancer, left hx (2012) s/p surgery- no chemo or XRT needed CAD (coronary artery disease) non-obstructive COPD (chronic obstructive pulmonary disease) well controlled Depression Diabetes mellitus, type 2 IDDM Diabetic neuropathy Elevated INR ESRD on dialysis M-W-F ([facility] [place]) Fistula RUE Gait disturbance occasional cane use (d/t diabetic neuropathy) GERD (gastroesophageal reflux disease) Hemorrhage of arteriovenous fistula History of blood transfusion in setting of abnormal uterine bleeding > subsequent hysterectomy Hyperlipemia Hypertension Hypothyroidism Obesity Osteoarthritis PVC (premature ventricular contraction) controlled on beta tristan SOBOE (shortness of breath on exertion) Spinal stenosis 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 Sparks 08/21/18) History of umbilical hernia repair Nausea and vomiting after administration of anesthetic agent Presence of permanent central venous catheter right chest (using dialysis currently) S/P arteriovenous (AV) fistula repair LUE/multiple repairs and "clean outs" Status post creation of arteriovenous fistula left forearm Family History Sister Family history of diabetes mellitus Family history of reaction to anesthesia wakes up with a headache-"FEELS WEIRD" Social History Smoking Status: Former smoker Tobacco Type: Cigarettes Age Quit Using Tobacco: 33; Second Hand Exposure: No; Hx Alcohol Use: No Hx Substance Use: No Preferred Language: Amharic Communication Ability: Effective Hearing Ability: Normal Life Insurance Underwriter Required: No Beliefs That Will Affect Care: None marital status: Current Living Situation: Spouse current occupational status: disabled Feels Safe at Home: Yes Diet Comment: RENAL DIET caffeine: No during the past year weight has: remained stable Assistive Devices: Cane, Glasses and Walker Review of Systems A total of 10 systems reviewed and were otherwise negative Physical Exam Vital Signs Vital Signs - 24 hr 12/10/21 02:23 12/10/21 02:27 12/10/21 02:30 Temperature 36.5 C Temperature Source Oral Pulse Rate 98 H 97 H 93 H Pulse Rate [Right Finger] Pulse Rate from SpO2 Sensor Respiratory Rate 20 21 21 Respiratory Effort / Characteristics Blood Pressure 113/67 Blood Pressure [Left Arm] Blood Pressure Mean 82 Blood Pressure Mean [Left Arm] Blood Pressure Position [Left Arm] Pulse Oximetry 95 Oxygen Delivery Method Room Air Oxygen Flow Rate Sepsis Recent Fever Within 48 Hours No Sepsis New/Unexplained Change in Mental Status No Sepsis Action Taken by Nursing No Action Required 12/10/21 02:45 12/10/21 02:47 12/10/21 03:00 Temperature Temperature Source Pulse Rate 93 H 93 H Pulse Rate [Right Finger] Pulse Rate from SpO2 Sensor Respiratory Rate 20 19 Respiratory Effort / Characteristics Blood Pressure Blood Pressure [Left Arm] Blood Pressure Mean Blood Pressure Mean [Left Arm] Blood Pressure Position [Left Arm] Pulse Oximetry 95 Oxygen Delivery Method Room Air Oxygen Flow Rate Sepsis Recent Fever Within 48 Hours Sepsis New/Unexplained Change in Mental Status Sepsis Action Taken by Nursing 12/10/21 03:24 12/10/21 03:30 12/10/21 03:45 Temperature Temperature Source Pulse Rate 95 H 92 H 92 H Pulse Rate [Right Finger] Pulse Rate from SpO2 Sensor 95 H 92 H 92 H Respiratory Rate 19 20 16 Respiratory Effort / Characteristics Blood Pressure 123/79 126/72 Blood Pressure [Left Arm] Blood Pressure Mean 93 90 Blood Pressure Mean [Left Arm] Blood Pressure Position [Left Arm] Pulse Oximetry 89 L 99 98 Oxygen Delivery Method Oxygen Flow Rate 2 Sepsis Recent Fever Within 48 Hours Sepsis New/Unexplained Change in Mental Status Sepsis Action Taken by Nursing 12/10/21 03:56 12/10/21 04:00 Temperature Temperature Source Pulse Rate Pulse Rate [Right Finger] 97 H Pulse Rate from SpO2 Sensor Respiratory Rate 20 Respiratory Effort / Characteristics Non-Labored Non-Labored Blood Pressure Blood Pressure [Left Arm] 115/67 Blood Pressure Mean Blood Pressure Mean [Left Arm] 83 Blood Pressure Position [Left Arm] Lying Pulse Oximetry 97 98 Oxygen Delivery Method Nasal Cannula Nasal Cannula Oxygen Flow Rate 2 2 Sepsis Recent Fever Within 48 Hours Sepsis New/Unexplained Change in Mental Status Sepsis Action Taken by Nursing VITALS: Vitals are noted on the nurse's note and reviewed by myself. Vital signs stable. GENERAL: Pleasant female weak appearing, in no acute distress, nondiaphoretic, well-developed well-nourished. SKIN: Ulcers to right thigh that is malodorous draining red and irritated and left thigh, the skin was without rashes, or bruising. There is no tenting of the skin. Capillary reflex less than 2 seconds. HEAD: Normocephalic atraumatic. EARS: External auditory canals clear, EYES: Pupils equal round and reactive to light and accommodation. Conjunctivae without injection, sclerae without icterus. Extraocular movements intact. NOSE: Patent, turbinates without inflammation or discharge. MOUTH: Mucous membranes moist. Pharynx without erythema or exudate. Uvula midline. Airway patent. Tongue does not deviate. NECK: Supple without nuchal rigidity. No lymphadenopathy. No thyromegaly. Cervical spine is nontender. No JVD. HEART: Regular rate and rhythm LUNGS: Clear to auscultation bilaterally without wheezes, rales or rhonchi. No retractions or accessory muscle use. ABDOMEN: Positive bowel sounds x 4. Normal tympanic percussion. Soft, nontender, without masses or organomegaly. Castellanos sign negative. No guarding or rebound tenderness. No CVA tenderness MUSCULOSKELETAL: No muscle atrophy noted. NEURO: Patient was alert and oriented to person place and time. Normal sensation to light and sharp touch. No focal neurological deficits. Course Administered Medications Discontinued Medications Ceftriaxone Sodium (Rocephin) 2,000 mg in 70 mls @ 140 mls/hr IV NOW STA Stop: 12/10/21 02:59 Last Infusion: 12/10/21 04:04 Dose: 0 mls/hr Documented by: [id number] Admin: 12/10/21 03:27 Dose: 140 mls/hr Documented by: [id number] Insulin Human Regular (Novolin-R Insulin Per Unit Charge) 5 units IV NOW STA Stop: 12/10/21 04:50 Last Admin: 12/10/21 05:01 Dose: 5 units Documented by: [id number] Cosigned by: [id number] Medical Decision Making Medical Records Attestation: I reviewed the patient's medical records. Home Medications Current Medication List: was personally reviewed by me Laboratory Data Attestation: I reviewed the patient's lab results. Result diagrams: 12/10/21 02:32 12/10/21 02:32 Lab Results 12/10/21 12/10/21 12/10/21 Range/Units 02:32 02:32 02:32 WBC 10.64 (4.8-10.8) K/uL RBC 3.01 L (4.2-5.4) M/uL Hgb 9.1 L (12.0-16.0) g/dL Hct 28.3 L (37-47) % MCV 94.0 (80-100) fL MCH 30.2 (25-34) pg MCHC 32.2 (32-36) g/dL RDW Std Deviation 53.4 H (36.4-46.3) fL RDW Coeff of Erendira 15.6 H (11.5-14.5) % Plt Count 249 (130-400) K/uL MPV 9.7 (7.4-10.4) fL Immature Gran % (Auto) 0.5 % Neut % (Auto) 89.8 % Lymph % (Auto) 5.0 % [place] % (Auto) 3.5 % Eos % (Auto) 1.1 % Baso % (Auto) 0.1 % Neut # (Auto) 9.56 H (1.4-6.5) K/uL Lymph # (Auto) 0.53 L (1.2-3.4) K/uL [place] # (Auto) 0.37 (0.11-0.59) K/uL Eos # (Auto) 0.12 (0-0.5) K/uL Baso # (Auto) 0.01 (0-0.2) K/uL Immature Gran # (Auto) 0.05 H (0.00-0.02) K/uL PT 14.8 H (9.0-12.0) Seconds INR 1.4 H (0.9-1.1) APTT 36.3 H (21.0-31.0) Seconds PTT Ratio 1.3 Sodium 124 L (136-145) mmol/L Potassium 5.4 H (3.5-5.1) mmol/L Chloride 85 L (98-107) mmol/L Carbon Dioxide 24 (21-32) mmol/L Anion Gap 15 H (3-11) BUN 86 H (6-23) mg/dl Creatinine 8.13 H* (0.6-1.2) mg/dl Est Cr Clr Drug Dosing 9.3 ml/min Est GFR ( Amer) 5.5 ml/min Est GFR (Non-Af Amer) 4.7 ml/min BUN/Creatinine Ratio 10.6 (10-20) Glucose 378 H* (70-99(Fasting)) mg/dl Lactate (0.4-2.0) mmol/L Calcium 8.5 (8.5-10.1) mg/dl Magnesium 2.0 (1.7-2.4) mg/dl Total Bilirubin 0.5 (0.2-1.0) mg/dl AST 21 (13-39) U/L ALT 23 (7-52) U/L Alkaline Phosphatase 331 H (34-104) U/L Total Creatine Kinase 43 (26-192) U/L Troponin I High Sens 80.1 H* (0-14) pg/ml Total Protein 7.8 (6.0-8.3) gm/dl Albumin 3.7 (3.4-5.0) gm/dl Globulin 4.1 H (2.5-4.0) gm/dl Albumin/Globulin Ratio 0.9 (0.9-2) Procalcitonin (0-0.5) ng/ml SARS-CoV-2, RNA, NAAT (NEGATIVE) 12/10/21 12/10/21 12/10/21 Range/Units 02:32 02:38 02:38 WBC (4.8-10.8) K/uL RBC (4.2-5.4) M/uL Hgb (12.0-16.0) g/dL Hct (37-47) % MCV (80-100) fL MCH (25-34) pg MCHC (32-36) g/dL RDW Std Deviation (36.4-46.3) fL RDW Coeff of Erendira (11.5-14.5) % Plt Count (130-400) K/uL MPV (7.4-10.4) fL Immature Gran % (Auto) % Neut % (Auto) % Lymph % (Auto) % [place] % (Auto) % Eos % (Auto) % Baso % (Auto) % Neut # (Auto) (1.4-6.5) K/uL Lymph # (Auto) (1.2-3.4) K/uL [place] # (Auto) (0.11-0.59) K/uL Eos # (Auto) (0-0.5) K/uL Baso # (Auto) (0-0.2) K/uL Immature Gran # (Auto) (0.00-0.02) K/uL PT (9.0-12.0) Seconds INR (0.9-1.1) APTT (21.0-31.0) Seconds PTT Ratio Sodium (136-145) mmol/L Potassium (3.5-5.1) mmol/L Chloride (98-107) mmol/L Carbon Dioxide (21-32) mmol/L Anion Gap (3-11) BUN (6-23) mg/dl Creatinine (0.6-1.2) mg/dl Est Cr Clr Drug Dosing ml/min Est GFR ( Amer) ml/min Est GFR (Non-Af Amer) ml/min BUN/Creatinine Ratio (10-20) Glucose (70-99(Fasting)) mg/dl Lactate 0.8 (0.4-2.0) mmol/L Calcium (8.5-10.1) mg/dl Magnesium (1.7-2.4) mg/dl Total Bilirubin (0.2-1.0) mg/dl AST (13-39) U/L ALT (7-52) U/L Alkaline Phosphatase (34-104) U/L Total Creatine Kinase (26-192) U/L Troponin I High Sens (0-14) pg/ml Total Protein (6.0-8.3) gm/dl Albumin (3.4-5.0) gm/dl Globulin (2.5-4.0) gm/dl Albumin/Globulin Ratio (0.9-2) Procalcitonin 1.35 H (0-0.5) ng/ml SARS-CoV-2, RNA, NAAT POSITIVE A* (NEGATIVE) Imaging Data Attestation: I personally reviewed and interpreted this imaging study as follows: MDM Narrative Prior records/ancillary studies reviewed and summarized above. Nursing notes reviewed. Additional history obtained from EMS. The patient's history was concerning for increasing weakness, fall and wound ulcers Differential diagnosis: Etiologies such as metabolic, infection, hypo/hyperglycemia, electrolyte abnormalities, cardiac sources, intracerebral event, toxicologic, neurologic, as well as others were entertained. Physical examination: As above. ER treatment provided: IV Lock An order was placed for continuous cardiac monitoring. The monitor shows a rate of 60-1 50 with a sinus rhythm. Rocephin On reassessment the patient felt better. Diagnostics interpretation by me: ECG: Ordered for weakness EKG: Normal sinus, T wave inversion aVL, minimal ST depression in the lateral leads, rate of 93. Impression normal sinus rhythm with minimal ST depression lateral leads interpreted by myself. I think arrhythmia is unlikely. EKG shows normal sinus rhythm with no interval abnormalities such as QT prolongation or WPW. There are no findings to suggest Brugada syndrome. Cardiac monitoring in the emergency department reveals no tachycardic or bradycardic dysrhythmia. Hypertrophic cardiomyopathy was considered but there are no clear historical elements pointing toward this. EKG is not suggestive. The QRS voltage is not extremely large and there are no suggestive Q waves. The labs revealed elevated troponin, elevated creatinine. Patient is to go to dialysis Hyperglycemia without DKA Positive COVID Imaging studies: Chest x-ray with pulmonary congestion per my interpretation CT HEAD: No acute post-traumatic intracranial abnormality. Compared to 05/24/2019. No acute intracranial hemorrhage or abnormal extra-axial fluid collection. No acute stroke. Non-specific white matter changes, most commonly seen with small vessel disease. Age-appropriate central and peripheral atrophy. No midline shift. No paranasal sinus air-fluid level. No fracture. Radiologist: Ilya Luna M.D. Preliminary Findings Only See Final Report For Complete Findings CT C SPINE: Straightening of the normal cervical lordosis, most commonly seen with muscle spasm or positioning. No fracture or subluxation. Maintenance of height of the vertebral bodies. Multilevel degenerative changes, greatest at C6-7 and C7-T1.. Prevertebral soft tissues unremarkable. Atherosclerotic vascular calcifications. Radiologist: Ilya Luna M.D. Consultation: A consultation was placed with the hospitalist. The case was discussed and diagnostics were reviewed. The patient was evaluated in the ER for further treatment. Exam and history seem consistent with COVID with an elevated troponin with end-stage renal disease. Medicine was consulted. She will be evaluated for admission. By the evaluation outlined above emergent etiologies such as intracerebral event, toxologic, neurologic, as well as others were deemed relatively unlikely. The pt informed about the findings as listed above. All questions were answered and pleased with the treatment. The chart was completed utilizing [employer] Speech voice recognition software. Grammatical errors, random word insertions, pronoun errors, and incomplete sentences are an occassional consequence of this system due to software limitations, ambient noise, and hardware issues. Any formal questions or concerns about the content, text, or information contained within the body of this dictation should be directly addressed to the physician drilling assistant for clarification. Impression & Plan COVID-19, Elevated troponin, Acute hyperglycemia, Wound infection Discharge Plan Visit Data Chief Complaint: Fall ED Provider: Rivas Ross. ED Midlevel Provider: Urvashi Jordan Discharge Problem: COVID-19, Elevated troponin, Acute hyperglycemia, Wound infection Patient Disposition: Admitted As Inpatient Condition: Fair Forms Stand Alone Forms: My [facility] Prescriptions Prescriptions: No Action aspirin 81 mg Tablet,Delayed Release (Dr/Ec) 81 mg PO HS RF: 0 gabapentin 300 mg capsule 300 mg PO BID RF: 0 atorvastatin 80 mg Tablet 80 mg PO QAM RF: 0 metoprolol tartrate [Lopressor] 50 mg tablet 25 mg PO BID RF: 0 doxycycline hyclate 100 mg capsule 100 mg PO QAM RF: 0 tramadol 50 mg tablet 50 mg PO BID PRN (Reason: Pain, Severe) RF: 0 Santyl 250 unit/gram ointment 1 applic TOPICAL DAILY RF: 0 diclofenac sodium 1 % gel 1 ea TOPICAL TID PRN (Reason: Pain) RF: 0 amlodipine 5 mg tablet 5 mg PO DAILY RF: 0 albuterol sulfate 90 mcg/actuation HFA aerosol inhaler 2 puff INHALATION Q4 PRN (Reason: Wheezing) RF: 0 sertraline 50 mg tablet 50 mg PO DAILY RF: 0 cyclobenzaprine 5 mg tablet 5 mg PO HS PRN (Reason: Muscle Spasm) RF: 0 levothyroxine 75 mcg tablet 75 mcg PO DAILYBB RF: 0 cholecalciferol (vitamin D3) [Vitamin D3] 125 mcg (5,000 unit) Tablet 250 mcg PO DAILY RF: 0 Lantus U-100 Insulin 100 unit/mL solution 30 unit SUBCUT AMHS RF: 0 ascorbic acid (vitamin C) [Vitamin C] 500 mg Tablet 500 mg PO 3XWK RF: 0 insulin aspart U-100 [Novolog Flexpen U-100 Insulin] 100 unit/mL (3 mL) Insulin Pen 10 unit SUBCUT TID RF: 0 calcium acetate(phosphat bind) 667 mg capsule 667 mg PO UD RF: 0 Auryxia 210 mg iron Tablet 210 mg PO UD RF: 0 omeprazole 40 mg capsule,delayed release(DR/EC) 40 mg PO DAILYBB RF: 0 warfarin 5 mg tablet 5 mg PO UD RF: 0 Referrals Referrals: Jorge Franco DO [Primary Care Provider] -
[2021-12-10 02:44] LABS: Basophils # (auto) 0.01 K/uL (0-0.2); Basophils % (auto) 0.1 %; Eosinophils # (auto) 0.12 K/uL (0-0.5); Eosinophils % (auto) 1.1 %; Hematocrit (blood only) 28.3 % (37-47); Hemoglobin 9.1 g/dL (12.0-16.0); Immature Granulocytes # (auto) 0.05 K/uL (0.00-0.02); Immature Granulocytes % (auto) 0.5 %; Lymphocytes # (auto) 0.53 K/uL (1.2-3.4); Mean Corpuscular Hemoglobin 30.2 pg (25-34); Mean Corpuscular Hgb Conc 32.2 g/dL (32-36); Mean Platelet Volume 9.7 fL (7.4-10.4); Monocytes # (auto) 0.37 K/uL (0.11-0.59); Monocytes % (auto) 3.5 %; Neutrophils # (auto) 9.56 K/uL (1.4-6.5); Neutrophils % (auto) 89.8 %; Platelet Count 249 K/uL (130-400); RDW Coefficient of Variation 15.6 % (11.5-14.5); RDW Standard Deviation 53.4 fL (36.4-46.3); Red Blood Count 3.01 M/uL (4.2-5.4); White Blood Count 10.64 K/uL (4.8-10.8)
[2021-12-10 03:07] LABS: INR 1.4 (0.9-1.1); Partial Thromboplastin Ratio 1.3; Partial Thromboplastin Time 36.3 Seconds (21.0-31.0); Prothrombin Time 14.8 Seconds (9.0-12.0)
[2021-12-10 03:26] LABS: Albumin Globulin Ratio 0.9 (0.9-2); Albumin Level 3.7 gm/dl (3.4-5.0); BUN Creatinine Ratio 10.6 (10-20); Bilirubin,Total 0.5 mg/dl (0.2-1.0); Calcium 8.5 mg/dl (8.5-10.1); Creatinine Clr Calc Pharmacy 9.3 ml/min; Est GFR (African American) 5.5 ml/min; Est GFR (Non-African American) 4.7 ml/min; Globulin 4.1 gm/dl (2.5-4.0); Potassium 5.4 mmol/L (3.5-5.1); Total Protein 7.8 gm/dl (6.0-8.3); Troponin I High Sensitivity 80.1 pg/ml (0-14)
--- NOTE | 2021-12-10 04:07 | Emergency Department Note ---
ED Visit Note Patient was seen with the [facility] at bedside. Patient has a right hip wound is COVID-positive and an elevated troponin. With generalized weakness, the patient will be admitted to the hospital. The hospitalist were contacted for admission. I agree with the physician assistant store director's disposition and plan for this patient .
[2021-12-10] MEDS ORDERED: NovoLIN-R INSULIN PER UNIT CHARGE IV STA (04:49)
[2021-12-10] MEDS: HYDROmorphone INJ 0.5 MG/0.5 ML SYR IV PRN ×5 (06:08→23:58)
--- NOTE | 2021-12-10 06:40 | History and Physical Report ---
DATE OF ADMISSION: 12/10/2021. CHIEF COMPLAINT: Fall and right hip wound. HISTORY OF PRESENT ILLNESS: A 66-year-old female with past medical history significant for type 2 diabetes, diabetic polyneuropathy, history of benign neoplasm of parathyroid gland, hyperlipidemia, postsurgical hypothyroidism, asthma, hypertension, history of atrial fibrillation, morbid obesity, GERD, end- stage renal disease on hemodialysis, chronic bilateral lower back pain, anemia of chronic kidney disease, history of tobacco use, history of infiltrating ductal carcinoma of breast, generalized anxiety disorder, depression. The patient lives in a mobile home. States in the morning she fell from the bed between her dresser, that is the reason she came here. She also has right hip wound says following with a wound care in [place]. She was found to be COVID positive. The patient says she is vaccinated and also had booster. Denies any headache. No blurred visions, no earache, no runny nose, no sore throat, no cough, no chest pain. Was feeling a little short of breath in the ER. When she laid flat she was saturating 89%, so on 2 liters she is saturating at 98%. No nausea, no abdominal pain. Somewhat constipated. Does not make any urine. Has lower extremity edema. ALLERGIES: CODEINE, PENICILLINS, OXYCODONE, ROHAN INHIBITORS. PAST MEDICAL HISTORY: As mentioned above. PAST SURGICAL HISTORY: AV shunt, biopsy of the neck, colonoscopy with biopsy, parathyroidectomy, laparoscopic lysis of adhesions, laparoscopic cholecystectomy with intraoperative cholangiogram, AV percutaneous mechanical thrombectomy and peripheral angioplasty, cataract surgery, total hysterectomy. MEDICATIONS: The patient is on albuterol 2 puffs inhalation q. 4 hours p.r.n., amlodipine 5 mg p.o. daily, vitamin C 500 mg p.o. 3 times a week, aspirin 81 mg p.o. daily, atorvastatin 80 mg p.o. daily, calcium acetate 667 mg p.o. as directed, vitamin D 250 mcg p.o. daily, Santyl one application topical daily, cyclobenzaprine 5 mg p.o. at bedtime p.r.n., diclofenac sodium 1 topical t.i.d. p.r.n., doxycycline 100 mg p.o. daily, ferric citrate 210 mg p.o. as directed, gabapentin 300 mg p.o. b.i.d., NovoLog FlexPen 10 units subcutaneous t.i.d., insulin glargine 30 units b.i.d., levothyroxine 75 mcg p.o. daily, Lopressor 25 mg p.o. b.i.d., omeprazole 40 mg p.o. daily, sertraline 50 mg p.o. daily, tramadol 50 mg p.o. b.i.d. p.r.n., warfarin 5 mg as directed. FAMILY HISTORY: Significant for mother had brain cancer, heart disorder, hypertension; father has heart disorder, hypertension; brother has MS; sister has thyroid disorder, diabetes. SOCIAL HISTORY: , former smoker, who quit in 1989, smoked 1.5 packs a day for 20 years. No alcohol use. No drug use. REVIEW OF SYSTEMS: As per HPI. Rest of the review of systems is negative. PHYSICAL EXAMINATION: GENERAL: The patient is morbidly obese, not in acute distress. VITAL SIGNS: Temperature 36.5, pulse 97, respiratory rate 20, blood pressure 115/67, oxygen 92% on 2 liters. HEENT: Pupils equal, round and reactive to light. Oral mucosa dry. NECK: No JVD, no neck masses. CARDIOVASCULAR: S1 and S2 heard. Regular rate and rhythm. No murmur, no gallop. RESPIRATORY SYSTEM: Normal AP diameter. No accessory muscle use. No wheezing, no crackles. ABDOMEN: Soft. Bowel sounds are present, nontender, no distention. CENTRAL NERVOUS SYSTEM: Alert and oriented. Speech is clear. No facial droop. Moves extremities. EXTREMITIES: Bilateral lower extremity gross edema present. Right hip wound seen with some blackish eschar. No drainage seen. LABORATORY DATA: WBC 10, hemoglobin 9.1, hematocrit 28.3, platelets 249. PT 14.8, INR 1.4, APTT 36.3. Sodium 124, potassium 5.4, chloride 85, CO2 of 24, BUN 86, creatinine 8.13, serum glucose 378. Lactate 0.8, calcium 8.5, magnesium 2, total bilirubin 0.5, AST 21, ALT 23, alkaline phosphatase 331. Total creatinine kinase 43. Troponin I high sensitivity 80. Procalcitonin 1.3. SARS-CoV-2 rapid test positive. IMAGING DATA: CT of the head without contrast, preliminary report unremarkable. Cervical spine CT, results are pending. Chest x-ray, pulmonary congestion. ASSESSMENT AND PLAN: This 66-year-old female presents with fall and also had a right hip wound and was found to have COVID. 1. Right hip wound: The patient says follows with wound care at [place]. Empirically starting on meropenem as the patient is allergic to penicillins and also IV doxycycline. Follow the cultures. Follow the response. Wound care consult. 2. COVID: The patient is vaccinated and boosted. Does not have any cough or fever. She was somewhat hypoxic in the ER. Could be from the pulmonary congestion. Could not give remdesivir because of her kidney function. If continues to require oxygen can start on steroids. COVID precautions. Will monitor closely. 3. End-stage renal disease, on hemodialysis: Consult nephrology for dialysis. 4.Hyponatremia, hyperkalemia. Sodium of 124, potassium 5.4, on dialysis. Nephro consulted. 5. Diabetes: Sugars are running high at 378. Will follow HbA1c levels. Will give one dose of iv insulin. Will continue home Lantus insulin sliding scale. Will follow the blood sugars closely. 6. Anemia of chronic kidney disease: Hemoglobin of 9.1. Will follow the labs. 7. History of atrial fibrillation: Rate controlled with metoprolol, on Coumadin. INR is 1.4. Will place her on heparin subQ until INR is therapeutic. 8. Hypothyroidism: Continue Synthroid. 9. Hyperlipidemia: Continue statin. 10. Hypertension: Amlodipine and metoprolol. Will monitor the blood pressure. 11. Depression: On sertraline. 12. Gastroesophageal reflux disease: On omeprazole. 13. Asthma: Albuterol p.r.n. Currently, no active wheezing is heard. 14. History of left breast cancer, ER/ID positive, stage IA, HER-2 negative. Was treated with left breast mastectomy in 2013. 15. Elevation of troponin: hx of kidney disease. Will follow the serial enzymes,As trending up will consult cardiology.t. 16. Deep venous thrombosis prophylaxis: Heparin subcutaneous until INR is therapeutic. 17. Morbid obesity: Needs counseling. Level 1 full code. Expect to d/c home and follow with PCP. Social service to help with d/c planning Job ID: [id number] [facility]ussy
--- NOTE | 2021-12-10 07:02 | XRay Report ---
XR chest 1V portable CLINICAL HISTORY: SEPSIS TECHNIQUE: Single frontal radiograph of the chest was obtained. Comparison: Comparison is made to chest one view 10/27/2020 FINDINGS: Previous seen noted right venous catheter has been removed. The cardiomediastinal silhouette is chandra l. Prominence and cephalization of the vasculature is seen. No evidence of pleural effusion or pneumo thorax. IMPRESSION: Mild pulmonary edema. ACT 112: Negative or not required by law. Electronically signed by: Lux Burk M.D. 12/10/2021 7:00 AM
--- NOTE | 2021-12-10 07:31 | CT Scan Report ---
CT head/brain wo con CLINICAL HISTORY: fall on asa COMPARISON STUDY: 05/24/2019 CT DOSE: 1411.63 mGy.cm TECHNIQUE: Standard CT of the Brain was performed without IV contrast. A dose lowering technique was utilized adhering to the principles of ALARA. FINDINGS: Extraaxial space: There is no evidence for subdural hematoma. There are no extra-axial fluid collecti ons. Ventricles and cisterns: The ventricles are mildly dilated bilaterally. There is no evidence for midl ine shift or mass effect. Parenchyma: There is no subarachnoid or intraparenchymal hemorrhage. There is no evidence for an acut e infarct or cerebral edema. There is mild cerebral cortical atrophy and decreased attenuation in the periventricular white matter representing remote small vessel disease. There are no gross mass lesio ns. Osseous structures: There is no evidence for an acute fracture. The visualized paranasal sinuses are clear. The mastoid air cells are clear bilaterally. Soft tissues: There is no evidence for focal soft tissue swelling. IMPRESSION: 1. No acute intracerebral pathology. 2. Mild cerebral cortical atrophy and remote small vessel disease. ACT 112: Negative or not required by law. Electronically signed by: Jeffry Plascencia M.D. 12/10/2021 7:30 AM
--- NOTE | 2021-12-10 07:32 | CT Scan Report ---
CT cervical spine wo con CLINICAL HISTORY: fall TECHNIQUE: Multidetector row helical CT of the cervical spine was performed without administration of intravenous contrast. Coronal and sagittal reformations were obtained. Automated dose lowering techn iques and/or adjustment according to patient size were utilized for this exam. Comparison: None available at the time of this dictation. FINDINGS: No acute fractures or subluxations are identified. Degenerative changes are seen in the visualized sp ine. The alignment is normal. Biapical scarring is seen. IMPRESSION: No evidence of acute bony injury. ACT 112: Negative or not required by law. Electronically signed by: Lux Burk M.D. 12/10/2021 7:31 AM
--- NOTE | 2021-12-10 10:17 | CT Scan Report ---
CT chest diagnostic wo con CT DOSE: 921.46 mGy.cm HISTORY: Short of breath. Cough. Covid positive. TECHNIQUE: Multiaxial CT images of the chest were performed without contrast. A dose lowering techni que was utilized adhering to the principles of ALARA. COMPARISON: None. FINDINGS: There is up to 50% narrowing of the proximal trachea which appears to be secondary to mass effect from the adjacent esophagus. There is a 1.1 cm left thyroid nodule. This does not meet CT crit eria for follow-up. Multiple mildly enlarged and calcified mediastinal and bilateral hilar lymph node s. The thoracic aorta is normal in caliber. Subtle nodular contour to the liver consistent with mild cirrhosis. The spleen is partially visualized but appears enlarged measuring up to 17 cm in size. The visualized adrenal glands unremarkable. Normal esophagus. Small bilateral pleural effusions are note d. No pericardial effusion. The heart is mildly enlarged. Severe coronary artery calcifications are n oted. The main pulmonary artery is dilated up to 3.9 cm consistent with pulmonary arterial hypertensi on. No suspicious lytic or blastic osseous lesions. No pneumothorax. Mild interlobular septal thicken ing, right greater than the left likely representing pulmonary edema. Near complete collapse of the l eft upper lobe likely due to the severe narrowing within the proximal left upper lobe bronchus. This could be due to to chronic scarring from the granulomatous disease. However, follow-up bronchoscopy r ecommended to exclude the less likely possibility of a central obstructing mass. Mild respiratory mot ion artifact. Patchy densities within the lungs posteriorly are nonspecific but favor atelectasis fro m the pleural effusions. A few round groundglass airspace opacities seen within the left lower lobe w ith the largest measuring 3.3 cm on image 127. This favors a pneumonitis and could be due to a viral process. Possible 12 mm nodule within the base of the right lower lobe on image 189. This could be du e to a tortuous vessel. IMPRESSION: 1. Pulmonary edema and small bilateral pleural effusions. 2. Round groundglass airspace opacities within the left lower lobe likely representing a pneumonia. T his could be due to a viral process. 3. Near-complete collapse of the left upper lobe with severe narrowing of the left upper lobe bronchi . This could be due to chronic scarring from the granulomatous disease. Follow-up bronchoscopy should be considered to exclude the less likely possibility of a central obstructing mass. 4. Possible 12 mm nodule within the right lower lobe. [address] follow-up recommended for furt her evaluation. 5. Pulmonary arterial hypertension.. 6. Cirrhotic liver with splenomegaly. 7. Approximately 50% narrowing within the proximal trachea which appears to be due to posterior mass effect from the esophagus. ACT 112: Negative or not required by law. Electronically signed by: Fan Jones M.D. 12/10/2021 10:15 AM
[2021-12-10] MEDS ORDERED: POLYETHYLENE (MIRALAX) 17 GM PACK PO PRN (10:42)
[2021-12-10] MEDS ORDERED: NITROGLYCERIN SL 0.4 MG/TAB TAB SL PRN (10:42)
[2021-12-10] MEDS ORDERED: WARFARIN SOD 5 MG TAB PO SCH (10:42)
[2021-12-10] MEDS ORDERED: ALBUTEROL HFA 8 GM INHALER INH PRN (10:42)
[2021-12-10] MEDS ORDERED: ACETAMINOPHEN 325 MG TAB PO PRN (10:42)
[2021-12-10] MEDS ORDERED: MEROPENEM CONSULT ACTIVE PRN (10:42)
[2021-12-10] MEDS ORDERED: CALCIUM ACETATE 667 MG CAP/TAB PO PRN (11:27)
[2021-12-10] MEDS: MEROPENEM 500 MG in SYRINGE 0 ML IV SCH (13:19)
--- NOTE | 2021-12-10 13:48 | Cardiology Consultation ---
Date of Consultation December 10, 2021 Assessment & Plan (1) Elevated troponin: (2) COVID-19: (3) Wound infection: (4) Unstageable pressure ulcer: (5) Diabetes: From a clinical perspective after reviewing the patient's history with her and considering her admission creatinine was 8.1 along with a wound infection and other medical problems I really do not think that the high-sensitivity troponin elevation is due to acute coronary syndrome. Her EKG is essentially unchanged. She is not having any current ongoing symptoms. At this point I would recommend no additional cardiac work-up. History of Present Illness Attending Physician: Hari Weiss MD History of Present Illness This is a 66-year-old female with multiple medical problems related to obesity, diabetes, hypertension and end-stage kidney disease. She has been on hemodialysis for several years. More recently she has had nonhealing ulcers on her hip which have been treated at the wound clinic. Debridement has been recommended but the patient is reluctant. Earlier this morning she was in her usual state of health and getting out of bed and because of the wound pain she stumbled and fell between her bed and dresser. Her is disabled and was not able to lift her. She was not able to lift herself and the paramedics were called and she was brought to the emergency department where she was admitted. She is currently receiving dialysis. She has had no recent chest pain and no chest pain during my visit. She denies shortness of breath. She has had no heart palpitations or tachycardia. After hospital admission she was found to be COVID-positive. EKG is essentially unchanged from previous studies. Her high- sensitivity troponins are elevated after admission. Allergies Allergy/AdvReac Type Severity Reaction Status Date / Time codeine Allergy Intermediate rash/hives Verified 12/10/21 02:38 (see comments) Penicillins Allergy Intermediate rash/hives, Verified 12/10/21 02:38 family allergy to PCN oxycodone AdvReac Intermediate N/V Verified 12/10/21 02:38 ROHAN Inhibitors AdvReac Mild hyperkalemi Verified 12/10/21 02:38 a Home Medications Medication Instructions Recorded Confirmed Type gabapentin 300 mg capsule 300 mg PO BID 04/15/20 12/10/21 History atorvastatin 80 mg tablet 80 mg PO QAM 06/26/20 12/10/21 History metoprolol tartrate 50 mg tablet 25 mg PO BID 06/26/20 12/10/21 History (Lopressor) aspirin 81 mg tablet,delayed 81 mg PO HS 07/02/20 12/10/21 History release omeprazole 40 mg capsule,delayed 40 mg PO DAILYBB 10/27/20 12/10/21 History release warfarin 5 mg tablet 5 mg PO UD 10/27/20 12/10/21 History albuterol sulfate 90 mcg/actuation 2 puff INHALATION Q4 PRN 12/10/21 12/10/21 History aerosol inhaler amlodipine 5 mg tablet 5 mg PO DAILY 12/10/21 12/10/21 History ascorbic acid (vitamin C) 500 mg 500 mg PO [id number] 12/10/21 12/10/21 History tablet (Vitamin C) calcium acetate(phosphat bind) 667 667 mg PO UD 12/10/21 12/10/21 History mg capsule cholecalciferol (vitamin D3) 125 250 mcg PO DAILY 12/10/21 12/10/21 History mcg (5,000 unit) tablet (Vitamin D3) collagenase clostridium histo. 250 1 applic TOPICAL DAILY 12/10/21 12/10/21 History unit/gram topical ointment (Santyl) cyclobenzaprine 5 mg tablet 5 mg PO HS PRN 12/10/21 12/10/21 History diclofenac sodium 1 % topical gel 1 ea TOPICAL TID PRN 12/10/21 12/10/21 History doxycycline hyclate 100 mg capsule 100 mg PO QAM 12/10/21 12/10/21 History ferric citrate 210 mg iron tablet 210 mg PO UD 12/10/21 12/10/21 History (Auryxia) insulin aspart U-100 100 unit/mL 10 unit SUBCUT TID 12/10/21 12/10/21 History (3 mL) subcutaneous pen (Novolog Flexpen U-100 Insulin aspart) insulin glargine 100 unit/mL 30 unit SUBCUT AMHS 12/10/21 12/10/21 History subcutaneous solution (Lantus U-100 Insulin) levothyroxine 75 mcg tablet 75 mcg PO DAILYBB 12/10/21 12/10/21 History sertraline 50 mg tablet 50 mg PO DAILY 12/10/21 12/10/21 History tramadol 50 mg tablet 50 mg PO BID PRN 12/10/21 12/10/21 History Patient History Medical History Acute hyperglycemia Asthma well controlled Breast cancer, left hx (2012) s/p surgery- no chemo or XRT needed CAD (coronary artery disease) non-obstructive COPD (chronic obstructive pulmonary disease) well controlled Depression Diabetes mellitus, type 2 IDDM Diabetic neuropathy Elevated INR ESRD on dialysis M-W-F ([facility] facility) Fistula RUE Gait disturbance occasional cane use (d/t diabetic neuropathy) GERD (gastroesophageal reflux disease) Hemorrhage of arteriovenous fistula History of blood transfusion in setting of abnormal uterine bleeding > subsequent hysterectomy Hyperlipemia Hypertension Hypothyroidism Obesity Osteoarthritis PVC (premature ventricular contraction) controlled on beta tristan SOBOE (shortness of breath on exertion) Spinal stenosis 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 Sparks 08/21/18) History of umbilical hernia repair Nausea and vomiting after administration of anesthetic agent Presence of permanent central venous catheter right chest (using dialysis currently) S/P arteriovenous (AV) fistula repair LUE/multiple repairs and "clean outs" Status post creation of arteriovenous fistula left forearm Family History Sister Family history of diabetes mellitus Family history of reaction to anesthesia wakes up with a headache-"FEELS WEIRD" Social History Smoking Status: Former smoker Tobacco Type: Cigarettes Age Quit Using Tobacco: 33; Second Hand Exposure: No; Hx Alcohol Use: No Hx Substance Use: No Preferred Language: Indian Communication Ability: Effective Hearing Ability: Normal Reception Clerk Required: No Beliefs That Will Affect Care: None marital status: Current Living Situation: Spouse current occupational status: disabled Other Information That Helps Us Care for You: No Feels Safe at Home: Yes Safety Concerns: Feels Safe At This Time Diet Comment: RENAL DIET caffeine: No during the past year weight has: remained stable Assistive Devices: Cane, Glasses and Walker Review of Systems Review of Systems: Review of Systems: See HPI for pertinent positives. All other 10 point review of systems are negative. Physical Exam Physical Exam: General: no acute distress and stated age Head: normocephalic, no masses, lesions, tenderness or abnormalities Eyes: conjunctiva are pink and non-injected, sclera clear Neck: supple, no adenopathy, no bruits, normal jugular venous pulse, no hepatojugular reflux Chest: normal shape and normal respiratory effort Lungs: clear to auscultation and percussion Cardiac Exam: - regular rate & rhythm, no murmurs gallops or rubs - normal S1, normal S2 Pulses: 2(+) throughout Abdomen: abdomen soft, non-tender, no abnormal masses and no hepatosplenomegaly Musculoskeletal: no gait disturbance, no joint inflammation, no deforming ar thritis Extremities: Nonhealing ulcers on her hips Neuro: grossly normal exam Results & Data ([facility]) Vital Signs (Past 12 Hours) Vital Signs Temp Pulse Pulse Resp BP BP Pulse Ox 12/10/21 13:00 87 117/66 12/10/21 12:30 83 106/78 12/10/21 12:00 82 101/66 12/10/21 11:30 80 119/75 12/10/21 11:23 36.8 C 82 12/10/21 10:42 81 12/10/21 09:49 36.5 C 82 18 134/64 99 12/10/21 08:30 77 11 L 105/68 100 12/10/21 08:15 78 11 L 99/61 L 99 12/10/21 08:00 78 10 L 103/63 99 12/10/21 07:45 79 11 L 107/64 99 12/10/21 07:30 81 12 103/78 98 12/10/21 07:15 84 15 91/79 L 97 12/10/21 07:00 85 18 115/68 97 12/10/21 06:45 85 23 115/64 97 12/10/21 06:31 86 13 96 12/10/21 06:30 85 17 96/68 L 96 12/10/21 06:16 86 19 93/71 L 96 12/10/21 06:15 87 15 95 12/10/21 06:00 96 H 85 24 93/71 L 97 12/10/21 05:45 94 H 22 110/78 98 12/10/21 05:30 97 H 24 126/92 99 12/10/21 05:16 96 H 26 H 124/71 97 12/10/21 05:15 94 H 25 H 96 12/10/21 05:01 93 H 17 148/70 H 98 12/10/21 05:00 92 H 15 97 12/10/21 04:45 93 H 15 113/70 98 12/10/21 04:30 94 H 17 115/86 96 12/10/21 04:15 96 H 14 107/63 93 12/10/21 04:00 105 H 97 H 19 115/67 115/67 97 12/10/21 03:59 110 H 19 119/71 95 12/10/21 03:56 97 12/10/21 03:45 92 H 16 98 12/10/21 03:30 92 H 20 126/72 99 12/10/21 03:24 95 H 19 123/79 89 L 12/10/21 03:00 93 H 19 12/10/21 02:47 95 12/10/21 02:45 93 H 20 12/10/21 02:30 93 H 21 12/10/21 02:27 36.5 C 97 H 21 113/67 95 12/10/21 02:23 98 H 20 Laboratory Results Laboratory Results - last 24 hr 12/10/21 12/10/21 12/10/21 02:32 02:32 02:32 WBC 10.64 RBC 3.01 L Hgb 9.1 L Hct 28.3 L MCV 94.0 MCH 30.2 MCHC 32.2 RDW Std Deviation 53.4 H RDW Coeff of Erendira 15.6 H Plt Count 249 MPV 9.7 Immature Gran % (Auto) 0.5 Neut % (Auto) 89.8 Lymph % (Auto) 5.0 Mathews % (Auto) 3.5 Eos % (Auto) 1.1 Baso % (Auto) 0.1 Neut # (Auto) 9.56 H Lymph # (Auto) 0.53 L Mathews # (Auto) 0.37 Eos # (Auto) 0.12 Baso # (Auto) 0.01 Immature Gran # (Auto) 0.05 H PT 14.8 H INR 1.4 H APTT 36.3 H PTT Ratio 1.3 Sodium 124 L Potassium 5.4 H Chloride 85 L Carbon Dioxide 24 Anion Gap 15 H BUN 86 H Creatinine 8.13 H* Est Cr Clr Drug Dosing 9.3 Est GFR ( Amer) 5.5 Est GFR (Non-Af Amer) 4.7 BUN/Creatinine Ratio 10.6 Glucose 378 H* POC Glucose Lactate Calcium 8.5 Magnesium 2.0 Total Bilirubin 0.5 AST 21 ALT 23 Alkaline Phosphatase 331 H Total Creatine Kinase 43 Troponin I High Sens 80.1 H* C-Reactive Protein Total Protein 7.8 Albumin 3.7 Globulin 4.1 H Albumin/Globulin Ratio 0.9 Procalcitonin Hep Bs Antigen Hep Bs Ag Confirmation Hep Bs Antibody, Quant SARS-CoV-2, RNA, NAAT 12/10/21 12/10/21 12/10/21 02:32 02:38 02:38 WBC RBC Hgb Hct MCV MCH MCHC RDW Std Deviation RDW Coeff of Erendira Plt Count MPV Immature Gran % (Auto) Neut % (Auto) Lymph % (Auto) Mathews % (Auto) Eos % (Auto) Baso % (Auto) Neut # (Auto) Lymph # (Auto) Mathews # (Auto) Eos # (Auto) Baso # (Auto) Immature Gran # (Auto) PT INR APTT PTT Ratio Sodium Potassium Chloride Carbon Dioxide Anion Gap BUN Creatinine Est Cr Clr Drug Dosing Est GFR ( Amer) Est GFR (Non-Af Amer) BUN/Creatinine Ratio Glucose POC Glucose Lactate 0.8 Calcium Magnesium Total Bilirubin AST ALT Alkaline Phosphatase Total Creatine Kinase Troponin I High Sens C-Reactive Protein Total Protein Albumin Globulin Albumin/Globulin Ratio Procalcitonin 1.35 H Hep Bs Antigen Hep Bs Ag Confirmation Hep Bs Antibody, Quant SARS-CoV-2, RNA, NAAT POSITIVE A* 12/10/21 12/10/21 12/10/21 04:26 04:26 05:29 WBC RBC Hgb Hct MCV MCH MCHC RDW Std Deviation RDW Coeff of Erendira Plt Count MPV Immature Gran % (Auto) Neut % (Auto) Lymph % (Auto) Mathews % (Auto) Eos % (Auto) Baso % (Auto) Neut # (Auto) Lymph # (Auto) Mathews # (Auto) Eos # (Auto) Baso # (Auto) Immature Gran # (Auto) PT INR APTT PTT Ratio Sodium Potassium Chloride Carbon Dioxide Anion Gap BUN Creatinine Est Cr Clr Drug Dosing Est GFR ( Amer) Est GFR (Non-Af Amer) BUN/Creatinine Ratio Glucose POC Glucose 371 H* Lactate Calcium Magnesium Total Bilirubin AST ALT Alkaline Phosphatase Total Creatine Kinase Troponin I High Sens 397.1 H* D C-Reactive Protein 11.61 H Total Protein Albumin Globulin Albumin/Globulin Ratio Procalcitonin Hep Bs Antigen Hep Bs Ag Confirmation Hep Bs Antibody, Quant SARS-CoV-2, RNA, NAAT 12/10/21 12/10/21 11:05 11:38 WBC RBC Hgb Hct MCV MCH MCHC RDW Std Deviation RDW Coeff of Erendira Plt Count MPV Immature Gran % (Auto) Neut % (Auto) Lymph % (Auto) Mathews % (Auto) Eos % (Auto) Baso % (Auto) Neut # (Auto) Lymph # (Auto) Mathews # (Auto) Eos # (Auto) Baso # (Auto) Immature Gran # (Auto) PT INR APTT PTT Ratio Sodium Potassium Chloride Carbon Dioxide Anion Gap BUN Creatinine Est Cr Clr Drug Dosing Est GFR ( Amer) Est GFR (Non-Af Amer) BUN/Creatinine Ratio Glucose POC Glucose Lactate Calcium Magnesium Total Bilirubin AST ALT Alkaline Phosphatase Total Creatine Kinase Troponin I High Sens 2939.0 H* D C-Reactive Protein Total Protein Albumin Globulin Albumin/Globulin Ratio Procalcitonin Hep Bs Antigen Pending Hep Bs Ag Confirmation Pending Hep Bs Antibody, Quant Pending SARS-CoV-2, RNA, NAAT Medications Administered Current Inpatient Medications Acetaminophen (Acetaminophen 325 Mg Tab) 650 mg PO Q4H PRN PRN Reason: Pain or Fever Stop: 01/09/22 10:41 Albuterol (Albuterol Hfa 8 Gm Inhaler) 2 puffs INH Q4R PRN PRN Reason: Wheezing Stop: 01/09/22 10:41 Amlodipine Besylate (Amlodipine Besylate 5 Mg Tab) 5 mg PO DAILY [facility] Stop: 01/09/22 11:29 Ascorbic Acid (Ascorbic Acid 500 Mg Tab) 500 mg PO [id number] JARRELL Stop: 01/09/22 11:29 Aspirin (Aspirin 81 Mg Ectab) 81 mg PO HS [facility] Stop: 01/09/22 20:59 Atorvastatin Calcium (Atorvastatin 40 Mg Tab) 80 mg PO QAM [facility] Stop: 01/09/22 11:29 Calcium Acetate (Calcium Acetate 667 Mg Cap/Tab) 667 mg PO TIDM JARRELL Stop: 01/09/22 11:59 Calcium Acetate (Calcium Acetate 667 Mg Cap/Tab) 667 mg PO PRN PRN PRN Reason: snacks Stop: 01/09/22 11:26 Collagenase (Collagenase Oint 30 Gm Tube) 1 appln TOP DAILY JARRELL Stop: 01/09/22 11:29 Cyclobenzaprine HCl (Cyclobenzaprine Hcl 5 Mg Tab) 5 mg PO HS PRN PRN Reason: Muscle Spasm Stop: 01/09/22 10:41 Diclofenac Sodium (Diclofenac Sod 1% Gel 100 Gm Tube) 1 gm EXT TID PRN PRN Reason: Pain Stop: 01/09/22 10:41 Gabapentin (Gabapentin 300 Mg Cap) 300 mg PO BID [facility] Stop: 01/09/22 11:29 Heparin Sodium (Porcine) (Heparin Sod 5,000 Unit/0.5 Ml Vial) 7,500 units SQ Q8H [facility] Stop: 01/09/22 11:29 Hydromorphone HCl (Hydromorphone Inj 0.5 Mg/0.5 Ml Syr) 0.5 mg IV Q3H PRN PRN Reason: Pain Stop: 12/24/21 05:57 Last Admin: 12/10/21 06:08 Dose: 0.5 mg Documented by: Meropenem 500 mg/ Syringe 10 mls @ 2 mls/min IV DAILY@1600 [facility]; Protocol Stop: 12/17/21 13:29 Last Admin: 12/10/21 13:19 Dose: 2 mls/min Documented by: Doxycycline Hyclate 100 mg/ (Dextrose) 110 mls @ 50 mls/hr IV Q12H [facility]; Protocol Stop: 12/17/21 11:29 Insulin Aspart (Insulin Aspart Per Unit) 0 units SC ACHS [facility] Stop: 01/09/22 11:29 Insulin Glargine (Insulin Glargine Solostar 100 Units/Ml 3 Ml Pen) 30 units SC AMHS [facility] Stop: 01/09/22 11:29 Levothyroxine Sodium (Levothyroxine Sodium 75 Mcg Tablet) 75 mcg PO DAILYBB [facility] Stop: 01/10/22 06:29 Metoprolol Tartrate (Metoprolol Tartrate 25 Mg Tab) 25 mg PO BID [facility] Stop: 01/09/22 11:29 Miscellaneous (Ferric Citrate (Auryxia)-Order Awaiting Action) 1 ea N/A QS [facility] Stop: 01/09/22 11:29 Miscellaneous Information (Meropenem Consult Active) 1 ea N/A UD PRN PRN Reason: Consult Stop: 01/09/22 10:41 Nitroglycerin (Nitroglycerin Sl 0.4 Mg/Tab Tab) 0.4 mg SL UD PRN PRN Reason: Chest Pain Stop: 01/09/22 10:41 Pantoprazole Sodium (Pantoprazole 40 Mg Tab) 40 mg PO DAILYBB [facility]ARRE[facility] Stop: 01/10/22 06:29 Polyethylene Glycol (Polyethylene (Miralax) 17 Gm Pack) 17 gm PO DAILY PRN PRN Reason: Constipation Stop: 01/09/22 10:41 Sertraline HCl (Sertraline Hcl 50 Mg Tablet) 50 mg PO DAILY [facility] Stop: 01/09/22 11:29 Tramadol HCl (Tramadol Hcl 50 Mg Tablet) 50 mg PO BID PRN PRN Reason: Pain, Severe Stop: 01/09/22 10:41 Vitamin D (Cholecalciferol 5,000 Units 125 Mcg Tab) 5,000 units PO DAILY [facility] Stop: 01/09/22 11:29 Warfarin Sodium (Warfarin Sod 5 Mg Tab) 10 mg PO Tu@1600 [facility] Stop: 01/13/22 15:59 Warfarin Sodium (Warfarin Sod 5 Mg Tab) 5 mg PO [email or web address]@1600 [facility] Stop: 01/09/22 15:59
[2021-12-10] MEDS ORDERED: PHARMACY GLYCEMIC MGMT CONSULT PRN (15:16)
--- NOTE | 2021-12-10 15:19 | Nephrology Consultation ---
Date of Consultation December 10, 2021 Assessment & Plan (1) ESRD (end stage renal disease) on dialysis: had 2L UF today w/4hr tx > plan another 3 hr tx tomorrow for 3 L, more if tolerated to optimize respiratory / volume status (2) Acute respiratory failure with hypoxia: from covid PNA and vol OL > dialyze (3) Wound, open, hip or thigh: BL hip wounds and L buttocks wound; has been debrided in past > she just est w/ wound clinic [facility] and their comment in chart is that this may be pressure ulcer versus calciphylaxis given presentation -agree w/ wound consult > in particular some discprepancy between [facility] and [facility] about whether debridement needed and w/ comment of calciphylaxis >concern this could be calciphylaxis but not a definite dx > pls d/w wound care; no inpt Derm evals; no bx warranted at this time -calciphylaxis risk ff include warfarin use, obesity, longstanding elevated MAY labs, location of these ulcers on thighs >> sodium thiosulfate not available here [facility] though asked pharmacist to double check; >recommend change warfarin to apixiban if she can afford after d/c >reluctant to change binders or D 3 dosing as this has been struggle as OP D/w Dr Weiss who will alert wound care or gen surg who will see him. History of Present Illness Reason for Consultation: ESRD on HD Requesting Physician: Dr Weiss Attending Physician: Hari Weiss MD History of Present Illness 66 y/o F whom I'm asked to evaluate for dialysis needs was admitted today after 2 falls at home and with a BL hip wounds and found incidentally to have covid. PMH includes ESRD on MWF HD via AVF under my care at [facility], type 2 diabetes w/ neuropathy, class 3 obesity, HTN, a fib, hyperlipidemia, postsurgical hypothyroidism, asthma; history of infiltrating ductal carcinoma of breast, generalized anxiety disorder, depression. Has been having significant pain/complications from BL hip wounds for which she follows w/ [facility]. Tells me she fell this am getting up to bathroom; was able w/ 's assist to get back up and sit on side of bed but subsequently slid down off bed and fell forward landing on her face. CT head, C spine unremarkable. She had an elevated troponin at admission but w/ unchanged ECG and other context clinically, cardiology did not feel this represents ACS. She arrived late to dialysis treatment on Monday (not like her) and had to come off early d/t pain in BL hip wounds. On arrival she was hypoxic needing 2L NC; also received pain medication for hips and empiric meropenem and doxycycline pending blood and wound cxs. CXR w/ pulm vascular congestion and PNA > she had HD today 4 hr w/ 2L UF. no chest pain, no sob, + ongoing but improving hip pain; + hunger and taking po; no LOC w/ falls. Allergies Allergy/AdvReac Type Severity Reaction Status Date / Time codeine Allergy Intermediate rash/hives Verified 12/10/21 02:38 (see comments) Penicillins Allergy Intermediate rash/hives, Verified 12/10/21 02:38 family allergy to PCN oxycodone AdvReac Intermediate N/V Verified 12/10/21 02:38 ROHAN Inhibitors AdvReac Mild hyperkalemi Verified 12/10/21 02:38 a Home Medications Medication Instructions Recorded Confirmed Type gabapentin 300 mg capsule 300 mg PO BID 04/15/20 12/10/21 History atorvastatin 80 mg tablet 80 mg PO QAM 06/26/20 12/10/21 History metoprolol tartrate 50 mg tablet 25 mg PO BID 06/26/20 12/10/21 History (Lopressor) aspirin 81 mg tablet,delayed 81 mg PO HS 07/02/20 12/10/21 History release omeprazole 40 mg capsule,delayed 40 mg PO DAILYBB 10/27/20 12/10/21 History release warfarin 5 mg tablet 5 mg PO UD 10/27/20 12/10/21 History albuterol sulfate 90 mcg/actuation 2 puff INHALATION Q4 PRN 12/10/21 12/10/21 History aerosol inhaler amlodipine 5 mg tablet 5 mg PO DAILY 12/10/21 12/10/21 History ascorbic acid (vitamin C) 500 mg 500 mg PO 3XWK 12/10/21 12/10/21 History tablet (Vitamin C) calcium acetate(phosphat bind) 667 667 mg PO UD 12/10/21 12/10/21 History mg capsule cholecalciferol (vitamin D3) 125 250 mcg PO DAILY 12/10/21 12/10/21 History mcg (5,000 unit) tablet (Vitamin D3) collagenase clostridium histo. 250 1 applic TOPICAL DAILY 12/10/21 12/10/21 History unit/gram topical ointment (Santyl) cyclobenzaprine 5 mg tablet 5 mg PO HS PRN 12/10/21 12/10/21 History diclofenac sodium 1 % topical gel 1 ea TOPICAL TID PRN 12/10/21 12/10/21 History doxycycline hyclate 100 mg capsule 100 mg PO QAM 12/10/21 12/10/21 History ferric citrate 210 mg iron tablet 210 mg PO UD 12/10/21 12/10/21 History (Auryxia) insulin aspart U-100 100 unit/mL 10 unit SUBCUT TID 12/10/21 12/10/21 History (3 mL) subcutaneous pen (Novolog Flexpen U-100 Insulin aspart) insulin glargine 100 unit/mL 30 unit SUBCUT AMHS 12/10/21 12/10/21 History subcutaneous solution (Lantus U-100 Insulin) levothyroxine 75 mcg tablet 75 mcg PO DAILYBB 12/10/21 12/10/21 History sertraline 50 mg tablet 50 mg PO DAILY 12/10/21 12/10/21 History tramadol 50 mg tablet 50 mg PO BID PRN 12/10/21 12/10/21 History Patient History Medical History (Updated 12/10/21 @ 17:40 by Lolis Cyr MD, PhD) Acute hyperglycemia Asthma well controlled Breast cancer, left hx (2012) s/p surgery- no chemo or XRT needed CAD (coronary artery disease) non-obstructive COPD (chronic obstructive pulmonary disease) well controlled Depression Diabetes mellitus, type 2 IDDM Diabetic neuropathy Elevated INR ESRD on dialysis M-W- ([facility]) Fistula RUE Gait disturbance occasional cane use (d/t diabetic neuropathy) GERD (gastroesophageal reflux disease) Hemorrhage of arteriovenous fistula History of blood transfusion in setting of abnormal uterine bleeding > subsequent hysterectomy Hyperlipemia Hypertension Hypothyroidism Obesity Osteoarthritis PVC (premature ventricular contraction) controlled on beta tristan SOBOE (shortness of breath on exertion) Spinal stenosis 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 Sparks 08/21/18) History of umbilical hernia repair Nausea and vomiting after administration of anesthetic agent Presence of permanent central venous catheter right chest (using dialysis currently) S/P arteriovenous (AV) fistula repair LUE/multiple repairs and "clean outs" Status post creation of arteriovenous fistula left forearm Family History Sister Family history of diabetes mellitus Family history of reaction to anesthesia wakes up with a headache-"FEELS WEIRD" Social History Smoking Status: Former smoker Tobacco Type: Cigarettes Age Quit Using Tobacco: 33; Second Hand Exposure: No; Hx Alcohol Use: No Hx Substance Use: No Preferred Language: Czech Communication Ability: Effective Hearing Ability: Normal Health Care Manager Required: No Beliefs That Will Affect Care: None marital status: Current Living Situation: Spouse current occupational status: disabled Other Information That Helps Us Care for You: No Feels Safe at Home: Yes Safety Concerns: Feels Safe At This Time Diet Comment: RENAL DIET caffeine: No during the past year weight has: remained stable Assistive Devices: Cane Review of Systems Review of Systems: All systems reviewed & are unremarkable except as noted in HPI & below Physical Exam Constitutional: well developed, well nourished, + morbidly obese and cooperative; no acute distress Eyes: EOM intact bilaterally ENMT: Ears: no external ear abnormality Nose: no external nose abnormality Mouth: + dry oral mucous membranes Neck: no nuchal rigidity Respiratory: normal respiratory effort Auscultation: + diminished lung sounds Cardiovascular: Rate/Rhythm: regular rate and regular rhythm Extremities: + edema (trace BLE + facial edema) and + AV fistula Gastrointestinal (Abdomen): Inspection/Auscultation: normal bowel sounds Percussion/Palpation: abdomen soft; abdomen nontender Musculoskeletal: Extremities: strength 5/5 throughout Skin: no rashes, warm and dry Neurologic: peguero, fluent speech, + BLUE tremors Psychiatric: Orientation: oriented x 3 (but still a bit confused/inappropriate) Results & Data ([facility]) Vital Signs (Past 12 Hours) Vital Signs Temp Pulse Pulse Resp BP BP Pulse Ox 12/10/21 15:10 83 137/76 12/10/21 14:30 83 112/64 12/10/21 14:00 83 112/64 12/10/21 13:30 83 121/78 12/10/21 13:00 87 117/66 12/10/21 12:30 83 106/78 12/10/21 12:00 82 101/66 12/10/21 11:30 80 119/75 12/10/21 11:23 36.8 C 82 12/10/21 10:42 81 12/10/21 09:49 36.5 C 82 18 134/64 99 12/10/21 08:30 77 11 L 105/68 100 12/10/21 08:15 78 11 L 99/61 L 99 12/10/21 08:00 78 10 L 103/63 99 12/10/21 07:45 79 11 L 107/64 99 12/10/21 07:30 81 12 103/78 98 12/10/21 07:15 84 15 91/79 L 97 12/10/21 07:00 85 18 115/68 97 12/10/21 06:45 85 23 115/64 97 12/10/21 06:31 86 13 96 12/10/21 06:30 85 17 96/68 L 96 12/10/21 06:16 86 19 93/71 L 96 12/10/21 06:15 87 15 95 12/10/21 06:00 96 H 85 24 93/71 L 97 12/10/21 05:45 94 H 22 110/78 98 12/10/21 05:30 97 H 24 126/92 99 12/10/21 05:16 96 H 26 H 124/71 97 12/10/21 05:15 94 H 25 H 96 12/10/21 05:01 93 H 17 148/70 H 98 12/10/21 05:00 92 H 15 97 12/10/21 04:45 93 H 15 113/70 98 12/10/21 04:30 94 H 17 115/86 96 12/10/21 04:15 96 H 14 107/63 93 12/10/21 04:00 105 H 97 H 19 115/67 115/67 97 12/10/21 03:59 110 H 19 119/71 95 12/10/21 03:56 97 12/10/21 03:45 92 H 16 98 12/10/21 03:30 92 H 20 126/72 99 12/10/21 03:24 95 H 19 123/79 89 L Pulse Ox 12/10/21 15:10 12/10/21 14:30 12/10/21 14:00 12/10/21 13:30 12/10/21 13:00 12/10/21 12:30 12/10/21 12:00 12/10/21 11:30 12/10/21 11:23 12/10/21 10:42 94 12/10/21 09:49 12/10/21 08:30 12/10/21 08:15 12/10/21 08:00 12/10/21 07:45 12/10/21 07:30 12/10/21 07:15 12/10/21 07:00 12/10/21 06:45 12/10/21 06:31 12/10/21 06:30 12/10/21 06:16 12/10/21 06:15 12/10/21 06:00 12/10/21 05:45 12/10/21 05:30 12/10/21 05:16 12/10/21 05:15 12/10/21 05:01 12/10/21 05:00 12/10/21 04:45 12/10/21 04:30 12/10/21 04:15 12/10/21 04:00 12/10/21 03:59 12/10/21 03:56 12/10/21 03:45 12/10/21 03:30 12/10/21 03:24 Laboratory Results 12/10/21 02:32 12/10/21 02:32 12/03/21 phos 6.7 (6-7s in 2021); ca 8.4 (8s); on 11/22/21 PTH 392 (200-800 in 2021) Diagnostic Findings imaging reviewed
--- NOTE | 2021-12-10 15:46 | Electrocardiogram Report ---
Test Reason : Blood Pressure : / mmHG Vent. Rate : 093 BPM Atrial Rate : 093 BPM P-R Int : 170 ms QRS Dur : 114 ms QT Int : 386 ms P-R-T Axes : 064 028 093 degrees QTc Int : 479 ms Normal sinus rhythm Septal infarct , age undetermined Abnormal ECG When compared with ECG of 27-OCT-2020 03:53, QRS duration has increased Septal infarct is now Present Confirmed by Rebel Mccray ([id number]) on 12/10/2021 3:46:11 PM Referred By: REFERRED SELF Confirmed By:Rebel Mccray
--- NOTE | 2021-12-10 16:03 | Electrocardiogram Report ---
Test Reason : Blood Pressure : / mmHG Vent. Rate : 087 BPM Atrial Rate : 087 BPM P-R Int : 152 ms QRS Dur : 100 ms QT Int : 396 ms P-R-T Axes : 067 043 084 degrees QTc Int : 476 ms Normal sinus rhythm Nonspecific ST and T wave abnormality Prolonged QT Abnormal ECG When compared with ECG of 10-DEC-2021 02:39, (unconfirmed) Criteria for Septal infarct are no longer Present Nonspecific T wave abnormality now evident in Inferior leads Confirmed by Rebel Mccray ([id number]) on 12/10/2021 4:02:49 PM Referred By: REFERRED SELF Confirmed By:Rebel Mccray
--- NOTE | 2021-12-10 16:06 | Hospitalist Progress Note ---
Date of Service December 10, 2021 Assessment & Plan (1) COVID-19: (2) Acute respiratory failure with hypoxia: Plan: ASSESSMENT AND PLAN: This 66-year-old female presents with fall and also had a right hip wound and was found to have COVID. 1. Right hip wound: The patient says follows with wound care at [place]. Empirically starting on meropenem as the patient is allergic to penicillins and also IV doxycycline. Follow the cultures. Follow the response. Wound care consult. Wound culture right thigh: Pending Blood cultures: Pending Continue meropenem plus doxycycline Wound care service consulted 2. Acute hypoxia secondary to COVID-19 pneumonia The patient is vaccinated and boosted. Does not have any cough or fever. She was somewhat hypoxic in the ER. Could be from the pulmonary congestion. Could not give remdesivir because of her kidney function. If continues to require oxygen can start on steroids. COVID precautions. Will monitor closely. 12/10 CT chest: Showing left lower lobe pneumonia Not a candidate for remdesivir secondary to ESRD, discussed with pharmacist Start Decadron 6 mg IV daily Monitor closely Incentive spirometry, flutter valve DVT prophylaxis with heparin, also on Coumadin 3. End-stage renal disease, on hemodialysis: Consult nephrology for dialysis. 12/10 Hemodialysis today 4.Hyponatremia, hyperkalemia. Sodium of 124, potassium 5.4, on dialysis. Nephro consulted. Troponin elevation Troponins increased from 300s to 2000s EKG no signs of acute ischemia Patient has no cardiac symptoms Discussed with Dr. Tidwell No intervention recommended at this point Abnormal CT findings: Narrowing of proximal trachea 50% likely secondary to adjacent esophageal mass --We will discuss with radiologist Near-complete collapse of the left upper lobe with severe narrowing of the left upper lobe bronchi. This could be due to chronic scarring from the granulomatous disease. Follow-up bronchoscopy should be considered to exclude the less likely possibility of a central obstructing mass. --Patient not in respiratory distress, breathing improved today according to the patient -- Will discuss with software validation engineer 5. Diabetes: Sugars are running high at 378. Will follow HbA1c levels. Will give one dose of iv insulin. Will continue home Lantus insulin sliding scale. Will follow the blood sugars closely. 12/10 Hyperglycemic Will consult pharmacy glycemic control 6. Anemia of chronic kidney disease: Hemoglobin of 9.1. Will follow the labs. 7. History of atrial fibrillation: Rate controlled with metoprolol, on Coumadin. INR is 1.4. Will place her on heparin subQ until INR is therapeutic. 8. Hypothyroidism: Continue Synthroid. 9. Hyperlipidemia: Continue statin. 10. Hypertension: Amlodipine and metoprolol. Will monitor the blood pressure. 11. Depression: On sertraline. 12. Gastroesophageal reflux disease: On omeprazole. 13. Asthma: Albuterol p.r.n. Currently, no active wheezing is heard. 14. History of left breast cancer, ER/NH positive, stage IA, HER-2 negative. Was treated with left breast mastectomy in 2012. 15. Elevation of troponin: hx of kidney disease. Will follow the serial enzymes,As trending up will consult cardiology.t. 16. Deep venous thrombosis prophylaxis: Heparin subcutaneous until INR is therapeutic. 17. Morbid obesity: Needs counseling. Level 1 full code. Expect to d/c home and follow with PCP. Social service to help with d/c planning Admission and Anticipated Discharge Date Admission Date: December 10, 2021 Subjective Follow-up for COVID-19 pneumonia with hypoxia etc. Seen resting in bed, comfortable, not in distress States breathing is okay overall On 2 L of oxygen by nasal cannula Reports pain on bilateral hip wound sites, relieved by pain medication Denies chest pain, headache palpitations, dizziness Denies changes with her breathing compared to baseline the past few days Denies dysphagia No other symptoms Review of Systems Review of Systems: all noted and negative except for above Physical Exam Physical Exam: General- oriented x 3, not in distress, speaks in sentences with no effort or accessory muscle use Eyes- anicteric Neck- no JVD Lungs- clear breath sounds bilaterally, no rales/wheezes Heart- normal rate, regular rhythm; no murmurs Abdomen- normal bowel sounds, nondistended, soft, nontender Extremities- no pretibial edema, no calf tenderness Neuro- alert, oriented x 3; no gross focal neurologic deficits Skin- warm & dry Results & Data Results & Data ([facility]) Vital Signs (Past 12 Hours) Vital Signs Temp Pulse Pulse Resp BP BP Pulse Ox 12/10/21 15:53 87 12/10/21 15:32 36.8 C 88 128/66 12/10/21 15:30 88 124/56 L 12/10/21 15:00 83 137/76 12/10/21 14:30 83 112/64 12/10/21 14:00 83 112/64 12/10/21 13:30 83 121/78 12/10/21 13:00 87 117/66 12/10/21 12:30 83 106/78 12/10/21 12:00 82 101/66 12/10/21 11:30 80 119/75 12/10/21 11:23 36.8 C 82 12/10/21 10:42 81 12/10/21 09:49 36.5 C 82 18 134/64 99 12/10/21 08:30 77 11 L 105/68 100 12/10/21 08:15 78 11 L 99/61 L 99 12/10/21 08:00 78 10 L 103/63 99 12/10/21 07:45 79 11 L 107/64 99 12/10/21 07:30 81 12 103/78 98 12/10/21 07:15 84 15 91/79 L 97 12/10/21 07:00 85 18 115/68 97 12/10/21 06:45 85 23 115/64 97 12/10/21 06:31 86 13 96 12/10/21 06:30 85 17 96/68 L 96 12/10/21 06:16 86 19 93/71 L 96 12/10/21 06:15 87 15 95 12/10/21 06:00 96 H 85 24 93/71 L 97 12/10/21 05:45 94 H 22 110/78 98 12/10/21 05:30 97 H 24 126/92 99 12/10/21 05:16 96 H 26 H 124/71 97 12/10/21 05:15 94 H 25 H 96 12/10/21 05:01 93 H 17 148/70 H 98 12/10/21 05:00 92 H 15 97 12/10/21 04:45 93 H 15 113/70 98 12/10/21 04:30 94 H 17 115/86 96 12/10/21 04:15 96 H 14 107/63 93 Pulse Ox 12/10/21 15:53 12/10/21 15:32 12/10/21 15:30 12/10/21 15:00 12/10/21 14:30 12/10/21 14:00 12/10/21 13:30 12/10/21 13:00 12/10/21 12:30 12/10/21 12:00 12/10/21 11:30 12/10/21 11:23 12/10/21 10:42 94 12/10/21 09:49 12/10/21 08:30 12/10/21 08:15 12/10/21 08:00 12/10/21 07:45 12/10/21 07:30 12/10/21 07:15 12/10/21 07:00 12/10/21 06:45 12/10/21 06:31 12/10/21 06:30 12/10/21 06:16 12/10/21 06:15 12/10/21 06:00 12/10/21 05:45 12/10/21 05:30 12/10/21 05:16 12/10/21 05:15 12/10/21 05:01 12/10/21 05:00 12/10/21 04:45 12/10/21 04:30 12/10/21 04:15
[2021-12-10] MEDS: amLODIPine BESYLATE 5 MG TAB PO SCH (16:19)
[2021-12-10] MEDS: CHOLECALCIFEROL 5,000 UNITS 125 MCG TAB PO SCH ×2 (16:20→16:24)
[2021-12-10] MEDS: GABAPENTIN 300 MG CAP PO SCH ×2 (16:20→20:52)
[2021-12-10] MEDS: PANTOprazole 40 MG TAB PO SCH (16:20)
[2021-12-10] MEDS: CALCIUM ACETATE 667 MG CAP/TAB PO SCH ×2 (16:21→18:04)
[2021-12-10] MEDS: SERTRALINE HCL 50 MG TABLET PO SCH (16:21)
[2021-12-10] MEDS: METOPROLOL TARTRATE 25 MG TAB PO SCH ×2 (16:22→20:52)
[2021-12-10] MEDS: ASCORBIC ACID 500 MG TAB PO SCH (16:23)
[2021-12-10] MEDS: ATORVASTATIN 40 MG TAB PO SCH (16:23)
[2021-12-10] MEDS: COLLAGENASE OINT 30 GM TUBE TOP SCH (16:25)
[2021-12-10] MEDS: DOXYCYCLINE HYCLATE 100 MG in DEXTROSE 5% 100 ML IV SCH ×2 (16:25→23:58)
[2021-12-10] MEDS: HEPARIN SOD 5,000 UNIT/0.5 ML VIAL SQ SCH ×2 (16:26→20:50)
[2021-12-10] MEDS: INSULIN ASPART PER UNIT SC SCH ×3 (16:27→20:42)
[2021-12-10] MEDS: INSULIN GLARGINE SOLOSTAR 100 UNITS/ML 3 ML PEN SC SCH ×2 (16:28→20:43)
[2021-12-10] MEDS: WARFARIN SOD 5 MG TAB PO SCH (16:29)
[2021-12-10] MEDS: dexAMETHasone 6 MG in SYRINGE 0 ML IV SCH (17:23)
[2021-12-10] MEDS ORDERED: SODIUM CHLORIDE 0.9% 1000ML 1,000 ML IV PRN (18:14)
[2021-12-10] MEDS ORDERED: FERRIC CITRATE PO PRN (20:10)
[2021-12-10] MEDS: ASPIRIN 81 MG ECTAB PO SCH (20:50)
[2021-12-11] MEDS: INSULIN ASPART PER UNIT SC SCH ×6 (00:02→20:27)
[2021-12-11] MEDS: HEPARIN SOD 5,000 UNIT/0.5 ML VIAL SQ SCH ×3 (02:50→20:26)
[2021-12-11] MEDS ORDERED: VANCOMYCIN CONSULT ACTIVE PRN (03:18)
[2021-12-11] MEDS ORDERED: VANCOMYCIN HCL 1,000 MG in SODIUM CHLORIDE 0.9% 250 ML IV SCH (03:30)
--- NOTE | 2021-12-11 03:44 | Pharmacy Report ---
Pharmacy [facility] Short Note - Date of Service December 11, 2021 - Assessment & Plan Assessment 66 year old F receiving Vancomycin + Meropenem for treatment of bacteremia (GPC in blood cx x 1). Plan Vancomycin * Patient received Vancomycin 2250mg (18mg/kg) loading dose x 1. * Patient is in ESRD on HD 3x/wk, so will obtain a random level with AM labs on 12/12. * Will redose based on levels. Meropenem * Continue Meropenem 500mg IV q24h as ordered. Pharmacy will continue to follow and will adjust dose/frequency as necessary. Thank you.
[2021-12-11] MEDS ORDERED: VANCOMYCIN HCL 2,250 MG in SODIUM CHLORIDE 0.9% 500 ML IV ONE (04:00)
[2021-12-11] MEDS: LEVOTHYROXINE SODIUM 75 MCG TABLET PO SCH (06:15)
[2021-12-11] MEDS ORDERED: SODIUM CHLORIDE 0.9% 1000ML 1,000 ML IV PRN (07:00)
[2021-12-11] MEDS ORDERED: EPOETIN ALFA 10,000 UNITS/ML VIAL IV ONE (07:00)
[2021-12-11] MEDS ORDERED: HEPARIN SOD (PORCINE) 1000 UNIT/ML IV ONE (07:00)
[2021-12-11 07:10] LABS: Basophils # (auto) 0.01 K/uL (0-0.2); Basophils % (auto) 0.1 %; Eosinophils # (auto) 0.01 K/uL (0-0.5); Eosinophils % (auto) 0.1 %; Hematocrit (blood only) 27.8 % (37-47); Hemoglobin 8.7 g/dL (12.0-16.0); Immature Granulocytes # (auto) 0.05 K/uL (0.00-0.02); Immature Granulocytes % (auto) 0.5 %; Lymphocytes # (auto) 0.52 K/uL (1.2-3.4); Lymphocytes % (auto) 5.3 %; Mean Corpuscular Hemoglobin 29.3 pg (25-34); Mean Corpuscular Hgb Conc 31.3 g/dL (32-36); Mean Corpuscular Volume 93.6 fL (80-100); Mean Platelet Volume 9.5 fL (7.4-10.4); Monocytes % (auto) 4.1 %; Neutrophils # (auto) 8.75 K/uL (1.4-6.5); Neutrophils % (auto) 89.9 %; Platelet Count 232 K/uL (130-400); RDW Coefficient of Variation 15.9 % (11.5-14.5); RDW Standard Deviation 53.5 fL (36.4-46.3); Red Blood Count 2.97 M/uL (4.2-5.4); White Blood Count 9.74 K/uL (4.8-10.8)
[2021-12-11 07:15] LABS: INR 1.3 (0.9-1.1); Prothrombin Time 13.2 Seconds (9.0-12.0)
[2021-12-11 07:32] LABS: BUN Creatinine Ratio 9.3 (10-20); Calcium 9.8 mg/dl (8.5-10.1); Creatinine Clr Calc Pharmacy 11.8 ml/min; Est GFR (African American) 7.5 ml/min; Est GFR (Non-African American) 6.5 ml/min
[2021-12-11] MEDS ORDERED: NON-FORMULARY PATIENT'S OWN MED PO SCH (08:00)
[2021-12-11 08:08] LABS: HBSAG NON-REACTIVE (NON-REACTIVE); Hepatitis B Surface Ab, Quant <5 mIU/mL (> OR = 10)
[2021-12-11] MEDS: CALCIUM ACETATE 667 MG CAP/TAB PO SCH ×3 (08:27→17:15)
[2021-12-11] MEDS: METOPROLOL TARTRATE 25 MG TAB PO SCH ×2 (08:29→20:28)
[2021-12-11] MEDS: SERTRALINE HCL 50 MG TABLET PO SCH (08:29)
[2021-12-11] MEDS: amLODIPine BESYLATE 5 MG TAB PO SCH (08:29)
[2021-12-11] MEDS: GABAPENTIN 300 MG CAP PO SCH ×2 (08:30→20:27)
[2021-12-11] MEDS: ATORVASTATIN 40 MG TAB PO SCH (08:30)
[2021-12-11] MEDS: COLLAGENASE OINT 30 GM TUBE TOP SCH (08:31)
[2021-12-11 08:56] LABS: Estimated Average Glucose 203 mg/dl; Hemoglobin A1C 8.7 % (4.5-5.6)
[2021-12-11] MEDS: INSULIN GLARGINE SOLOSTAR 100 UNITS/ML 3 ML PEN SC SCH ×2 (09:12→21:00)
[2021-12-11] MEDS: HYDROmorphone INJ 0.5 MG/0.5 ML SYR IV PRN ×3 (11:04→20:36)
--- NOTE | 2021-12-11 15:05 | Cardiology Progress Note ---
Date of Service December 11, 2021 Assessment & Plan (1) Elevated troponin: (2) COVID-19: (3) Wound, open, hip or thigh: Plan: 66 year old morbidly obese female with h/o nonobstructive CAD on past cardiac catheterization dating back to 2007, ESRD on HD, and chronic pressure ulcer of hip thigh presented after mechanical fall out of bed. She was not able to get up. EMS called to assist. Ultimately presented and was found to be COVID +. Pt currently not wearing her oxygen, with no complaints of SOB. At bedtime troponin peaked at 4517 PG per mL last evening at 17: 17, down to 3723 as of 22: 49 last evening. EKG without concerning changes for ischemia. Echocardiogram reveals normal LVEF, no significant wall motion abnormalities. CT of the chest revealed pulmonary edema and small bilateral pleural effusions. Near collapse of the left upper lobe. Patient with diastolic dysfunction in the setting of ESRD. Agree with ongoing hemodialysis to establish optimization of her volume status. I do not think her elevation in at bedtime troponin is due to an acute coronary syndrome, but likely due to strain in the setting of chronic renal insufficiency and multiple other issues. Continue medication therapy from a cardiac perspective including aspirin 81 mg daily, metoprolol, amlodipine, atorvastatin. Coumadin has been reinitiated by the admitting team. It appears she has had multiple issues with her HD access including thrombosis and bleeding problems an d is on coumadin for AF fistula thrombosis. I do not see that she has a chart h/o AF. Admission and Anticipated Discharge Date Admission Date: December 10, 2021 Subjective Pt seen in cardiology follow up of elevated HS troponin. Initial consultation performed by Dr Tidwell on 12/10/21. pt comfortable. In bed undergoing HD without any complaints. She is conversant. Denies any symptoms suggestive of angina. Telemetry reveals SR in the 70s. Review of Systems Review of Systems: All systems reviewed & are unremarkable except as noted in HPI & below Physical Exam Constitutional: + morbidly obese; no acute distress Cardiovascular: Rate/Rhythm: regular rate Heart Sounds: no murmur Vessels: no JVD Neurologic: PERRL, EOMI, accommodation nl, no face palsy, no dysarthria Results & Data ([facility]) Vital Signs (Past 12 Hours) Vital Signs Temp Pulse Pulse Resp BP Pulse Ox Pulse Ox 05/28/22 12:06 36.9 C 77 20 109/65 95 12/11/21 10:42 95 12/11/21 08:04 36.3 C L 79 20 123/68 98 12/11/21 08:00 80 12/11/21 04:35 93 H 12/11/21 04:00 36.8 C 81 20 110/76 96 Laboratory Results Cardiac Enzymes 12/10/21 12/10/21 Range/Units 17:17 22:49 Troponin I High Sens 4517.1 H* D 3723.0 H* (0-14) pg/ml Coagulation 12/11/21 Range/Units 06:26 PT 13.2 H (9.0-12.0) Seconds CBC 12/11/21 Range/Units 06:26 WBC 9.74 (4.8-10.8) K/uL RBC 2.97 L (4.2-5.4) M/uL Hgb 8.7 L (12.0-16.0) g/dL Hct 27.8 L (37-47) % Plt Count 232 (130-400) K/uL Neut # (Auto) 8.75 H (1.4-6.5) K/uL Lymph # (Auto) 0.52 L (1.2-3.4) K/uL Kaufman # (Auto) 0.40 (0.11-0.59) K/uL Eos # (Auto) 0.01 (0-0.5) K/uL Baso # (Auto) 0.01 (0-0.2) K/uL Comprehensive Metabolic Panel 12/11/21 Range/Units 06:26 Sodium 130 L (136-145) mmol/L Potassium 6.0 H (3.5-5.1) mmol/L Chloride 96 L (98-107) mmol/L Carbon Dioxide 24 (21-32) mmol/L BUN 58 H D (6-23) mg/dl Creatinine 6.25 H* D (0.6-1.2) mg/dl Glucose 156 H (70-99(Fasting)) mg/dl Calcium 9.8 (8.5-10.1) mg/dl Intake and Output 12/10/21 12/11/21 12/11/21 22:59 06:59 14:59 Intake Total 830 / 1000 110 / 1000 665 / 665 Balance 830 / 1000 110 / 1000 665 / 665 Intake: IV 110 / 220 110 / 220 545 / 545 Doxycycline Hyclate 100 mg In 110 / 220 110 / 220 Dextrose 5% 100 ml @ 50 mls/hr IV Q12H [facility] Rx#:[id number] Vancomycin HCl 2,250 mg In 545 / 545 Sodium Chloride 0.9% 500 ml @ 200 mls/hr IV 0400 ONE Rx#: [id number] Oral 720 / 780 120 / 120 Other: Hemodialysis Ultrafiltration 2,000 Amount # Unmeasured Voids 0 Weight 126 kg 126.2 kg Weight Measurement Method Built in [facility]
--- NOTE | 2021-12-11 15:48 | Hospitalist Progress Note ---
Date of Service December 11, 2021 Assessment & Plan (1) COVID-19: (2) Acute respiratory failure with hypoxia: Plan: ASSESSMENT AND PLAN: This 66-year-old female presents with fall and also had a right hip wound and was found to have COVID. 1. Right hip wound: The patient says follows with wound care at [facility] [place]. Empirically starting on meropenem as the patient is allergic to penicillins and also IV doxycycline. Follow the cultures. Follow the response. Wound care consult. Wound culture right thigh: gram negative bacilli Blood cultures: gram positive 1/2 bottles Continue meropenem day 2 General surgery consulted for possible debridement 2. Acute hypoxia secondary to COVID-19 pneumonia The patient is vaccinated and boosted. Does not have any cough or fever. She was somewhat hypoxic in the ER. Could be from the pulmonary congestion. Could not give remdesivir because of her kidney function. If continues to require oxygen can start on steroids. COVID precautions. Will monitor closely. 12/11 CT chest: Showing left lower lobe pneumonia Not a candidate for remdesivir secondary to ESRD, discussed with pharmacist Decadron 6 mg IV daily Day 2 remains on 2L NC Monitor closely Incentive spirometry, flutter valve DVT prophylaxis with heparin, also on Coumadin 3. End-stage renal disease, on hemodialysis: Consult nephrology for dialysis. Hemodialysis today 4.Hyponatremia, hyperkalemia. Sodium of 124, potassium 5.4, on dialysis. Ne alon consulted. Troponin elevation Troponins increased from 300s to 2000s EKG no signs of acute ischemia Patient has no cardiac symptoms Discussed with Dr. Tidwell No intervention recommended at this point Abnormal CT findings: Narrowing of proximal trachea 50% likely secondary to adjacent esophageal mass -- will discuss with radiologist Near-complete collapse of the left upper lobe with severe narrowing of the left upper lobe bronchi. This could be due to chronic scarring from the granulomatous disease. Follow-up bronchoscopy should be considered to exclude the less likely possibility of a central obstructing mass. --Patient not in respiratory distress, breathing improved today according to the patient -- Will discuss with assayer helper 5. Diabetes: Sugars are running high at 378. Will follow HbA1c levels. Will give one dose of iv insulin. Will continue home Lantus insulin sliding scale. Will follow the blood sugars closely. 12/11 Hyperglycemic--> improving consult pharmacy glycemic control 6. Anemia of chronic kidney disease: Hemoglobin of 9.1. --> 8.7 7. History of atrial fibrillation: Rate controlled with metoprolol, on Coumadin. INR is 1.3. Will place her on heparin subQ until INR is therapeutic. 8. Hypothyroidism: Continue Synthroid. 9. Hyperlipidemia: Continue statin. 10. Hypertension: Amlodipine and metoprolol. Will monitor the blood press ure.--> stable overall 11. Depression: On sertraline. 12. Gastroesophageal reflux disease: On omeprazole. 13. Asthma: Albuterol p.r.n. Currently, no active wheezing is heard. 14. History of left breast cancer, ER/CT positive, stage IA, HER-2 negative. Was treated with left breast mastectomy in 2012. 15. Elevation of troponin: hx of kidney disease. Will follow the serial enzymes,As trending up will consult cardiology.t. 16. Deep venous thrombosis prophylaxis: Heparin subcutaneous until INR is therapeutic. 17. Morbid obesity: Needs counseling. Level 1 full code. Expect to d/c home and follow with PCP. Social service to help with d/c planning plan of care discussed with patient in detail and at length all questions answered she is understanding, agreeable, comfortable with the plan of care Admission and Anticipated Discharge Date Admission Date: December 10, 2021 Subjective ff up for covid 19 pneumonia, BL hip infected ulcers, etc seen resting in bed, comfortable on 2 Liters NC in good spirits reports BL hip pain no fever/chills reports breathing is ok, no chest pain no dysphagia no other symptoms Review of Systems Review of Systems: all noted and negative except for above Physical Exam Physical Exam: General- oriented x 3, not in distress, speaks in sentences with no effort or accessory muscle use Eyes- anicteric Neck- no JVD Lungs- clear BS bilaterally, no rales/wheezes Heart- normal rate, regular rhythm; no murmurs Abdomen- normal bowel sounds, nondistended, soft, nontender Extremities- no pretibial edema, no calf tenderness R hip: open ulcer with necrotic tissues, yellow discharge L hip: eschar Neuro- alert, oriented x 3; no gross focal neurologic deficits Skin- warm & dry Results & Data Results & Data ([facility]) Vital Signs (Past 12 Hours) Vital Signs Temp Pulse Pulse Resp BP Pulse Ox Pulse Ox 12/11/21 15:19 77 12/11/21 12:06 36.9 C 77 20 109/65 95 12/11/21 10:42 95 12/11/21 08:04 36.3 C L 79 20 123/68 98 12/11/21 08:00 80 12/11/21 04:35 93 H 12/11/21 04:00 36.8 C 81 20 110/76 96 all noted and reviewed including below
[2021-12-11] MEDS: HEPARIN SOD (PORCINE) 1000 UNIT/ML IV SCH ×3 (16:45→17:15)
[2021-12-11] MEDS: dexAMETHasone 6 MG in SYRINGE 0 ML IV SCH (17:10)
[2021-12-11] MEDS: MEROPENEM 500 MG in SYRINGE 0 ML IV SCH (17:14)
[2021-12-11] MEDS: WARFARIN SOD 5 MG TAB PO SCH (17:14)
--- NOTE | 2021-12-11 17:14 | Surgery Consultation ---
Date of Consultation December 11, 2021 Assessment & Plan (1) Wound, open, hip or thigh: 66 yr old woman with multiple medical issues and bilateral hip ulcers. Left side does not appear to be infected, right side has more fibrinous debris but no pus, no erythema. Both areas may benefit from debridement in the OR ultimately but the timing of this is not urgent as neither appears very infected and she has active hypoxia from covid 19. Would ask wound care to see - consider wound vac for the right side. Once acute issues improve, can reconsult to see if timing is more appropriate for surgery. Discussed with Dr. Weiss. Will sign off. Thank you. (2) Acute respiratory failure with hypoxia: History of Present Illness Requesting Physician: Hari Weiss MD Attending Physician: Hari Weiss MD History of Present Illness 66 yr old woman with morbid obesity and bilateral hip ulcers admitted following a fall in her home. Hip ulcers have been present for some time. Had an office debridement with Dr. Rushing in early November which was very painful. Switched to wound clinic under Dr. Cyr at [place]. has been using a salve on the areas, feels the right side may be worsening. Fell while getting up yesterday. 911 called and needed a belt to lift her - this rubbed on the hip ulcers and was painful. Admitted and found to be covid 19 positive with hypoxia related to the same. Currently just completed dialysis, resting in bed. Allergies Allergy/AdvReac Type Severity Reaction Status Date / Time codeine Allergy Intermediate rash/hives Verified 12/10/21 02:38 (see comments) Penicillins Allergy Intermediate rash/hives, Verified 12/10/21 02:38 family allergy to PCN oxycodone AdvReac Intermediate N/V Verified 12/10/21 02:38 ROHAN Inhibitors AdvReac Mild hyperkalemi Verified 12/10/21 02:38 a Home Medications Medication Instructions Recorded Confirmed Type gabapentin 300 mg capsule 300 mg PO BID 04/15/20 12/10/21 History atorvastatin 80 mg tablet 80 mg PO QAM 06/26/20 12/10/21 History metoprolol tartrate 50 mg tablet 25 mg PO BID 06/26/20 12/10/21 History (Lopressor) aspirin 81 mg tablet,delayed 81 mg PO HS 07/02/20 12/10/21 History release omeprazole 40 mg capsule,delayed 40 mg PO DAILYBB 10/27/20 12/10/21 History release warfarin 5 mg tablet 5 mg PO UD 10/27/20 12/10/21 History albuterol sulfate 90 mcg/actuation 2 puff INHALATION Q4 PRN 12/10/21 12/10/21 History aerosol inhaler amlodipine 5 mg tablet 5 mg PO DAILY 12/10/21 12/10/21 History ascorbic acid (vitamin C) 500 mg 500 mg PO 3XWK 12/10/21 12/10/21 History tablet (Vitamin C) calcium acetate(phosphat bind) 667 667 mg PO UD 12/10/21 12/10/21 History mg capsule cholecalciferol (vitamin D3) 125 250 mcg PO DAILY 12/10/21 12/10/21 History mcg (5,000 unit) tablet (Vitamin D3) collagenase clostridium histo. 250 1 applic TOPICAL DAILY 12/10/21 12/10/21 History unit/gram topical ointment (Santyl) cyclobenzaprine 5 mg tablet 5 mg PO HS PRN 12/10/21 12/10/21 History diclofenac sodium 1 % topical gel 1 ea TOPICAL TID PRN 12/10/21 12/10/21 History doxycycline hyclate 100 mg capsule 100 mg PO QAM 12/10/21 12/10/21 History ferric citrate 210 mg iron tablet 210 mg PO UD 12/10/21 12/10/21 History (Auryxia) insulin aspart U-100 100 unit/mL 10 unit SUBCUT TID 12/10/21 12/10/21 History (3 mL) subcutaneous pen (Novolog Flexpen U-100 Insulin aspart) insulin glargine 100 unit/mL 30 unit SUBCUT AMHS 12/10/21 12/10/21 History subcutaneous solution (Lantus U-100 Insulin) levothyroxine 75 mcg tablet 75 mcg PO DAILYBB 12/10/21 12/10/21 History sertraline 50 mg tablet 50 mg PO DAILY 12/10/21 12/10/21 History tramadol 50 mg tablet 50 mg PO BID PRN 12/10/21 12/10/21 History Patient History Medical History Acute hyperglycemia Asthma well controlled Breast cancer, left hx (2012) s/p surgery- no chemo or XRT needed CAD (coronary artery disease) non-obstructive COPD (chronic obstructive pulmonary disease) well controlled Depression Diabetes mellitus, type 2 IDDM Diabetic neuropathy Elevated INR ESRD on dialysis M-W-F ([facility]) Fistula RUE Gait disturbance occasional cane use (d/t diabetic neuropathy) GERD (gastroesophageal reflux disease) Hemorrhage of arteriovenous fistula History of blood transfusion in setting of abnormal uterine bleeding > subsequent hysterectomy Hyperlipemia Hypertension Hypothyroidism Obesity Osteoarthritis PVC (premature ventricular contraction) controlled on beta tristan SOBOE (shortness of breath on exertion) Spinal stenosis 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 Sparks 08/21/18) History of umbilical hernia repair Nausea and vomiting after administration of anesthetic agent Presence of permanent central venous catheter right chest (using dialysis currently) S/P arteriovenous (AV) fistula repair LUE/multiple repairs and "clean outs" Status post creation of arteriovenous fistula left forearm Family History Sister Family history of diabetes mellitus Family history of reaction to anesthesia wakes up with a headache-"FEELS WEIRD" Social History Smoking Status: Former smoker Tobacco Type: Cigarettes Age Quit Using Tobacco: 33; Second Hand Exposure: No; Hx Alcohol Use: No Hx Substance Use: No Preferred Language: Khmer Communication Ability: Effective Hearing Ability: Normal Supervisor Quilting Required: No Beliefs That Will Affect Care: None marital status: Current Living Situation: Spouse current occupational status: disabled Other Information That Helps Us Care for You: No Feels Safe at Home: Yes Safety Concerns: Feels Safe At This Time Diet Comment: RENAL DIET caffeine: No during the past year weight has: remained stable Assistive Devices: Cane Physical Exam Constitutional: morbidly obese, wearing oxygen by NC Skin: focused exam reveals left sided hip ulcer with eschar, no fibrinous debris (8x 5 cm approx), no erythema Right sided hip ulcer with some fibrinous debris, eschar, no foul smell,no surrounding erythema, about 10 x 8 cm Results & Data ([facility]) Vital Signs (Past 12 Hours) Vital Signs Temp Pulse Pulse Pulse Resp BP BP 12/11/21 15:40 85 116/70 12/11/21 15:20 77 104/66 12/11/21 15:19 77 12/11/21 15:00 80 116/67 12/11/21 14:40 79 114/71 12/11/21 14:20 77 95/59 L 12/11/21 14:00 73 119/70 12/11/21 13:50 36.7 C 75 12/11/21 12:06 36.9 C 77 20 109/65 12/11/21 10:42 12/11/21 08:04 36.3 C L 79 20 123/68 12/11/21 08:00 80 Pulse Ox Pulse Ox 12/11/21 15:40 12/11/21 15:20 12/11/21 15:19 12/11/21 15:00 12/11/21 14:40 12/11/21 14:20 12/11/21 14:00 12/11/21 13:50 12/11/21 12:06 95 12/11/21 10:42 95 12/11/21 08:04 98 12/11/21 08:00
[2021-12-11] MEDS: ASPIRIN 81 MG ECTAB PO SCH (20:27)
[2021-12-12] MEDS: HEPARIN SOD 5,000 UNIT/0.5 ML VIAL SQ SCH ×3 (03:38→21:03)
[2021-12-12] MEDS: HYDROmorphone INJ 0.5 MG/0.5 ML SYR IV PRN ×5 (04:16→21:04)
[2021-12-12] MEDS: LEVOTHYROXINE SODIUM 75 MCG TABLET PO SCH (05:23)
[2021-12-12] MEDS: PANTOprazole 40 MG TAB PO SCH (05:23)
[2021-12-12] MEDS: INSULIN ASPART PER UNIT SC SCH ×4 (08:11→21:04)
[2021-12-12] MEDS: INSULIN GLARGINE SOLOSTAR 100 UNITS/ML 3 ML PEN SC SCH ×3 (08:14→21:04)
[2021-12-12] MEDS: ATORVASTATIN 40 MG TAB PO SCH (08:31)
[2021-12-12] MEDS: COLLAGENASE OINT 30 GM TUBE TOP SCH (08:32)
[2021-12-12] MEDS: CALCIUM ACETATE 667 MG CAP/TAB PO SCH ×3 (08:33→17:29)
[2021-12-12] MEDS: SERTRALINE HCL 50 MG TABLET PO SCH (08:33)
[2021-12-12] MEDS: CHOLECALCIFEROL 5,000 UNITS 125 MCG TAB PO SCH (08:33)
[2021-12-12] MEDS: METOPROLOL TARTRATE 25 MG TAB PO SCH ×2 (08:33→21:04)
[2021-12-12] MEDS: GABAPENTIN 300 MG CAP PO SCH ×2 (08:33→21:04)
[2021-12-12] MEDS: amLODIPine BESYLATE 5 MG TAB PO SCH (08:33)
[2021-12-12 08:39] LABS: INR 1.2 (0.9-1.1); Prothrombin Time 12.3 Seconds (9.0-12.0)
[2021-12-12] MEDS: traMADol HCL 50 MG TABLET PO PRN (12:35)
--- NOTE | 2021-12-12 13:27 | Electrocardiogram Report ---
Test Reason : Blood Pressure : / mmHG Vent. Rate : 078 BPM Atrial Rate : 078 BPM P-R Int : 164 ms QRS Dur : 102 ms QT Int : 382 ms P-R-T Axes : 072 061 104 degrees QTc Int : 435 ms Normal sinus rhythm Nonspecific ST and T wave abnormality Abnormal ECG When compared with ECG of 10-DEC-2021 13:26, No significant change was found Confirmed by Benito Ingram ([id number]) on 12/12/2021 1:27:23 PM Referred By: REFERRED SELF Confirmed By:Benito Ingram
--- NOTE | 2021-12-12 13:38 | Pharmacy Report ---
Pharmacy Glycemic Short Note 2 - Date of Service December 12, 2021 - Glycemic Short BSG Results (Last 24 hours): 12/11/21 12/11/21 12/12/21 16:01 20:25 08:03 POC Glucose 99 94 223 H 12/12/21 12:01 POC Glucose 131 H OUTPATIENT ANTIDIABETIC REGIMEN: * Lantus 30 units SQ BID * Novolog 13 units SQ TID with meals * HbA1c: 8.7% (12/11/21) ASSESSMENT: * Ms Valdes is a 66yo diabetic F admitted with COVID-19. * She is currently receiving IV dexamethasone daily, which is expected to contribute to significant steroid-induced hyperglycemia. * Pt is also receiving Vancomycin and Meropenem for R hip wound/infection. * Pt receives hemodialysis Monday, Monday, Monday. * Fasting BSG was above goal this morning, so Lantus was increased. Novolog parameters appear to be appropriate, but may be slightly too aggressive. Will loosen slightly. PLAN FOR INPATIENT GLYCEMIC CONTROL: * Hold outpatient oral diabetes medications * Basal insulin * Lantus 40 units SQ BID * Bolus insulin * NovoLog per scale ACHS or Q6hrs while NPO * Goal Range: Low 110 mg/dL - High 140 mg/dL * Correction Factor: 15 mg/dL/unit * Nutritional / Prandial insulin per carb ratio of 1 unit per 6 grams CHO consumed
--- NOTE | 2021-12-12 14:03 | Electrocardiogram Report ---
Test Reason : Blood Pressure : / mmHG Vent. Rate : 084 BPM Atrial Rate : 084 BPM P-R Int : 164 ms QRS Dur : 110 ms QT Int : 368 ms P-R-T Axes : 062 041 116 degrees QTc Int : 434 ms Normal sinus rhythm Incomplete left bundle block Diffuse Nonspecific ST and T wave abnormality Abnormal ECG When compared with ECG of 11-DEC-2021 06:11, No significant change Confirmed by Benito Ingram ([id number]) on 12/12/2021 2:02:56 PM Referred By: REFERRED SELF Confirmed By:Benito Ingram
[2021-12-12] MEDS: dexAMETHasone 6 MG in SYRINGE 0 ML IV SCH (16:05)
[2021-12-12] MEDS: MEROPENEM 500 MG in SYRINGE 0 ML IV SCH (16:05)
--- NOTE | 2021-12-12 16:32 | Hospitalist Progress Note ---
Date of Service December 12, 2021 Assessment & Plan (1) COVID-19: (2) Acute respiratory failure with hypoxia: Plan: ASSESSMENT AND PLAN: This 66-year-old female presents with fall and also had a right hip wound and was found to have COVID. 1. Right hip wound: The patient says follows with wound care at [place]. Empirically starting on meropenem as the patient is allergic to penicillins and also IV doxycycline. Follow the cultures. Follow the response. Wound care consult. Wound culture right thigh: Proteus, gram negative bacilli Blood cultures: gram positive 1/2 bottles Continue meropenem day 3 General surgery consulted for possible debridement: not recommended at this time, continue wound care daily ID consulted for antibiotic recommendation 2. Acute hypoxia secondary to COVID-19 pneumonia The patient is vaccinated and boosted. Does not have any cough or fever. She was somewhat hypoxic in the ER. Could be from the pulmonary congestion. Could not give remdesivir because of her kidney function. If continues to require oxygen can start on steroids. COVID precautions. Will monitor closely. 12/12 CT chest: Showing left lower lobe pneumonia Not a candidate for remdesivir secondary to ESRD, discussed with pharmacist Decadron 6 mg IV daily Day 3 remains on 2L NC stable overall Monitor closely Incentive spirometry, flutter valve DVT prophylaxis with heparin, also on Coumadin 3. End-stage renal disease, on hemodialysis: Consult nephrology for dialysis. 12/12 Hemodialysis per nephro 4.Hyponatremia, hyperkalemia. Sodium of 124, potassium 5.4, on dialysis. Nephro consulted. Troponin elevation Troponins increased from 300s to 2000s EKG no signs of acute ischemia Patient has no cardiac symptoms Discussed with Dr. Tidwell No intervention recommended at this point Abnormal CT findings: Narrowing of proximal trachea 50% likely secondary to adjacent esophageal mass -- will discuss with radiologist Near-complete collapse of the left upper lobe with severe narrowing of the left upper lobe bronchi. This could be due to chronic scarring from the granulomatous disease. Follow-up bronchoscopy should be considered to exclude the less likely possibility of a central obstructing mass. -- Patient not in respiratory distress, breathing improved today according to the patient -- Will discuss with hostel manager 5. Diabetes: Sugars are running high at 378. Will follow HbA1c levels. Will give one dose of iv insulin. Will continue home Lantus insulin sliding scale. Will follow the blood sugars closely. 12/12 Hyperglycemic--> improving consult pharmacy glycemic control 6. Anemia of chronic kidney disease: Hemoglobin of 9.1. --> 8.7 7. History of atrial fibrillation: Rate controlled with metoprolol, on Coumadin. INR is 1.3. heparin subQ until INR is therapeutic. 8. Hypothyroidism: Continue Synthroid. 9. Hyperlipidemia: Continue statin. 10. Hypertension: Amlodipine and metoprolol. Will monitor the blood pressure.--> stable overall 11. Depression: On sertraline. 12. Gastroesophageal reflux disease: On omeprazole. 13. Asthma: Albuterol p.r.n. Currently, no active wheezing is heard. 14. History of left breast cancer, ER/VT positive, stage IA, HER-2 negative. Was treated with left breast mastectomy in 2012. 15. Elevation of troponin: hx of kidney disease. Will follow the serial enzymes,As trending up will consult cardiology.t. 16. Deep venous thrombosis prophylaxis: Heparin subcutaneous until INR is therapeutic. 17. Morbid obesity: Needs counseling. Level 1 full code. Expect to d/c home and follow with PCP. Social service to help with d/c planning plan of care discussed with patient in detail and at length all questions answered she is understanding, agreeable, comfortable with the plan of care Admission and Anticipated Discharge Date Admission Date: December 10, 2021 Subjective ff up for covid 19 pneumonia, R hip ulcer infection, etc seen resting in bed, comfortable on 2 L states breathing is fine, no dyspnea still having pain on the hip ulcers no other new symptoms Review of Systems Review of Systems: all noted and negative except for above Physical Exam Physical Exam: General- oriented x 3, not in distress, speaks in sentences with no effort or accessory muscle use Eyes- anicteric Neck- no JVD Lungs- clear BS bilaterally, no rales/wheezes Heart- normal rate, regular rhythm; no murmurs Abdomen- normal bowel sounds, nondistended, soft, nontender Extremities- no pretibial edema, no calf tenderness Neuro- alert, oriented x 3; no gross focal neurologic deficits Skin- warm & dry Results & Data Results & Data ([facility]) Vital Signs (Past 12 Hours) Vital Signs Temp Pulse Pulse Resp BP Pulse Ox Pulse Ox 12/12/21 15:45 82 12/12/21 12:20 36.9 C 71 18 148/51 H 96 12/12/21 10:00 94 12/12/21 08:19 36.5 C 80 18 165/52 H 96 12/12/21 08:01 36.5 C 80 20 165/52 H 96 12/12/21 08:00 75 all noted and reviewed including below
[2021-12-12] MEDS ORDERED: WARFARIN SOD 7.5 MG TAB PO ONE (16:34)
[2021-12-12] MEDS: WARFARIN SOD 5 MG TAB PO SCH (18:23)
[2021-12-12] MEDS: ASPIRIN 81 MG ECTAB PO SCH (21:03)
[2021-12-13] MEDS: HEPARIN SOD 5,000 UNIT/0.5 ML VIAL SQ SCH ×3 (03:06→19:52)
[2021-12-13] MEDS: HYDROmorphone INJ 0.5 MG/0.5 ML SYR IV PRN ×2 (03:14→06:22)
[2021-12-13] MEDS: traMADol HCL 50 MG TABLET PO PRN ×2 (05:22→12:57)
[2021-12-13] MEDS: LEVOTHYROXINE SODIUM 75 MCG TABLET PO SCH (05:22)
[2021-12-13] MEDS: PANTOprazole 40 MG TAB PO SCH (05:22)
[2021-12-13] MEDS ORDERED: EPOETIN ALFA 20,000 UNITS/ML VIAL IV ONE (07:00)
[2021-12-13] MEDS ORDERED: SODIUM CHLORIDE 0.9% 1000ML 1,000 ML IV PRN (07:00)
[2021-12-13] MEDS ORDERED: HEPARIN SOD (PORCINE) 1000 UNIT/ML IV SCH (07:00)
[2021-12-13] MEDS: METOPROLOL TARTRATE 25 MG TAB PO SCH ×2 (07:38→21:12)
[2021-12-13] MEDS: amLODIPine BESYLATE 5 MG TAB PO SCH (07:38)
[2021-12-13 07:42] LABS: INR 1.3 (0.9-1.1); Prothrombin Time 13.4 Seconds (9.0-12.0)
[2021-12-13] MEDS: INSULIN GLARGINE SOLOSTAR 100 UNITS/ML 3 ML PEN SC SCH ×2 (07:56→21:29)
[2021-12-13] MEDS: COLLAGENASE OINT 30 GM TUBE TOP SCH (08:11)
[2021-12-13] MEDS: CALCIUM ACETATE 667 MG CAP/TAB PO SCH ×3 (08:11→15:59)
[2021-12-13] MEDS: ATORVASTATIN 40 MG TAB PO SCH (08:12)
[2021-12-13] MEDS: GABAPENTIN 300 MG CAP PO SCH ×2 (08:12→21:12)
[2021-12-13] MEDS: CHOLECALCIFEROL 5,000 UNITS 125 MCG TAB PO SCH (08:12)
[2021-12-13] MEDS: SERTRALINE HCL 50 MG TABLET PO SCH (08:12)
[2021-12-13] MEDS: INSULIN ASPART PER UNIT SC SCH ×4 (08:22→21:26)
[2021-12-13 10:51] LABS: Base Excess VBG -4.2 mEq/L; pH VBG 7.24 (7.36-7.41)
[2021-12-13] MEDS: ASCORBIC ACID 500 MG TAB PO SCH (12:37)
[2021-12-13] MEDS: HEPARIN SOD (PORCINE) 1000 UNIT/ML IV SCH (13:59)
[2021-12-13] MEDS: ACETAMINOPHEN 1,000 MG/100 ML VIAL IV PRN ×2 (14:38→22:07)
[2021-12-13] MEDS: MEROPENEM 500 MG in SYRINGE 0 ML IV SCH (14:39)
[2021-12-13] MEDS: dexAMETHasone 6 MG in SYRINGE 0 ML IV SCH (15:59)
--- NOTE | 2021-12-13 17:41 | Hospitalist Progress Note ---
Date of Service December 13, 2021 Assessment & Plan (1) COVID-19: (2) Acute respiratory failure with hypoxia: Plan: ASSESSMENT AND PLAN: This 66-year-old female presents with fall and also had a right hip wound and was found to have COVID. 1. Infected chronic right hip ulcer: The patient says follows with wound care at [place]. Wound culture right thigh: Proteus, E. coli-both sensitive to ceftriaxone Blood cultures: Coag negative staph not lugdunensis Transition from meropenem (received for 3 days) to ceftriaxone IV day #1 General surgery consulted for possible debridement: not recommended at this time, continue wound care daily ID consulted for antibiotic recommendations Chronic left hip wound Eschar noted No signs of infection 2. Acute hypoxia secondary to COVID-19 pneumonia The patient is vaccinated and boosted. Does not have any cough or fever. She was somewhat hypoxic in the ER. Could be from the pulmonary congestion. Could not give remdesivir because of her kidney function. If continues to require oxygen can start on steroids. COVID precautions. Will monitor closely. 12/13 CT chest: Showing left lower lobe pneumonia Not a candidate for remdesivir secondary to ESRD, discussed with pharmacist Decadron 6 mg IV daily Day 4 remains on 2L NC Drowsy today Likely secondary to IV Dilaudid Hold IV Dilaudid ABG showing hypercapnia, BiPAP ordered Repeat ABG at 5 PM pending Incentive spirometry, flutter valve DVT prophylaxis with heparin, also on Coumadin 3. End-stage renal disease, on hemodialysis: Consult nephrology for dialysis. 12/13 Hemodialysis per nephro 4.Hyponatremia, hyperkalemia. Sodium of 124, potassium 5.4, on dialysis. Nephro consulted. Troponin elevation Troponins increased from 300s to 2000s EKG no signs of acute ischemia Patient has no cardiac symptoms Discussed with Dr. Tidwell No intervention recommended at this point Abnormal CT findings: Narrowing of proximal trachea 50% likely secondary to adjacent esophageal mass -- Discussed with Dr. Hill: [place] to be from tracheomalacia Recommend BiPAP Near-complete collapse of the left upper lobe with severe narrowing of the left upper lobe bronchi. This could be due to chronic scarring from the granulomatous disease. Follow-up bronchoscopy should be considered to exclude the less likely possibility of a central obstructing mass. -- Discussed with Dr. Hill: [place] to be chronic fibrosis, no further intervention recommended 5. Diabetes: Sugars are running high at 378. 5/30 A1c 8.7 Hyperglycemic--> improving consult pharmacy glycemic control 6. Anemia of chronic kidney disease: Hemoglobin of 9.1. --> 8.7 7. History of atrial fibrillation: Rate controlled with metoprolol, on Coumadin. INR is 1.3. heparin subQ until INR is therapeutic. Coumadin 10 mg today 8. Hypothyroidism: Continue Synthroid. 9. Hyperlipidemia: Continue statin. 10. Hypertension: Amlodipine and metoprolol Will monitor the blood pressure.--> stable overall 11. Depression: On sertraline. 12. Gastroesophageal reflux disease: On omeprazole. 13. Asthma: Albuterol p.r.n. Not in exacerbation 14. History of left breast cancer, ER/[place] positive, stage IA, HER-2 negative. Was treated with left breast mastectomy in 2012. 15. Elevation of troponin: hx of kidney disease. Troponin elevation likely secondary to COVID, demand ischemia No further cardiac intervention recommended 16. Deep venous thrombosis prophylaxis: Heparin subcutaneous until INR is therapeutic. 17. Morbid obesity: Needs counseling. Level 1 full code. Disposition Pending Patient may need to transition to rehab upon discharge plan of care discussed with patient in detail and at length all questions answered she is understanding, agreeable, comfortable with the plan of care Admission and Anticipated Discharge Date Admission Date: December 10, 2021 Subjective Follow-up for COVID-19 pneumonia, hypoxia, etc. Noted to be drowsy this morning On exam, patient sitting up in bed, on 2 L of oxygen, but sleeping but easily awakened Appears drowsy States she feels fine overall Received Dilaudid around 6:30 AM this morning No changes with breathing, breathing is okay overall, no cough Still having some pain over the right hip No other symptoms Discussed with patient that due to her drowsiness, will hold Dilaudid and try tramadol as needed She is agreeable with the plan Review of Systems Review of Systems: all noted and negative except for above Physical Exam Physical Exam: General- oriented x 3, not in distress, speaks in sentences with no effort or accessory muscle use Drowsy Eyes- anicteric Neck- no JVD Lungs- clear breath sounds bilaterally, no wheezing, no crackles noted Heart- normal rate, regular rhythm; no murmurs Abdomen- normal bowel sounds, nondistended, soft, nontender Extremities- no pretibial edema, no calf tenderness Right hip: Dressing in place No bleeding or discharge No surrounding hematoma, erythema/tenderness Neuro- alert, oriented x 3; no new gross focal neurologic deficits Skin- warm & dry Results & Data [facility] Vital Signs (Past 12 Hours) Vital Signs Temp Pulse Pulse Pulse Resp BP BP 12/13/21 16:17 37.1 C 80 19 94/55 L 12/13/21 15:38 87 22 12/13/21 15:20 37 C 91 H 152/67 H 12/13/21 14:50 97 H 12/13/21 14:45 77 137/84 12/13/21 14:15 92 H 125/68 12/13/21 13:45 91 H 131/62 12/13/21 13:37 37 C 95 H 12/13/21 11:34 36.8 C 100 H 20 137/50 L 12/13/21 08:00 102 H Pulse Ox 12/13/21 16:17 92 12/13/21 15:38 100 12/13/21 15:20 12/13/21 14:50 12/13/21 14:45 12/13/21 14:15 12/13/21 13:45 12/13/21 13:37 12/13/21 11:34 92 12/13/21 08:00 all noted and reviewed including below
[2021-12-13 17:56] LABS: Base Excess VBG -4.2 mEq/L; Oxygen Saturation VBG 88.3 %; pH VBG 7.29 (7.36-7.41)
[2021-12-13] MEDS ORDERED: WARFARIN SOD 10 MG TAB PO ONE (18:00)
[2021-12-13] MEDS: cefTRIAXone SODIUM 2,000 MG in DEXTROSE 5% 50 ML IV SCH (19:53)
[2021-12-13] MEDS: ASPIRIN 81 MG ECTAB PO SCH (21:11)
[2021-12-14] MEDS: HEPARIN SOD 5,000 UNIT/0.5 ML VIAL SQ SCH ×3 (04:02→20:15)
[2021-12-14] MEDS: LEVOTHYROXINE SODIUM 75 MCG TABLET PO SCH (05:36)
[2021-12-14] MEDS: PANTOprazole 40 MG TAB PO SCH (06:09)
[2021-12-14] MEDS: ACETAMINOPHEN 1,000 MG/100 ML VIAL IV PRN (06:22)
[2021-12-14] MEDS: INSULIN ASPART PER UNIT SC SCH ×4 (08:31→20:15)
[2021-12-14] MEDS: GABAPENTIN 300 MG CAP PO SCH ×2 (08:56→20:17)
[2021-12-14] MEDS: ATORVASTATIN 40 MG TAB PO SCH (08:56)
[2021-12-14] MEDS: amLODIPine BESYLATE 5 MG TAB PO SCH (08:56)
[2021-12-14 08:57] LABS: INR 1.6 (0.9-1.1); Prothrombin Time 16.8 Seconds (9.0-12.0)
[2021-12-14] MEDS: SERTRALINE HCL 50 MG TABLET PO SCH (08:57)
[2021-12-14] MEDS: METOPROLOL TARTRATE 25 MG TAB PO SCH ×2 (08:57→19:58)
[2021-12-14] MEDS: CHOLECALCIFEROL 5,000 UNITS 125 MCG TAB PO SCH (08:58)
[2021-12-14] MEDS: CALCIUM ACETATE 667 MG CAP/TAB PO SCH ×3 (08:58→17:52)
[2021-12-14] MEDS: COLLAGENASE OINT 30 GM TUBE TOP SCH (08:59)
[2021-12-14] MEDS: INSULIN GLARGINE SOLOSTAR 100 UNITS/ML 3 ML PEN SC SCH ×2 (09:00→21:16)
--- NOTE | 2021-12-14 09:18 | Nephrology Progress Note ---
Date of Service December 14, 2021 Assessment & Plan Admission and Anticipated Discharge Date Admission Date: December 10, 2021 Subjective Assessment & Plan (1) ESRD (end stage renal disease) on dialysis: She is not letting us do full dialysis--Both Monday and Monday she shortened because of HIp pain . But hip pain happens regardless of the Dialysis. Still has e/o fluid overload with Resp failure. Still on 4 liters o2. will also do daily renal panel given issues with High K and also non adherence. Next dialysis tomorrow for 4 hrs and take 3-4 kilo off. 2k bath (2) Acute respiratory failure with hypoxia: from covid PNA and vol OL > dialyze. Like to do cxr today (3) Wound, open, hip or thigh: BL hip wounds and L buttocks wound; has been debrided in past > she just est w/ wound clinic [place] and their comment in chart is that this may be pressure ulcer versus calciphylaxis given presentation -agree w/ wound consult > in particular some discrepancy between [facility] and [facility] about whether debridement needed and w/ comment of calciphylaxis concern this could be calciphylaxis but not a definite dx --Would need skin biopsy to know for sure. Physical Exam Constitutional: well developed, well nourished, + morbidly obese and cooperative; no acute distress Eyes: EOM intact bilaterally ENMT: Ears: no external ear abnormality Nose: no external nose abnormality Mouth: + dry oral mucous membranes Neck: no nuchal rigidity Respiratory: normal respiratory effort Auscultation: + diminished lung sounds Cardiovascular: Rate/Rhythm: regular rate and regular rhythm Extremities: + edema (trace BLE + facial edema) and + AV fistula Gastrointestinal (Abdomen): Inspection/Auscultation: normal bowel sounds Percussion/Palpation: abdomen soft; abdomen nontender Musculoskeletal: Extremities: strength 5/5 throughout Skin: no rashes, warm and dry Neurologic: peguero, fluent speech, + BLUE tremors Psychiatric: Orientation: oriented x 3 (but still a bit confused/inappropriate ) Results & Data ([facility]) Vital Signs (Past 12 Hours) Vital Signs Temp Pulse Pulse Resp BP Pulse Ox 12/14/21 07:26 36.5 C 76 20 144/56 H 97 12/13/21 22:18 83
[2021-12-14] MEDS: traMADol HCL 50 MG TABLET PO PRN ×2 (10:24→22:39)
--- NOTE | 2021-12-14 10:40 | XRay Report ---
XR chest 1V portable CLINICAL HISTORY: resp failure TECHNIQUE: Single frontal radiograph of the chest was obtained. Comparison: Comparison is made to chest radiograph 11/20/2021 FINDINGS: No lines and tubes are seen. The cardiomediastinal silhouette is normal. Linear opacities are again s een in the left upper lobe. Pulmonary vasculature is somewhat less prominent than on the prior exam. No evidence of pleural effusion or pneumothorax. IMPRESSION: Interval improvement in pulmonary edema. Atelectasis is in the left upper lobe. ACT 112: Negative or not required by law. Electronically signed by: Lux Burk M.D. 12/14/2021 10:38 AM
[2021-12-14] MEDS ORDERED: WARFARIN SOD 5 MG TAB PO SCH (16:00)
--- NOTE | 2021-12-14 16:59 | Hospitalist Progress Note ---
Date of Service December 14, 2021 Assessment & Plan (1) Acute respiratory failure with hypoxia: (2) COVID-19: Plan: (1) COVID-19: (2) Acute respiratory failure with hypoxia: Plan: ASSESSMENT AND PLAN: This 66-year-old female presents with fall and also had a right hip wound and was found to have COVID. 1. Infected chronic right hip ulcer: Calciphylaxis? The patient says follows with wound care at [place]. Wound culture right thigh: Proteus, E. coli-both sensitive to ceftriaxone Blood cultures: Coag negative staph not lugdunensis Transition from meropenem (received for 3 days) to ceftriaxone IV day #2 General surgery consulted for possible debridement: not recommended at this time, continue wound care daily ID consulted for antibiotic recommendations: Awaiting recommendations For pain management, continue tramadol, scheduled Tylenol Patient received IV Dilaudid earlier during admission, developed lethargy, CO2 retention, resolved with BiPAP Avoid narcotics Chronic left hip wound Eschar noted No signs of infection 2. Acute hypoxia secondary to COVID-19 pneumonia The patient is vaccinated and boosted. Does not have any cough or fever. She was somewhat hypoxic in the ER. Could be from the pulmonary congestion. Could not give remdesivir because of her kidney function. If continues to require oxygen can start on steroids. COVID precautions. Will monitor closely. 12/14 CT chest: Showing left lower lobe pneumonia Not a candidate for remdesivir secondary to ESRD, discussed with pharmacist Decadron 6 mg IV daily Day 11/20 Wean off oxygen accordingly Incentive spirometry, flutter valve DVT prophylaxis with heparin, also on Coumadin 3. End-stage renal disease, on hemodialysis:Consult nephrology for dialysis. 12/14 Hemodialysistomorrow per nephro 4.Hyponatremia, hyperkalemia.Sodium of 124, potassium 5.4, on dialysis. Nephro consulted. Troponin elevation Troponins increased from 300s to 2000s EKG no signs of acute ischemia Patient has no cardiac symptoms Discussed with Dr. Tidwell No intervention recommended at this point Abnormal CT findings: Narrowing of proximal trachea 50% likely secondary to adjacent esophageal mass -- Discussed with Dr. Hill: [place] to be from tracheomalacia Recommend BiPAP Patient denies shortness of breath while sleeping, daytime drowsiness, narcolepsy Near-complete collapse of the left upper lobe with severe narrowing of the left upper lobe bronchi. This could be due to chronic scarring from the granulomatous disease. Follow-up bronchoscopy should be considered to exclude the less likely possibility of a central obstructing mass. -- Discussed with Dr. Hill: [place] to be chronic fibrosis, no further in tervention recommended 5. Diabetes: Sugars are running high at 378. 5/31 A1c 8.7 Hyperglycemic--> improving consult pharmacy glycemic control 6. Anemia of chronic kidney disease: Hemoglobin of 9.1. --> 8.7 7. History of atrial fibrillation: Rate controlled with metoprolol, on Coumadin. INR is 1.6 Continue Coumadin 10 mg today heparin subQ until INR is therapeutic. 8. Hypothyroidism: Continue Synthroid. 9. Hyperlipidemia: Continue statin. 10. Hypertension: Amlodipine and metoprolol Will monitor the blood pressure.--> stable overall 11. Depression: On sertraline. 12. Gastroesophageal reflux disease: On omeprazole. 13. Asthma: Albuterol p.r.n. Not in exacerbation 14. History of left breast cancer, ER/AL positive, stage IA, HER-2 negative. Was treated with left breast mastectomy in 2012. 15. Elevation of troponin ESRD Troponin elevation likely secondary to COVID, demand ischemia No further cardiac intervention recommended 16. Deep venous thrombosis prophylaxis: Heparin subcutaneous until INR is therapeutic. INR 1.6 continue Coumadin 17. Morbid obesity: Needs counseling. Level 1 full code. Disposition Patient will need to transition to rehab when medically stable Patient agreeable plan of care discussed with patient in detail and at length all questions answered she is understanding, agreeable, comfortable with the plan of care Admission and Anticipated Discharge Date Admission Date: December 10, 2021 Subjective Follow-up for COVID-19 pneumonia, ESRD, infected right hip chronic ulcer, etc. Seen resting in bed, not in distress, comfortable On 2 L of oxygen via nasal cannula States she feels improved overall No shortness of breath, cough, fevers or chills Has right hip pain with movement No bowel movement since 3 days ago, no nausea or vomiting No other symptoms Review of Systems Review of Systems: all noted and negative except for above Physical Exam Physical Exam: General- oriented x 3, not in distress, speaks in sentences wi th no effort or accessory muscle use Eyes- anicteric Neck- no JVD Lungs-mild rhonchi at the left base, clear on the right No wheezing Heart- normal rate, regular rhythm; no murmurs Abdomen- normal bowel sounds, nondistended, soft, nontender Right hip wound: dressing in place, no bleeding or discharge Left hip: Dressing in place, no bleeding or discharge Extremities- no pretibial edema, no calf tenderness Neuro- alert, oriented x 3; no gross focal neurologic deficits Skin- warm & dry Results & Data Results & Data ([facility]) Vital Signs (Past 12 Hours) Vital Signs Temp Pulse Pulse Resp BP Pulse Ox 12/14/21 16:45 36.5 C 69 20 114/64 96 12/14/21 14:08 69 12/14/21 11:06 36.4 C L 70 19 167/51 H 99 12/14/21 07:26 36.5 C 76 20 144/56 H 97 12/14/21 06:16 84
[2021-12-14] MEDS: dexAMETHasone 6 MG in SYRINGE 0 ML IV SCH (17:51)
[2021-12-14] MEDS: POLYETHYLENE (MIRALAX) 17 GM PACK PO SCH (17:54)
[2021-12-14] MEDS ORDERED: WARFARIN SOD 10 MG TAB PO ONE (18:30)
[2021-12-14] MEDS: ACETAMINOPHEN 325 MG TAB PO SCH (19:19)
[2021-12-14] MEDS: ASPIRIN 81 MG ECTAB PO SCH (20:16)
[2021-12-14] MEDS: cefTRIAXone SODIUM 2,000 MG in DEXTROSE 5% 50 ML IV SCH (20:22)
[2021-12-15] MEDS: ACETAMINOPHEN 325 MG TAB PO SCH ×4 (01:23→21:19)
[2021-12-15] MEDS: HEPARIN SOD 5,000 UNIT/0.5 ML VIAL SQ SCH ×2 (04:38→11:22)
[2021-12-15] MEDS: LEVOTHYROXINE SODIUM 75 MCG TABLET PO SCH (05:46)
[2021-12-15] MEDS: PANTOprazole 40 MG TAB PO SCH (05:48)
[2021-12-15] MEDS: CYCLOBENZAPRINE HCL 5 MG TAB PO PRN (06:17)
[2021-12-15] MEDS ORDERED: EPOETIN ALFA 20,000 UNITS/ML VIAL IV ONE (07:00)
[2021-12-15] MEDS ORDERED: SODIUM CHLORIDE 0.9% 1000ML 1,000 ML IV PRN (07:00)
[2021-12-15] MEDS ORDERED: HEPARIN SOD (PORCINE) 1000 UNIT/ML IV ONE (07:00)
[2021-12-15] MEDS: INSULIN ASPART PER UNIT SC SCH ×4 (08:29→21:07)
[2021-12-15] MEDS: CALCIUM ACETATE 667 MG CAP/TAB PO SCH ×3 (08:30→17:11)
[2021-12-15] MEDS: ATORVASTATIN 40 MG TAB PO SCH (08:30)
[2021-12-15] MEDS: amLODIPine BESYLATE 5 MG TAB PO SCH (08:30)
[2021-12-15] MEDS: COLLAGENASE OINT 30 GM TUBE TOP SCH (08:31)
[2021-12-15] MEDS: METOPROLOL TARTRATE 25 MG TAB PO SCH ×2 (08:31→21:18)
[2021-12-15] MEDS: INSULIN GLARGINE SOLOSTAR 100 UNITS/ML 3 ML PEN SC SCH ×2 (08:31→21:29)
[2021-12-15] MEDS: CHOLECALCIFEROL 5,000 UNITS 125 MCG TAB PO SCH (08:31)
[2021-12-15] MEDS: GABAPENTIN 300 MG CAP PO SCH ×2 (08:31→21:20)
[2021-12-15] MEDS: POLYETHYLENE (MIRALAX) 17 GM PACK PO SCH (08:31)
[2021-12-15] MEDS: SERTRALINE HCL 50 MG TABLET PO SCH (08:32)
[2021-12-15] MEDS ORDERED: INSULIN GLARGINE SOLOSTAR 100 UNITS/ML 3 ML PEN SC STA (09:12)
[2021-12-15 09:22] LABS: Albumin Level 3.5 gm/dl (3.4-5.0); Calcium 10.3 mg/dl (8.5-10.1); Creatinine Clr Calc Pharmacy 7.8 ml/min; Est GFR (African American) 4.6 ml/min; Phosphorus 10.1 mg/dl (2.5-4.9); Potassium 7.9 mmol/L (3.5-5.1)
[2021-12-15 09:38] LABS: INR 3.9 (0.9-1.1); Prothrombin Time 38.2 Seconds (9.0-12.0)
--- NOTE | 2021-12-15 10:15 | Nephrology Progress Note ---
Date of Service December 15, 2021 Assessment & Plan Admission and Anticipated Discharge Date Admission Date: December 10, 2021 Subjective Assessment & Plan (1) ESRD (end stage renal disease) on dialysis: She is not letting us do full dialysis--Both Monday and Monday she shortened because of HIp pain . But hip pain happens regardless of the Dialysis. Still has e/o fluid overload with Resp failure. Still on 4 liters o2. will also do daily renal panel given issues with High K and also non adherence. Next dialysis today for 3.5 hrs and take 2.5 kilo off. 2k bath (2) Acute respiratory failure with hypoxia: from covid PNA and vol OL > dialyze. CXr--better (3) Wound, open, hip or thigh: BL hip wounds and L buttocks wound; has been debrided in past > she just est w/ wound clinic [place] and their comment in chart is that this may be pressure ulcer versus calciphylaxis given presentation -agree w/ wound consult > in particular some discrepancy between [facility] and [facility] about whether debridement needed and w/ comment of calciphylaxis concern this could be calciphylaxis but not a definite dx --Would need skin biopsy to know for sure. Physical Exam Constitutional: well developed, well nourished, + morbidly obese and cooperative; no acute distress Eyes: EOM intact bilaterally ENMT: Ears: no external ear abnormality Nose: no external nose abnormality Mouth: + dry oral mucous membranes Neck: no nuchal rigidity Respiratory: normal respiratory effort Auscultation: + diminished lung sounds Cardiovascular: Rate/Rhythm: regular rate and regular rhythm Extremities: + edema (trace BLE + facial edema) and + AV fistula Gastrointestinal (Abdomen): Inspection/Auscultation: normal bowel sounds Percussion/Palpation: abdomen soft; abdomen nontender Musculoskeletal: Extremities: strength 5/5 throughout Skin: no rashes, warm and dry Neurologic: peguero, fluent speech, + BLUE tremors Psychiatric: Orientation: oriented x 3 (but still a bit confused/inappropriate) Results & Data ([facility]) Vital Signs (Past 12 Hours) Vital Signs Temp Pulse Pulse Resp BP Pulse Ox Pulse Ox 12/15/21 10:00 96 12/15/21 08:35 36.3 C L 79 20 151/53 H 98 12/15/21 04:35 36.4 C L 81 20 149/81 H 98 12/14/21 22:40 36.6 C 84 22 122/78 90 12/14/21 22:17 69
[2021-12-15] MEDS: ASCORBIC ACID 500 MG TAB PO SCH (11:22)
[2021-12-15] MEDS: HEPARIN SOD (PORCINE) 1000 UNIT/ML IV SCH (12:36)
[2021-12-15] MEDS: traMADol HCL 50 MG TABLET PO PRN (14:11)
--- NOTE | 2021-12-15 14:44 | Pharmacy Report ---
Pharmacy Glycemic Short Note 2 - Date of Service December 15, 2021 - Glycemic Short BSG Results (Last 24 hours): 12/14/21 12/14/21 12/15/21 16:41 20:13 07:35 Glucose 157 H POC Glucose 149 H 130 H 12/15/21 12/15/21 08:27 11:17 Glucose POC Glucose 182 H 175 H OUTPATIENT ANTIDIABETIC REGIMEN: * Lantus 30 units SQ BID * Novolog 13 units SQ TID with meals * HbA1c: 8.7% (12/11/21) ASSESSMENT: 12/15/21: * Pt had dialysis today. * Unfortunately, pt did not receive any insulin this morning. As a result, she may become hyperglycemic. BSGs are okay for now. * Pt continues to receive IV dexamethasone daily. * No changes at this time. 12/12 * Ms Valdes is a 66yo diabetic F admitted with COVID-19. * She is currently receiving IV dexamethasone daily, which is expected to contribute to significant steroid-induced hyperglycemia. * Pt is also receiving Vancomycin and Meropenem for R hip wound/infection. * Pt receives hemodialysis Monday, Monday, Monday. * Fasting BSG was above goal this morning, so Lantus was increased. Novolog parameters appear to be appropriate, but may be slightly too aggressive. Will loosen slightly. PLAN FOR INPATIENT GLYCEMIC CONTROL: * Hold outpatient oral diabetes medications * Basal insulin * Lantus 40 units SQ BID * Bolus insulin * NovoLog per scale ACHS or Q6hrs while NPO * Goal Range: Low 110 mg/dL - High 140 mg/dL * Correction Factor: 15 mg/dL/unit * Nutritional / Prandial insulin per carb ratio of 1 unit per 5 grams CHO consumed
[2021-12-15] MEDS: dexAMETHasone 6 MG in SYRINGE 0 ML IV SCH (16:30)
--- NOTE | 2021-12-15 18:16 | Hospitalist Progress Note ---
Date of Service December 15, 2021 Assessment & Plan (1) Acute respiratory failure with hypoxia: (2) COVID-19: Plan: Patient is a 66 yr female presents with fall and also had a right hip wound and was found to have COVID. Acute respiratory failure with hypoxia: COVID-19 Pneumonia --CT Chest: Round groundglass airspace opacities within the left lower lobe likely representing a pneumonia. This could be due to a viral process. Near-co mplete collapse of the left upper lobe with severe narrowing of the left upper lobe bronchi. This could be due to chronic scarring from the granulomatous disease. Follow-up bronchoscopy should be considered to exclude the less likely possibility of a central obstructing mass.Approximately 50% narrowing within the proximal trachea which appears to be due to posterior mass effect from the esophagus. --Vaccinated and Boosted -- No remdesivir given end-stage renal disease on dialysis -- Continue dexamethasone --Volume status being managed through dialysis --Continue supplemental oxygen as needed Pulmonary Hygiene Was on Coumadin--held due to supratherapeutic INR Monitor INR and resume Coumadin as able Infected chronic right hip ulcer: Possible Calciphylaxis Follows with wound care at [place]. Wound culture right thigh: Proteus, E. coli-both sensitive to ceftriaxone Blood cultures: Coag negative staph not lugdunensis -- Was on meropenem for 3 days>> ceftriaxone for 3 days Appreciate ID input Discontinue antibiotics for now Consider wound biopsy as per ID General surgery consulted Continue wound care Pain control Minimize narcotic use as able Chronic left hip wound Eschar noted No signs of infection ESRD On hemodialysis Appreciate Nephrology Input for dialysis. Hyponatremia Hyperkalemia In setting of volume overload Noncompliance with dialysis secondary to pain Monitor electrolytes closely Troponin elevation Troponin increased from 300s to 2000s Secondary to demand ischemia, ESRD EKG no signs of acute ischemia Patient has no cardiac symptoms Prior hospitalist discussed with Dr. Tidwell No intervention recommended Abnormal CT findings: Narrowing of proximal trachea 50% likely secondary to adjacent esophageal mass Discussed with : [place] to be from tracheomalacia Recommend BiPAP Near-complete collapse of the left upper lobe with severe narrowing of the left upper lobe bronchi. This could be due to chronic scarring from the granulomatous disease. Follow-up bronchoscopy should be considered to exclude the less likely possibility of a central obstructing mass. --Discussed with Dr. Kadri: [place] to be chronic fibrosis, no further intervention recommended -- Recommend to follow-up with pulmonology as outpatient DM II A1c 8.7 Continue Insulin consult pharmacy glycemic control Anemia of chronic kidney disease: Monitor CBC H/O Atrial fibrillation: Continue metoprolol Resume Coumadin once INR is therapeutic Hypothyroidism: On Levothyroxine Hyperlipidemia: On Statin. Hypertension: On Amlodipine and metoprolol Depression: On sertraline. GERD on PPI Asthma: Albuterol p.r.n No exacerbation H/O left breast cancer, ER/VT positive, stage IA, HER-2 negative. S/P left breast mastectomy in 2013. Morbid obesity BMI 48 DVT Px: Supratherapeutic INR Resume Coumadin as able Code Status full code. Disposition Likely needs Rehab Admission and Anticipated Discharge Date Admission Date: December 10, 2021 Subjective Patient is seen and examined at bedside Had dialysis earlier today Very sleepy during my encounter Denies any dyspnea States having cough intermittently Denies chest pain, dizziness, nausea, abdominal pain Offers no other complaints Currently on 3 L supplemental oxygen Review of Systems Review of Systems: All systems reviewed & are unremarkable except as noted in Subjective Physical Exam Physical Exam: Physical Exam: Vitals signs as noted above General Appearance:Morbid Obese, no apparent distress Head: normocephalic, Atraumatic Eyes: normal inspection, EOMI Neck: supple, Trachea midline Respiratory/Chest: Decrease breath sounds, CTA, No accessory muscle use Cardiovascular: S1, S2, No murmur Abdomen/GI:Soft, Non tender, Bowel sounds present Extremities/Musculoskeletal:normal inspection, 1-2+ LE edema Neurologic/Psych:AAO, grossly no focal neurological deficits Skin: normal color, warm Results & Data Results & Data ([facility]) Vital Signs (Past 12 Hours) Vital Signs Temp Pulse Pulse Resp BP BP Pulse Ox 12/15/21 16:55 36.5 C 82 20 146/51 H 95 12/15/21 15:50 77 12/15/21 13:25 36.4 C L 81 118/56 L 12/15/21 13:00 76 130/63 12/15/21 12:40 76 132/63 12/15/21 12:20 76 132/63 12/15/21 12:00 67 131/81 12/15/21 11:40 76 146/65 H 12/15/21 11:20 76 146/63 H 12/15/21 11:06 80 12/15/21 11:05 83 164/66 H 12/15/21 10:46 36.4 C L 84 12/15/21 10:00 12/15/21 08:35 36.3 C L 79 20 151/53 H 98 Pulse Ox 12/15/21 16:55 12/15/21 15:50 12/15/21 13:25 12/15/21 13:00 12/15/21 12:40 12/15/21 12:20 12/15/21 12:00 12/15/21 11:40 12/15/21 11:20 12/15/21 11:06 12/15/21 11:05 12/15/21 10:46 12/15/21 10:00 96 12/15/21 08:35 Laboratory Results BMP 12/15/21 07:35 Sodium 125 L Potassium 7.9 H* Chloride 89 L Carbon Dioxide 21 BUN 122 H Creatinine 9.38 H* Glucose 157 H Calcium 10.3 H Liver Function 12/15/21 Range/Units 07:35 Albumin 3.5 (3.4-5.0) gm/dl
[2021-12-15] MEDS: ASPIRIN 81 MG ECTAB PO SCH (21:21)
[2021-12-16] MEDS ORDERED: traMADol HCL 50 MG TABLET PO STA ×2 (00:34→01:49)
[2021-12-16] MEDS: ACETAMINOPHEN 325 MG TAB PO SCH ×4 (02:24→21:27)
[2021-12-16] MEDS: PANTOprazole 40 MG TAB PO SCH (06:38)
[2021-12-16] MEDS: LEVOTHYROXINE SODIUM 75 MCG TABLET PO SCH (06:38)
[2021-12-16] MEDS: CALCIUM ACETATE 667 MG CAP/TAB PO SCH ×3 (08:02→17:23)
[2021-12-16] MEDS: amLODIPine BESYLATE 5 MG TAB PO SCH (08:02)
[2021-12-16] MEDS: CHOLECALCIFEROL 5,000 UNITS 125 MCG TAB PO SCH (08:03)
[2021-12-16] MEDS: ATORVASTATIN 40 MG TAB PO SCH (08:03)
[2021-12-16] MEDS: COLLAGENASE OINT 30 GM TUBE TOP SCH (08:04)
[2021-12-16] MEDS: GABAPENTIN 300 MG CAP PO SCH ×2 (08:04→21:28)
[2021-12-16] MEDS: POLYETHYLENE (MIRALAX) 17 GM PACK PO SCH (08:05)
[2021-12-16] MEDS: METOPROLOL TARTRATE 25 MG TAB PO SCH ×2 (08:05→21:27)
[2021-12-16] MEDS: SERTRALINE HCL 50 MG TABLET PO SCH (08:06)
[2021-12-16 08:24] LABS: Hematocrit (blood only) 26.5 % (37-47); Hemoglobin 8.4 g/dL (12.0-16.0); Mean Corpuscular Hemoglobin 29.7 pg (25-34); Mean Corpuscular Hgb Conc 31.7 g/dL (32-36); Mean Corpuscular Volume 93.6 fL (80-100); Mean Platelet Volume 9.6 fL (7.4-10.4); Platelet Count 275 K/uL (130-400); RDW Coefficient of Variation 15.5 % (11.5-14.5); RDW Standard Deviation 53.2 fL (36.4-46.3); Red Blood Count 2.83 M/uL (4.2-5.4); White Blood Count 14.29 K/uL (4.8-10.8)
[2021-12-16] MEDS: INSULIN GLARGINE SOLOSTAR 100 UNITS/ML 3 ML PEN SC SCH ×2 (08:30→21:47)
[2021-12-16] MEDS: INSULIN ASPART PER UNIT SC SCH ×4 (08:30→21:00)
[2021-12-16 08:33] LABS: Prothrombin Time 62.2 Seconds (9.0-12.0)
[2021-12-16 08:57] LABS: Albumin Level 3.2 gm/dl (3.4-5.0); BUN Creatinine Ratio 13.1 (10-20); Calcium 9.8 mg/dl (8.5-10.1); Creatinine Clr Calc Pharmacy 9.2 ml/min; Est GFR (African American) 5.6 ml/min; Est GFR (Non-African American) 4.8 ml/min; Magnesium 2.1 mg/dl (1.7-2.4); Phosphorus 8.6 mg/dl (2.5-4.9); Potassium 7.2 mmol/L (3.5-5.1)
[2021-12-16 09:06] LABS: INR 6.5 (0.9-1.1)
--- NOTE | 2021-12-16 10:51 | Surgery Consultation ---
Date of Consultation December 16, 2021 Assessment & Plan (1) Wound, open, hip or thigh: 66 yr old woman with multiple medical issues and bilateral hip ulcers. Left side does not appear to be infected, right side has more fibrinous debris but no pus, no erythema. Both areas may benefit from debridement in the OR ultimately but the timing of this is not urgent as neither appears very infected and she has active hypoxia from covid 19. Would ask wound care to see - consider wound vac for the right side. Once acute issues improve, can reconsult to see if timing is more appropriate for surgery. Discussed with Dr. Weiss. Will sign off. Thank you. (2) Acute respiratory failure with hypoxia: History of Present Illness Reason for Consultation: Bilateral hip wound Biopsy of hip wound Attending Physician: Saeed Soni MD Allergies Allergy/AdvReac Type Severity Reaction Status Date / Time codeine Allergy Intermediate rash/hives Verified 12/10/21 02:38 (see comments) Penicillins Allergy Intermediate rash/hives, Verified 12/10/21 02:38 family allergy to PCN oxycodone AdvReac Intermediate N/V Verified 12/10/21 02:38 ROHAN Inhibitors AdvReac Mild hyperkalemi Verified 12/10/21 02:38 a Home Medications Medication Instructions Recorded Confirmed Type gabapentin 300 mg capsule 300 mg PO BID 04/15/20 12/10/21 History atorvastatin 80 mg tablet 80 mg PO QAM 06/26/20 12/10/21 History metoprolol tartrate 50 mg tablet 25 mg PO BID 06/26/20 12/10/21 History (Lopressor) aspirin 81 mg tablet,delayed 81 mg PO HS 07/02/20 12/10/21 History release omeprazole 40 mg capsule,delayed 40 mg PO DAILYBB 10/27/20 12/10/21 History release warfarin 5 mg tablet 5 mg PO UD 10/27/20 12/10/21 History albuterol sulfate 90 mcg/actuation 2 puff INHALATION Q4 PRN 12/10/21 12/10/21 History aerosol inhaler amlodipine 5 mg tablet 5 mg PO DAILY 12/10/21 12/10/21 History ascorbic acid (vitamin C) 500 mg 500 mg PO 3XWK 12/10/21 12/10/21 History tablet (Vitamin C) calcium acetate(phosphat bind) 667 667 mg PO UD 12/10/21 12/10/21 History mg capsule cholecalciferol (vitamin D3) 125 250 mcg PO DAILY 12/10/21 12/10/21 History mcg (5,000 unit) tablet (Vitamin D3) collagenase clostridium histo. 250 1 applic TOPICAL DAILY 12/10/21 12/10/21 History unit/gram topical ointment (Santyl) cyclobenzaprine 5 mg tablet 5 mg PO HS PRN 12/10/21 12/10/21 History diclofenac sodium 1 % topical gel 1 ea TOPICAL TID PRN 12/10/21 12/10/21 History doxycycline hyclate 100 mg capsule 100 mg PO QAM 12/10/21 12/10/21 History ferric citrate 210 mg iron tablet 210 mg PO UD 12/10/21 12/10/21 History (Auryxia) insulin aspart U-100 100 unit/mL 10 unit SUBCUT TID 12/10/21 12/10/21 History (3 mL) subcutaneous pen (Novolog Flexpen U-100 Insulin aspart) insulin glargine 100 unit/mL 30 unit SUBCUT AMHS 12/10/21 12/10/21 History subcutaneous solution (Lantus U-100 Insulin) levothyroxine 75 mcg tablet 75 mcg PO DAILYBB 12/10/21 12/10/21 History sertraline 50 mg tablet 50 mg PO DAILY 12/10/21 12/10/21 History tramadol 50 mg tablet 50 mg PO BID PRN 12/10/21 12/10/21 History Patient History Medical History Acute hyperglycemia Asthma well controlled Breast cancer, left hx (2012) s/p surgery- no chemo or XRT needed CAD (coronary artery disease) non-obstructive COPD (chronic obstructive pulmonary disease) well controlled Depression Diabetes mellitus, type 2 IDDM Diabetic neuropathy Elevated INR ESRD on dialysis M-W-F ([facility]) Fistula RUE Gait disturbance occasional cane use (d/t diabetic neuropathy) GERD (gastroesophageal reflux disease) Hemorrhage of arteriovenous fistula History of blood transfusion in setting of abnormal uterine bleeding > subsequent hysterectomy Hyperlipemia Hypertension Hypothyroidism Obesity Osteoarthritis PVC (premature ventricular contraction) controlled on beta tristan SOBOE (shortness of breath on exertion) Spinal stenosis 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 Sparks 08/21/18) History of umbilical hernia repair Nausea and vomiting after administration of anesthetic agent Presence of permanent central venous catheter right chest (using dialysis currently) S/P arteriovenous (AV) fistula repair LUE/multiple repairs and "clean outs" Status post creation of arteriovenous fistula left forearm Family History Sister Family history of diabetes mellitus Family history of reaction to anesthesia wakes up with a headache-"FEELS WEIRD" Social History Smoking Status: Former smoker Tobacco Type: Cigarettes Age Quit Using Tobacco: 33; Second Hand Exposure: No; Hx Alcohol Use: No Hx Substance Use: No Preferred Language: Congolese Communication Ability: Effective Hearing Ability: Normal Line Servicer Required: No Beliefs That Will Affect Care: None marital status: Current Living Situation: Spouse current occupational status: disabled Other Information That Helps Us Care for You: No Feels Safe at Home: Yes Safety Concerns: Feels Safe At This Time Diet Comment: RENAL DIET caffeine: No during the past year weight has: remained stable Assistive Devices: Cane Results & Data ([facility]) Vital Signs (Past 12 Hours) Vital Signs Temp Pulse Pulse Resp BP Pulse Ox Pulse Ox 12/16/21 10:00 95 12/16/21 08:00 71 12/16/21 07:58 36.7 C 76 18 122/71 97 12/16/21 04:29 36.3 C L 74 18 127/63 98 12/15/21 23:34 36.6 C 82 20 125/75 96 12/15/21 22:55 95 H 19 91
--- NOTE | 2021-12-16 11:06 | Surgery Progress Note ---
Date of Service December 16, 2021 Assessment & Plan (1) Wound, open, hip or thigh: (2) Acute respiratory failure with hypoxia: (3) COVID-19: (4) ESRD (end stage renal disease) on dialysis: (5) Supratherapeutic INR: Plan: 6.5 today, 3.9 yesterday Plan: 66 yr old woman with multiple medical issues including active COVID pneumonia requiring oxygen supplementation and supratherapeutic INR of 6.5 today with chronic painful bilateral hip ulcers. 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 Per wound images (as patient deferred examination today) and Dr. Correa's previous evaluation/examination, both areas may benefit from debridement in the OR ultimately in which biopsy can be obtained at that time (recommended by Infectious disease). However, given her current COVID + status, pneumonia, requiring oxygen, and supratherapeutic INR the risks of putting patient under any anesthesia and biopsy outweighs the benefits of potential diagnosis of calciphlyaxis with a biopsy. She states she would have to be put under for any biopsy or debridement given the pain associated with the wounds. Would recommend continued wound care per wound care nurses and pain management consultation so that patients pain can be better controlled so that she is compliant with her dialysis and stabilize her medically for possible OR intervention of these chronic bilateral hip wounds. Dr. Montano has seen patient and discussed above with patient. See addendum for further recommendations/plan. Admission and Anticipated Discharge Date Admission Date: December 10, 2021 Supervising Physician Co-Signing Physician Notes I have seen and examined the patient and agree with the above assessment and plan. Given her active COVID pneumonia as well as other medical issues, we will hold off on biopsy at this time. Wound care as per the wound care nurses. We will follow peripherally. Subjective having a lot of pain in both hips at wound sites feeling foggy, cant remember things has had chronic issues with hip wounds. Last saw wound clinic in [place] Dr. Lin early November and started Santyl. Gets Dialysis M,W,F Physical Exam 2 Constitutional: + morbidly obese and cooperative; no acute distress and not ill appearing Neck: normal visual inspection and trachea midline Respiratory: normal respiratory effort; no respiratory distress, no labored breathing and no cough Skin: Patient deferred wound examination given pain and discomfort with repositioning/turning Psychiatric: Orientation: alert, oriented x 3 and cooperative Results & Data ([facility]) Vital Signs (Past 12 Hours) Vital Signs Temp Pulse Pulse Resp BP Pulse Ox Pulse Ox 12/16/21 10:00 95 12/16/21 08:00 71 12/16/21 07:58 36.7 C 76 18 122/71 97 12/16/21 04:29 36.3 C L 74 18 127/63 98 12/15/21 23:34 36.6 C 82 20 125/75 96 12/15/21 22:55 95 H 19 91 Laboratory Results 12/16/21 12/16/21 12/16/21 Range/Units 07:53 07:31 07:31 WBC 14.29 H (4.8-10.8) K/uL RBC 2.83 L (4.2-5.4) M/uL Hgb 8.4 L (12.0-16.0) g/dL Hct 26.5 L (37-47) % MCV 93.6 (80-100) fL MCH 29.7 (25-34) pg MCHC 31.7 L (32-36) g/dL RDW Std Deviation 53.2 H (36.4-46.3) fL RDW Coeff of Erendira 15.5 H (11.5-14.5) % Plt Count 275 (130-400) K/uL MPV 9.6 (7.4-10.4) fL PT 62.2 H (9.0-12.0) Seconds INR 6.5 H* (0.9-1.1) Sodium (136-145) mmol/L Potassium (3.5-5.1) mmol/L Chloride (98-107) mmol/L Carbon Dioxide (21-32) mmol/L Anion Gap (3-11) BUN (6-23) mg/dl Creatinine (0.6-1.2) mg/dl Est Cr Clr Drug Dosing ml/min Est GFR ( Amer) ml/min Est GFR (Non-Af Amer) ml/min BUN/Creatinine Ratio (10-20) Glucose (70-99(Fasting)) mg/dl POC Glucose 148 H (70-99) mg/dl Calcium (8.5-10.1) mg/dl Phosphorus (2.5-4.9) mg/dl Magnesium (1.7-2.4) mg/dl Albumin (3.4-5.0) gm/dl 12/16/21 12/15/21 12/15/21 Range/Units 07:31 21:01 17:05 WBC (4.8-10.8) K/uL RBC (4.2-5.4) M/uL Hgb (12.0-16.0) g/dL Hct (37-47) % MCV (80-100) fL MCH (25-34) pg MCHC (32-36) g/dL RDW Std Deviation (36.4-46.3) fL RDW Coeff of Erendira (11.5-14.5) % Plt Count (130-400) K/uL MPV (7.4-10.4) fL PT (9.0-12.0) Seconds INR (0.9-1.1) Sodium 128 L (136-145) mmol/L Potassium 7.2 H* (3.5-5.1) mmol/L Chloride 93 L (98-107) mmol/L Carbon Dioxide 22 (21-32) mmol/L Anion Gap 13 H (3-11) BUN 105 H (6-23) mg/dl Creatinine 8.01 H* D (0.6-1.2) mg/dl Est Cr Clr Drug Dosing 9.2 ml/min Est GFR ( Amer) 5.6 ml/min Est GFR (Non-Af Amer) 4.8 ml/min BUN/Creatinine Ratio 13.1 (10-20) Glucose 137 H (70-99(Fasting)) mg/dl POC Glucose 107 H 94 (70-99) mg/dl Calcium 9.8 (8.5-10.1) mg/dl Phosphorus 8.6 H (2.5-4.9) mg/dl Magnesium 2.1 (1.7-2.4) mg/dl Albumin 3.2 L (3.4-5.0) gm/dl 12/15/21 Range/Units 11:17 WBC (4.8-10.8) K/uL RBC (4.2-5.4) M/uL Hgb (12.0-16.0) g/dL Hct (37-47) % MCV (80-100) fL MCH (25-34) pg MCHC (32-36) g/dL RDW Std Deviation (36.4-46.3) fL RDW Coeff of Erendira (11.5-14.5) % Plt Count (130-400) K/uL MPV (7.4-10.4) fL PT (9.0-12.0) Seconds INR (0.9-1.1) Sodium (136-145) mmol/L Potassium (3.5-5.1) mmol/L Chloride (98-107) mmol/L Carbon Dioxide (21-32) mmol/L Anion Gap (3-11) BUN (6-23) mg/dl Creatinine (0.6-1.2) mg/dl Est Cr Clr Drug Dosing ml/min Est GFR ( Amer) ml/min Est GFR (Non-Af Amer) ml/min BUN/Creatinine Ratio (10-20) Glucose (70-99(Fasting)) mg/dl POC Glucose 175 H (70-99) mg/dl Calcium (8.5-10.1) mg/dl Phosphorus (2.5-4.9) mg/dl Magnesium (1.7-2.4) mg/dl Albumin (3.4-5.0) gm/dl
[2021-12-16] MEDS ORDERED: MoRPHine SULFATE 4 MG/ML 1 ML CARP\\VIAL IV STA (14:18)
--- NOTE | 2021-12-16 14:23 | Dialysis Progress Note ---
Date of Service December 16, 2021 Assessment & Plan Admission and Anticipated Discharge Date Admission Date: December 10, 2021 Subjective Assessment & Plan (1) ESRD (end stage renal disease) on dialysis: She is not letting us do full dialysis--Both Monday and Monday she shortened because of HIp pain . But hip pain happens regardless of the Dialysis. Again said to stop dialysis because of hip pain. Her K is 7.9 and today 7.2. this is because of inadequate dialysis. Will be giving high dose iv morphine to get through dialysis to bring her K down. goal is to do next Dialysis on Monday and not daily. (2) Acute respiratory failure with hypoxia: from covid PNA and vol OL > dialyze. CXR -better (3) Wound, open, hip or thigh: BL hip wounds and L buttocks wound; has been debrided in past > she just est w/ wound clinic [place] and their comment in chart is that this may be pressure ulcer versus calciphylaxis given presentation -agree w/ wound consult > in particular some discrepancy between [facility] and [facility] about whether debridement needed and w/ comment of calciphylaxis concern this could be calciphylaxis but not a definite dx --Would need skin biopsy to know for sure. S---seen in dialysis. Again wants to stop dialysis. Has hip pain. Physical Exam Constitutional: well developed, well nourished, + morbidly obese and cooperative; no acute distress Eyes: EOM intact bilaterally ENMT: Ears: no external ear abnormality Nose: no external nose abnormality Mouth: + dry oral mucous membranes Neck: no nuchal rigidity Respiratory: normal respiratory effort Auscultation: + diminished lung sounds Cardiovascular: Rate/Rhythm: regular rate and regular rhythm Extremities: + edema (trace BLE + facial edema) and + AV fistula Gastrointestinal (Abdomen): Inspection/Auscultation: normal bowel sounds Percussion/Palpation: abdomen soft; abdomen nontender Musculoskeletal: Extremities: strength 5/5 throughout Skin: no rashes, warm and dry Neurologic: peguero, fluent speech, + BLUE tremors Psychiatric: Orientation: oriented x 3 (but still a bit confused/inappropriate) Results & Data ([facility]) Vital Signs (Past 12 Hours) Vital Signs Temp Pulse Pulse Resp BP BP Pulse Ox 12/16/21 13:45 72 106/54 L 12/16/21 13:30 72 109/58 L 12/16/21 13:15 74 135/60 12/16/21 13:00 70 118/60 12/16/21 12:45 61 154/80 H 12/16/21 12:30 74 121/63 12/16/21 12:15 74 136/70 12/16/21 11:45 36.5 C 74 12/16/21 11:15 36.5 C 84 20 131/48 L 96 12/16/21 10:00 12/16/21 08:00 71 12/16/21 07:58 36.7 C 76 18 122/71 97 12/16/21 04:29 36.3 C L 74 18 127/63 98 Pulse Ox 12/16/21 13:45 12/16/21 13:30 12/16/21 13:15 12/16/21 13:00 12/16/21 12:45 12/16/21 12:30 12/16/21 12:15 12/16/21 11:45 12/16/21 11:15 12/16/21 10:00 95 12/16/21 08:00 12/16/21 07:58 12/16/21 04:29
[2021-12-16] MEDS: dexAMETHasone 6 MG in SYRINGE 0 ML IV SCH (16:30)
--- NOTE | 2021-12-16 18:17 | Hospitalist Progress Note ---
Date of Service December 16, 2021 Assessment & Plan (1) Acute respiratory failure with hypoxia: (2) COVID-19: Plan: Patient is a 66 yr female presents with fall and also had a right hip wound and was found to have COVID. Acute respiratory failure with hypoxia: COVID-19 Pneumonia --CT Chest: Round groundglass airspace opacities within the left lower lobe likely representing a pneumonia. This could be due to a viral process. Near-co mplete collapse of the left upper lobe with severe narrowing of the left upper lobe bronchi. This could be due to chronic scarring from the granulomatous disease. Follow-up bronchoscopy should be considered to exclude the less likely possibility of a central obstructing mass.Approximately 50% narrowing within the proximal trachea which appears to be due to posterior mass effect from the esophagus. --Vaccinated and Boosted -- No remdesivir given end-stage renal disease on dialysis -- Continue dexamethasone --Volume status being managed through dialysis --Continue supplemental oxygen as needed Pulmonary Hygiene Was on Coumadin--held due to supratherapeutic INR Monitor INR and resume Coumadin as able INR 6.5 today No bleeding issues Currently on 1 L supplemental oxygen Infected chronic right hip ulcer: Possible Calciphylaxis Follows with wound care at [place]. Wound culture right thigh: Proteus, E. coli-both sensitive to ceftriaxone Blood cultures: Coag negative staph not lugdunensis -- Was on meropenem for 3 days>> ceftriaxone for 3 days Appreciate ID input Discontinue antibiotics for now Consider wound biopsy as per ID General surgery consulted Continue wound care Pain control Minimize narcotic use as able Patient may benefit from wound debridement but currently given her comorbidities, no plan for debridement Continue wound care Chronic left hip wound Eschar noted No signs of infection ESRD On hemodialysis Appreciate Nephrology Input for dialysis. Hyponatremia Hyperkalemia In setting of volume overload Noncompliance with dialysis secondary to pain Monitor electrolytes closely Continue dialysis Troponin elevation Troponin increased from 300s to 2000s Secondary to demand ischemia, ESRD EKG no signs of acute ischemia Patient has no cardiac symptoms Prior hospitalist discussed with Dr. 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 This could be due to chronic scarring from the granulomatous disease. Follow-up bronchoscopy should be considered to exclude the less likely possibility of a central obstructing mass. --Discussed with Pulmonology: Likely chronic fibrosis, no further intervention recommended -- Recommend to follow-up with pulmonology as outpatient DM II A1c 8.7 Continue Insulin consult pharmacy glycemic control Anemia of chronic kidney disease: Monitor CBC H/O Atrial fibrillation: Continue metoprolol Resume Coumadin once INR is therapeutic Hypothyroidism: On Levothyroxine Hyperlipidemia: On Statin. Hypertension: On Amlodipine and metoprolol Depression: On sertraline. GERD on PPI Asthma: Albuterol p.r.n No exacerbation H/O left breast cancer, ER/LA positive, stage IA, HER-2 negative. S/P left breast mastectomy in 2012. Morbid obesity BMI 48 DVT Px: Supratherapeutic INR Resume Coumadin as able Code Status full code. Disposition Likely needs Rehab Admission and Anticipated Discharge Date Admission Date: December 10, 2021 Subjective Patient is seen and examined at bedside States having hip pain today Discussed with Surgery and Nephrology today Had HD today Reports have some cough Denies any chest pain, dyspnea, dizziness, abd pain Currently on 1 L supplemental oxygen Review of Systems Review of Systems: All systems reviewed & are unremarkable except as noted in Subjective Physical Exam Physical Exam: Physical Exam: Vitals signs as noted above General Appearance:Morbid Obese, no apparent distress Head: normocephalic, Atraumatic Eyes: normal inspection, EOMI Neck: supple, Trachea midline Respiratory/Chest: Decrease breath sounds, CTA, No accessory muscle use Cardiovascular: S1, S2, No murmur Abdomen/GI:Soft, Non tender, Bowel sounds present Extremities/Musculoskeletal:normal inspection, 1-2+ LE edema Neurologic/Psych:AAO, grossly no focal neurological deficits Skin: normal color, warm Results & Data Results & Data ([facility]) Vital Signs (Past 12 Hours) Vital Signs Temp Pulse Pulse Resp BP BP Pulse Ox 12/16/21 15:03 74 12/16/21 15:00 74 113/52 L 12/16/21 14:45 74 100/77 12/16/21 14:30 74 111/46 L 12/16/21 14:15 74 116/54 L 12/16/21 14:00 73 109/71 12/16/21 13:45 72 106/54 L 12/16/21 13:30 72 109/58 L 12/16/21 13:15 74 135/60 12/16/21 13:00 70 118/60 12/16/21 12:45 61 154/80 H 12/16/21 12:30 74 121/63 12/16/21 12:15 74 136/70 12/16/21 11:45 36.5 C 74 12/16/21 11:15 36.5 C 84 20 131/48 L 96 12/16/21 10:00 12/16/21 08:00 71 12/16/21 07:58 36.7 C 76 18 122/71 97 Pulse Ox 12/16/21 15:03 12/16/21 15:00 12/16/21 14:45 12/16/21 14:30 12/16/21 14:15 12/16/21 14:00 12/16/21 13:45 12/16/21 13:30 12/16/21 13:15 12/16/21 13:00 12/16/21 12:45 12/16/21 12:30 12/16/21 12:15 12/16/21 11:45 12/16/21 11:15 12/16/21 10:00 95 12/16/21 08:00 12/16/21 07:58 Laboratory Results Short CBC 12/16/21 Range/Units 07:31 WBC 14.29 H (4.8-10.8) K/uL Hgb 8.4 L (12.0-16.0) g/dL Hct 26.5 L (37-47) % Plt Count 275 (130-400) K/uL BMP 12/16/21 07:31 Sodium 128 L Potassium 7.2 H* Chloride 93 L Carbon Dioxide 22 BUN 105 H Creatinine 8.01 H* D Glucose 137 H Calcium 9.8 Liver Function 12/16/21 Range/Units 07:31 Albumin 3.2 L (3.4-5.0) gm/dl
[2021-12-16] MEDS: traMADol HCL 50 MG TABLET PO PRN (21:25)
[2021-12-16] MEDS: ASPIRIN 81 MG ECTAB PO SCH (21:26)
[2021-12-16] MEDS: CYCLOBENZAPRINE HCL 5 MG TAB PO PRN (21:26)
[2021-12-17] MEDS: ACETAMINOPHEN 325 MG TAB PO SCH ×4 (02:48→20:15)
[2021-12-17] MEDS: PANTOprazole 40 MG TAB PO SCH (05:20)
[2021-12-17] MEDS: LEVOTHYROXINE SODIUM 75 MCG TABLET PO SCH (05:20)
[2021-12-17] MEDS: DICLOFENAC SOD 1% GEL 100 GM TUBE EXT PRN ×3 (05:41→20:44)
[2021-12-17 07:03] LABS: Hematocrit (blood only) 26.8 % (37-47); Hemoglobin 8.4 g/dL (12.0-16.0); Mean Corpuscular Hemoglobin 29.8 pg (25-34); Mean Corpuscular Hgb Conc 31.3 g/dL (32-36); Mean Platelet Volume 9.6 fL (7.4-10.4); Platelet Count 285 K/uL (130-400); RDW Coefficient of Variation 15.5 % (11.5-14.5); RDW Standard Deviation 53.9 fL (36.4-46.3); Red Blood Count 2.82 M/uL (4.2-5.4); White Blood Count 12.68 K/uL (4.8-10.8)
[2021-12-17 07:31] LABS: Albumin Level 3.3 gm/dl (3.4-5.0); BUN Creatinine Ratio 13.5 (10-20); Calcium 10.1 mg/dl (8.5-10.1); Creatinine Clr Calc Pharmacy 11.6 ml/min; Est GFR (African American) 7.4 ml/min; Est GFR (Non-African American) 6.4 ml/min; Magnesium 2.1 mg/dl (1.7-2.4); Phosphorus 7.7 mg/dl (2.5-4.9); Potassium 6.1 mmol/L (3.5-5.1)
[2021-12-17 07:51] LABS: INR 3.6 (0.9-1.1); Prothrombin Time 35.7 Seconds (9.0-12.0)
[2021-12-17] MEDS: INSULIN GLARGINE SOLOSTAR 100 UNITS/ML 3 ML PEN SC SCH (08:46)
[2021-12-17] MEDS: INSULIN ASPART PER UNIT SC SCH ×4 (08:46→20:14)
[2021-12-17] MEDS: GABAPENTIN 300 MG CAP PO SCH ×2 (08:53→20:43)
[2021-12-17] MEDS: traMADol HCL 50 MG TABLET PO PRN ×2 (08:53→20:15)
[2021-12-17] MEDS: CALCIUM ACETATE 667 MG CAP/TAB PO SCH ×3 (08:54→18:00)
[2021-12-17] MEDS: POLYETHYLENE (MIRALAX) 17 GM PACK PO SCH (08:54)
[2021-12-17] MEDS: METOPROLOL TARTRATE 25 MG TAB PO SCH ×2 (08:54→20:43)
[2021-12-17] MEDS: CHOLECALCIFEROL 5,000 UNITS 125 MCG TAB PO SCH (08:54)
[2021-12-17] MEDS: ATORVASTATIN 40 MG TAB PO SCH (08:55)
[2021-12-17] MEDS: SERTRALINE HCL 50 MG TABLET PO SCH (08:55)
[2021-12-17] MEDS: amLODIPine BESYLATE 5 MG TAB PO SCH (08:56)
[2021-12-17] MEDS: COLLAGENASE OINT 30 GM TUBE TOP SCH ×2 (08:58→09:00)
[2021-12-17] MEDS ORDERED: STAT IV STA ×2 (10:06→11:43)
[2021-12-17] MEDS ORDERED: CALCIUM GLUCONATE 10% 1,000 MG in DEXTROSE 5% 50 ML IV ONE ×2 (10:06→11:43)
[2021-12-17] MEDS ORDERED: PATIROMER CALCIUM SORBITEX 8.4 GM PACK PO ONE (10:18)
[2021-12-17] MEDS: ASCORBIC ACID 500 MG TAB PO SCH (11:13)
[2021-12-17] MEDS ORDERED: FUROSEMIDE 10 MG/ML 10 ML VIAL IV ONE (11:43)
[2021-12-17] MEDS ORDERED: SODIUM BICARB 8.4% INJ 50 MEQ/50 ML SYR IV STA (11:43)
--- NOTE | 2021-12-17 11:48 | Nephrology Progress Note ---
Date of Service December 17, 2021 Assessment & Plan Admission and Anticipated Discharge Date Admission Date: December 10, 2021 Subjective Assessment & Plan (1) ESRD (end stage renal disease) on dialysis: her K remains challenge despite 4 hrs of dialysis on 1k bath yesterday. Almost certainly she has recirculation going. Will need to look at the AVF and Possibly even needs Dialysis Catheter for now. Will medically manage her slightly high k today. She has been accepted for transfer to [facility] for IR service. (2) Acute respiratory failure with hypoxia: from covid PNA and vol OL > dialyze. (3) Wound, open, hip or thigh: BL hip wounds and L buttocks wound; has been debrided in past > she just est w/ wound clinic [place] and their comment in chart is that this may be pressure ulcer versus calciphylaxis given presentation -agree w/ wound consult > in particular some discrepancy between [facility] about whether debridement needed and w/ comment of calciphylaxis concern this could be calciphylaxis but not a definite dx --Would need skin biopsy to know for sure. S---No SOb. has Hip pain. Dialysis yesterday for 4 hrs on 1 k bath Physical Exam Constitutional: well developed, well nourished, + morbidly obese and cooperative; no acute distress Eyes: EOM intact bilaterally ENMT: Ears: no external ear abnormality Nose: no external nose abnormality Mouth: + dry oral mucous membranes Neck: no nuchal rigidity Respiratory: normal respiratory effort Auscultation: + diminished lung sounds Cardiovascular: Rate/Rhythm: regular rate and regular rhythm Extremities: + edema (trace BLE + facial edema) and + AV fistula Gastrointestinal (Abdomen): Inspection/Auscultation: normal bowel sounds Percussion/Palpation: abdomen soft; abdomen nontender Musculoskeletal: Extremities: strength 5/5 throughout Skin: no rashes, warm and dry Neurologic: peguero, fluent speech, + BLUE tremors Psychiatric: Orientation: oriented x 3 (but still a bit confused/inappropriate) Results & Data ([facility]) Vital Signs (Past 12 Hours) Vital Signs Temp Pulse Pulse Pulse Resp BP Pulse Ox 12/17/21 08:00 70 12/17/21 06:49 37.1 C 73 19 148/53 H 96 12/17/21 02:47 36.7 C 86 20 152/85 H 94 12/17/21 00:00 118/72 92
[2021-12-17] MEDS ORDERED: FUROSEMIDE 40 MG/4 ML VIAL IV ONE (12:02)
--- NOTE | 2021-12-17 12:29 | Hospitalist Progress Note ---
Date of Service December 17, 2021 Assessment & Plan (1) Acute respiratory failure with hypoxia: (2) COVID-19: Plan: Patient is a 66 yr female presents with fall and also had a right hip wound and was found to have COVID. Acute respiratory failure with hypoxia: COVID-19 Pneumonia --CT Chest: Round groundglass airspace opacities within the left lower lobe likely representing a pneumonia. This could be due to a viral process. Near-co mplete collapse of the left upper lobe with severe narrowing of the left upper lobe bronchi. This could be due to chronic scarring from the granulomatous disease. Follow-up bronchoscopy should be considered to exclude the less likely possibility of a central obstructing mass.Approximately 50% narrowing within the proximal trachea which appears to be due to posterior mass effect from the esophagus. 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 Wound culture right thigh: Proteus, E. coli-both sensitive to ceftriaxone Blood cultures: Coag negative staph not lugdunensis -- Was on meropenem for 3 days>> ceftriaxone for 3 days Appreciate ID input Discontinue antibiotics for now Consider wound biopsy as per ID General surgery consulted Continue wound care Pain control Minimize narcotic use as able Patient may benefit from wound debridement but currently given her comorbidities, no plan for debridement Continue wound care Chronic left hip wound Eschar noted No signs of infection ESRD On hemodialysis Appreciate Nephrology Input for dialysis. AV fistula Malfunction Patient has hyperkalemia despite having 4 hours of dialysis yesterday Patient likely has a recirculation due to AV fistula malfunction Will need vascular surgery/IR to evaluate AV fistula Patient is accepted to [facility] for further management. Patient accepts current care. Hyponatremia Hyperkalemia In setting of volume overload Noncompliance with dialysis secondary to pain Monitor electrolytes closely Continue dialysis Given calcium gluconate, sodium bicarbonate, Lasix and Patiromer today to help with hyperkalemia Troponin elevation Troponin increased from 300s to 2000s Secondary to demand ischemia, ESRD EKG no signs of acute ischemia Patient has no cardiac symptoms Prior hospitalist discussed with Dr. 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 This could be due to chronic scarring from the granulomatous disease. Follow-up bronchoscopy should be considered to exclude the less likely possibility of a central obstructing mass. --Discussed with Pulmonology: Likely chronic fibrosis, no further intervention recommended -- Recommend to follow-up with pulmonology as outpatient DM II A1c 8.7 Continue Insulin consult pharmacy glycemic control Anemia of chronic kidney disease: Monitor CBC H/O Atrial fibrillation: Continue metoprolol Resume Coumadin once INR is therapeutic Hypothyroidism: On Levothyroxine Hyperlipidemia: On Statin. Hypertension: On Amlodipine and metoprolol Depression: On sertraline. GERD on PPI Asthma: Albuterol p.r.n No exacerbation H/O left breast cancer, ER/[place] positive, stage IA, HER-2 negative. S/P left breast mastectomy in 2012. Morbid obesity BMI 48 DVT Px: Supratherapeutic INR Resume Coumadin as able Code Status full code. Disposition [facility] Admission and Anticipated Discharge Date Admission Date: December 10, 2021 Subjective Patient is seen and examined at bedside No new complaints States having hip wound pain Discussed with Nephrology today No significant cough Denies any chest pain, dyspnea, dizziness, abd pain Planned to be transferred to [facility] today Review of Systems Review of Systems: All systems reviewed & are unremarkable except as noted in Subjective Physical Exam Physical Exam: Physical Exam: Vitals signs as noted above General Appearance:Morbid Obese, no apparent distress Head: normocephalic, Atraumatic Eyes: normal inspection, EOMI Neck: supple, Trachea midline Respiratory/Chest: Decrease breath sounds, CTA, No accessory muscle use Cardiovascular: S1, S2, No murmur Abdomen/GI:Soft, Non tender, Bowel sounds present Extremities/Musculoskeletal:normal inspection, 1-2+ LE edema Neurologic/Psych:AAO, grossly no focal neurological deficits Skin: normal color, warm Results & Data Results & Data ([facility]) Vital Signs (Past 12 Hours) Vital Signs Temp Pulse Pulse Pulse Resp BP Pulse Ox 12/17/21 11:58 36.8 C 68 18 98/44 L 98 12/17/21 08:00 70 12/17/21 06:49 37.1 C 73 19 148/53 H 96 12/17/21 02:47 36.7 C 86 20 152/85 H 94 Laboratory Results Short CBC 12/17/21 Range/Units 05:45 WBC 12.68 H (4.8-10.8) K/uL Hgb 8.4 L (12.0-16.0) g/dL Hct 26.8 L (37-47) % Plt Count 285 (130-400) K/uL BMP 12/17/21 05:45 Sodium 131 L Potassium 6.1 H* Chloride 93 L Carbon Dioxide 26 BUN 86 H Creatinine 6.36 H* D Glucose 162 H Calcium 10.1 Liver Function 12/17/21 Range/Units 05:45 Albumin 3.3 L (3.4-5.0) gm/dl
[2021-12-17] MEDS ORDERED: INSULIN HUMAN REGULAR PER UNIT 10 UNITS in SYRINGE 9.9 ML IV STA (12:35)
[2021-12-17] MEDS ORDERED: DEXTROSE 50% 50 ML SYRINGE IV STA (12:35)
--- NOTE | 2021-12-17 12:43 | Discharge Summary ---
Date of Service December 17, 2021 Admission HPI Per Admitting Provider CHIEF COMPLAINT: Fall and right hip wound. HISTORY OF PRESENT ILLNESS: A 66-year-old female with past medical history significant for type 2 diabetes, diabetic polyneuropathy, history of benign neoplasm of parathyroid gland, hyperlipidemia, postsurgical hypothyroidism, asthma, hypertension, history of atrial fibrillation, morbid obesity, GERD, end- stage renal disease on hemodialysis, chronic bilateral lower back pain, anemia of chronic kidney disease, history of tobacco use, history of infiltrating ductal carcinoma of breast, generalized anxiety disorder, depression. The patient lives in a mobile home. States in the morning she fell from the bed between her dresser, that is the reason she came here. She also has right hip wound says following with a wound care in [place]. She was found to be COVID positive. The patient says she is vaccinated and also had booster. Denies any headache. No blurred visions, no earache, no runny nose, no sore throat, no cough, no chest pain. Was feeling a little short of breath in the ER. When she laid flat she was saturating 89%, so on 2 liters she is saturating at 98%. No nausea, no abdominal pain. Somewhat constipated. Does not make any urine. Has lower extremity edema. Admission Exam Per Admitting Provider PHYSICAL EXAMINATION: GENERAL: The patient is morbidly obese, not in acute distress. VITAL SIGNS: Temperature 36.5, pulse 97, respiratory rate 20, blood pressure 115/67, oxygen 92% on 2 liters. HEENT: Pupils equal, round and reactive to light. Oral mucosa dry. NECK: No JVD, no neck masses. CARDIOVASCULAR: S1 and S2 heard. Regular rate and rhythm. No murmur, no gallop. RESPIRATORY SYSTEM: Normal AP diameter. No accessory muscle use. No wheezing, no crackles. ABDOMEN: Soft. Bowel sounds are present, nontender, no distention. CENTRAL NERVOUS SYSTEM: Alert and oriented. Speech is clear. No facial droop. Moves extremities. EXTREMITIES: Bilateral lower extremity gross edema present. Right hip wound seen with some blackish eschar. No drainage seen. Principal Diagnosis Acute respiratory failure with hypoxia COVID-19 Pneumonia Infected chronic right hip ulcer: Possible Calciphylaxis AV fistula malfunction End-stage renal disease on dialysis Hyponatremia Hyperkalemia Supratherapeutic INR Discharge Data Allergies Allergy/AdvReac Type Severity Reaction Status Date / Time codeine Allergy Intermediate rash/hives Verified 12/10/21 02:38 (see comments) Penicillins Allergy Intermediate rash/hives, Verified 12/10/21 02:38 family allergy to PCN oxycodone AdvReac Intermediate N/V Verified 12/10/21 02:38 ROHAN Inhibitors AdvReac Mild hyperkalemi Verified 12/10/21 02:38 a Consultations 12/10/21 03:33 ED Decision to Admit Stat 12/10/21 10:42 Consult Cardiology Routine Consult Nephrology Routine 12/11/21 15:40 Consult General Surgery Routine 12/12/21 08:18 Consult Infectious Diseases Routine Ordered Studies 12/10/21 02:28 CT cervical spine wo con Urgent CT head/brain wo con Urgent 12/10/21 07:59 CT chest diagnostic wo con Routine Hospital Course (1) Acute respiratory failure with hypoxia: (2) COVID-19: Patient is a 66 yr female presents with fall and also had a right hip wound and was found to have COVID. Acute respiratory failure with hypoxia: COVID-19 Pneumonia --CT Chest: Round groundglass airspace opacities within the left lower lobe likely representing a pneumonia. This could be due to a viral process. Near- complete collapse of the left upper lobe with severe narrowing of the left upper lobe bronchi. This could be due to chronic scarring from the granulomatous disease. Follow-up bronchoscopy should be considered to exclude the less likely possibility of a central obstructing mass.Approximately 50% narrowing within the proximal trachea which appears to be due to posterior mass effect from the esophagus. --Vaccinated and Boosted -- No remdesivir given end-stage renal disease on dialysis -- Continue dexamethasone --Volume status being managed through dialysis --Continue supplemental oxygen as needed Pulmonary Hygiene Was on Coumadin--held due to supratherapeutic INR Monitor INR and resume Coumadin as able INR 3.6 today No bleeding issues Currently on 2 L supplemental oxygen Infected chronic right hip ulcer: Possible Calciphylaxis Follows with wound care at [place]. Wound culture right thigh: Proteus, E. coli-both sensitive to ceftriaxone Blood cultures: Coag negative staph not lugdunensis -- Was on meropenem for 3 days>> ceftriaxone for 3 days Appreciate ID input Discontinue antibiotics for now Consider wound biopsy as per ID General surgery consulted Continue wound care Pain control Minimize narcotic use as able Patient may benefit from wound debridement but currently given her comorbidities, no plan for debridement Continue wound care Chronic left hip wound Eschar noted No signs of infection ESRD On hemodialysis Appreciate Nephrology Input for dialysis. AV fistula Malfunction Patient has hyperkalemia despite having 4 hours of dialysis yesterday Patient likely has a recirculation due to AV fistula malfunction Will need vascular surgery/IR to evaluate AV fistula Patient is accepted to [facility] for further management. Patient accepts current care. Hyponatremia Hyperkalemia In setting of volume overload Noncompliance with dialysis secondary to pain Monitor electrolytes closely Continue dialysis Given calcium gluconate, sodium bicarbonate, Lasix and Patiromer today to help with hyperkalemia Troponin elevation Troponin increased from 300s to 2000s Secondary to demand ischemia, ESRD EKG no signs of acute ischemia Patient has no cardiac symptoms Prior hospitalist discussed with Dr. 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 This could be due to chronic scarring from the granulomatous disease. Follow-up bronchoscopy should be considered to exclude the less likely possibility of a central obstructing mass. --Discussed with Pulmonology: Likely chronic fibrosis, no further intervention recommended -- Recommend to follow-up with pulmonology as outpatient DM II A1c 8.7 Continue Insulin consult pharmacy glycemic control Anemia of chronic kidney disease: Monitor CBC H/O Atrial fibrillation: Continue metoprolol Resume Coumadin once INR is therapeutic Hypothyroidism: On Levothyroxine Hyperlipidemia: On Statin. Hypertension: On Amlodipine and metoprolol Depression: On sertraline. GERD on PPI Asthma: Albuterol p.r.n No exacerbation H/O left breast cancer, ER/[place] positive, stage IA, HER-2 negative. S/P left breast mastectomy in 2012. Morbid obesity BMI 48 DVT Px: Supratherapeutic INR Resume Coumadin as able Code Status full code. Disposition [facility] Total Time Total Time Spent Total Time Spent (In Minutes): 45 minutes Discharge Plan Discharge Items Patient Disposition: Transfer Acute Care Hospital Reason For Visit: FALL Discharge Diagnosis: Acute respiratory failure with hypoxia COVID-19 Pneumonia Infected chronic right hip ulcer: Possible Calciphylaxis AV fistula malfunction End-stage renal disease on dialysis Hyponatremia Hyperkalemia Supratherapeutic INR Condition on Discharge: Fair Activity: Per Instructions section Exercise/Sports: Gradually increase as tolerated Non-emergency contact: Primary Care Provider and Nuclear Medicine Tech Call non-emergency contact if: you have any medication questions, your symptoms worsen and your pain is concerning for you Follow-up/Referrals: Jorge Franco, [Primary Care Provider] - Diet: Carb Consistent or DM2, Dialysis Renal and Low Potassium (2gm) Diet Texture: Easy to Chew Addtl Attending Provider Instructions: Follow-up with your physician / at [facility] for further management Seek immediate medical attention if your symptoms reoccur or worsen Please take all medications as instructed on discharge list below. Please call if you have any questions or problems. You can reach a [facility] hospitalist on duty at [facility] 24 hours a day by calling [phone] Date of Service: December 17, 2021 Current Inpatient Medications Acetaminophen (Acetaminophen 325 Mg Tab) 650 mg PO Q6H [facility] Stop: 01/13/22 18:29 Last Admin: 12/17/21 08:53 Dose: 650 mg Documented by: Albuterol (Albuterol Hfa 8 Gm Inhaler) 2 puffs INH Q4R PRN PRN Reason: Wheezing Stop: 01/09/22 10:41 Amlodipine Besylate (Amlodipine Besylate 5 Mg Tab) 5 mg PO DAILY [facility] Stop: 01/09/22 11:29 Last Admin: 12/17/21 08:56 Dose: 5 mg Documented by: Ascorbic Acid (Ascorbic Acid 500 Mg Tab) 500 mg PO MoWeFr@[id number] [facility] Stop: 01/09/22 11:29 Last Admin: 12/17/21 11:13 Dose: 500 mg Documented by: Aspirin (Aspirin 81 Mg Ectab) 81 mg PO HS [facility] Stop: 01/09/22 20:59 Last Admin: 12/16/21 21:26 Dose: 81 mg Documented by: Atorvastatin Calcium (Atorvastatin 40 Mg Tab) 80 mg PO QAM [facility] Stop: 01/09/22 11:29 Last Admin: 12/17/21 08:55 Dose: 80 mg Documented by: Calcium Acetate (Calcium Acetate 667 Mg Cap/Tab) 667 mg PO TIDM [facility] Stop: 01/09/22 11:59 Last Admin: 12/17/21 11:13 Dose: 667 mg Documented by: Calcium Acetate (Calcium Acetate 667 Mg Cap/Tab) 667 mg PO PRN PRN PRN Reason: snacks Stop: 01/09/22 11:26 Collagenase (Collagenase Oint 30 Gm Tube) 1 appln TOP DAILY JARRELL Stop: 01/09/22 11:29 Last Admin: 12/17/21 08:58 Dose: 1 appln Documented by: Cyclobenzaprine HCl (Cyclobenzaprine Hcl 5 Mg Tab) 5 mg PO HS PRN PRN Reason: Muscle Spasm Stop: 01/09/22 10:41 Last Admin: 12/16/21 21:26 Dose: 5 mg Documented by: Diclofenac Sodium (Diclofenac Sod 1% Gel 100 Gm Tube) 1 gm EXT TID PRN PRN Reason: Pain Stop: 01/09/22 10:41 Last Admin: 12/17/21 08:57 Dose: 1 gm Documented by: Gabapentin (Gabapentin 300 Mg Cap) 300 mg PO BID [facility] Stop: 01/09/22 11:29 Last Admin: 12/17/21 08:53 Dose: 300 mg Documented by: Dexamethasone 6 mg/ Syringe 1.5 mls @ 1 mls/min IV Q24H JARRELL Stop: 01/09/22 15:59 Last Admin: 12/16/21 16:30 Dose: 1 mls/min Documented by: Insulin Aspart (Insulin Aspart Per Unit) 0 units SC ACHS JARRELL Stop: 01/09/22 11:29 Last Admin: 12/17/21 12:10 Dose: Not Given Documented by: Insulin Glargine (Insulin Glargine Solostar 100 Units/Ml 3 Ml Pen) 30 units SC BID [facility] Stop: 01/15/22 08:59 Last Admin: 12/17/21 08:46 Dose: 30 units Documented by: Levothyroxine Sodium (Levothyroxine Sodium 75 Mcg Tablet) 75 mcg PO DAILYBB [facility] Stop: 01/10/22 06:29 Last Admin: 12/17/21 05:20 Dose: 75 mcg Documented by: Metoprolol Tartrate (Metoprolol Tartrate 25 Mg Tab) 25 mg PO BID [facility] Stop: 01/09/22 11:29 Last Admin: 12/17/21 08:54 Dose: 25 mg Documented by: Miscellaneous (Ferric Citrate (Auryxia)-Order Awaiting Action) 1 ea N/A QS JARRELL Stop: 01/09/22 11:29 Last Admin: 12/17/21 08:17 Dose: Not Given Documented by: Miscellaneous Information (Pharmacy Glycemic Mgmt Consult) 1 ea N/A UD PRN PRN Reason: Consult Stop: 01/09/22 15:15 Nitroglycerin (Nitroglycerin Sl 0.4 Mg/Tab Tab) 0.4 mg SL UD PRN PRN Reason: Chest Pain Stop: 01/09/22 10:41 Pantoprazole Sodium (Pantoprazole 40 Mg Tab) 40 mg PO DAILYBB [facility] Stop: 01/10/22 06:29 Last Admin: 12/17/21 05:20 Dose: 40 mg Documented by: Polyethylene Glycol (Polyethylene (Miralax) 17 Gm Pack) 17 gm PO DAILY PRN PRN Reason: Constipation Stop: 01/09/22 10:41 Polyethylene Glycol (Polyethylene (Miralax) 17 Gm Pack) 17 gm PO DAILY [facility] Stop: 01/13/22 16:59 Last Admin: 12/17/21 08:54 Dose: 17 gm Documented by: Sertraline HCl (Sertraline Hcl 50 Mg Tablet) 50 mg PO DAILY [facility] Stop: 01/09/22 11:29 Last Admin: 12/17/21 08:55 Dose: 50 mg Documented by: Tramadol HCl (Tramadol Hcl 50 Mg Tablet) 50 mg PO BID PRN PRN Reason: Pain, Severe Stop: 01/09/22 10:41 Last Admin: 12/17/21 08:53 Dose: 50 mg Documented by: Vitamin D (Cholecalciferol 5,000 Units 125 Mcg Tab) 5,000 units PO DAILY [facility] Stop: 01/09/22 11:29 Last Admin: 12/17/21 08:54 Dose: 5,000 units Documented by: Pending Studies at Discharge: No Stand-Alone Forms: My [facility] Skilled Items Patient informed of condition?: Yes DNR: No Discharge Level of Care: Other Communicable Disease: Yes Discharge Prognosis: Stable Lines: Peripheral IV Urinary Catheter: No Medications and DC Order Prescriptions: Continued aspirin 81 mg Tablet,Delayed Release (Dr/Ec) 81 mg PO HS RF: 0 gabapentin 300 mg capsule 300 mg PO BID RF: 0 atorvastatin 80 mg Tablet 80 mg PO QAM RF: 0 metoprolol tartrate [Lopressor] 50 mg tablet 25 mg PO BID RF: 0 doxycycline hyclate 100 mg capsule 100 mg PO QAM RF: 0 tramadol 50 mg tablet 50 mg PO BID PRN (Reason: Pain, Severe) RF: 0 Santyl 250 unit/gram ointment 1 applic TOPICAL DAILY RF: 0 diclofenac sodium 1 % gel 1 ea TOPICAL TID PRN (Reason: Pain) RF: 0 amlodipine 5 mg tablet 5 mg PO DAILY RF: 0 albuterol sulfate 90 mcg/actuation HFA aerosol inhaler 2 puff INHALATION Q4 PRN (Reason: Wheezing) RF: 0 sertraline 50 mg tablet 50 mg PO DAILY RF: 0 cyclobenzaprine 5 mg tablet 5 mg PO HS PRN (Reason: Muscle Spasm) RF: 0 levothyroxine 75 mcg tablet 75 mcg PO DAILYBB RF: 0 cholecalciferol (vitamin D3) [Vitamin D3] 125 mcg (5,000 unit) Tablet 250 mcg PO DAILY RF: 0 Lantus U-100 Insulin 100 unit/mL solution 30 unit SUBCUT AMHS RF: 0 ascorbic acid (vitamin C) [Vitamin C] 500 mg Tablet 500 mg PO 3XWK RF: 0 insulin aspart U-100 [Novolog Flexpen U-100 Insulin] 100 unit/mL (3 mL) Insulin Pen 10 unit SUBCUT TID RF: 0 calcium acetate(phosphat bind) 667 mg capsule 667 mg PO UD RF: 0 Auryxia 210 mg iron Tablet 210 mg PO UD RF: 0 omeprazole 40 mg capsule,delayed release(DR/EC) 40 mg PO DAILYBB RF: 0 warfarin 5 mg tablet 5 mg PO UD RF: 0 Discharge Orders: Discharge Order (Routine); Ordered 12/17/21 Ordered By: Saeed Ochoa/Other Patient Handouts: Managing Type 2 Diabetes Admission Data Admit Date/Time: 12/10/21 04:25 Attending Provider: Saeed Soni Admit Provider: Naveen Dickens Primary Care Provider: Jorge Franco Other Providers: Naveen Dickens ; Rivas Beckham ; Jan Reed ; Eagle Gardiner ; Jamal Bailey ; Ilya Tidwell ; Stefan Oates ; Pamela Chow ; Sally Meza ; Flori Funez ; Saw Wells ; Lolis Faye ; Bianka Correa ; Darrell Pozo ; Teri Durham ; Dell Waters I. ; Nacho Ballard II ; Vicki Blakely ; Stefan Oswald ; Minh Salas. ; [employer] ; [place]
[2021-12-17] MEDS: dexAMETHasone 6 MG in SYRINGE 0 ML IV SCH (15:00)
[2021-12-17] MEDS ORDERED: INSULIN GLARGINE SOLOSTAR 100 UNITS/ML 3 ML PEN SC SCH (21:00)
[2021-12-17] MEDS: ASPIRIN 81 MG ECTAB PO SCH (21:44)
[2021-12-17] MEDS ORDERED: HYDROmorphone INJ 0.5 MG/0.5 ML SYR IV STA (22:43)
[2021-12-18] MEDS: ACETAMINOPHEN 325 MG TAB PO SCH ×2 (03:24→07:56)
[2021-12-18] MEDS: LEVOTHYROXINE SODIUM 75 MCG TABLET PO SCH (06:20)
[2021-12-18] MEDS: PANTOprazole 40 MG TAB PO SCH (06:21)
[2021-12-18 06:49] LABS: INR 3.3 (0.9-1.1); Prothrombin Time 32.5 Seconds (9.0-12.0)
[2021-12-18 07:06] LABS: Albumin Level 3.3 gm/dl (3.4-5.0); BUN Creatinine Ratio 14.9 (10-20); Calcium 9.8 mg/dl (8.5-10.1); Creatinine Clr Calc Pharmacy 9.7 ml/min; Est GFR (African American) 5.9 ml/min; Est GFR (Non-African American) 5.1 ml/min; Phosphorus 8.7 mg/dl (2.5-4.9); Potassium 6.9 mmol/L (3.5-5.1)
[2021-12-18] MEDS: traMADol HCL 50 MG TABLET PO PRN (07:56)
[2021-12-18] MEDS ORDERED: STAT IV STA (08:16)
--- NOTE | 2021-12-18 08:19 | Hospitalist Progress Note ---
Date of Service December 18, 2021 Assessment & Plan (1) Acute respiratory failure with hypoxia: (2) COVID-19: Plan: Patient is a 66 yr female presents with fall and also had a right hip wound and was found to have COVID. Acute respiratory failure with hypoxia: COVID-19 Pneumonia --CT Chest: Round groundglass airspace opacities within the left lower lobe likely representing a pneumonia. This could be due to a viral process. Near-co mplete collapse of the left upper lobe with severe narrowing of the left upper lobe bronchi. This could be due to chronic scarring from the granulomatous disease. Follow-up bronchoscopy should be considered to exclude the less likely possibility of a central obstructing mass.Approximately 50% narrowing within the proximal trachea which appears to be due to posterior mass effect from the esophagus. 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 Wound culture right thigh: Proteus, E. coli-both sensitive to ceftriaxone Blood cultures: Coag negative staph not lugdunensis -- Was on meropenem for 3 days>> ceftriaxone for 3 days Appreciate ID input Discontinue antibiotics for now Consider wound biopsy as per ID General surgery consulted Continue wound care Pain control Minimize narcotic use as able Patient may benefit from wound debridement but currently given her comorbidities, no plan for debridement Continue wound care Chronic left hip wound Eschar noted No signs of infection ESRD On hemodialysis Appreciate Nephrology Input for dialysis. AV fistula Malfunction Patient has hyperkalemia despite having 4 hours of dialysis yesterday Patient likely has a recirculation due to AV fistula malfunction Will need vascular surgery/IR to evaluate AV fistula Patient is accepted to [facility] for further management. Patient accepts current care. Hyponatremia Hyperkalemia In setting of volume overload Noncompliance with dialysis secondary to pain Monitor electrolytes closely Continue dialysis calcium gluconate, sodium bicarbonate, Patiromer reordered today K:6.9 today Troponin elevation Troponin increased from 300s to 2000s Secondary to demand ischemia, ESRD EKG no signs of acute ischemia Patient has no cardiac symptoms Prior hospitalist discussed with Dr. 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 This could be due to chronic scarring from the granulomatous disease. Follow-up bronchoscopy should be considered to exclude the less likely possibility of a central obstructing mass. --Discussed with Pulmonology: Likely chronic fibrosis, no further intervention recommended -- Recommend to follow-up with pulmonology as outpatient DM II A1c 8.7 Continue Insulin consult pharmacy glycemic control Anemia of chronic kidney disease: Monitor CBC Hb 8.4 H/O Atrial fibrillation: Continue metoprolol Resume Coumadin once INR is therapeutic Hypothyroidism: On Levothyroxine Hyperlipidemia: On Statin. Hypertension: On Amlodipine and metoprolol Depression: On sertraline. GERD on PPI Asthma: Albuterol p.r.n No exacerbation H/O left breast cancer, ER/MO positive, stage IA, HER-2 negative. S/P left breast mastectomy in 2012. Morbid obesity BMI 48 DVT Px: Supratherapeutic INR Resume Coumadin as able Code Status full code. Disposition [facility] today Admission and Anticipated Discharge Date Admission Date: December 10, 2021 Subjective Patient is seen and examined at bedside Complains of buttock pain from the wounds Denies any chest pain, dyspnea, dizziness, abd pain Planned to be transferred to [facility] today No other complaints Review of Systems Review of Systems: All systems reviewed & are unremarkable except as noted in Subjective Physical Exam Physical Exam: Physical Exam: Vitals signs as noted above General Appearance:Morbid Obese, no apparent distress Head: normocephalic, Atraumatic Eyes: normal inspection, EOMI Neck: supple, Trachea midline Respiratory/Chest: Decrease breath sounds, CTA, No accessory muscle use Cardiovascular: S1, S2, No murmur Abdomen/GI:Soft, Non tender, Bowel sounds present Extremities/Musculoskeletal:normal inspection, 1-2+ LE edema Neurologic/Psych:AAO, grossly no focal neurological deficits Skin: normal color, warm Results & Data Results & Data ([facility]) Vital Signs (Past 12 Hours) Vital Signs Temp Pulse Pulse Pulse Resp BP Pulse Ox 12/18/21 03:45 37.1 C 76 20 161/54 H 94 12/18/21 02:00 12/17/21 23:59 80 12/17/21 20:17 36.9 C 80 20 160/53 H 98 Pulse Ox 12/18/21 03:45 12/18/21 02:00 94 12/17/21 23:59 12/17/21 20:[address] [facility] 12/18/21 05:33 Sodium 130 L Potassium 6.9 H* Chloride 91 L Carbon Dioxide 24 BUN 114 H D Creatinine 7.63 H* D Glucose 126 H Calcium 9.8 Liver Function 12/18/21 Range/Units 05:33 Albumin 3.3 L (3.4-5.0) gm/dl
[2021-12-18] MEDS ORDERED: CALCIUM GLUCONATE 10% 1,000 MG in DEXTROSE 5% 50 ML IV ONE (08:30)
[2021-12-18] MEDS ORDERED: PATIROMER CALCIUM SORBITEX 8.4 GM PACK PO ONE (08:30)
[2021-12-18] MEDS ORDERED: SODIUM BICARBONATE 8.4% 150 MEQ in DEXTROSE 5% 1,000 ML IV ONE (08:30)
== END 2021-12-18 08:28 | disposition short-term general hospital (02) | DRG 177 ==
LOC: ED 02:15 → EDINP 04:25 → SUATTDRO 04:25 → 2S 08:44